=== PATIENT | female | born 1965 | race Caucasian/White ===

== ENCOUNTER 2018-04-02 10:30 | Outpatient (RCR) | payer OTHER, MEDICAID, SELFPAY ==
--- NOTE | 2017-11-07 06:15 | PT.OIE ---
Current Diagnoses Other enthesopathies, not elsewhere classified (11/06/17) Provider Visit Care Team Role Provider Type DAYLIN Khanna Attending Provider Non-Staff Specialty: Family Practice Address: [address] [place] [address], [place], [address] Email: Physical Therapy Initial Evaluation PT-OP-A Visit Information Start: 11/07/17 05:52 Freq: Status: Active Protocol: Document 11/06/17 15:15 [facility] (Rec: 11/07/17 06:14 [facility] [email or web address]) Out-Patient Physical Therapy Visit Information Visit Information Visit Type Initial Evaluation Visit Start Time 15:15 Visit Stop Time 16:00 Total Visit Minutes 45 Visit Number 1 Evaluation Information Evaluation Date 11/06/17 PT-OP-B Current Condition Start: 11/07/17 05:52 Freq: Status: Active Protocol: Document 11/06/17 15:15 [facility] (Rec: 11/07/17 06:14 [facility] [email or web address]) Current Condition History of Current Condition Onset Date symptoms began several months ago and have progressed Current Complaints complaints of lateral elbow pain made worse with gripping activities History of Current Condition 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 Her symptoms were made worse with boating and kayaking and with gripping activities. She recently saw her doctor who instructed her in the correct placement of a elbow tendonitis strap and advised to wear a compression wrap on her arm. She reports this seems to be really working as in just the past few days she has gotten some relief. Treatment Goals Patient/Caregiver Goals Nisreen has a kayak trip scheduled for december and her goal is to reduce her pain allowing her to go on her trip Prior Functional Status Baseline Function- Recreation/Hobbies prior to this elbow injury she was able to perform all work related duties pain free PT-OP-C Subjective Start: 11/07/17 05:52 Freq: Status: Active Protocol: Document 11/06/17 15:15 [facility] (Rec: 11/07/17 06:14 [facility] [email or web address]) OP-PT Pain Assessment Pain Assessment Grid Paper Pain Assessment Grid Completed Yes: pain rated 6-9/10 Location Left Elbow Scale Used Numeric (1 - 10) Description Aching Tender Tightness With Movement Pain Duration pain increases with use PT-OP-F Manual Assessment Start: 11/07/17 05:52 Freq: Status: Active Protocol: Document 11/06/17 15:15 [facility] (Rec: 11/07/17 06:14 [facility] [email or web address]) Manual Assessments Soft Tissue Assessment Soft Tissue Mobility Assessment myofascial tightness of the wrist complex extensor musculature on the left forearm, tightness of the left upper trapezius, scalenes, and pectoralis Other Manual Assessments Other Manual Assessments + ULTT for median and radial nerve symptoms middle scalene stretch reproduces some symptoms in the left forearm PT-OP-J Posture/Palpation/Skin Start: 11/07/17 05:52 Freq: Status: Active Protocol: Document 11/06/17 15:15 [facility] (Rec: 11/07/17 06:14 [facility] [email or web address]) Palpation Assessment Location One Palpation Location left lateral epicondyle and soft tissue Palpation Findings Soft Tissue Tightness Muscle Guarding Tenderness PT-OP-M Strength Start: 11/07/17 06:14 Freq: Status: Active Protocol: Document 11/06/17 15:15 [facility] (Rec: 11/07/17 06:15 [facility] [email or web address]) Elbow/Forearm Strength Elbow and Forearm Manual Muscle Testing Left Extension (C7) 3+ Fair+ Supination 3+ Fair+ Comments pain with resistance PT-OP-Q Treatments Start: 11/07/17 05:52 Freq: Status: Active Protocol: Document 11/06/17 15:15 [facility] (Rec: 11/07/17 06:14 [facility] [email or web address]) Therapeutic Exercises Sitting Exercises 1 Sitting Exercise Name seated scalene stetch Side bilateral Standing Exercises 1 Standing Exercise Name standing pectoralis stretch Side bilateral Manual Therapy Treatment Soft Tissue Mobilization 2 Body Location left scalenes and upper trapezius Mobilization Type Myofascial Release Other Intensity/Depth Moderate Body Position Supine Comments manual stretch for the scalenes and pec musculature 1 Body Location STM, TFM to the left wrist extensor muscle complex Mobilization Type Cross-Friction Myofascial Release Intensity/Depth Moderate Body Position Supine PT-OP-R Modalities Start: 11/07/17 05:52 Freq: Status: Active Protocol: Document 11/06/17 15:15 [facility] (Rec: 11/07/17 06:14 [facility] [email or web address]) Hot Pack/Cold Pack Treatment Ice Massage Location left lateral common extensor tendon attachment at the lateral epicondyle Patient Position Supine Patient Tolerance Fair PT-OP-T Assessment and Plan Start: 11/07/17 05:52 Freq: Status: Active Protocol: Document 11/06/17 15:15 [facility] (Rec: 11/07/17 06:14 [facility] [email or web address]) Physical Therapy Assessment Rehab Potential Rehabilitation Potential Excellent Evaluation Complexity Number of Personal Factors/Comorbidities 0 Number of Body Systems Impaired 1-2 Clinical Presentation at Evaluation Stable Impairments Impairments Activity Tolerance Pain Soft Tissue Mobility Strength Goals Three Impairment + ULTT for median and radial nerve Attraction Attendant Goal (LTG) decrease nerve sensitivity with nerve glides and stretches for the neck and pectoralis to help with reducing symptoms to the elbow LTG Duration 8 weeks Two Impairment soft tissue tightness of the extensor tendon attachment Short Term Goal (STG) improve mobility of the extensor tendon attachments to decrease strain on the lateral epicondyle 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 She does note that with the elbow wrap she is using that she has had some reduction in pain. 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 Her chief complaint is with gripping activities. Her soft tissue in the neck and pectoralis are also tight and I was able to reproduce symptoms in her forearm with cervical spine stretching and with ULTT. She is a good candidate for PT with emphasis on neck, chest, and forearm stretches as well as manual therapy techniques to help reduce tendonitis symptoms. Physical Therapy Plan Frequency and Duration Frequency of Treatment 2x/Week Duration of Treatment 8 weeks Plan of Care Start Date 11/06/17 Plan of Care End Date 01/01/18 Therapeutic Interventions Therapeutic Interventions Home Exercise Program Manual Therapy Self-Care/Home Management Soft Tissue Mobilization Therapeutic Exercises Modalities Cold Pack/Ice Massage Iontophoresis
--- NOTE | 2017-11-11 17:01 | PT.OTN ---
Current Diagnoses Other enthesopathies, not elsewhere classified (11/11/17) Physical Therapy Treatment Note PT-OP-A Visit Information Start: 11/07/17 05:52 Freq: Status: Active Protocol: Document 11/11/17 16:52 [facility] (Rec: 11/11/17 17:01 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 Her symptoms were made worse with boating and kayaking and with gripping activities. She recently saw her doctor who instructed her in the correct placement of a elbow tendonitis strap and advised to wear a compression wrap on her arm. She reports this seems to be really working as in just the past few days she has gotten some relief. Treatment Goals Patient/Caregiver Goals Nisreen has a kayak trip scheduled for december and her goal is to reduce her pain allowing her to go on her trip Prior Functional Status Baseline Function- Recreation/Hobbies prior to this elbow injury she was able to perform all work related duties pain free PT-OP-C Subjective Start: 11/07/17 05:52 Freq: Status: Active Protocol: Document 11/11/17 16:52 [facility] (Rec: 11/11/17 17:01 [facility] [email or web address]) OP-PT Subjective Patient Comments Patient Comments Pt reports she is more sore since last session, which she thinks is d/t her not being able to rest & her job. PT-OP-F Manual Assessment Start: 11/07/17 05:52 Freq: Status: Active Protocol: Document 11/06/17 15:15 [facility] (Rec: 11/07/17 06:14 [facility] [email or web address]) Manual Assessments Soft Tissue Assessment Soft Tissue Mobility Assessment myofascial tightness of the wrist complex extensor musculature on the left forearm, tightness of the left upper trapezius, scalenes, and pectoralis Other Manual Assessments Other Manual Assessments + ULTT for median and radial nerve symptoms middle scalene stretch reproduces some symptoms in the left forearm PT-OP-J Posture/Palpation/Skin Start: 11/07/17 05:52 Freq: Status: Active Protocol: Document 11/06/17 15:15 [facility] (Rec: 11/07/17 06:14 [facility] [email or web address]) Palpation Assessment Location One Palpation Location left lateral epicondyle and soft tissue Palpation Findings Soft Tissue Tightness Muscle Guarding Tenderness PT-OP-M Strength Start: 11/07/17 06:14 Freq: Status: Active Protocol: Document 11/06/17 15:15 [facility] (Rec: 11/07/17 06:15 [facility] [email or web address]) Elbow/Forearm Strength Elbow and Forearm Manual Muscle Testing Left Extension (C7) 3+ Fair+ Supination 3+ Fair+ Comments pain with resistance PT-OP-Q Treatments Start: 11/07/17 05:52 Freq: Status: Active Protocol: Document 11/11/17 16:52 [facility] (Rec: 11/11/17 17:01 [facility] [email or web address]) Therapeutic Exercises Supine Exercises 1 Supine Exercise Name foam roll: Habd, flex & abd Sitting Exercises 2 Sitting Exercise Name self 1st rib mob caudal Standing Exercises 1 Standing Exercise Name standing pectoralis stretch Side bilateral Therapeutic Activity Therapeutic Activity 2 Name edu on posture during pulling in lines 1 Name Edu on seated posture Comments proper seated posture & desk set up Manual Therapy Treatment Soft Tissue Mobilization 2 Body Location left scalenes and upper trapezius Mobilization Type Rolling Intensity/Depth Moderate Body Position Supine Joint Mobilizations 1 Joint 1st rib L Direction caudal PT-OP-R Modalities Start: 11/07/17 05:52 Freq: Status: Active Protocol: Document 11/11/17 16:52 [facility] (Rec: 11/11/17 17:01 [facility] [email or web address]) Hot Pack/Cold Pack Treatment Cold Pack Location L scalene/shoulder Patient Position Sitting Treatment Duration (minutes) 10 Ice Massage Location left lateral common extensor tendon attachment at the lateral epicondyle Patient Position Supine Patient Tolerance Fair PT-OP-T Assessment and Plan Start: 11/07/17 05:52 Freq: Status: Active Protocol: Document 11/11/17 16:52 [facility] (Rec: 11/11/17 17:01 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 Pt felt radiation to L elbow in painful spot with STM to gavin. Physical Therapy Plan Frequency and Duration Frequency of Treatment 2x/Week Duration of Treatment 8 weeks Plan of Care Start Date 11/06/17 Plan of Care End Date 01/01/18 Next Visit Focus/Plan Next Note Type Treatment Note Next Visit Plan Rows & work on scalenes STM & forearm mobility.
--- NOTE | 2017-11-18 11:32 | PT.OTN ---
Current Diagnoses Other enthesopathies, not elsewhere classified (11/18/17) Physical Therapy Treatment Note PT-OP-A Visit Information Start: 11/07/17 05:52 Freq: Status: Active Protocol: Document 11/18/17 09:00 [facility] (Rec: 11/18/17 11:32 [facility] [email or web address]) Out-Patient Physical Therapy Visit Information Visit Information Visit Type Treatment Note Visit Start Time 09:00 Visit Stop Time 09:50 Total Visit Minutes 50 Visit Number 3 Number of METAL HARDENER Visits 1 Evaluation Information Evaluation Date 11/06/17 PT-OP-B Current Condition Start: 11/07/17 05:52 Freq: Status: Active Protocol: Document 11/06/17 15:15 [facility] (Rec: 11/07/17 06:14 [facility] [email or web address]) Current Condition History of Current Condition Onset Date symptoms began several months ago and have progressed Current Complaints complaints of lateral elbow pain made worse with gripping activities History of Current Condition 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 Her symptoms were made worse with boating and kayaking and with gripping activities. She recently saw her doctor who instructed her in the correct placement of a elbow tendonitis strap and advised to wear a compression wrap on her arm. She reports this seems to be really working as in just the past few days she has gotten some relief. Treatment Goals Patient/Caregiver Goals Nisreen has a kayak trip scheduled for december and her goal is to reduce her pain allowing her to go on her trip Prior Functional Status Baseline Function- Recreation/Hobbies prior to this elbow injury she was able to perform all work related duties pain free PT-OP-C Subjective Start: 11/07/17 05:52 Freq: Status: Active Protocol: Document 11/18/17 09:00 [facility] (Rec: 11/18/17 11:32 [facility] [email or web address]) OP-PT Subjective Patient Comments Patient Comments Pt states that she had increase in work and is sore today. PT-OP-F Manual Assessment Start: 11/07/17 05:52 Freq: Status: Active Protocol: Document 11/06/17 15:15 [facility] (Rec: 11/07/17 06:14 [facility] [email or web address]) Manual Assessments Soft Tissue Assessment Soft Tissue Mobility Assessment myofascial tightness of the wrist complex extensor musculature on the left forearm, tightness of the left upper trapezius, scalenes, and pectoralis Other Manual Assessments Other Manual Assessments + ULTT for median and radial nerve symptoms middle scalene stretch reproduces some symptoms in the left forearm PT-OP-J Posture/Palpation/Skin Start: 11/07/17 05:52 Freq: Status: Active Protocol: Document 11/06/17 15:15 [facility] (Rec: 11/07/17 06:14 [facility] [email or web address]) Palpation Assessment Location One Palpation Location left lateral epicondyle and soft tissue Palpation Findings Soft Tissue Tightness Muscle Guarding Tenderness PT-OP-M Strength Start: 11/07/17 06:14 Freq: Status: Active Protocol: Document 11/06/17 15:15 [facility] (Rec: 11/07/17 06:15 [facility] [email or web address]) Elbow/Forearm Strength Elbow and Forearm Manual Muscle Testing Left Extension (C7) 3+ Fair+ Supination 3+ Fair+ Comments pain with resistance PT-OP-Q Treatments Start: 11/07/17 05:52 Freq: Status: Active Protocol: Document 11/18/17 09:00 [facility] (Rec: 11/18/17 11:32 [facility] [email or web address]) Therapeutic Exercises Supine Exercises 1 Supine Exercise Name foam roll: Habd, flex & abd Sitting Exercises 1 Sitting Exercise Name seated scalene stetch Side bilateral Standing Exercises 2 Standing Exercise Name rows Side bilateral Resistance Level 3 Equipment Used thara band Reps/Minutes 20 Manual Therapy Treatment Soft Tissue Mobilization 2 Body Location left scalenes and upper trapezius Mobilization Type Rolling Intensity/Depth Moderate Body Position Supine Joint Mobilizations 1 Joint 1st rib L Direction caudal PT-OP-R Modalities Start: 11/07/17 05:52 Freq: Status: Active Protocol: Document 11/18/17 09:00 [facility] (Rec: 11/18/17 11:32 [facility] [email or web address]) Hot Pack/Cold Pack Treatment Cold Pack Location L scalene/shoulder Patient Position Sitting Treatment Duration (minutes) 10 Ice Massage Location left lateral common extensor tendon attachment at the lateral epicondyle Patient Position Supine Patient Tolerance Fair PT-OP-T Assessment and Plan Start: 11/07/17 05:52 Freq: Status: Active Protocol: Document 11/18/17 09:00 [facility] (Rec: 11/18/17 11:32 [facility] [email or web address]) Physical Therapy Assessment Assessment Summary Assessment Pt need cues for HEP and self care after working. She improving with flexibility. Physical Therapy Plan Frequency and Duration Frequency of Treatment 2x/Week Duration of Treatment 8 weeks Plan of Care Start Date 11/06/17 Plan of Care End Date 01/01/18 Next Visit Focus/Plan Next Note Type Treatment Note Next Visit Plan Thera band strengthening & work on scalenes STM & forearm mobility.
--- NOTE | 2017-11-24 16:20 | PT.OTN ---
Current Diagnoses Other enthesopathies, not elsewhere classified (11/24/17) Physical Therapy Treatment Note PT-OP-A Visit Information Start: 11/07/17 05:52 Freq: Status: Active Protocol: Document 11/24/17 13:45 [facility] (Rec: 11/24/17 16:19 [facility] [email or web address]) Out-Patient Physical Therapy Visit Information Visit Information Visit Type Treatment Note Visit Start Time 13:45 Visit Stop Time 14:40 Total Visit Minutes 55 Visit Number 4 Number of STACK SUPERVISOR Visits 0 Evaluation Information Evaluation Date 11/06/17 PT-OP-B Current Condition Start: 11/07/17 05:52 Freq: Status: Active Protocol: Document 11/06/17 15:15 [facility] (Rec: 11/07/17 06:14 [facility] [email or web address]) Current Condition History of Current Condition Onset Date symptoms began several months ago and have progressed Current Complaints complaints of lateral elbow pain made worse with gripping activities History of Current Condition 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 Her symptoms were made worse with boating and kayaking and with gripping activities. She recently saw her doctor who instructed her in the correct placement of a elbow tendonitis strap and advised to wear a compression wrap on her arm. She reports this seems to be really working as in just the past few days she has gotten some relief. Treatment Goals Patient/Caregiver Goals Nisreen has a kayak trip scheduled for december and her goal is to reduce her pain allowing her to go on her trip Prior Functional Status Baseline Function- Recreation/Hobbies prior to this elbow injury she was able to perform all work related duties pain free PT-OP-C Subjective Start: 11/07/17 05:52 Freq: Status: Active Protocol: Document 11/24/17 13:45 [facility] (Rec: 11/24/17 16:19 [facility] [email or web address]) OP-PT Subjective Patient Comments Patient Comments Pt feels that overall she is feeling better, she has been trying to keep off her left shoulder while sleeping and between that and PT she thinks she is improving. 0/10 pain at rest, 2-3/10 pain with brief gripping activities. PT-OP-F Manual Assessment Start: 11/07/17 05:52 Freq: Status: Active Protocol: Document 11/06/17 15:15 [facility] (Rec: 11/07/17 06:14 [facility] [email or web address]) Manual Assessments Soft Tissue Assessment Soft Tissue Mobility Assessment myofascial tightness of the wrist complex extensor musculature on the left forearm, tightness of the left upper trapezius, scalenes, and pectoralis Other Manual Assessments Other Manual Assessments + ULTT for median and radial nerve symptoms middle scalene stretch reproduces some symptoms in the left forearm PT-OP-J Posture/Palpation/Skin Start: 11/07/17 05:52 Freq: Status: Active Protocol: Document 11/06/17 15:15 [facility] (Rec: 11/07/17 06:14 [facility] [email or web address]) Palpation Assessment Location One Palpation Location left lateral epicondyle and soft tissue Palpation Findings Soft Tissue Tightness Muscle Guarding Tenderness PT-OP-M Strength Start: 11/07/17 06:14 Freq: Status: Active Protocol: Document 11/06/17 15:15 [facility] (Rec: 11/07/17 06:15 [facility] [email or web address]) Elbow/Forearm Strength Elbow and Forearm Manual Muscle Testing Left Extension (C7) 3+ Fair+ Supination 3+ Fair+ Comments pain with resistance PT-OP-Q Treatments Start: 11/07/17 05:52 Freq: Status: Active Protocol: Document 11/24/17 13:45 [facility] (Rec: 11/24/17 16:19 [facility]B [email or web address]) Therapeutic Exercises Sitting Exercises 1 Sitting Exercise Name seated scalene stetch Side bilateral Standing Exercises 1 Standing Exercise Name standing pectoralis stretch Side bilateral Therapeutic Activity Therapeutic Activity 2 Name Sleeping posture education Reps/Minutes 5 Comments pillow props Manual Therapy Treatment Soft Tissue Mobilization 2 Body Location left scalenes and upper trapezius Mobilization Type Rolling Intensity/Depth Moderate Body Position Supine Joint Mobilizations 1 Joint 1st rib L Direction caudal Comments pt reports increased pressure PT-OP-R Modalities Start: 11/07/17 05:52 Freq: Status: Active Protocol: Document 11/24/17 13:45 [facility] (Rec: 11/24/17 16:19 [facility]B [email or web address]) Hot Pack/Cold Pack Treatment Cold Pack Location L scalene/shoulder Patient Position Supine Treatment Duration (minutes) 10 Ice Massage Location left lateral common extensor tendon attachment at the lateral epicondyle Patient Position Supine Patient Tolerance Fair PT-OP-T Assessment and Plan Start: 11/07/17 05:52 Freq: Status: Active Protocol: Document 11/24/17 13:45 [facility] (Rec: 11/24/17 16:19 [facility]B [email or web address]) Physical Therapy Assessment Goals Three Impairment + ULTT for median and radial nerve Banker Mason Goal (LTG) decrease nerve sensitivity with nerve glides and stretches for the neck and pectoralis to help with reducing symptoms to the elbow LTG Duration 8 weeks Two Impairment soft tissue tightness of the extensor tendon attachment Short Term Goal (STG) improve mobility of the extensor tendon attachments to decrease strain on the lateral epicondyle 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 No significant pain with gentle forearm exercises. But manual therapy to gavin continues to reproduce pain. Continue to reinforce posture. Physical Therapy Plan Frequency and Duration Frequency of Treatment 2x/Week Duration of Treatment 8 weeks Plan of Care Start Date 11/06/17 Plan of Care End Date 01/01/18 Next Visit Focus/Plan Next Note Type Treatment Note Next Visit Plan Review 1st rib mob for HEP, progress theraband strengthening as tolerated
--- NOTE | 2017-12-05 15:23 | PT.OTN ---
Current Diagnoses Other enthesopathies, not elsewhere classified (12/05/17) Physical Therapy Treatment Note PT-OP-A Visit Information Start: 11/07/17 05:52 Freq: Status: Active Protocol: Document 12/05/17 14:50 [facility] (Rec: 12/05/17 15:22 [facility] [email or web address]) Out-Patient Physical Therapy Visit Information Visit Information Visit Type Treatment Note Visit Start Time 09:45 Visit Stop Time 10:40 Total Visit Minutes 55 Visit Number 5 Number of EXPORT TRAFFIC DEPARTMENT MANAGER Visits 0 PT-OP-B Current Condition Start: 11/07/17 05:52 Freq: Status: Active Protocol: Document 11/06/17 15:15 [facility] (Rec: 11/07/17 06:14 [facility] [email or web address]) Current Condition History of Current Condition Onset Date symptoms began several months ago and have progressed Current Complaints complaints of lateral elbow pain made worse with gripping activities History of Current Condition 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 Her symptoms were made worse with boating and kayaking and with gripping activities. She recently saw her doctor who instructed her in the correct placement of a elbow tendonitis strap and advised to wear a compression wrap on her arm. She reports this seems to be really working as in just the past few days she has gotten some relief. Treatment Goals Patient/Caregiver Goals Nisreen has a kayak trip scheduled for december and her goal is to reduce her pain allowing her to go on her trip Prior Functional Status Baseline Function- Recreation/Hobbies prior to this elbow injury she was able to perform all work related duties pain free PT-OP-C Subjective Start: 11/07/17 05:52 Freq: Status: Active Protocol: Document 12/05/17 14:50 [facility] (Rec: 12/05/17 15:22 [facility] [email or web address]) OP-PT Subjective Patient Comments Patient Comments Pt reports she has good and bad days. Today gripping has been painful. She is leaving tomorrow for her kayak trip for 8 days. PT-OP-F Manual Assessment Start: 11/07/17 05:52 Freq: Status: Active Protocol: Document 11/06/17 15:15 [facility] (Rec: 11/07/17 06:14 [facility] [email or web address]) Manual Assessments Soft Tissue Assessment Soft Tissue Mobility Assessment myofascial tightness of the wrist complex extensor musculature on the left forearm, tightness of the left upper trapezius, scalenes, and pectoralis Other Manual Assessments Other Manual Assessments + ULTT for median and radial nerve symptoms middle scalene stretch reproduces some symptoms in the left forearm PT-OP-J Posture/Palpation/Skin Start: 11/07/17 05:52 Freq: Status: Active Protocol: Document 11/06/17 15:15 [facility] (Rec: 11/07/17 06:14 [facility] [email or web address]) Palpation Assessment Location One Palpation Location left lateral epicondyle and soft tissue Palpation Findings Soft Tissue Tightness Muscle Guarding Tenderness PT-OP-M Strength Start: 11/07/17 06:14 Freq: Status: Active Protocol: Document 11/06/17 15:15 [facility] (Rec: 11/07/17 06:15 [facility] [email or web address]) Elbow/Forearm Strength Elbow and Forearm Manual Muscle Testing Left Extension (C7) 3+ Fair+ Supination 3+ Fair+ Comments pain with resistance PT-OP-Q Treatments Start: 11/07/17 05:52 Freq: Status: Active Protocol: Document 12/05/17 14:50 [facility] (Rec: 12/05/17 15:22 [facility] [email or web address]) Therapeutic Exercises Sitting Exercises 3 Sitting Exercise Name wrist extensor & flexor stretches 2 Sitting Exercise Name self 1st rib mob caudal 1 Sitting Exercise Name seated scalene stetch Side bilateral Therapeutic Activity Therapeutic Activity 3 Name review of HEP Reps/Minutes 6 2 Name Sleeping posture education Reps/Minutes 7 Comments pillow props 1 Name kayak posture Reps/Minutes 7 Manual Therapy Treatment Soft Tissue Mobilization 2 Body Location left scalenes and upper trapezius Mobilization Type Rolling Intensity/Depth Moderate Body Position Supine 1 Body Location STM, TFM to the left wrist extensor muscle complex Mobilization Type Cross-Friction Myofascial Release Intensity/Depth Moderate Body Position Supine Joint Mobilizations 2 Joint radioulnar Direction AP 1 Joint 1st rib L Direction caudal PT-OP-R Modalities Start: 11/07/17 05:52 Freq: Status: Active Protocol: Document 12/05/17 14:50 [facility] (Rec: 12/05/17 15:23 [facility] [email or web address]) Hot Pack/Cold Pack Treatment Cold Pack Location L scalene/shoulder & elbow Patient Position Supine Treatment Duration (minutes) 10 PT-OP-T Assessment and Plan Start: 11/07/17 05:52 Freq: Status: Active Protocol: Document 12/05/17 14:50 [facility] (Rec: 12/05/17 15:22 [facility] [email or web address]) Physical Therapy Assessment Goals Three Impairment + ULTT for median and radial nerve Long-Term Goal (LTG) decrease nerve sensitivity with nerve glides and stretches for the neck and pectoralis to help with reducing symptoms to the elbow LTG Duration 8 weeks Two Impairment soft tissue tightness of the extensor tendon attachment Short Term Goal (STG) improve mobility of the extensor tendon attachments to decrease strain on the lateral epicondyle enabling Nisreen to reproduction machine loader and hold objects without pain STG Duration 6 weeks One Impairment lateral epicondyle pain limiting work related activities and gripping Long-Term Goal (LTG) Nisreen has been educated on self care for her elbow and manual treatments in the clinic help to reduce pain from 6-9/10 to 2-3/10 and she is able to resume all usual activities with her left forearm LTG Duration 8 weeks Assessment Summary Assessment 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 Pt understopod importance of posture & her stretches Physical Therapy Plan Frequency and Duration Frequency of Treatment 2x/Week Duration of Treatment 8 weeks Plan of Care Start Date 11/06/17 Plan of Care End Date 01/01/18 Next Visit Focus/Plan Next Note Type Treatment Note Next Visit Plan Review 1st rib mob for HEP, progress theraband strengthening as tolerated
--- NOTE | 2017-12-16 11:17 | PT.OTN ---
Current Diagnoses Other enthesopathies, not elsewhere classified (12/16/17) Physical Therapy Treatment Note PT-OP-A Visit Information Start: 11/07/17 05:52 Freq: Status: Active Protocol: Document 12/16/17 09:00 [facility] (Rec: 12/16/17 11:17 [facility] [email or web address]) Out-Patient Physical Therapy Visit Information Visit Information Visit Type Treatment Note Visit Start Time 09:00 Visit Stop Time 09:50 Total Visit Minutes 50 Visit Number 6 Number of FOOD SERVICE REPRESENTATIVE Visits 1 Evaluation Information Evaluation Date 11/06/17 PT-OP-B Current Condition Start: 11/07/17 05:52 Freq: Status: Active Protocol: Document 11/06/17 15:15 [facility] (Rec: 11/07/17 06:14 [facility] [email or web address]) Current Condition History of Current Condition Onset Date symptoms began several months ago and have progressed Current Complaints complaints of lateral elbow pain made worse with gripping activities History of Current Condition 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 Her symptoms were made worse with boating and kayaking and with gripping activities. She recently saw her doctor who instructed her in the correct placement of a elbow tendonitis strap and advised to wear a compression wrap on her arm. She reports this seems to be really working as in just the past few days she has gotten some relief. Treatment Goals Patient/Caregiver Goals Nisreen has a kayak trip scheduled for december and her goal is to reduce her pain allowing her to go on her trip Prior Functional Status Baseline Function- Recreation/Hobbies prior to this elbow injury she was able to perform all work related duties pain free PT-OP-C Subjective Start: 11/07/17 05:52 Freq: Status: Active Protocol: Document 12/16/17 09:00 [facility] (Rec: 12/16/17 11:17 [facility] [email or web address]) OP-PT Subjective Patient Comments Patient Comments Pt states that she had less pain with kayaking, but pain with gribbing and lifting. PT-OP-F Manual Assessment Start: 11/07/17 05:52 Freq: Status: Active Protocol: Document 11/06/17 15:15 [facility] (Rec: 11/07/17 06:14 [facility] [email or web address]) Manual Assessments Soft Tissue Assessment Soft Tissue Mobility Assessment myofascial tightness of the wrist complex extensor musculature on the left forearm, tightness of the left upper trapezius, scalenes, and pectoralis Other Manual Assessments Other Manual Assessments + ULTT for median and radial nerve symptoms middle scalene stretch reproduces some symptoms in the left forearm PT-OP-J Posture/Palpation/Skin Start: 11/07/17 05:52 Freq: Status: Active Protocol: Document 11/06/17 15:15 [facility] (Rec: 11/07/17 06:14 [facility] [email or web address]) Palpation Assessment Location One Palpation Location left lateral epicondyle and soft tissue Palpation Findings Soft Tissue Tightness Muscle Guarding Tenderness PT-OP-M Strength Start: 11/07/17 06:14 Freq: Status: Active Protocol: Document 11/06/17 15:15 [facility] (Rec: 11/07/17 06:15 [facility] [email or web address]) Elbow/Forearm Strength Elbow and Forearm Manual Muscle Testing Left Extension (C7) 3+ Fair+ Supination 3+ Fair+ Comments pain with resistance PT-OP-Q Treatments Start: 11/07/17 05:52 Freq: Status: Active Protocol: Document 12/16/17 09:00 [facility] (Rec: 12/16/17 11:17 [facility] [email or web address]) Therapeutic Exercises Sitting Exercises 4 Sitting Exercise Name eccentic wrist extension Side left Resistance 1# 3 Sitting Exercise Name wrist extensor & flexor stretches 2 Sitting Exercise Name self 1st rib mob caudal 1 Sitting Exercise Name seated scalene stetch Side bilateral Manual Therapy Treatment Soft Tissue Mobilization 2 Body Location left scalenes and upper trapezius Mobilization Type Rolling Intensity/Depth Moderate Body Position Supine 1 Body Location STM, TFM to the left wrist extensor muscle complex Mobilization Type Cross-Friction Myofascial Release Intensity/Depth Moderate Body Position Supine Joint Mobilizations 2 Joint radioulnar Direction AP 1 Joint 1st rib L Direction caudal PT-OP-R Modalities Start: 11/07/17 05:52 Freq: Status: Active Protocol: Document 12/16/17 09:00 [facility] (Rec: 12/16/17 11:17 [facility] [email or web address]) Hot Pack/Cold Pack Treatment Cold Pack Location L scalene/shoulder & elbow Patient Position Supine Treatment Duration (minutes) 10 PT-OP-T Assessment and Plan Start: 11/07/17 05:52 Freq: Status: Active Protocol: Document 12/16/17 09:00 [facility] (Rec: 12/16/17 11:17 [facility] [email or web address]) Physical Therapy Assessment Assessment Summary Assessment Pt had good tolerance to eccentric wrist extension. She still has tenderness to lateral extensor muscles. Physical Therapy Plan Frequency and Duration Frequency of Treatment 2x/Week Duration of Treatment 8 weeks Plan of Care Start Date 11/06/17 Plan of Care End Date 01/01/18 Next Visit Focus/Plan Next Note Type Treatment Note Next Visit Plan Review 1st rib mob for HEP, progress theraband strengthening as tolerated
--- NOTE | 2017-12-22 10:48 | PT.OTN ---
Current Diagnoses Other enthesopathies, not elsewhere classified (12/22/17) Physical Therapy Treatment Note PT-OP-A Visit Information Start: 11/07/17 05:52 Freq: Status: Active Protocol: Document 12/22/17 08:15 [facility] (Rec: 12/22/17 10:48 [facility] [id number]) Out-Patient Physical Therapy Visit Information Visit Information Visit Type Treatment Note Visit Start Time 08:15 Visit Stop Time 09:10 Total Visit Minutes 55 Visit Number 7 Number of PREVENTATIVE MAINTENANCE TECHNICIAN Visits 0 PT-OP-B Current Condition Start: 11/07/17 05:52 Freq: Status: Active Protocol: Document 11/06/17 15:15 [facility] (Rec: 11/07/17 06:14 [facility] [email or web address]) Current Condition History of Current Condition Onset Date symptoms began several months ago and have progressed Current Complaints complaints of lateral elbow pain made worse with gripping activities History of Current Condition 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 Her symptoms were made worse with boating and kayaking and with gripping activities. She recently saw her doctor who instructed her in the correct placement of a elbow tendonitis strap and advised to wear a compression wrap on her arm. She reports this seems to be really working as in just the past few days she has gotten some relief. Treatment Goals Patient/Caregiver Goals Nisreen has a kayak trip scheduled for december and her goal is to reduce her pain allowing her to go on her trip Prior Functional Status Baseline Function- Recreation/Hobbies prior to this elbow injury she was able to perform all work related duties pain free PT-OP-C Subjective Start: 11/07/17 05:52 Freq: Status: Active Protocol: Document 12/22/17 08:15 [facility] (Rec: 12/22/17 10:48 [facility] [id number]) OP-PT Subjective Patient Comments Patient Comments gripping and lifting continue to be painful. Receptive to trying iontophoresis and kinesiotape. PT-OP-F Manual Assessment Start: 11/07/17 05:52 Freq: Status: Active Protocol: Document 11/06/17 15:15 [facility] (Rec: 11/07/17 06:14 [facility] [email or web address]) Manual Assessments Soft Tissue Assessment Soft Tissue Mobility Assessment myofascial tightness of the wrist complex extensor musculature on the left forearm, tightness of the left upper trapezius, scalenes, and pectoralis Other Manual Assessments Other Manual Assessments + ULTT for median and radial nerve symptoms middle scalene stretch reproduces some symptoms in the left forearm PT-OP-J Posture/Palpation/Skin Start: 11/07/17 05:52 Freq: Status: Active Protocol: Document 11/06/17 15:15 [facility] (Rec: 11/07/17 06:14 [facility] [email or web address]) Palpation Assessment Location One Palpation Location left lateral epicondyle and soft tissue Palpation Findings Soft Tissue Tightness Muscle Guarding Tenderness PT-OP-M Strength Start: 11/07/17 06:14 Freq: Status: Active Protocol: Document 11/06/17 15:15 [facility] (Rec: 11/07/17 06:15 [facility] [email or web address]) Elbow/Forearm Strength Elbow and Forearm Manual Muscle Testing Left Extension (C7) 3+ Fair+ Supination 3+ Fair+ Comments pain with resistance PT-OP-Q Treatments Start: 11/07/17 05:52 Freq: Status: Active Protocol: Document 12/22/17 08:15 [facility] (Rec: 12/22/17 10:48 [facility] [id number]) Therapeutic Exercises Supine Exercises 2 Supine Exercise Name pec and lat stretches, thoracic extension Equipment Used 65 cm ball Sidelying Exercises 1 Sidelying Exercise Name reach and roll Sitting Exercises 5 Sitting Exercise Name kayak core ex Comments seated on 65 cm ball, feet on small ball; balance 4 Sitting Exercise Name eccentic wrist extension Side left Resistance 1# 3 Sitting Exercise Name wrist extensor & flexor stretches 1 Sitting Exercise Name seated scalene stetch Side bilateral Therapeutic Activity Therapeutic Activity 1 Name kayak posture Manual Therapy Treatment Soft Tissue Mobilization 2 Body Location left scalenes and upper trapezius Mobilization Type Rolling Intensity/Depth Moderate Body Position Supine 1 Body Location STM, TFM to the left wrist extensor muscle complex Mobilization Type Cross-Friction Myofascial Release Intensity/Depth Moderate Body Position Supine Joint Mobilizations 1 Joint 1st rib L Direction caudal Taping 1 Body Location forearm extensors for inhib and pain relief Type of Tape Kinesio Tape Comments Y strip PT-OP-R Modalities Start: 11/07/17 05:52 Freq: Status: Active Protocol: Document 12/22/17 08:15 [facility] (Rec: 12/22/17 10:48 [facility] [id number]) Hot Pack/Cold Pack Treatment Ice Massage Location left lateral common extensor tendon attachment at the lateral epicondyle Patient Position Supine Patient Tolerance Fair Iontophoresis Treatment Right Elbow Treatment Medication Dexamethasone (-) Medication Amount (mL) (ml) 1 Medication Dosage 4 mg/ml PT-OP-T Assessment and Plan Start: 11/07/17 05:52 Freq: Status: Active Protocol: Document 12/22/17 08:15 [facility] (Rec: 12/22/17 10:48 [facility] [id number]) Physical Therapy Assessment Goals Three Impairment + ULTT for median and radial nerve Consulting Services Manager Goal (LTG) decrease nerve sensitivity with nerve glides and stretches for the neck and pectoralis to help with reducing symptoms to the elbow LTG Duration 8 weeks Two Impairment soft tissue tightness of the extensor tendon attachment Short Term Goal (STG) improve mobility of the extensor tendon attachments to decrease strain on the lateral epicondyle enabling Nisreen to insole bottom filler and hold objects without pain STG Duration 6 weeks One Impairment lateral epicondyle pain limiting work related activities and gripping Usp Goal (LTG) Nisreen has been educated on self care for her elbow and manual treatments in the clinic help to reduce pain from 6-9/10 to 2-3/10 and she is able to resume all usual activities with her left forearm LTG Duration 8 weeks Assessment Summary Assessment Pt had good tolerance to eccentric wrist extension. She still has tenderness to lateral extensor muscles. Physical Therapy Plan Frequency and Duration Frequency of Treatment 2x/Week Duration of Treatment 8 weeks Plan of Care Start Date 11/06/17 Plan of Care End Date 01/01/18 Next Visit Focus/Plan Next Note Type Treatment Note Next Visit Plan Review 1st rib mob for HEP, progress theraband strengthening as tolerated
--- NOTE | 2017-12-30 08:33 | PT.OPPOC ---
Current Diagnoses Other enthesopathies, not elsewhere classified (01/05/18) Provider Visit Care Team Role Provider Type DAYLIN Khanna Attending Provider Non-Staff Specialty: Family Practice Address: [address] [place] [address], [place], [address] Email: Plan Of Care PT-OP-T Assessment and Plan Start: 11/07/17 05:52 Freq: Status: Active Protocol: Document 01/05/18 09:08 [facility] (Rec: 01/05/18 10:11 [facility] [id number]) Physical Therapy Assessment Goals Three Impairment + ULTT for median and radial nerve Community Outreach Worker Goal (LTG) decrease nerve sensitivity with nerve glides and stretches for the neck and pectoralis to help with reducing symptoms to the elbow LTG Duration 8 weeks Two Impairment soft tissue tightness of the extensor tendon attachment Short Term Goal (STG) improve mobility of the extensor tendon attachments to decrease strain on the lateral epicondyle enabling 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 Pt appears to have significant restriction along that medial aspect, creating neural tension. Pt required cueing with all exercises to maintain neutral posture. Physical Therapy Plan Frequency and Duration Frequency of Treatment 2x/Week Duration of Treatment 8 weeks Plan of Care Start Date 12/30/17 Plan of Care End Date 03/01/18 Next Visit Focus/Plan Next Note Type Treatment Note Next Visit Plan cont to progress postural stability Plan of Care Dates Plan of Care Start Date 12/30/17 Plan of Care End Date 03/01/18 Please Sign and Return: I have reviewed this Plan of Care and certify that the skilled therapy services above are required to meet the patient?s needs. Physician Signature Date Printed Name and Credentials Clinical Instructor Signature Printed Name and Credentials
--- NOTE | 2017-12-30 16:17 | PT.OTN ---
Current Diagnoses Other enthesopathies, not elsewhere classified (12/30/17) Physical Therapy Treatment Note PT-OP-A Visit Information Start: 11/07/17 05:52 Freq: Status: Active Protocol: Document 12/30/17 16:02 [facility] (Rec: 12/31/17 16:16 [facility] [email or web address]) Out-Patient Physical Therapy Visit Information Visit Information Visit Type Treatment Note Visit Start Time 11:15 Visit Stop Time 12:10 Total Visit Minutes 55 Visit Number 8 Number of COOK TORTILLA Visits 0 PT-OP-B Current Condition Start: 11/07/17 05:52 Freq: Status: Active Protocol: Document 11/06/17 15:15 [facility] (Rec: 11/07/17 06:14 [facility] [email or web address]) Current Condition History of Current Condition Onset Date symptoms began several months ago and have progressed Current Complaints complaints of lateral elbow pain made worse with gripping activities History of Current Condition 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 Her symptoms were made worse with boating and kayaking and with gripping activities. She recently saw her doctor who instructed her in the correct placement of a elbow tendonitis strap and advised to wear a compression wrap on her arm. She reports this seems to be really working as in just the past few days she has gotten some relief. Treatment Goals Patient/Caregiver Goals Nisreen has a kayak trip scheduled for december and her goal is to reduce her pain allowing her to go on her trip Prior Functional Status Baseline Function- Recreation/Hobbies prior to this elbow injury she was able to perform all work related duties pain free PT-OP-C Subjective Start: 11/07/17 05:52 Freq: Status: Active Protocol: Document 12/30/17 16:02 [facility] (Rec: 12/31/17 16:16 [facility] [email or web address]) OP-PT Subjective Patient Comments Patient Comments Gripping cont to be painful. PT-OP-F Manual Assessment Start: 11/07/17 05:52 Freq: Status: Active Protocol: Document 11/06/17 15:15 [facility] (Rec: 11/07/17 06:14 [facility] [email or web address]) Manual Assessments Soft Tissue Assessment Soft Tissue Mobility Assessment myofascial tightness of the wrist complex extensor musculature on the left forearm, tightness of the left upper trapezius, scalenes, and pectoralis Other Manual Assessments Other Manual Assessments + ULTT for median and radial nerve symptoms middle scalene stretch reproduces some symptoms in the left forearm PT-OP-J Posture/Palpation/Skin Start: 11/07/17 05:52 Freq: Status: Active Protocol: Document 11/06/17 15:15 [facility] (Rec: 11/07/17 06:14 [facility] [email or web address]) Palpation Assessment Location One Palpation Location left lateral epicondyle and soft tissue Palpation Findings Soft Tissue Tightness Muscle Guarding Tenderness PT-OP-M Strength Start: 11/07/17 06:14 Freq: Status: Active Protocol: Document 11/06/17 15:15 [facility] (Rec: 11/07/17 06:15 [facility] [email or web address]) Elbow/Forearm Strength Elbow and Forearm Manual Muscle Testing Left Extension (C7) 3+ Fair+ Supination 3+ Fair+ Comments pain with resistance PT-OP-Q Treatments Start: 11/07/17 05:52 Freq: Status: Active Protocol: Document 12/30/17 16:02 [facility] (Rec: 12/31/17 16:16 [facility] [email or web address]) Therapeutic Exercises Sidelying Exercises 1 Sidelying Exercise Name reach and roll Sitting Exercises 3 Sitting Exercise Name wrist extensor & flexor stretches Other Exercises 1 Other Exercise Name TOS testing Comments mild pulse changes hyperabd testing Manual Therapy Treatment Soft Tissue Mobilization 1 Body Location STM, TFM to the left wrist extensor muscle complex Mobilization Type Cross-Friction Myofascial Release Intensity/Depth Moderate Body Position Supine Joint Mobilizations 3 Joint humeral ulnar Direction distraction 2 Joint radioulnar Direction AP PT-OP-R Modalities Start: 11/07/17 05:52 Freq: Status: Active Protocol: Document 12/30/17 16:02 [facility] (Rec: 12/31/17 16:17 [facility] [email or web address]) Hot Pack/Cold Pack Treatment Cold Pack Location L scalene/shoulder & elbow Patient Position Supine Treatment Duration (minutes) 10 PT-OP-T Assessment and Plan Start: 11/07/17 05:52 Freq: Status: Active Protocol: Document 12/30/17 16:02 [facility] (Rec: 12/31/17 16:16 [facility] [email or web address]) Physical Therapy Assessment Impairments Impairments Activity Tolerance Functional Activities Pain ROM Soft Tissue Mobility Strength Goals Three Impairment + ULTT for median and radial nerve Assisted Goal (LTG) decrease nerve sensitivity with nerve glides and stretches for the neck and pectoralis to help with reducing symptoms to the elbow LTG Duration 8 weeks Two Impairment soft tissue tightness of the extensor tendon attachment Short Term Goal (STG) improve mobility of the extensor tendon attachments to decrease strain on the lateral epicondyle enabling 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 Pt had min pain with hand at side and gripping & with arm in front in ER and supinated position with elbow extended and slightly more pain in IR position. Most pain with elbow flex and pronated < supinated position. Physical Therapy Plan Frequency and Duration Frequency of Treatment 2x/Week Duration of Treatment 8 weeks Plan of Care Start Date 11/06/17 Plan of Care End Date 01/01/18 Therapeutic Interventions Therapeutic Interventions Aquatic Therapy Home Exercise Program Joint Mobilizations Manual Therapy Self-Care/Home Management Soft Tissue Mobilization Taping Therapeutic Activities Therapeutic Exercises Modalities Cold Pack/Ice Massage Electric Stimulation Hot Packs Infrared Therapy Iontophoresis Ultrasound Next Visit Focus/Plan Next Note Type Treatment Note Next Visit Plan Review 1st rib mob for HEP, progress theraband strengthening as tolerated
--- NOTE | 2017-12-31 16:17 | PT.OPPOC ---
Current Diagnoses Other enthesopathies, not elsewhere classified (12/30/17) Provider Visit Care Team Role Provider Type DAYLIN Khanna Attending Provider Non-Staff Specialty: Family Practice Address: [address] [place] [address], [place], [address] Email: Plan Of Care PT-OP-T Assessment and Plan Start: 11/07/17 05:52 Freq: Status: Active Protocol: Document 12/30/17 16:02 [facility] (Rec: 12/31/17 16:16 [facility] [email or web address]) Physical Therapy Assessment Impairments Impairments Activity Tolerance Functional Activities Pain ROM Soft Tissue Mobility Strength Goals Three Impairment + ULTT for median and radial nerve Bench Lathe Operator Goal (LTG) decrease nerve sensitivity with nerve glides and stretches for the neck and pectoralis to help with reducing symptoms to the elbow LTG Duration 8 weeks Two Impairment soft tissue tightness of the extensor tendon attachment Short Term Goal (STG) improve mobility of the extensor tendon attachments to decrease strain on the lateral epicondyle 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 Pt had min pain with hand at side and gripping & with arm in front in ER and supinated position with elbow extended and slightly more pain in IR position. Most pain with elbow flex and pronated < supinated position. Physical Therapy Plan Frequency and Duration Frequency of Treatment 2x/Week Duration of Treatment 8 weeks Plan of Care Start Date 11/06/17 Plan of Care End Date 01/01/18 Therapeutic Interventions Therapeutic Interventions Aquatic Therapy Home Exercise Program Joint Mobilizations Manual Therapy Self-Care/Home Management Soft Tissue Mobilization Taping Therapeutic Activities Therapeutic Exercises Modalities Cold Pack/Ice Massage Electric Stimulation Hot Packs Infrared Therapy Iontophoresis Ultrasound Next Visit Focus/Plan Next Note Type Treatment Note Next Visit Plan Review 1st rib mob for HEP, progress theraband strengthening as tolerated Plan of Care Dates Plan of Care Start Date 11/06/17 Plan of Care End Date 01/01/18 Please Sign and Return: I have reviewed this Plan of Care and certify that the skilled therapy services above are required to meet the patient?s needs. Physician Signature Date Printed Name and Credentials Clinical Instructor Signature Printed Name and Credentials
--- NOTE | 2018-01-05 10:12 | PT.OTN ---
Current Diagnoses Other enthesopathies, not elsewhere classified (01/05/18) Physical Therapy Treatment Note PT-OP-A Visit Information Start: 11/07/17 05:52 Freq: Status: Active Protocol: Document 01/05/18 09:08 [facility] (Rec: 01/05/18 10:11 [facility] [id number]) Out-Patient Physical Therapy Visit Information Visit Information Visit Type Treatment Note Visit Start Time 09:00 Visit Stop Time 09:55 Total Visit Minutes 55 Visit Number 9 Number of STATION CHIEF Visits 0 PT-OP-B Current Condition Start: 11/07/17 05:52 Freq: Status: Active Protocol: Document 11/06/17 15:15 [facility] (Rec: 11/07/17 06:14 [facility] [email or web address]) Current Condition History of Current Condition Onset Date symptoms began several months ago and have progressed Current Complaints complaints of lateral elbow pain made worse with gripping activities History of Current Condition 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 Her symptoms were made worse with boating and kayaking and with gripping activities. She recently saw her doctor who instructed her in the correct placement of a elbow tendonitis strap and advised to wear a compression wrap on her arm. She reports this seems to be really working as in just the past few days she has gotten some relief. Treatment Goals Patient/Caregiver Goals Nisreen has a kayak trip scheduled for december and her goal is to reduce her pain allowing her to go on her trip Prior Functional Status Baseline Function- Recreation/Hobbies prior to this elbow injury she was able to perform all work related duties pain free PT-OP-C Subjective Start: 11/07/17 05:52 Freq: Status: Active Protocol: Document 01/05/18 09:08 [facility] (Rec: 01/05/18 10:11 [facility] [id number]) OP-PT Subjective Patient Comments Patient Comments Pt reports she has pain in upper back/lower neck today. 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 PT-OP-F Manual Assessment Start: 11/07/17 05:52 Freq: Status: Active Protocol: Document 11/06/17 15:15 [facility] (Rec: 11/07/17 06:14 [facility] [email or web address]) Manual Assessments Soft Tissue Assessment Soft Tissue Mobility Assessment myofascial tightness of the wrist complex extensor musculature on the left forearm, tightness of the left upper trapezius, scalenes, and pectoralis Other Manual Assessments Other Manual Assessments + ULTT for median and radial nerve symptoms middle scalene stretch reproduces some symptoms in the left forearm PT-OP-J Posture/Palpation/Skin Start: 11/07/17 05:52 Freq: Status: Active Protocol: Document 11/06/17 15:15 [facility] (Rec: 11/07/17 06:14 [facility] [email or web address]) Palpation Assessment Location One Palpation Location left lateral epicondyle and soft tissue Palpation Findings Soft Tissue Tightness Muscle Guarding Tenderness PT-OP-M Strength Start: 11/07/17 06:14 Freq: Status: Active Protocol: Document 11/06/17 15:15 [facility] (Rec: 11/07/17 06:15 [facility] [email or web address]) Elbow/Forearm Strength Elbow and Forearm Manual Muscle Testing Left Extension (C7) 3+ Fair+ Supination 3+ Fair+ Comments pain with resistance PT-OP-Q Treatments Start: 11/07/17 05:52 Freq: Status: Active Protocol: Document 01/05/18 09:08 [facility] (Rec: 01/05/18 10:11 [facility] [id number]) Therapeutic Exercises Supine Exercises 1 Supine Exercise Name foam roll: flex, abd, Habd Reps/Minutes 15 ea Sidelying Exercises 1 Sidelying Exercise Name reach and roll Standing Exercises 2 Standing Exercise Name wall roll up with 90./90 ER Manual Therapy Treatment Soft Tissue Mobilization 3 Body Location Medial biceps Mobilization Type Sustained Pressure Comments w/elbow flex/ext Self-Care/Home Management Treatment Education Other Education Review of HEP PT-OP-R Modalities Start: 11/07/17 05:52 Freq: Status: Active Protocol: Document 01/05/18 09:08 [facility] (Rec: 01/05/18 10:11 [facility] [id number]) Hot Pack/Cold Pack Treatment Cold Pack Location L scalene/shoulder & elbow Patient Position Supine Treatment Duration (minutes) 10 PT-OP-T Assessment and Plan Start: 11/07/17 05:52 Freq: Status: Active Protocol: Document 01/05/18 09:08 [facility] (Rec: 01/05/18 10:11 [facility] [id number]) Physical Therapy Assessment Goals Three Impairment + ULTT for median and radial nerve Wrist Hemmer Goal (LTG) decrease nerve sensitivity with nerve glides and stretches for the neck and pectoralis to help with reducing symptoms to the elbow LTG Duration 8 weeks Two Impairment soft tissue tightness of the extensor tendon attachment Short Term Goal (STG) improve mobility of the extensor tendon attachments to decrease strain on the lateral epicondyle 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 Pt appears to have significant restriction along that medial aspect, creating neural tension. Pt required cueing with all exercises to maintain neutral posture. Physical Therapy Plan Frequency and Duration Frequency of Treatment 2x/Week Duration of Treatment 8 weeks Plan of Care Start Date 11/06/17 Plan of Care End Date 01/01/18 Next Visit Focus/Plan Next Note Type Treatment Note Next Visit Plan cont to progress postural stability
--- NOTE | 2018-01-29 11:57 | PT.OTN ---
Current Diagnoses Other enthesopathies, not elsewhere classified (01/29/18) Physical Therapy Treatment Note PT-OP-A Visit Information Start: 11/07/17 05:52 Freq: Status: Active Protocol: Document 01/29/18 11:30 [facility] (Rec: 01/29/18 11:57 [facility] [email or web address]) Out-Patient Physical Therapy Visit Information Visit Information Visit Type Treatment Note Visit Start Time 09:00 Visit Stop Time 09:55 Total Visit Minutes 55 Visit Number 10 Number of GARDENING MANAGER Visits 0 PT-OP-B Current Condition Start: 11/07/17 05:52 Freq: Status: Active Protocol: Document 11/06/17 15:15 [facility] (Rec: 11/07/17 06:14 [facility] [email or web address]) Current Condition History of Current Condition Onset Date symptoms began several months ago and have progressed Current Complaints complaints of lateral elbow pain made worse with gripping activities History of Current Condition 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 Her symptoms were made worse with boating and kayaking and with gripping activities. She recently saw her doctor who instructed her in the correct placement of a elbow tendonitis strap and advised to wear a compression wrap on her arm. She reports this seems to be really working as in just the past few days she has gotten some relief. Treatment Goals Patient/Caregiver Goals Nisreen has a kayak trip scheduled for december and her goal is to reduce her pain allowing her to go on her trip Prior Functional Status Baseline Function- Recreation/Hobbies prior to this elbow injury she was able to perform all work related duties pain free PT-OP-C Subjective Start: 11/07/17 05:52 Freq: Status: Active Protocol: Document 01/29/18 11:30 [facility] (Rec: 01/29/18 11:57 [facility] [email or web address]) OP-PT Subjective Patient Comments Patient Comments Pt reports she noticed when she sleeps on her L shoulder she notices the pain is worse in her elbow that day. She is feeling like it is more neural the more she thinks about when it hurts. PT-OP-F Manual Assessment Start: 11/07/17 05:52 Freq: Status: Active Protocol: Document 11/06/17 15:15 [facility] (Rec: 11/07/17 06:14 [facility] [email or web address]) Manual Assessments Soft Tissue Assessment Soft Tissue Mobility Assessment myofascial tightness of the wrist complex extensor musculature on the left forearm, tightness of the left upper trapezius, scalenes, and pectoralis Other Manual Assessments Other Manual Assessments + ULTT for median and radial nerve symptoms middle scalene stretch reproduces some symptoms in the left forearm PT-OP-J Posture/Palpation/Skin Start: 11/07/17 05:52 Freq: Status: Active Protocol: Document 11/06/17 15:15 [facility] (Rec: 11/07/17 06:14 [facility] [email or web address]) Palpation Assessment Location One Palpation Location left lateral epicondyle and soft tissue Palpation Findings Soft Tissue Tightness Muscle Guarding Tenderness PT-OP-M Strength Start: 11/07/17 06:14 Freq: Status: Active Protocol: Document 11/06/17 15:15 [facility] (Rec: 11/07/17 06:15 [facility] [email or web address]) Elbow/Forearm Strength Elbow and Forearm Manual Muscle Testing Left Extension (C7) 3+ Fair+ Supination 3+ Fair+ Comments pain with resistance PT-OP-Q Treatments Start: 11/07/17 05:52 Freq: Status: Active Protocol: Document 01/29/18 11:30 [facility] (Rec: 01/29/18 11:57 [facility] [email or web address]) Therapeutic Exercises Sidelying Exercises 1 Sidelying Exercise Name reach and roll Manual Therapy Treatment Soft Tissue Mobilization cervical parapsinals Body Location along R spine Mobilization Type Rolling Sustained Pressure Comments w/neural gliding pec Body Location pec inf to coracoid Mobilization Type Rolling Comments w/neural gliding 2 Body Location left scalenes and upper trapezius Mobilization Type Rolling Intensity/Depth Moderate Body Position Supine Comments w/neural gliding Joint Mobilizations T3 Joint T3 Direction PA & R transverse Comments FM w/cover position PT-OP-R Modalities Start: 11/07/17 05:52 Freq: Status: Active Protocol: Document 01/29/18 11:30 [facility] (Rec: 01/29/18 11:57 [facility] [email or web address]) Hot Pack/Cold Pack Treatment Cold Pack Location L pec & L elbow Patient Position Supine Treatment Duration (minutes) 10 PT-OP-T Assessment and Plan Start: 11/07/17 05:52 Freq: Status: Active Protocol: Document 01/29/18 11:30 [facility] (Rec: 01/29/18 11:57 [facility] [email or web address]) Physical Therapy Assessment Goals Three Impairment + ULTT for median and radial nerve Stringed Instrument Assembler Goal (LTG) decrease nerve sensitivity with nerve glides and stretches for the neck and pectoralis to help with reducing symptoms to the elbow LTG Duration 8 weeks Two Impairment soft tissue tightness of the extensor tendon attachment Short Term Goal (STG) improve mobility of the extensor tendon attachments to decrease strain on the lateral epicondyle enabling 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 Pt has significant restriciton of ribcage & thoracic girdle which is likely creating some of this neural tension and pain into her elbow. With the radiation of pain with STM, roll and reach was able to dec pain and inc motion. Improved neural tension test (median) after STM and dec pain with upper thoracic mobs. Physical Therapy Plan Frequency and Duration Frequency of Treatment 2x/Week Duration of Treatment 8 weeks Plan of Care Start Date 12/30/17 Plan of Care End Date 03/01/18 Next Visit Focus/Plan Next Note Type Treatment Note Next Visit Plan Work on neural tension: coracobracialis, pecs, thoracic mobs
--- NOTE | 2018-02-03 16:29 | PT.OTN ---
Current Diagnoses Other enthesopathies, not elsewhere classified (01/29/18) Physical Therapy Treatment Note PT-OP-A Visit Information Start: 11/07/17 05:52 Freq: Status: Active Protocol: Document 02/03/18 11:21 ML (Rec: 02/03/18 11:29 ML [email or web address]) Out-Patient Physical Therapy Visit Information Visit Information Visit Type Treatment Note Visit Start Time 10:35 Visit Stop Time 11:30 Total Visit Minutes 55 Visit Number 11 Number of VET ASSISTANT Visits 0 PT-OP-B Current Condition Start: 11/07/17 05:52 Freq: Status: Active Protocol: Document 11/06/17 15:15 AMH (Rec: 11/07/17 06:14 AMH [email or web address]) Current Condition History of Current Condition Onset Date symptoms began several months ago and have progressed Current Complaints complaints of lateral elbow pain made worse with gripping activities History of Current Condition 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 Her symptoms were made worse with boating and kayaking and with gripping activities. She recently saw her doctor who instructed her in the correct placement of a elbow tendonitis strap and advised to wear a compression wrap on her arm. She reports this seems to be really working as in just the past few days she has gotten some relief. Treatment Goals Patient/Caregiver Goals Nisreen has a kayak trip scheduled for december and her goal is to reduce her pain allowing her to go on her trip Prior Functional Status Baseline Function- Recreation/Hobbies prior to this elbow injury she was able to perform all work related duties pain free PT-OP-C Subjective Start: 11/07/17 05:52 Freq: Status: Active Protocol: Document 02/03/18 11:21 ML (Rec: 02/03/18 11:29 ML [email or web address]) OP-PT Subjective Patient Comments Patient Comments Pt doesn't report with symptoms being much better or worse since the last visit, but mentions that she has been trying to work on her stretches and needs to remember to bring her foam roller into work. PT-OP-F Manual Assessment Start: 11/07/17 05:52 Freq: Status: Active Protocol: Document 11/06/17 15:15 AMH (Rec: 11/07/17 06:14 AMH [email or web address]) Manual Assessments Soft Tissue Assessment Soft Tissue Mobility Assessment myofascial tightness of the wrist complex extensor musculature on the left forearm, tightness of the left upper trapezius, scalenes, and pectoralis Other Manual Assessments Other Manual Assessments + ULTT for median and radial nerve symptoms middle scalene stretch reproduces some symptoms in the left forearm PT-OP-J Posture/Palpation/Skin Start: 11/07/17 05:52 Freq: Status: Active Protocol: Document 11/06/17 15:15 AMH (Rec: 11/07/17 06:14 AMH [email or web address]) Palpation Assessment Location One Palpation Location left lateral epicondyle and soft tissue Palpation Findings Soft Tissue Tightness Muscle Guarding Tenderness PT-OP-M Strength Start: 11/07/17 06:14 Freq: Status: Active Protocol: Document 11/06/17 15:15 AMH (Rec: 11/07/17 06:15 AMH [email or web address]) Elbow/Forearm Strength Elbow and Forearm Manual Muscle Testing Left Extension (C7) 3+ Fair+ Supination 3+ Fair+ Comments pain with resistance PT-OP-Q Treatments Start: 11/07/17 05:52 Freq: Status: Active Protocol: Document 02/03/18 11:21 ML (Rec: 02/03/18 11:29 ML [email or web address]) Therapeutic Exercises Supine Exercises 3 Supine Exercise Name ext over foam roll Comments upper thoracic region Sidelying Exercises 1 Sidelying Exercise Name reach and roll Manual Therapy Treatment Soft Tissue Mobilization 4 Body Location L pec and coracobrachialis Mobilization Type Myofascial Release Rolling Sustained Pressure Intensity/Depth Moderate Body Position Supine Comments assisted mobilization w/wrist ext/flex Joint Mobilizations 4 Joint caudal glide 3rd rib Comments supine in sternal region, side lying in axillary region, prone near spine w/some distraction T3 Joint T3 Direction PA & R transverse Comments FM w/cover position PT-OP-R Modalities Start: 11/07/17 05:52 Freq: Status: Active Protocol: Document 02/03/18 11:21 ML (Rec: 02/03/18 11:29 ML [email or web address]) Hot Pack/Cold Pack Treatment Cold Pack Location L pec & L elbow Patient Position Supine Treatment Duration (minutes) 10 PT-OP-T Assessment and Plan Start: 11/07/17 05:52 Freq: Status: Active Protocol: Document 02/03/18 11:21 ML (Rec: 02/03/18 11:29 ML [email or web address]) Physical Therapy Assessment Goals Three Impairment + ULTT for median and radial nerve Long-Term Goal (LTG) decrease nerve sensitivity with nerve glides and stretches for the neck and pectoralis to help with reducing symptoms to the elbow LTG Duration 8 weeks Two Impairment soft tissue tightness of the extensor tendon attachment Short Term Goal (STG) improve mobility of the extensor tendon attachments to decrease strain on the lateral epicondyle 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 Pt continues to present with hypomobility of her 3rd rib that has improved with mobilization, although could continue to be mobilized as needed. Physical Therapy Plan Frequency and Duration Frequency of Treatment 2x/Week Duration of Treatment 8 weeks Plan of Care Start Date 12/30/17 Plan of Care End Date 03/01/18 Next Visit Focus/Plan Next Note Type Treatment Note Next Visit Plan Work on neural tension: coracobracialis, pecs, thoracic mobs
--- NOTE | 2018-02-09 18:11 | PT.OTN ---
Current Diagnoses Other enthesopathies, not elsewhere classified (02/09/18) Physical Therapy Treatment Note PT-OP-A Visit Information Start: 11/07/17 05:52 Freq: Status: Active Protocol: Document 02/09/18 12:16 ML (Rec: 02/09/18 12:23 ML [email or web address]) Out-Patient Physical Therapy Visit Information Visit Information Visit Type Treatment Note Visit Note 24 visits/year Visit Start Time 09:05 Visit Stop Time 09:55 Total Visit Minutes 50 Visit Number 12 PT-OP-B Current Condition Start: 11/07/17 05:52 Freq: Status: Active Protocol: Document 11/06/17 15:15 AMH (Rec: 11/07/17 06:14 AMH [email or web address]) Current Condition History of Current Condition Onset Date symptoms began several months ago and have progressed Current Complaints complaints of lateral elbow pain made worse with gripping activities History of Current Condition 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 Her symptoms were made worse with boating and kayaking and with gripping activities. She recently saw her doctor who instructed her in the correct placement of a elbow tendonitis strap and advised to wear a compression wrap on her arm. She reports this seems to be really working as in just the past few days she has gotten some relief. Treatment Goals Patient/Caregiver Goals Nisreen has a kayak trip scheduled for december and her goal is to reduce her pain allowing her to go on her trip Prior Functional Status Baseline Function- Recreation/Hobbies prior to this elbow injury she was able to perform all work related duties pain free PT-OP-C Subjective Start: 11/07/17 05:52 Freq: Status: Active Protocol: Document 02/09/18 12:16 ML (Rec: 02/09/18 12:23 ML [email or web address]) OP-PT Subjective Patient Comments Patient Comments Pt reports having really good days with minimal symptoms the last few days. She did yoga after her last treatment and her nerves felt more tight that day, but later improved. PT-OP-F Manual Assessment Start: 11/07/17 05:52 Freq: Status: Active Protocol: Document 11/06/17 15:15 AMH (Rec: 11/07/17 06:14 AMH [email or web address]) Manual Assessments Soft Tissue Assessment Soft Tissue Mobility Assessment myofascial tightness of the wrist complex extensor musculature on the left forearm, tightness of the left upper trapezius, scalenes, and pectoralis Other Manual Assessments Other Manual Assessments + ULTT for median and radial nerve symptoms middle scalene stretch reproduces some symptoms in the left forearm PT-OP-J Posture/Palpation/Skin Start: 11/07/17 05:52 Freq: Status: Active Protocol: Document 11/06/17 15:15 AMH (Rec: 11/07/17 06:14 AMH [email or web address]) Palpation Assessment Location One Palpation Location left lateral epicondyle and soft tissue Palpation Findings Soft Tissue Tightness Muscle Guarding Tenderness PT-OP-M Strength Start: 11/07/17 06:14 Freq: Status: Active Protocol: Document 11/06/17 15:15 AMH (Rec: 11/07/17 06:15 AMH [email or web address]) Elbow/Forearm Strength Elbow and Forearm Manual Muscle Testing Left Extension (C7) 3+ Fair+ Supination 3+ Fair+ Comments pain with resistance PT-OP-Q Treatments Start: 11/07/17 05:52 Freq: Status: Active Protocol: Document 02/09/18 12:16 ML (Rec: 02/09/18 12:23 ML [email or web address]) Therapeutic Exercises Sidelying Exercises 1 Sidelying Exercise Name reach and roll Manual Therapy Treatment Soft Tissue Mobilization 5 Body Location L pec and scapula region fascial mobilization Mobilization Type Sustained Pressure Other Intensity/Depth Superficial Comments w/deep breathing 4 Body Location L pec and coracobrachialis Mobilization Type Myofascial Release Rolling Sustained Pressure Intensity/Depth Moderate Body Position Supine Comments assisted mobilization w/wrist ext/flex Joint Mobilizations T3 Joint T3 Direction PA Comments prone and quadruped 3 Joint T4-6 Direction PA Comments prone, quadruped,and propped on elbows w/wt shifting L and R in quadruped PT-OP-R Modalities Start: 11/07/17 05:52 Freq: Status: Active Protocol: Document 02/09/18 12:16 ML (Rec: 02/09/18 12:23 ML [email or web address]) Hot Pack/Cold Pack Treatment Cold Pack Location L pec/scapula & L elbow Patient Position Supine Treatment Duration (minutes) 10 PT-OP-T Assessment and Plan Start: 11/07/17 05:52 Freq: Status: Active Protocol: Document 02/09/18 12:16 ML (Rec: 02/09/18 12:23 ML [email or web address]) Physical Therapy Assessment Goals Three Impairment + ULTT for median and radial nerve Furniture Mover Goal (LTG) decrease nerve sensitivity with nerve glides and stretches for the neck and pectoralis to help with reducing symptoms to the elbow LTG Duration 8 weeks Two Impairment soft tissue tightness of the extensor tendon attachment Short Term Goal (STG) improve mobility of the extensor tendon attachments to decrease strain on the lateral epicondyle 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 Pt's muscular tightness was less than previous visits, but had significant fascial tightness that was treated with mobilizations. Physical Therapy Plan Frequency and Duration Frequency of Treatment 2x/Week Duration of Treatment 8 weeks Plan of Care Start Date 12/30/17 Plan of Care End Date 03/01/18 Next Visit Focus/Plan Next Note Type Treatment Note Next Visit Plan Work on neural tension: rib, scapula, thoracic mobs
--- NOTE | 2018-02-23 15:52 | PT.OTN ---
Current Diagnoses Other enthesopathies, not elsewhere classified (02/23/18) Physical Therapy Treatment Note PT-OP-A Visit Information Start: 11/07/17 05:52 Freq: Status: Active Protocol: Document 02/23/18 09:51 ML (Rec: 02/23/18 10:31 ML [email or web address]) Out-Patient Physical Therapy Visit Information Visit Information Visit Type Progress Note Visit Note 24 visits/year Visit Start Time 09:48 Visit Stop Time 10:42 Total Visit Minutes 54 Visit Number 13 PT-OP-B Current Condition Start: 11/07/17 05:52 Freq: Status: Active Protocol: Document 11/06/17 15:15 AMH (Rec: 11/07/17 06:14 AMH [email or web address]) Current Condition History of Current Condition Onset Date symptoms began several months ago and have progressed Current Complaints complaints of lateral elbow pain made worse with gripping activities History of Current Condition 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 Her symptoms were made worse with boating and kayaking and with gripping activities. She recently saw her doctor who instructed her in the correct placement of a elbow tendonitis strap and advised to wear a compression wrap on her arm. She reports this seems to be really working as in just the past few days she has gotten some relief. Treatment Goals Patient/Caregiver Goals Nisreen has a kayak trip scheduled for december and her goal is to reduce her pain allowing her to go on her trip Prior Functional Status Baseline Function- Recreation/Hobbies prior to this elbow injury she was able to perform all work related duties pain free PT-OP-C Subjective Start: 11/07/17 05:52 Freq: Status: Active Protocol: Document 02/23/18 09:51 ML (Rec: 02/23/18 10:31 ML [id number]) OP-PT Subjective Patient Comments Patient Comments Pt notes she still can't sleep on her L side and would like to because she can't sleep on her back and wants to be able to sleep in a position other than her R. PT-OP-F Manual Assessment Start: 11/07/17 05:52 Freq: Status: Active Protocol: Document 11/06/17 15:15 AMH (Rec: 11/07/17 06:14 AMH [email or web address]) Manual Assessments Soft Tissue Assessment Soft Tissue Mobility Assessment myofascial tightness of the wrist complex extensor musculature on the left forearm, tightness of the left upper trapezius, scalenes, and pectoralis Other Manual Assessments Other Manual Assessments + ULTT for median and radial nerve symptoms middle scalene stretch reproduces some symptoms in the left forearm PT-OP-J Posture/Palpation/Skin Start: 11/07/17 05:52 Freq: Status: Active Protocol: Document 11/06/17 15:15 AMH (Rec: 11/07/17 06:14 AMH [email or web address]) Palpation Assessment Location One Palpation Location left lateral epicondyle and soft tissue Palpation Findings Soft Tissue Tightness Muscle Guarding Tenderness PT-OP-M Strength Start: 11/07/17 06:14 Freq: Status: Active Protocol: Document 11/06/17 15:15 AMH (Rec: 11/07/17 06:15 [facility] [email or web address]) Elbow/Forearm Strength Elbow and Forearm Manual Muscle Testing Left Extension (C7) 3+ Fair+ Supination 3+ Fair+ Comments pain with resistance PT-OP-Q Treatments Start: 11/07/17 05:52 Freq: Status: Active Protocol: Document 02/23/18 09:51 ML (Rec: 02/23/18 10:31 ML [id number]) Manual Therapy Treatment Soft Tissue Mobilization 4 Body Location L pec and coracobrachialis Mobilization Type Myofascial Release Rolling Sustained Pressure Intensity/Depth Moderate Body Position Supine Comments assisted mobilization w/wrist ext/flex Joint Mobilizations 2 Joint ribs 3-4 Direction distraction Body Position Prone Comments costovertebral distraction ( lat) Nerve Glides radial n glide Nerve Radial Comments positive, but pt only reports stretch median n glide Nerve Median Comments positive, but less intense symptoms Self-Care/Home Management Treatment Education Patient Education Body Mechanics Posture Other Education desk positioning and sitting positioning in reference to computer and potential options for work space, cordless mouse and keyboard were discussed, sitting on tball, and standing desk were all discussed; pt's sleeping position for being on back was also addressed, pt was informed why a rotational position of her spine through L side lying was not going to benefit despite the relief it gave her shoulder, and instructed that it should still be avoided (potentially try in future visits with correct support, only one adjustment for sleeping, starting with correct position for sleeping on back) PT-OP-R Modalities Start: 11/07/17 05:52 Freq: Status: Active Protocol: Document 02/23/18 09:51 ML (Rec: 02/23/18 10:31 ML [email or web address]) Hot Pack/Cold Pack Treatment Cold Pack Location L pec/scapula & L elbow Patient Position Supine Treatment Duration (minutes) 10 PT-OP-T Assessment and Plan Start: 11/07/17 05:52 Freq: Status: Active Protocol: Document 02/23/18 09:51 ML (Rec: 02/23/18 10:31 ML [id number]) Physical Therapy Assessment Impairments Impairments Activity Tolerance Functional Activities Functional Mobility Pain Posture ROM Soft Tissue Mobility Strength Tone Goals Three Impairment + ULTT for median and radial nerve Supervisor Weaving Goal (LTG) decrease nerve sensitivity with nerve glides and stretches for the neck and pectoralis to help with reducing symptoms to the elbow LTG Duration 8 weeks - improving, but still some sx through glides Two Impairment soft tissue tightness of the extensor tendon attachment Short Term Goal (STG) improve mobility of the extensor tendon attachments to decrease strain on the lateral epicondyle 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 STG Duration 6 weeks - improved (pain now 2 -3/10, still some inc tightness on L>R) One Impairment lateral epicondyle pain limiting work related activities and gripping Senior Living Goal (LTG) Nisreen has been educated on self care for her elbow and manual treatments in the clinic help to reduce pain from 6-9/10 to 2-3/10 and she is able to resume all usual activities with her left forearm LTG Duration 8 weeks - Achieved Assessment Summary Assessment Pt notes that she has been feeling better in general with dec pain (2-3/10 showing much improvement), and can do all her activities with modifications. She notes she is able to do things without pain, or very little, especially as she continues to do her instructed exercises frequently from PT. Pt notes she hasn't done much of her exercises in the last couple weeks. Pt notes that her foam roll exercises for her spine and chest really make her feel good. Pt was educated on how to get better positioned in sleeping on her back with propping which she indicated felt more comfortable and was able to do so without pain or symptoms. Pt instructed to only sleep on her R or back to avoid compression and pressure points of her L shoulder. Pt was also educated about desk ergonomics as she questioned about sitting on her ball. Pt was given appropriate options to change her computer set up as needed, and standing desk was also discussed. Pt still reports with neural tension through neural tension tests that were described as pull, but when shoulder depression was relieved, the stretch/pull was diminished. Pt cont to have muscular tightness that was addressed with manual work , as well as costovertebral limitations which were addressed manually as well. Overall, the pt's muscular tightness and joint mobility has improved significantly since her initial evaluation, despite the smaller and more particular areas she could still see improvement. Physical Therapy Plan Frequency and Duration Frequency of Treatment 1-2x/Week Duration of Treatment 8 weeks Plan of Care Start Date 02/23/18 Plan of Care End Date 04/25/18 Therapeutic Interventions Therapeutic Interventions Home Exercise Program Joint Mobilizations Manual Therapy Neuromuscular Re-education Patient/Caregiver Education Self-Care/Home Management Soft Tissue Mobilization Taping Therapeutic Activities Therapeutic Exercises Next Visit Focus/Plan Next Note Type Treatment Note Next Visit Plan work ergonomic log check in, Work on neural tension: rib, scapula, thoracic mobs
--- NOTE | 2018-02-25 17:21 | PT.OTN ---
Current Diagnoses Other enthesopathies, not elsewhere classified (02/25/18) Physical Therapy Treatment Note PT-OP-A Visit Information Start: 11/07/17 05:52 Freq: Status: Active Protocol: Document 02/25/18 17:14 EA (Rec: 02/25/18 17:20 EA [id number]) Out-Patient Physical Therapy Visit Information Visit Information Visit Type Treatment Note Visit Start Time 09:00 Visit Stop Time 09:50 Visit Number 14 PT-OP-B Current Condition Start: 11/07/17 05:52 Freq: Status: Active Protocol: Document 11/06/17 15:15 AMH (Rec: 11/07/17 06:14 AMH [email or web address]) Current Condition History of Current Condition Onset Date symptoms began several months ago and have progressed Current Complaints complaints of lateral elbow pain made worse with gripping activities History of Current Condition 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 Her symptoms were made worse with boating and kayaking and with gripping activities. She recently saw her doctor who instructed her in the correct placement of a elbow tendonitis strap and advised to wear a compression wrap on her arm. She reports this seems to be really working as in just the past few days she has gotten some relief. Treatment Goals Patient/Caregiver Goals Nisreen has a kayak trip scheduled for december and her goal is to reduce her pain allowing her to go on her trip Prior Functional Status Baseline Function- Recreation/Hobbies prior to this elbow injury she was able to perform all work related duties pain free PT-OP-C Subjective Start: 11/07/17 05:52 Freq: Status: Active Protocol: Document 02/25/18 17:14 EA (Rec: 02/25/18 17:20 EA [id number]) OP-PT Subjective Patient Comments Patient Comments Pt reports left elbow is much feeling better; states a times painful when sleeping to left side. PT-OP-F Manual Assessment Start: 11/07/17 05:52 Freq: Status: Active Protocol: Document 11/06/17 15:15 AMH (Rec: 11/07/17 06:14 AMH [email or web address]) Manual Assessments Soft Tissue Assessment Soft Tissue Mobility Assessment myofascial tightness of the wrist complex extensor musculature on the left forearm, tightness of the left upper trapezius, scalenes, and pectoralis Other Manual Assessments Other Manual Assessments + ULTT for median and radial nerve symptoms middle scalene stretch reproduces some symptoms in the left forearm PT-OP-J Posture/Palpation/Skin Start: 11/07/17 05:52 Freq: Status: Active Protocol: Document 11/06/17 15:15 AMH (Rec: 11/07/17 06:14 AMH [email or web address]) Palpation Assessment Location One Palpation Location left lateral epicondyle and soft tissue Palpation Findings Soft Tissue Tightness Muscle Guarding Tenderness PT-OP-M Strength Start: 11/07/17 06:14 Freq: Status: Active Protocol: Document 11/06/17 15:15 AMH (Rec: 11/07/17 06:15 AMH [email or web address]) Elbow/Forearm Strength Elbow and Forearm Manual Muscle Testing Left Extension (C7) 3+ Fair+ Supination 3+ Fair+ Comments pain with resistance PT-OP-Q Treatments Start: 11/07/17 05:52 Freq: Status: Active Protocol: Document 02/25/18 17:14 EA (Rec: 02/25/18 17:20 EA [id number]) Manual Therapy Treatment Soft Tissue Mobilization 5 Body Location L pec and scapula region fascial mobilization Mobilization Type Sustained Pressure Other Intensity/Depth Superficial Comments w/deep breathing 4 Body Location L pec and coracobrachialis Mobilization Type Myofascial Release Rolling Sustained Pressure Intensity/Depth Moderate Body Position Supine Comments assisted mobilization w/wrist ext/flex cervical parapsinals Body Location along R spine Mobilization Type Rolling Sustained Pressure Comments w/neural gliding 1 Body Location STM, TFM to the left wrist extensor muscle complex Mobilization Type Cross-Friction Myofascial Release Intensity/Depth Moderate Body Position Supine PT-OP-R Modalities Start: 11/07/17 05:52 Freq: Status: Active Protocol: Document 02/25/18 17:14 EA (Rec: 02/25/18 17:20 EA [id number]) Hot Pack/Cold Pack Treatment Hot Pack Location left shoulder and neck Patient Position Sitting Treatment Duration (minutes) 15 PT-OP-T Assessment and Plan Start: 11/07/17 05:52 Freq: Status: Active Protocol: Document 02/25/18 17:14 EA (Rec: 02/25/18 17:20 EA [id number]) Physical Therapy Assessment Assessment Summary Assessment Patient tolerated treatment well. Patient continued to progress. Physical Therapy Plan Next Visit Focus/Plan Next Note Type Treatment Note Next Visit Plan work ergonomic log check in, Work on neural tension: rib, scapula, thoracic mobs. assess response to hot pack application.
--- NOTE | 2018-03-02 13:13 | PT.OTN ---
Current Diagnoses Other enthesopathies, not elsewhere classified (03/02/18) Physical Therapy Treatment Note PT-OP-A Visit Information Start: 11/07/17 05:52 Freq: Status: Active Protocol: Document 03/02/18 09:05 ML (Rec: 03/02/18 09:41 ML [id number]) Out-Patient Physical Therapy Visit Information Visit Information Visit Type Treatment Note Visit Start Time 09:01 Visit Stop Time 09:56 Total Visit Minutes 56 Visit Number 15 PT-OP-B Current Condition Start: 11/07/17 05:52 Freq: Status: Active Protocol: Document 11/06/17 15:15 AMH (Rec: 11/07/17 06:14 AMH [email or web address]) Current Condition History of Current Condition Onset Date symptoms began several months ago and have progressed Current Complaints complaints of lateral elbow pain made worse with gripping activities History of Current Condition 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 Her symptoms were made worse with boating and kayaking and with gripping activities. She recently saw her doctor who instructed her in the correct placement of a elbow tendonitis strap and advised to wear a compression wrap on her arm. She reports this seems to be really working as in just the past few days she has gotten some relief. Treatment Goals Patient/Caregiver Goals Nisreen has a kayak trip scheduled for december and her goal is to reduce her pain allowing her to go on her trip Prior Functional Status Baseline Function- Recreation/Hobbies prior to this elbow injury she was able to perform all work related duties pain free PT-OP-C Subjective Start: 11/07/17 05:52 Freq: Status: Active Protocol: Document 03/02/18 09:05 ML (Rec: 03/02/18 09:41 ML [id number]) OP-PT Subjective Patient Comments Patient Comments Pt mentions that she made some minor adjustments with her sleep and it was a little better, but she has not got to work on her desk ergonomics. Pt reports that this weekend her whole arm ached without an aggravating factor, although she did do quite a bit of moving boxes in storage, including some overhead motions which was causing symptoms for TOS during her last visit. PT-OP-F Manual Assessment Start: 11/07/17 05:52 Freq: Status: Active Protocol: Document 11/06/17 15:15 AMH (Rec: 11/07/17 06:14 AMH [email or web address]) Manual Assessments Soft Tissue Assessment Soft Tissue Mobility Assessment myofascial tightness of the wrist complex extensor musculature on the left forearm, tightness of the left upper trapezius, scalenes, and pectoralis Other Manual Assessments Other Manual Assessments + ULTT for median and radial nerve symptoms middle scalene stretch reproduces some symptoms in the left forearm PT-OP-J Posture/Palpation/Skin Start: 11/07/17 05:52 Freq: Status: Active Protocol: Document 11/06/17 15:15 AMH (Rec: 11/07/17 06:14 AMH [email or web address]) Palpation Assessment Location One Palpation Location left lateral epicondyle and soft tissue Palpation Findings Soft Tissue Tightness Muscle Guarding Tenderness PT-OP-M Strength Start: 11/07/17 06:14 Freq: Status: Active Protocol: Document 11/06/17 15:15 AMH (Rec: 11/07/17 06:15 AMH [email or web address]) Elbow/Forearm Strength Elbow and Forearm Manual Muscle Testing Left Extension (C7) 3+ Fair+ Supination 3+ Fair+ Comments pain with resistance PT-OP-Q Treatments Start: 11/07/17 05:52 Freq: Status: Active Protocol: Document 03/02/18 09:05 ML (Rec: 03/02/18 10:44 ML [id number]) Therapeutic Exercises Supine Exercises 2 Supine Exercise Name foam roll Comments UE flex, abd, horiz. abd, Sidelying Exercises 1 Sidelying Exercise Name reach and roll Standing Exercises rows Standing Exercise Name UT row Side bilateral Resistance 10# Equipment Used 10# wt Comments reviewed for pt to do at home; cues for no trunk rotation Manual Therapy Treatment Soft Tissue Mobilization 4 Body Location L pec and coracobrachialis Mobilization Type Myofascial Release Rolling Sustained Pressure Intensity/Depth Moderate Body Position Supine Comments assisted mobilization w/wrist ext/flex 3 Body Location L UT Mobilization Type Myofascial Release Rolling Sustained Pressure Intensity/Depth Moderate Body Position Supine Comments assisted mobilization w/wrist ext/flex 2 Body Location L biceps brachii Mobilization Type Myofascial Release Rolling Sustained Pressure Intensity/Depth Moderate Body Position Supine Comments assisted mobilization w/wrist supination/pronation Self-Care/Home Management Treatment Education Patient Education Body Mechanics Home Exercise Program Posture Other Education discussed about mechanics for home program and continuing to adjust for sleeping and desk position, pt's overhead activities were addressed concerning TOS and pt's additional questions about TOS , reviewed mechanics for pt's workout routine PT-OP-R Modalities Start: 11/07/17 05:52 Freq: Status: Active Protocol: Document 03/02/18 09:05 ML (Rec: 03/02/18 09:41 ML [id number]) Hot Pack/Cold Pack Treatment Hot Pack Location left shoulder/neck and elbow Patient Position Sitting Treatment Duration (minutes) 15 PT-OP-T Assessment and Plan Start: 11/07/17 05:52 Freq: Status: Active Protocol: Document 03/02/18 09:05 ML (Rec: 03/02/18 09:41 ML [id number]) Physical Therapy Assessment Goals Three Impairment + ULTT for median and radial nerve Group Home Goal (LTG) decrease nerve sensitivity with nerve glides and stretches for the neck and pectoralis to help with reducing symptoms to the elbow LTG Duration 8 weeks - improving, but still some sx through glides Two Impairment soft tissue tightness of the extensor tendon attachment Short Term Goal (STG) improve mobility of the extensor tendon attachments to decrease strain on the lateral epicondyle 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 Pt 's L UE musculature was tighter than usual today as presented with symptoms through just squeezing her fist and flexing her elbow or pressing on her L rib 1. Tissue tightness is likely due to the amount of UE work she has been doing lately with moving boxes in storage and getting back to her exercise routine. These symptoms were addressed through soft tissue mobilizations. Physical Therapy Plan Frequency and Duration Frequency of Treatment 1-2x/Week Duration of Treatment 8 weeks Plan of Care Start Date 02/23/18 Plan of Care End Date 04/25/18 Next Visit Focus/Plan Next Note Type Treatment Note Next Visit Plan work ergonomic log check in, Work on neural tension: rib, scapula, thoracic mobs. assess responsed to hor pack application.
--- NOTE | 2018-03-04 15:01 | PT.OTN ---
Current Diagnoses Other enthesopathies, not elsewhere classified (03/04/18) Physical Therapy Treatment Note PT-OP-A Visit Information Start: 11/07/17 05:52 Freq: Status: Active Protocol: Document 03/04/18 12:08 ML (Rec: 03/04/18 12:18 ML [id number]) Out-Patient Physical Therapy Visit Information Visit Information Visit Type Treatment Note Visit Start Time 11:18 Visit Stop Time 12:20 Total Visit Minutes 62 Visit Number 16 Number of B[employer]ODUCTS CHECKER Visits 0 PT-OP-B Current Condition Start: 11/07/17 05:52 Freq: Status: Active Protocol: Document 11/06/17 15:15 AMH (Rec: 11/07/17 06:14 AMH [email or web address]) Current Condition History of Current Condition Onset Date symptoms began several months ago and have progressed Current Complaints complaints of lateral elbow pain made worse with gripping activities History of Current Condition 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 Her symptoms were made worse with boating and kayaking and with gripping activities. She recently saw her doctor who instructed her in the correct placement of a elbow tendonitis strap and advised to wear a compression wrap on her arm. She reports this seems to be really working as in just the past few days she has gotten some relief. Treatment Goals Patient/Caregiver Goals Nisreen has a kayak trip scheduled for december and her goal is to reduce her pain allowing her to go on her trip Prior Functional Status Baseline Function- Recreation/Hobbies prior to this elbow injury she was able to perform all work related duties pain free PT-OP-C Subjective Start: 11/07/17 05:52 Freq: Status: Active Protocol: Document 03/04/18 12:08 ML (Rec: 03/04/18 12:18 ML [id number]) OP-PT Subjective Patient Comments Patient Comments pt mentions that she figured out that change in hormones is causing her to have low blood glucose which is affecting her activity level/tolerance. Pt also mentioned that she did not get to adjusting her desk set up. PT-OP-F Manual Assessment Start: 11/07/17 05:52 Freq: Status: Active Protocol: Document 11/06/17 15:15 AMH (Rec: 11/07/17 06:14 AMH [email or web address]) Manual Assessments Soft Tissue Assessment Soft Tissue Mobility Assessment myofascial tightness of the wrist complex extensor musculature on the left forearm, tightness of the left upper trapezius, scalenes, and pectoralis Other Manual Assessments Other Manual Assessments + ULTT for median and radial nerve symptoms middle scalene stretch reproduces some symptoms in the left forearm PT-OP-J Posture/Palpation/Skin Start: 11/07/17 05:52 Freq: Status: Active Protocol: Document 11/06/17 15:15 AMH (Rec: 11/07/17 06:14 AMH [email or web address]) Palpation Assessment Location One Palpation Location left lateral epicondyle and soft tissue Palpation Findings Soft Tissue Tightness Muscle Guarding Tenderness PT-OP-M Strength Start: 11/07/17 06:14 Freq: Status: Active Protocol: Document 11/06/17 15:15 AMH (Rec: 11/07/17 06:15 AMH [email or web address]) Elbow/Forearm Strength Elbow and Forearm Manual Muscle Testing Left Extension (C7) 3+ Fair+ Supination 3+ Fair+ Comments pain with resistance PT-OP-Q Treatments Start: 11/07/17 05:52 Freq: Status: Active Protocol: Document 03/04/18 12:08 ML (Rec: 03/04/18 12:18 ML [id number]) Therapeutic Exercises Standing Exercises rows Standing Exercise Name UT row Side bilateral Resistance 10# Equipment Used 10# wt Reps/Minutes 10x each side Comments cues for no trunk rotation Manual Therapy Treatment Soft Tissue Mobilization 3 Body Location UT/LS bilat Mobilization Type Myofascial Release Rolling Sustained Pressure Intensity/Depth Moderate Body Position Supine Comments assisted mobilization w/wrist ext/flex Joint Mobilizations 3 Joint T4-1 Direction PA unilat for rotation (L and R) Comments sitting with active assistance in cover position and forward trunk lean 2 Joint L rib 1 Direction caudal Body Position Prone Neuro Re-Education Treatment Other Activities scapular PNF Details ant elevation and post depression COI Comments eccentric lengthening contractions into post depression PT-OP-R Modalities Start: 11/07/17 05:52 Freq: Status: Active Protocol: Document 03/04/18 12:08 ML (Rec: 03/04/18 12:18 ML [id number]) Hot Pack/Cold Pack Treatment Hot Pack Location left shoulder and T-spine Patient Position Sitting Treatment Duration (minutes) 15 PT-OP-T Assessment and Plan Start: 11/07/17 05:52 Freq: Status: Active Protocol: Document 03/04/18 12:08 ML (Rec: 03/04/18 12:18 ML [id number]) Physical Therapy Assessment Goals Three Impairment + ULTT for median and radial nerve Survey Manager Goal (LTG) decrease nerve sensitivity with nerve glides and stretches for the neck and pectoralis to help with reducing symptoms to the elbow LTG Duration 8 weeks - improving, but still some sx through glides Two Impairment soft tissue tightness of the extensor tendon attachment Short Term Goal (STG) improve mobility of the extensor tendon attachments to decrease strain on the lateral epicondyle 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 and hold objects without pain STG Duration 6 weeks - improved (pain now 2 -3/10, still some inc tightness on L>R) One Impairment lateral epicondyle pain limiting work related activities and gripping Survey Manager Goal (LTG) Nisreen has been educated on self care for her elbow and manual treatments in the clinic help to reduce pain from 6-9/10 to 2-3/10 and she is able to resume all usual activities with her left forearm LTG Duration 8 weeks - Achieved Assessment Summary Assessment Pt was instructed to work on her desk set up as instructed by PT to be reviewed next visit as it is likely contributing to her UT and LS tightness. Pt notes she is thinking and stressing when she notes her shoulder are elevated, as pt presented with bilaterally tightness today. Pt was able to perform her instructed rows today regardless of her inability to practice at home due to low blood glucose earlier this morning. Pt's pec and rib mobility have improved, although she still has a stiff end feel on her L which was corrected with mobilization. Pt's stiffness through her thoracic spine was also corrected today improving the pt's mobility into extension through her upper thoracic region. Pt's scapular motion was re-educated through PNF as she had difficulty to achieve post depression with a smooth and fluid motion. Physical Therapy Plan Frequency and Duration Frequency of Treatment 1-2x/Week Duration of Treatment 8 weeks Plan of Care Start Date 02/23/18 Plan of Care End Date 04/25/18 Next Visit Focus/Plan Next Note Type Treatment Note Next Visit Plan work ergonomic log check in, Work on neural tension: rib, scapula, thoracic mobs. assess responsed to hor pack application.
--- NOTE | 2018-03-09 11:15 | PT.OTN ---
Current Diagnoses Other enthesopathies, not elsewhere classified (03/09/18) Physical Therapy Treatment Note PT-OP-A Visit Information Start: 11/07/17 05:52 Freq: Status: Active Protocol: Document 03/09/18 09:43 [facility] (Rec: 03/09/18 11:15 [facility] [id number]) Out-Patient Physical Therapy Visit Information Visit Information Visit Type Treatment Note Visit Start Time 09:00 Visit Stop Time 09:55 Total Visit Minutes 55 Visit Number 17 Number of ENVELOPE MAKER Visits 0 PT-OP-B Current Condition Start: 11/07/17 05:52 Freq: Status: Active Protocol: Document 11/06/17 15:15 [facility] (Rec: 11/07/17 06:14 [facility] [email or web address]) Current Condition History of Current Condition Onset Date symptoms began several months ago and have progressed Current Complaints complaints of lateral elbow pain made worse with gripping activities History of Current Condition 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 Her symptoms were made worse with boating and kayaking and with gripping activities. She recently saw her doctor who instructed her in the correct placement of a elbow tendonitis strap and advised to wear a compression wrap on her arm. She reports this seems to be really working as in just the past few days she has gotten some relief. Treatment Goals Patient/Caregiver Goals Nisreen has a kayak trip scheduled for december and her goal is to reduce her pain allowing her to go on her trip Prior Functional Status Baseline Function- Recreation/Hobbies prior to this elbow injury she was able to perform all work related duties pain free PT-OP-C Subjective Start: 11/07/17 05:52 Freq: Status: Active Protocol: Document 03/09/18 09:43 [facility] (Rec: 03/09/18 11:15 [facility] [id number]) OP-PT Subjective Patient Comments Patient Comments reports she feels like lifting has been affecting her a lot as she did a lot of manual lifting and heavy jobs this weekend and noticed soreness PT-OP-F Manual Assessment Start: 11/07/17 05:52 Freq: Status: Active Protocol: Document 11/06/17 15:15 [facility] (Rec: 11/07/17 06:14 [facility] [email or web address]) Manual Assessments Soft Tissue Assessment Soft Tissue Mobility Assessment myofascial tightness of the wrist complex extensor musculature on the left forearm, tightness of the left upper trapezius, scalenes, and pectoralis Other Manual Assessments Other Manual Assessments + ULTT for median and radial nerve symptoms middle scalene stretch reproduces some symptoms in the left forearm PT-OP-J Posture/Palpation/Skin Start: 11/07/17 05:52 Freq: Status: Active Protocol: Document 11/06/17 15:15 [facility] (Rec: 11/07/17 06:14 [facility] [email or web address]) Palpation Assessment Location One Palpation Location left lateral epicondyle and soft tissue Palpation Findings Soft Tissue Tightness Muscle Guarding Tenderness PT-OP-M Strength Start: 11/07/17 06:14 Freq: Status: Active Protocol: Document 11/06/17 15:15 [facility] (Rec: 11/07/17 06:15 [facility] [email or web address]) Elbow/Forearm Strength Elbow and Forearm Manual Muscle Testing Left Extension (C7) 3+ Fair+ Supination 3+ Fair+ Comments pain with resistance PT-OP-Q Treatments Start: 11/07/17 05:52 Freq: Status: Active Protocol: Document 03/09/18 09:43 [facility] (Rec: 03/09/18 11:15 [facility] [id number]) Therapeutic Exercises Prone Exercises push up Prone Exercise Name push up on knees Comments adjusted form-pt had difficulty w/appropriate proximal control>instructwall Therapeutic Activity Therapeutic Activity 1 Name lifting Comments edu on posture for lifting, lifting mechanics progressed to overhead lifting to discussed safety with lifting; edu to practice lifiting mechanics w/o wt Manual Therapy Treatment Soft Tissue Mobilization 3 Body Location UT/LS bilat Mobilization Type Myofascial Release Rolling Sustained Pressure Intensity/Depth Moderate Body Position Supine 1 Body Location STM, TFM to the left wrist extensor muscle complex Mobilization Type Cross-Friction Myofascial Release Intensity/Depth Moderate Body Position Supine Neuro Re-Education Treatment Other Activities D1 PNF flex Details traction faciliation Comments isometric holds to COI PT-OP-R Modalities Start: 11/07/17 05:52 Freq: Status: Active Protocol: Document 03/09/18 09:43 [facility] (Rec: 03/09/18 11:15 [facility] [id number]) Hot Pack/Cold Pack Treatment Hot Pack Location left shoulder and T-spine Patient Position Sitting Treatment Duration (minutes) 15 PT-OP-T Assessment and Plan Start: 11/07/17 05:52 Freq: Status: Active Protocol: Document 03/09/18 09:43 [facility] (Rec: 03/09/18 11:15 [facility] [id number]) Physical Therapy Assessment Goals Three Impairment + ULTT for median and radial nerve Assistance Specialist Goal (LTG) decrease nerve sensitivity with nerve glides and stretches for the neck and pectoralis to help with reducing symptoms to the elbow LTG Duration 8 weeks - improving, but still some sx through glides Two Impairment soft tissue tightness of the extensor tendon attachment Short Term Goal (STG) improve mobility of the extensor tendon attachments to decrease strain on the lateral epicondyle 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 She had pain with wrist ext today and improved proximal stability with work through D1 pattern. Physical Therapy Plan Frequency and Duration Frequency of Treatment 1-2x/Week Duration of Treatment 8 weeks Plan of Care Start Date 02/23/18 Plan of Care End Date 04/25/18 Next Visit Focus/Plan Next Note Type Treatment Note Next Visit Plan Review lifting if questions, cont to work on rib and scapular mobility
--- NOTE | 2018-03-11 16:57 | PT.OTN ---
Current Diagnoses Other enthesopathies, not elsewhere classified (03/11/18) Physical Therapy Treatment Note PT-OP-A Visit Information Start: 11/07/17 05:52 Freq: Status: Active Protocol: Document 03/11/18 16:44 [facility] (Rec: 03/11/18 16:56 [facility] [id number]) Out-Patient Physical Therapy Visit Information Visit Information Visit Type Treatment Note Visit Start Time 15:15 Visit Stop Time 16:00 Total Visit Minutes 45 Visit Number 18 Number of MEAT BLENDER Visits 0 PT-OP-B Current Condition Start: 11/07/17 05:52 Freq: Status: Active Protocol: Document 11/06/17 15:15 [facility] (Rec: 11/07/17 06:14 [facility] [email or web address]) Current Condition History of Current Condition Onset Date symptoms began several months ago and have progressed Current Complaints complaints of lateral elbow pain made worse with gripping activities History of Current Condition 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 Her symptoms were made worse with boating and kayaking and with gripping activities. She recently saw her doctor who instructed her in the correct placement of a elbow tendonitis strap and advised to wear a compression wrap on her arm. She reports this seems to be really working as in just the past few days she has gotten some relief. Treatment Goals Patient/Caregiver Goals Nisreen has a kayak trip scheduled for december and her goal is to reduce her pain allowing her to go on her trip Prior Functional Status Baseline Function- Recreation/Hobbies prior to this elbow injury she was able to perform all work related duties pain free PT-OP-C Subjective Start: 11/07/17 05:52 Freq: Status: Active Protocol: Document 03/11/18 16:44 [facility] (Rec: 03/11/18 16:56 [facility] [id number]) OP-PT Subjective Patient Comments Patient Comments Pt reports left elbow pain is less if she sleep on right side. PT-OP-F Manual Assessment Start: 11/07/17 05:52 Freq: Status: Active Protocol: Document 11/06/17 15:15 [facility] (Rec: 11/07/17 06:14 [facility] [email or web address]) Manual Assessments Soft Tissue Assessment Soft Tissue Mobility Assessment myofascial tightness of the wrist complex extensor musculature on the left forearm, tightness of the left upper trapezius, scalenes, and pectoralis Other Manual Assessments Other Manual Assessments + ULTT for median and radial nerve symptoms middle scalene stretch reproduces some symptoms in the left forearm PT-OP-J Posture/Palpation/Skin Start: 11/07/17 05:52 Freq: Status: Active Protocol: Document 11/06/17 15:15 [facility] (Rec: 11/07/17 06:14 [facility] [email or web address]) Palpation Assessment Location One Palpation Location left lateral epicondyle and soft tissue Palpation Findings Soft Tissue Tightness Muscle Guarding Tenderness PT-OP-M Strength Start: 11/07/17 06:14 Freq: Status: Active Protocol: Document 11/06/17 15:15 [facility] (Rec: 11/07/17 06:15 [facility] [email or web address]) Elbow/Forearm Strength Elbow and Forearm Manual Muscle Testing Left Extension (C7) 3+ Fair+ Supination 3+ Fair+ Comments pain with resistance PT-OP-Q Treatments Start: 11/07/17 05:52 Freq: Status: Active Protocol: Document 03/11/18 16:44 [facility] (Rec: 03/11/18 16:56 [facility] [id number]) Manual Therapy Treatment Soft Tissue Mobilization 3 Body Location UT/LS bilat Mobilization Type Myofascial Release Rolling Sustained Pressure Intensity/Depth Moderate Body Position Supine 1 Body Location STM, TFM to the left wrist extensor muscle complex Mobilization Type Cross-Friction Myofascial Release Intensity/Depth Moderate Body Position Supine PT-OP-R Modalities Start: 11/07/17 05:52 Freq: Status: Active Protocol: Document 03/11/18 16:44 [facility] (Rec: 03/11/18 16:56 [facility] [id number]) Electric Stimulation Electric Stimulation Interferential Current (IFC) Body Location wrist extnsor; upper traps Intensity 8 Patient Position Supine Combined With Heat/Cold Hot Pack PT-OP-T Assessment and Plan Start: 11/07/17 05:52 Freq: Status: Active Protocol: Document 03/11/18 16:44 [facility] (Rec: 03/11/18 16:56 [facility] [id number]) Physical Therapy Assessment Assessment Summary Assessment Wrist extension with manual resistance aggravated elbow pain. Physical Therapy Plan Next Visit Focus/Plan Next Note Type Treatment Note Next Visit Plan re-asess elbow pain. (nerve vs soft tissue)
--- NOTE | 2018-03-16 18:20 | PT.OTN ---
Current Diagnoses Other enthesopathies, not elsewhere classified (03/16/18) Physical Therapy Treatment Note PT-OP-A Visit Information Start: 11/07/17 05:52 Freq: Status: Active Protocol: Document 03/16/18 18:05 [facility] (Rec: 03/16/18 18:20 [facility] [email or web address]) Out-Patient Physical Therapy Visit Information Visit Information Visit Type Treatment Note Visit Start Time 09:05 Visit Stop Time 10:00 Total Visit Minutes 55 Visit Number 18 Number of CONTRACT LEAD Visits 0 PT-OP-B Current Condition Start: 11/07/17 05:52 Freq: Status: Active Protocol: Document 11/06/17 15:15 [facility] (Rec: 11/07/17 06:14 [facility] [email or web address]) Current Condition History of Current Condition Onset Date symptoms began several months ago and have progressed Current Complaints complaints of lateral elbow pain made worse with gripping activities History of Current Condition 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 Her symptoms were made worse with boating and kayaking and with gripping activities. She recently saw her doctor who instructed her in the correct placement of a elbow tendonitis strap and advised to wear a compression wrap on her arm. She reports this seems to be really working as in just the past few days she has gotten some relief. Treatment Goals Patient/Caregiver Goals Nisreen has a kayak trip scheduled for december and her goal is to reduce her pain allowing her to go on her trip Prior Functional Status Baseline Function- Recreation/Hobbies prior to this elbow injury she was able to perform all work related duties pain free PT-OP-C Subjective Start: 11/07/17 05:52 Freq: Status: Active Protocol: Document 03/16/18 18:05 [facility] (Rec: 03/16/18 18:20 [facility] [email or web address]) OP-PT Subjective Patient Comments Patient Comments Pt reports she felt pretty good since last week. She liked the stim PT-OP-F Manual Assessment Start: 11/07/17 05:52 Freq: Status: Active Protocol: Document 11/06/17 15:15 [facility] (Rec: 11/07/17 06:14 [facility] [email or web address]) Manual Assessments Soft Tissue Assessment Soft Tissue Mobility Assessment myofascial tightness of the wrist complex extensor musculature on the left forearm, tightness of the left upper trapezius, scalenes, and pectoralis Other Manual Assessments Other Manual Assessments + ULTT for median and radial nerve symptoms middle scalene stretch reproduces some symptoms in the left forearm PT-OP-J Posture/Palpation/Skin Start: 11/07/17 05:52 Freq: Status: Active Protocol: Document 11/06/17 15:15 [facility] (Rec: 11/07/17 06:14 [facility] [email or web address]) Palpation Assessment Location One Palpation Location left lateral epicondyle and soft tissue Palpation Findings Soft Tissue Tightness Muscle Guarding Tenderness PT-OP-M Strength Start: 11/07/17 06:14 Freq: Status: Active Protocol: Document 11/06/17 15:15 [facility] (Rec: 11/07/17 06:15 [facility] [email or web address]) Elbow/Forearm Strength Elbow and Forearm Manual Muscle Testing Left Extension (C7) 3+ Fair+ Supination 3+ Fair+ Comments pain with resistance PT-OP-Q Treatments Start: 11/07/17 05:52 Freq: Status: Active Protocol: Document 03/16/18 18:05 [facility] (Rec: 03/16/18 18:20 [facility] [email or web address]) Therapeutic Exercises Sitting Exercises 5 Sitting Exercise Name eccentric wrist ext Equipment Used 1# Reps/Minutes 10 4 Sitting Exercise Name elbow ext stretch Reps/Minutes 30 sec Comments w/finger flexion 3 Sitting Exercise Name controlled opening/closing of hand Manual Therapy Treatment Soft Tissue Mobilization pronator Body Location pronator teres Mobilization Type Rolling Intensity/Depth Moderate 3 Body Location UT/LS L Mobilization Type Myofascial Release Rolling Sustained Pressure Intensity/Depth Moderate Body Position Supine 2 Body Location brachioradialis Mobilization Type Rolling Intensity/Depth Moderate 1 Body Location STM, TFM to the left wrist extensor muscle complex Mobilization Type Cross-Friction Myofascial Release Intensity/Depth Moderate Body Position Supine PT-OP-R Modalities Start: 11/07/17 05:52 Freq: Status: Active Protocol: Document 03/16/18 18:05 [facility] (Rec: 03/16/18 18:20 [facility] [email or web address]) Electric Stimulation Electric Stimulation Interferential Current (IFC) Body Location wrist extnsor; upper traps Duration (Minutes) 15 Intensity 12 Patient Position Supine Combined With Heat/Cold Hot Pack PT-OP-T Assessment and Plan Start: 11/07/17 05:52 Freq: Status: Active Protocol: Document 03/16/18 18:05 [facility] (Rec: 03/16/18 18:20 [facility] [email or web address]) Physical Therapy Assessment Goals Three Impairment + ULTT for median and radial nerve [place] [facility] Goal (LTG) decrease nerve sensitivity with nerve glides and stretches for the neck and pectoralis to help with reducing symptoms to the elbow LTG Duration 8 weeks - improving, but still some sx through glides Two Impairment soft tissue tightness of the extensor tendon attachment Short Term Goal (STG) improve mobility of the extensor tendon attachments to decrease strain on the lateral epicondyle 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 STG Duration 6 weeks - improved (pain now 2 -3/10, still some inc tightness on L>R) One Impairment lateral epicondyle pain limiting work related activities and gripping Nursing Home Goal (LTG) Nisreen has been educated on self care for her elbow and manual treatments in the clinic help to reduce pain from 6-9/10 to 2-3/10 and she is able to resume all usual activities with her left forearm LTG Duration 8 weeks - Achieved Assessment Summary Assessment Wrist ext did not aggrevate with manual resistance & pt was able to achieve 5/5 for pronation, supination & wrist: flex, ext, UD & RD, and elbow flex (w/pronation & w/ supination). Pain only elicited with ext of fingers & with flexion of fingers especially in an elbow flexed position. Physical Therapy Plan Frequency and Duration Frequency of Treatment 1-2x/Week Duration of Treatment 8 weeks Plan of Care Start Date 02/23/18 Plan of Care End Date 04/25/18 Next Visit Focus/Plan Next Note Type Treatment Note Next Visit Plan Cont to work on soft tissue at elbow & work on hand strengthening
--- NOTE | 2018-03-23 15:44 | PT.OTN ---
Current Diagnoses Other enthesopathies, not elsewhere classified (03/23/18) Physical Therapy Treatment Note PT-OP-A Visit Information Start: 11/07/17 05:52 Freq: Status: Active Protocol: Document 03/23/18 09:00 [facility] (Rec: 03/24/18 14:37 [facility] [email or web address]) Out-Patient Physical Therapy Visit Information Visit Information Visit Type Treatment Note Visit Start Time 09:05 Visit Stop Time 10:00 Total Visit Minutes 55 Visit Number 19 PT-OP-B Current Condition Start: 11/07/17 05:52 Freq: Status: Active Protocol: Document 11/06/17 15:15 [facility] (Rec: 11/07/17 06:14 [facility] [email or web address]) Current Condition History of Current Condition Onset Date symptoms began several months ago and have progressed Current Complaints complaints of lateral elbow pain made worse with gripping activities History of Current Condition 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 Her symptoms were made worse with boating and kayaking and with gripping activities. She recently saw her doctor who instructed her in the correct placement of a elbow tendonitis strap and advised to wear a compression wrap on her arm. She reports this seems to be really working as in just the past few days she has gotten some relief. Treatment Goals Patient/Caregiver Goals Nisreen has a kayak trip scheduled for december and her goal is to reduce her pain allowing her to go on her trip Prior Functional Status Baseline Function- Recreation/Hobbies prior to this elbow injury she was able to perform all work related duties pain free PT-OP-C Subjective Start: 11/07/17 05:52 Freq: Status: Active Protocol: Document 03/23/18 09:00 [facility] (Rec: 03/24/18 14:37 [facility] [email or web address]) OP-PT Subjective Patient Comments Patient Comments Pt reports she feels like her gripping is getting better and is hurting sometimes more than others PT-OP-F Manual Assessment Start: 11/07/17 05:52 Freq: Status: Active Protocol: Document 11/06/17 15:15 [facility] (Rec: 11/07/17 06:14 [facility] [email or web address]) Manual Assessments Soft Tissue Assessment Soft Tissue Mobility Assessment myofascial tightness of the wrist complex extensor musculature on the left forearm, tightness of the left upper trapezius, scalenes, and pectoralis Other Manual Assessments Other Manual Assessments + ULTT for median and radial nerve symptoms middle scalene stretch reproduces some symptoms in the left forearm PT-OP-J Posture/Palpation/Skin Start: 11/07/17 05:52 Freq: Status: Active Protocol: Document 11/06/17 15:15 [facility] (Rec: 11/07/17 06:14 [facility] [email or web address]) Palpation Assessment Location One Palpation Location left lateral epicondyle and soft tissue Palpation Findings Soft Tissue Tightness Muscle Guarding Tenderness PT-OP-M Strength Start: 11/07/17 06:14 Freq: Status: Active Protocol: Document 11/06/17 15:15 [facility] (Rec: 11/07/17 06:15 [facility] [email or web address]) Elbow/Forearm Strength Elbow and Forearm Manual Muscle Testing Left Extension (C7) 3+ Fair+ Supination 3+ Fair+ Comments pain with resistance PT-OP-Q Treatments Start: 11/07/17 05:52 Freq: Status: Active Protocol: Document 03/23/18 09:00 [facility] (Rec: 03/24/18 15:44 [facility] [email or web address]) Therapeutic Exercises Sitting Exercises 5 Sitting Exercise Name eccentric wrist ext Equipment Used 1# Reps/Minutes 10 4 Sitting Exercise Name elbow ext stretch Reps/Minutes 30 sec Comments w/finger flexion 3 Sitting Exercise Name controlled opening/closing of hand 2 Sitting Exercise Name hand ext with rubber band Therapeutic Activity Therapeutic Activity 3 Name desk set up Comments review of appropriate elbow, shoulder & wrist position & importance to dec extensor tendon use. 2 Name verbal review of HEP Manual Therapy Treatment Soft Tissue Mobilization pronator Body Location pronator teres Mobilization Type Rolling Intensity/Depth Moderate 2 Body Location brachioradialis Mobilization Type Rolling Intensity/Depth Moderate 1 Body Location STM, TFM to the left wrist extensor muscle complex Mobilization Type Cross-Friction Myofascial Release Intensity/Depth Moderate Body Position Supine Joint Mobilizations 4 Joint radioulnar Direction AP PT-OP-R Modalities Start: 11/07/17 05:52 Freq: Status: Active Protocol: Document 03/23/18 09:00 [facility] (Rec: 03/24/18 14:37 [facility] [email or web address]) Electric Stimulation Electric Stimulation Interferential Current (IFC) Body Location wrist extnsor; upper traps Duration (Minutes) 15 Intensity 12 Patient Position Supine Combined With Heat/Cold Hot Pack PT-OP-T Assessment and Plan Start: 11/07/17 05:52 Freq: Status: Active Protocol: Document 03/23/18 09:00 [facility] (Rec: 03/24/18 15:44 [facility] [email or web address]) Physical Therapy Assessment Goals Three Impairment + ULTT for median and radial nerve Director Of Human Resources Goal (LTG) decrease nerve sensitivity with nerve glides and stretches for the neck and pectoralis to help with reducing symptoms to the elbow LTG Duration 8 weeks - improving, but still some sx through glides Two Impairment soft tissue tightness of the extensor tendon attachment Short Term Goal (STG) improve mobility of the extensor tendon attachments to decrease strain on the lateral epicondyle 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 Pt is indep with thoracic opening stretches and exercises and elbow extensor stretch. Physical Therapy Plan Frequency and Duration Frequency of Treatment 1-2x/Week Duration of Treatment 8 weeks Plan of Care Start Date 02/23/18 Plan of Care End Date 04/25/18 Next Visit Focus/Plan Next Note Type Treatment Note Next Visit Plan Work on HEP for last 2 treatments to help with residual elbow pain
--- NOTE | 2018-03-26 17:16 | PT.OTN ---
Current Diagnoses Other enthesopathies, not elsewhere classified (03/26/18) Physical Therapy Treatment Note PT-OP-A Visit Information Start: 11/07/17 05:52 Freq: Status: Active Protocol: Document 03/26/18 17:02 EA (Rec: 03/26/18 17:16 EA [id number]) Out-Patient Physical Therapy Visit Information Visit Information Visit Type Treatment Note Visit Start Time 14:30 Visit Stop Time 15:15 Total Visit Minutes 45 Visit Number 20 PT-OP-B Current Condition Start: 11/07/17 05:52 Freq: Status: Active Protocol: Document 11/06/17 15:15 AMH (Rec: 11/07/17 06:14 AMH [email or web address]) Current Condition History of Current Condition Onset Date symptoms began several months ago and have progressed Current Complaints complaints of lateral elbow pain made worse with gripping activities History of Current Condition 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 Her symptoms were made worse with boating and kayaking and with gripping activities. She recently saw her doctor who instructed her in the correct placement of a elbow tendonitis strap and advised to wear a compression wrap on her arm. She reports this seems to be really working as in just the past few days she has gotten some relief. Treatment Goals Patient/Caregiver Goals Nisrene has a kayak trip scheduled for december and her goal is to reduce her pain allowing her to go on her trip Prior Functional Status Baseline Function- Recreation/Hobbies prior to this elbow injury she was able to perform all work related duties pain free PT-OP-C Subjective Start: 11/07/17 05:52 Freq: Status: Active Protocol: Document 03/26/18 17:02 EA (Rec: 03/26/18 17:16 EA [id number]) OP-PT Subjective Patient Comments Patient Comments Pt reports that left elbow pain is increased today after lifting boxes at home. PT-OP-F Manual Assessment Start: 11/07/17 05:52 Freq: Status: Active Protocol: Document 11/06/17 15:15 AMH (Rec: 11/07/17 06:14 AMH [email or web address]) Manual Assessments Soft Tissue Assessment Soft Tissue Mobility Assessment myofascial tightness of the wrist complex extensor musculature on the left forearm, tightness of the left upper trapezius, scalenes, and pectoralis Other Manual Assessments Other Manual Assessments + ULTT for median and radial nerve symptoms middle scalene stretch reproduces some symptoms in the left forearm PT-OP-J Posture/Palpation/Skin Start: 11/07/17 05:52 Freq: Status: Active Protocol: Document 11/06/17 15:15 AMH (Rec: 11/07/17 06:14 AMH [email or web address]) Palpation Assessment Location One Palpation Location left lateral epicondyle and soft tissue Palpation Findings Soft Tissue Tightness Muscle Guarding Tenderness PT-OP-M Strength Start: 11/07/17 06:14 Freq: Status: Active Protocol: Document 11/06/17 15:15 AMH (Rec: 11/07/17 06:15 AMH [email or web address]) Elbow/Forearm Strength Elbow and Forearm Manual Muscle Testing Left Extension (C7) 3+ Fair+ Supination 3+ Fair+ Comments pain with resistance PT-OP-Q Treatments Start: 11/07/17 05:52 Freq: Status: Active Protocol: Document 03/26/18 17:02 EA (Rec: 03/26/18 17:16 EA [id number]) Manual Therapy Treatment Soft Tissue Mobilization pronator Body Location Extensor tendon Mobilization Type Cross-Friction Rolling Sustained Pressure Intensity/Depth Moderate 3 Body Location UT/LS L Mobilization Type Myofascial Release Rolling Sustained Pressure Intensity/Depth Moderate Body Position Supine Joint Mobilizations 4 Joint radioulnar Direction AP Self-Care/Home Management Treatment Education Patient Education Joint Protection Pain Management Other Education discussed elbow protection when lifting heavy object. Educated and demostrates proper self massage to elbow. Educatge and demonstrates pectoral and neck stretching. PT-OP-R Modalities Start: 11/07/17 05:52 Freq: Status: Active Protocol: Document 03/26/18 17:02 EA (Rec: 03/26/18 17:16 EA [id number]) Electric Stimulation Electric Stimulation Interferential Current (IFC) Body Location wrist extnsor; upper traps Duration (Minutes) 15 Intensity 12 Patient Position Supine Combined With Heat/Cold Cold Pack Ultrasound Therapy Treatment Left Lateral Elbow Treatment Duration (minutes) 5 Patient Position Sitting Frequency Setting (mHz) 1 Intensity Setting (w/cm2) 1.2 PT-OP-T Assessment and Plan Start: 11/07/17 05:52 Freq: Status: Active Protocol: Document 03/26/18 17:02 EA (Rec: 03/26/18 17:16 EA [id number]) Physical Therapy Assessment Assessment Summary Assessment Patient tolerated treatment well with minor discomfort during manual PT. Pt educated with safe neck and chest stretch and as well wrist stretch. Physical Therapy Plan Next Visit Focus/Plan Next Visit Plan Provide HEP.
--- NOTE | 2018-04-02 14:39 | PT.OTN ---
Current Diagnoses Other enthesopathies, not elsewhere classified (04/02/18) Physical Therapy Treatment Note PT-OP-A Visit Information Start: 11/07/17 05:52 Freq: Status: Active Protocol: Document 04/02/18 13:33 EA (Rec: 04/02/18 13:40 EA [id number]) Out-Patient Physical Therapy Visit Information Visit Information Visit Type Treatment Note Visit Note Discharge to this date Visit Start Time 10:30 Visit Stop Time 11:15 Total Visit Minutes 45 Visit Number 21 PT-OP-B Current Condition Start: 11/07/17 05:52 Freq: Status: Active Protocol: Document 11/06/17 15:15 AMH (Rec: 11/07/17 06:14 AMH [email or web address]) Current Condition History of Current Condition Onset Date symptoms began several months ago and have progressed Current Complaints complaints of lateral elbow pain made worse with gripping activities History of Current Condition 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 Her symptoms were made worse with boating and kayaking and with gripping activities. She recently saw her doctor who instructed her in the correct placement of a elbow tendonitis strap and advised to wear a compression wrap on her arm. She reports this seems to be really working as in just the past few days she has gotten some relief. 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 Patient would like to know more HEP that she can perform upon d/c today. Patient Reported Progress Improving PT-OP-F Manual Assessment Start: 11/07/17 05:52 Freq: Status: Active Protocol: Document 11/06/17 15:15 AMH (Rec: 11/07/17 06:14 AMH [email or web address]) Manual Assessments Soft Tissue Assessment Soft Tissue Mobility Assessment myofascial tightness of the wrist complex extensor musculature on the left forearm, tightness of the left upper trapezius, scalenes, and pectoralis Other Manual Assessments Other Manual Assessments + ULTT for median and radial nerve symptoms middle scalene stretch reproduces some symptoms in the left forearm PT-OP-J Posture/Palpation/Skin Start: 11/07/17 05:52 Freq: Status: Active Protocol: Document 11/06/17 15:15 AMH (Rec: 11/07/17 06:14 AMH [email or web address]) Palpation Assessment Location One Palpation Location left lateral epicondyle and soft tissue Palpation Findings Soft Tissue Tightness Muscle Guarding Tenderness PT-OP-M Strength Start: 11/07/17 06:14 Freq: Status: Active Protocol: Document 11/06/17 15:15 AMH (Rec: 11/07/17 06:15 AMH [email or web address]) Elbow/Forearm Strength Elbow and Forearm Manual Muscle Testing Left Extension (C7) 3+ Fair+ Supination 3+ Fair+ Comments pain with resistance PT-OP-Q Treatments Start: 11/07/17 05:52 Freq: Status: Active Protocol: Document 04/02/18 13:33 EA (Rec: 04/02/18 13:40 EA [id number]) Therapeutic Exercises Sitting Exercises 5 Sitting Exercise Name eccentric wrist ext Equipment Used 1-3# Reps/Minutes 10 Comments HEP comp 4 Sitting Exercise Name elbow ext stretch Reps/Minutes 30 sec Comments w/finger flexion: HEP comp 3 Sitting Exercise Name controlled opening/closing of hand 2 Sitting Exercise Name hand ext with rubber band 1 Sitting Exercise Name Wrist flexion, radial deviation and pron/sup Resistance 1-3 lbs Reps/Minutes x 12 reps x 2 sets Self-Care/Home Management Treatment Education Patient Education Joint Protection Pain Management Other Education educated and instructed with HEP. Demonstrates good understanding. PT-OP-R Modalities Start: 11/07/17 05:52 Freq: Status: Active Protocol: Document 04/02/18 13:33 EA (Rec: 04/02/18 13:40 EA [id number]) Electric Stimulation Electric Stimulation Interferential Current (IFC) Body Location wrist extnsor; upper traps Duration (Minutes) 15 Intensity 12 Patient Position Supine Combined With Heat/Cold Cold Pack Ultrasound Therapy Treatment Left Lateral Elbow Treatment Duration (minutes) 5 Patient Position Sitting Frequency Setting (mHz) 1 Intensity Setting (w/cm2) 1.2 PT-OP-T Assessment and Plan Start: 11/07/17 05:52 Freq: Status: Active Protocol: Document 04/02/18 13:33 EA (Rec: 04/02/18 13:40 EA [id number]) Physical Therapy Assessment Assessment Summary Assessment Pt continued to exhibit signs and symptoms consistent with left tennis elbow, however is minimal at this time. Patient received and educated with HEP with good understanding upon discharge today. Overall, patient has improved functionally upon discharge today. Physical Therapy Plan Discharge Physical Therapy Discharge Reasons Plateau in Progress Discharge Comments Insurance limitation
--- NOTE | 2018-04-02 16:40 | PT.OPDS ---
Current Diagnoses Other enthesopathies, not elsewhere classified (04/02/18) Provider Visit Care Team Role Provider Type Milagros Abdi MD Attending Provider Non-Staff Family Provider Primary Care Provider Specialty: Internal Medicine Address: [address] [place] [address], [facility] Email: Visit Number Visit Number 21 Discharge Summary PT-OP-B Current Condition Start: 11/07/17 05:52 Freq: Status: Active Protocol: Document 11/06/17 15:15 AMH (Rec: 11/07/17 06:14 AMH [email or web address]) Current Condition History of Current Condition Onset Date symptoms began several months ago and have progressed Current Complaints complaints of lateral elbow pain made worse with gripping activities History of Current Condition 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 Her symptoms were made worse with boating and kayaking and with gripping activities. She recently saw her doctor who instructed her in the correct placement of a elbow tendonitis strap and advised to wear a compression wrap on her arm. She reports this seems to be really working as in just the past few days she has gotten some relief. 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 Patient would like to know more HEP that she can perform upon d/c today. Patient Reported Progress Improving PT-OP-F Manual Assessment Start: 11/07/17 05:52 Freq: Status: Active Protocol: Document 11/06/17 15:15 AMH (Rec: 11/07/17 06:14 AMH [email or web address]) Manual Assessments Soft Tissue Assessment Soft Tissue Mobility Assessment myofascial tightness of the wrist complex extensor musculature on the left forearm, tightness of the left upper trapezius, scalenes, and pectoralis Other Manual Assessments Other Manual Assessments + ULTT for median and radial nerve symptoms middle scalene stretch reproduces some symptoms in the left forearm PT-OP-J Posture/Palpation/Skin Start: 11/07/17 05:52 Freq: Status: Active Protocol: Document 11/06/17 15:15 AMH (Rec: 11/07/17 06:14 AMH [email or web address]) Palpation Assessment Location One Palpation Location left lateral epicondyle and soft tissue Palpation Findings Soft Tissue Tightness Muscle Guarding Tenderness PT-OP-M Strength Start: 11/07/17 06:14 Freq: Status: Active Protocol: Document 11/06/17 15:15 AMH (Rec: 11/07/17 06:15 AMH [email or web address]) Elbow/Forearm Strength Elbow and Forearm Manual Muscle Testing Left Extension (C7) 3+ Fair+ Supination 3+ Fair+ Comments pain with resistance PT-OP-T Assessment and Plan Start: 11/07/17 05:52 Freq: Status: Active Protocol: Document 04/02/18 13:33 EA (Rec: 04/02/18 13:40 EA [id number]) Physical Therapy Assessment Assessment Summary Assessment Pt continued to exhibit signs and symptoms consistent with left tennis elbow, however is minimal at this time. Patient received and educated with HEP with good understanding upon discharge today. Overall, patient has improved functionally upon discharge today. Physical Therapy Plan Discharge Physical Therapy Discharge Reasons Plateau in Progress Discharge Comments Insurance limitation
== END 2018-04-14 13:47 ==
LOC: PHYS 10:30
PROVIDERS: Family Provider Internal Medicine; PCP Internal Medicine; Visit Provider Internal Medicine
DX: M77.8 Other enthesopathies, not elsewhere classified (principal)
CPT/HCPCS: 97010; 97014; 97110; 97140; 97161; 97530; 97535; G0283

== ENCOUNTER 2018-08-19 10:30 | Outpatient (RCR) | payer OTHER, MEDICAID, SELFPAY ==
--- NOTE | 2018-06-09 14:35 | PT.OIE ---
Current Diagnoses Other shoulder lesions, unspecified shoulder (06/09/18) Other shoulder lesions, left shoulder (06/09/18) Provider Visit Care Team Role Provider Type Milagros Abdi MD Attending Provider Non-Staff Primary Care Provider Specialty: Internal Medicine Address: [address] [place] [address], [facility] Email: Physical Therapy Initial Evaluation PT-OP-A Visit Information Start: 06/09/18 14:03 Freq: Status: Active Protocol: Document 06/09/18 14:06 EA (Rec: 06/09/18 14:24 EA [id number]) Out-Patient Physical Therapy Visit Information Visit Information Visit Type Initial Evaluation Visit Start Time 12:15 Visit Stop Time 12:55 Total Visit Minutes 40 Visit Number 1 Number of PHYSICAL SCIENCE TECHNICIAN Visits 0 Evaluation Information Evaluation Date 06/09/18 PT-OP-B Current Condition Start: 06/09/18 14:03 Freq: Status: Active Protocol: Document 06/09/18 14:06 EA (Rec: 06/09/18 14:24 EA [id number]) Current Condition History of Current Condition Onset Date April 13, 2018 Current Complaints Localized both shoulder pain R > L History of Current Condition Patient reports both shoulder appeared 1 day after hauling and placing 13 foot boat pole to her truck and to her storage; states pain mostly aggravated when in sidelying and lampshade overhead reaching which sometimes pain reached up 8/10. Patient denies throbbing pain or numbness to both shoulders at this time. Pt went to urgent care doctor 2 weeks after the onset; states MRI was only recommended by her doctor if pain did not subsides, however, states pain is much better at this time. 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 Functional Limitations- Mobility/Gait No gait limitation Functional Limitations- Work/School Not able to work at this time due shoulder pain Functional Limitations- Recreation/ Unable to perform boating and Hobbies Kayaking due to current shoulder symptoms PT-OP-C Subjective Start: 06/09/18 14:03 Freq: Status: Active Protocol: Document 06/09/18 14:06 EA (Rec: 06/09/18 14:24 EA [id number]) OP-PT Subjective Patient Comments Patient Comments Patients reports that is worried that she may not be able to work on the coming mid -July for a Kayak class; states a lot of shoulder movement during demonstrations . Patient Reported Progress Same Patient Questionnaires Quick Dash- Work and Sports Modules Quick Dash W&S Score 50 Quick Dash Work and Sport Impairment 40 to 59% Impaired (Score 40- 59) OP-PT Pain Assessment Pain Assessment Grid Paper Pain Assessment Grid Completed Yes Location Bilateral Anterior Shoulder Pain Location Details 2/10 at rest 8/10 at worst with overhead activity Scale Used Numeric (1 - 10) PT-OP-E Functional Tests Start: 06/09/18 14:03 Freq: Status: Active Protocol: Document 06/09/18 14:06 EA (Rec: 06/09/18 14:24 EA [id number]) Functional Tests Apley's Scratch Test Action 1: The subject is instructed to touch the opposite shoulder with his/her hand. This motion checks Glenohumeral adduction, internal rotation , horizontal adduction and scapular protraction Action 2: The subject is instructed to place his/her arm overhead and reach behind the neck to touch his/her upper back. This motion checks Glenohumeral abduction, external rotation and scapular upward rotation and elevation. Action 3: The subject puts his/her hand on the lower back and reaches upward as far as possible. This motion checks glenohumeral adduction, internal rotation and scapular retraction with downward rotation Action 1- Left able Action 1- Right able Action 2- Left T2 Action 2- Right T2 Action 3- Left T10 Action 3- Right T10 PT-OP-J Posture/Palpation/Skin Start: 06/09/18 14:03 Freq: Status: Active Protocol: Document 06/09/18 15:20 EA (Rec: 06/09/18 15:26 EA [id number]) Posture Evaluation Position Standing Evaluation View post/lat Pelvis Posture Neutral Comments Posture Comments Slight forward head with slight rounded shoulders Palpation Assessment Location One Palpation Location Right/left shoulder subacromial, both traps Palpation Findings Soft Tissue Tightness Tenderness Skin Assessment Other Assessments Skin Assessment Comments No obvious signs of acute inflammation and atrophy to both shoulders and scapular mucles PT-OP-K Range of Motion Start: 06/09/18 14:03 Freq: Status: Active Protocol: Document 06/09/18 15:20 EA (Rec: 06/09/18 15:26 EA [id number]) Shoulder Goniometric Range of Motion Shoulder Measured in Degrees Right Active Shoulder ROM WFL Yes Active Shoulder ROM WFL Yes PT-OP-L Special Tests Start: 06/09/18 14:03 Freq: Status: Active Protocol: Document 06/09/18 15:20 EA (Rec: 06/09/18 15:26 EA [id number]) Special Tests Shoulder Special Tests Elevation Impingement Test Results sensitive at 90 degrees Yergason's Biceps Test Results negative Lift-Off Rotator Cuff Test Results sensitive Serrano Jameson Impingement Test Results both postive Belly Press Test Results both positive Empty Can Test Results sensitive Clunk Test Test Results negative PT-OP-M Strength Start: 06/09/18 14:03 Freq: Status: Active Protocol: Document 06/09/18 15:20 EA (Rec: 06/09/18 15:26 EA [id number]) Shoulder Strength Shoulder Manual Muscle Testing Right Flexion 4+ Good+ Extension 5 Normal Abduction (C5) 4- Good- Adduction 5 Normal External Rotation 4 Good Internal Rotation 4- Good- Horizontal Abduction 4 Good Horizontal Adduction 4+ Good+ Left Flexion 4+ Good+ Extension 5 Normal Abduction (C5) 4- Good- Adduction 5 Normal External Rotation 4 Good Internal Rotation 4- Good- Horizontal Abduction 4 Good Horizontal Adduction 4+ Good+ PT-OP-Q Treatments Start: 06/09/18 14:03 Freq: Status: Active Protocol: Document 06/09/18 15:34 EA (Rec: 06/09/18 15:37 EA [id number]) Therapeutic Exercises Standing Exercises 6 Standing Exercise Name T-bar shoulder flexion/ Extension Side bilateral Reps/Minutes x 15 reps 5 Standing Exercise Name Wall posture shoulder press Side bilateral Reps/Minutes x15 reps 4 Standing Exercise Name Bilat scapular retraction Resistance Lv 1 Reps/Minutes x 12 reps 3 Standing Exercise Name Shoulder IR Side bilateral Resistance Lv 1 Reps/Minutes x 12 reps Self-Care/Home Management Treatment Education Patient Education Home Exercise Program Pain Management Posture PT-OP-T Assessment and Plan Start: 06/09/18 14:03 Freq: Status: Active Protocol: Document 06/09/18 14:27 EA (Rec: 06/09/18 14:29 EA [id number]) Physical Therapy Assessment Rehab Potential Rehabilitation Potential Good Evaluation Complexity Number of Personal Factors/Comorbidities 1-2 Number of Body Systems Impaired 1-2 Clinical Presentation at Evaluation Stable Impairments Impairments Pain Posture Soft Tissue Mobility Strength Goals Four Impairment NO HEP in place Intermediate Goal (LTG) Patient will perform home exercise program independently . 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 Today patient demonstrates signs and symptoms consistent with referring diagnosis with three special tests are positive and weakness with pain upon MMT to both subscapularis muscles. Palpation reveals tender over subacromial process and hypertonic traps. Patient would benefit with skilled PT to reach functional goals and be able to get back to [facility]. Physical Therapy Plan Frequency and Duration Frequency of Treatment 1x/Week Duration of Treatment 8 wks Plan of Care Start Date 06/09/18 Plan of Care End Date 08/04/18 Therapeutic Interventions Therapeutic Interventions Home Exercise Program Joint Mobilizations Manual Therapy Patient/Caregiver Education Self-Care/Home Management Soft Tissue Mobilization Taping Therapeutic Exercises Modalities Cold Pack/Ice Massage Electric Stimulation Hot Packs Ultrasound Next Visit Focus/Plan Next Note Type Treatment Note Next Visit Plan Review HEP, strengthening exercises
--- NOTE | 2018-06-09 15:35 | PT.OPPOC ---
Current Diagnoses Other shoulder lesions, unspecified shoulder (06/09/18) Other shoulder lesions, left shoulder (06/09/18) Provider Visit Care Team Role Provider Type Milagros Abdi MD Attending Provider Non-Staff Primary Care Provider Specialty: Internal Medicine Address: [address] [place] [address], [facility] Email: Plan Of Care PT-OP-T Assessment and Plan Start: 06/09/18 14:03 Freq: Status: Active Protocol: Document 06/09/18 14:27 EA (Rec: 06/09/18 14:29 EA [id number]) Physical Therapy Assessment Rehab Potential Rehabilitation Potential Good Evaluation Complexity Number of Personal Factors/Comorbidities 1-2 Number of Body Systems Impaired 1-2 Clinical Presentation at Evaluation Stable Impairments Impairments Pain Posture Soft Tissue Mobility Strength Goals Four Impairment NO HEP in place Alf Goal (LTG) Patient will perform home exercise program independently . 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 Today patient demonstrates signs and symptoms consistent with referring diagnosis with three special tests are positive and weakness with pain upon MMT to both subscapularis muscles. Palpation reveals tender over subacromial process and hypertonic traps. Patient would benefit with skilled PT to reach functional goals and be able to get back to PLOF. Physical Therapy Plan Frequency and Duration Frequency of Treatment 1x/Week Duration of Treatment 8 wks Plan of Care Start Date 06/09/18 Plan of Care End Date 08/04/18 Therapeutic Interventions Therapeutic Interventions Home Exercise Program Joint Mobilizations Manual Therapy Patient/Caregiver Education Self-Care/Home Management Soft Tissue Mobilization Taping Therapeutic Exercises Modalities Cold Pack/Ice Massage Electric Stimulation Hot Packs Ultrasound Next Visit Focus/Plan Next Note Type Treatment Note Next Visit Plan Review HEP, strengthening exercises Plan of Care Dates Plan of Care Start Date 06/09/18 Plan of Care End Date 08/04/18 Please Sign and Return: I have reviewed this Plan of Care and certify that the skilled therapy services above are required to meet the patient?s needs. Physician Signature Date Printed Name and Credentials Clinical Instructor Signature Printed Name and Credentials
--- NOTE | 2018-06-29 17:17 | PT.OTN ---
Current Diagnoses Other shoulder lesions, unspecified shoulder (06/29/18) Other shoulder lesions, left shoulder (06/29/18) Physical Therapy Treatment Note PT-OP-A Visit Information Start: 06/09/18 14:03 Freq: Status: Active Protocol: Document 06/29/18 17:03 EA (Rec: 06/29/18 17:17 EA [id number]) Out-Patient Physical Therapy Visit Information Visit Information Visit Type Treatment Note Visit Start Time 16:00 Visit Stop Time 16:53 Total Visit Minutes 53 Visit Number 2 PT-OP-B Current Condition Start: 06/09/18 14:03 Freq: Status: Active Protocol: Document 06/09/18 14:06 EA (Rec: 06/09/18 14:24 EA [id number]) Current Condition History of Current Condition Onset Date April 13, 2018 Current Complaints Localized both shoulder pain R > L History of Current Condition Patient reports both shoulder appeared 1 day after hauling and placing 13 foot boat pole to her truck and to her storage; states pain mostly aggravated when in sidelying and lampshade overhead reaching which sometimes pain reached up 8/10. Patient denies throbbing pain or numbness to both shoulders at this time. Pt went to urgent care doctor 2 weeks after the onset; states MRI was only recommended by her doctor if pain did not subsides, however, states pain is much better at this time. 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 Functional Limitations- Mobility/Gait No gait limitation Functional Limitations- Work/School Not able to work at this time due shoulder pain Functional Limitations- Recreation/ Unable to perform boating and Hobbies Kayaking due to current shoulder symptoms PT-OP-C Subjective Start: 06/09/18 14:03 Freq: Status: Active Protocol: Document 06/29/18 17:03 EA (Rec: 03/25/19 17:17 EA [id number]) OP-PT Subjective Patient Comments Patient Comments Pt reports both shoulder is slightly better; states pain to left is more than right at this time.Pt reports she has been following recommended HEP . PT-OP-E Functional Tests Start: 06/09/18 14:03 Freq: Status: Active Protocol: Document 06/09/18 14:06 EA (Rec: 06/09/18 14:24 EA [id number]) Functional Tests Apley's Scratch Test Action 1: The subject is instructed to touch the opposite shoulder with his/her hand. This motion checks Glenohumeral adduction, internal rotation , horizontal adduction and scapular protraction Action 2: The subject is instructed to place his/her arm overhead and reach behind the neck to touch his/her upper back. This motion checks Glenohumeral abduction, external rotation and scapular upward rotation and elevation. Action 3: The subject puts his/her hand on the lower back and reaches upward as far as possible. This motion checks glenohumeral adduction, internal rotation and scapular retraction with downward rotation Action 1- Left able Action 1- Right able Action 2- Left T2 Action 2- Right T2 Action 3- Left T10 Action 3- Right T10 PT-OP-J Posture/Palpation/Skin Start: 06/09/18 14:03 Freq: Status: Active Protocol: Document 06/09/18 15:20 EA (Rec: 06/09/18 15:26 EA [id number]) Posture Evaluation Position Standing Evaluation View post/lat Pelvis Posture Neutral Comments Posture Comments Slight forward head with slight rounded shoulders Palpation Assessment Location One Palpation Location Right/left shoulder subacromial, both traps Palpation Findings Soft Tissue Tightness Tenderness Skin Assessment Other Assessments Skin Assessment Comments No obvious signs of acute inflammation and atrophy to both shoulders and scapular mucles PT-OP-K Range of Motion Start: 06/09/18 14:03 Freq: Status: Active Protocol: Document 06/09/18 15:20 EA (Rec: 06/09/18 15:26 EA [id number]) Shoulder Goniometric Range of Motion Shoulder Measured in Degrees Right Active Shoulder ROM WFL Yes Active Shoulder ROM WFL Yes PT-OP-L Special Tests Start: 06/09/18 14:03 Freq: Status: Active Protocol: Document 06/09/18 15:20 EA (Rec: 06/09/18 15:26 EA [id number]) Special Tests Shoulder Special Tests Elevation Impingement Test Results sensitive at 90 degrees Yergason's Biceps Test Results negative Lift-Off Rotator Cuff Test Results sensitive Serrano Jameson Impingement Test Results both postive Belly Press Test Results both positive Empty Can Test Results sensitive Clunk Test Test Results negative PT-OP-M Strength Start: 06/09/18 14:03 Freq: Status: Active Protocol: Document 06/09/18 15:20 EA (Rec: 06/09/18 15:26 EA [id number]) Shoulder Strength Shoulder Manual Muscle Testing Right Flexion 4+ Good+ Extension 5 Normal Abduction (C5) 4- Good- Adduction 5 Normal External Rotation 4 Good Internal Rotation 4- Good- Horizontal Abduction 4 Good Horizontal Adduction 4+ Good+ Left Flexion 4+ Good+ Extension 5 Normal Abduction (C5) 4- Good- Adduction 5 Normal External Rotation 4 Good Internal Rotation 4- Good- Horizontal Abduction 4 Good Horizontal Adduction 4+ Good+ PT-OP-Q Treatments Start: 06/09/18 14:03 Freq: Status: Active Protocol: Document 06/29/18 17:03 EA (Rec: 06/29/18 17:17 EA [id number]) Cardio Equipment Upper Body Ergometer (UBE) Duration (Minutes) 5 Seat Position 9 Height 4-6 Therapeutic Exercises Prone Exercises 1 Prone Exercise Name Y-T on T-ball Side bilateral Resistance 1# Reps/Minutes x 15 reps x 2 sets Standing Exercises 7 Standing Exercise Name Single arm cable crossover Side bilateral Resistance 10# Reps/Minutes x 12 reps Comments engaged hip and quads during the push 3 Standing Exercise Name Lats stretch Side bilateral Reps/Minutes x 15SH x 2 reps rows Standing Exercise Name cable row Side bilateral Resistance 20# Reps/Minutes x 15 reps 2 Standing Exercise Name squat row Side bilateral Resistance 20# Reps/Minutes x 12 reps 1 Standing Exercise Name pectoral stretch Side bilateral Reps/Minutes x15 sh x 2 Manual Therapy Treatment Soft Tissue Mobilization pec Body Location pec inf to coracoid Mobilization Type Rolling Comments w/neural gliding 1 Body Location LHBT both sides Mobilization Type Cross-Friction Intensity/Depth Moderate Body Position Supine PT-OP-R Modalities Start: 06/29/18 17:02 Freq: Status: Active Protocol: Document 06/29/18 17:03 EA (Rec: 06/29/18 17:17 EA [id number]) Electric Stimulation Electric Stimulation Interferential Current (IFC) Body Location upper traps, ant delts Duration (Minutes) 15 Intensity 12 Patient Position Supine Combined With Heat/Cold Cold Pack Ultrasound Therapy Treatment Left Anterior Shoulder Treatment Duration (minutes) 5 Patient Position Supine Coupling Medium Ultrasound Gel Mode Setting Pulsed Duty Cycle 50% Intensity Setting (w/cm2) 1.2 PT-OP-T Assessment and Plan Start: 06/09/18 14:03 Freq: Status: Active Protocol: Document 06/29/18 17:03 EA (Rec: 06/29/18 17:17 EA [id number]) Physical Therapy Assessment Assessment Summary Assessment Tolerated treatment with slight discomfort in Y prone scap ADD. Physical Therapy Plan Next Visit Focus/Plan Next Note Type Treatment Note
--- NOTE | 2018-07-13 15:58 | PT.OTN ---
Current Diagnoses Other shoulder lesions, unspecified shoulder (07/13/18) Other shoulder lesions, left shoulder (07/13/18) Physical Therapy Treatment Note PT-OP-A Visit Information Start: 06/09/18 14:03 Freq: Status: Active Protocol: Document 07/13/18 15:22 EA (Rec: 07/13/18 15:25 EA [id number]) Out-Patient Physical Therapy Visit Information Visit Information Visit Type Treatment Note Visit Start Time 14:30 Visit Stop Time 15:15 Total Visit Minutes 53 Visit Number 3 PT-OP-B Current Condition Start: 06/09/18 14:03 Freq: Status: Active Protocol: Document 06/09/18 14:06 EA (Rec: 06/09/18 14:24 EA [id number]) Current Condition History of Current Condition Onset Date April 13, 2018 Current Complaints Localized both shoulder pain R > L History of Current Condition Patient reports both shoulder appeared 1 day after hauling and placing 13 foot boat pole to her truck and to her storage; states pain mostly aggravated when in sidelying and lampshade overhead reaching which sometimes pain reached up 8/10. Patient denies throbbing pain or numbness to both shoulders at this time. Pt went to urgent care doctor 2 weeks after the onset; states MRI was only recommended by her doctor if pain did not subsides, however, states pain is much better at this time. 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 Functional Limitations- Mobility/Gait No gait limitation Functional Limitations- Work/School Not able to work at this time due shoulder pain Functional Limitations- Recreation/ Unable to perform boating and Hobbies Kayaking due to current shoulder symptoms PT-OP-C Subjective Start: 06/09/18 14:03 Freq: Status: Active Protocol: Document 07/13/18 15:22 EA (Rec: 04/08/19 15:25 EA [id number]) OP-PT Subjective Patient Comments Patient Comments Pt reports shoulder are improving but slowly. PT-OP-E Functional Tests Start: 06/09/18 14:03 Freq: Status: Active Protocol: Document 06/09/18 14:06 EA (Rec: 06/09/18 14:24 EA [id number]) Functional Tests Apley's Scratch Test Action 1: The subject is instructed to touch the opposite shoulder with his/her hand. This motion checks Glenohumeral adduction, internal rotation , horizontal adduction and scapular protraction Action 2: The subject is instructed to place his/her arm overhead and reach behind the neck to touch his/her upper back. This motion checks Glenohumeral abduction, external rotation and scapular upward rotation and elevation. Action 3: The subject puts his/her hand on the lower back and reaches upward as far as possible. This motion checks glenohumeral adduction, internal rotation and scapular retraction with downward rotation Action 1- Left able Action 1- Right able Action 2- Left T2 Action 2- Right T2 Action 3- Left T10 Action 3- Right T10 PT-OP-J Posture/Palpation/Skin Start: 06/09/18 14:03 Freq: Status: Active Protocol: Document 06/09/18 15:20 EA (Rec: 06/09/18 15:26 EA [id number]) Posture Evaluation Position Standing Evaluation View post/lat Pelvis Posture Neutral Comments Posture Comments Slight forward head with slight rounded shoulders Palpation Assessment Location One Palpation Location Right/left shoulder subacromial, both traps Palpation Findings Soft Tissue Tightness Tenderness Skin Assessment Other Assessments Skin Assessment Comments No obvious signs of acute inflammation and atrophy to both shoulders and scapular mucles PT-OP-K Range of Motion Start: 06/09/18 14:03 Freq: Status: Active Protocol: Document 06/09/18 15:20 EA (Rec: 06/09/18 15:26 EA [id number]) Shoulder Goniometric Range of Motion Shoulder Measured in Degrees Right Active Shoulder ROM WFL Yes Active Shoulder ROM WFL Yes PT-OP-L Special Tests Start: 06/09/18 14:03 Freq: Status: Active Protocol: Document 06/09/18 15:20 EA (Rec: 06/09/18 15:26 EA [id number]) Special Tests Shoulder Special Tests Elevation Impingement Test Results sensitive at 90 degrees Yergason's Biceps Test Results negative Lift-Off Rotator Cuff Test Results sensitive Serrano Jameson Impingement Test Results both postive Belly Press Test Results both positive Empty Can Test Results sensitive Clunk Test Test Results negative PT-OP-M Strength Start: 06/09/18 14:03 Freq: Status: Active Protocol: Document 06/09/18 15:20 EA (Rec: 06/09/18 15:26 EA [id number]) Shoulder Strength Shoulder Manual Muscle Testing Right Flexion 4+ Good+ Extension 5 Normal Abduction (C5) 4- Good- Adduction 5 Normal External Rotation 4 Good Internal Rotation 4- Good- Horizontal Abduction 4 Good Horizontal Adduction 4+ Good+ Left Flexion 4+ Good+ Extension 5 Normal Abduction (C5) 4- Good- Adduction 5 Normal External Rotation 4 Good Internal Rotation 4- Good- Horizontal Abduction 4 Good Horizontal Adduction 4+ Good+ PT-OP-Q Treatments Start: 06/09/18 14:03 Freq: Status: Active Protocol: Document 07/13/18 15:22 EA (Rec: 07/13/18 15:25 EA [id number]) Cardio Equipment Upper Body Ergometer (UBE) Duration (Minutes) 5 Seat Position 9 Height 4-6 Therapeutic Exercises Prone Exercises 1 Prone Exercise Name Y-T on T-ball Side bilateral Resistance 2# Reps/Minutes x 15 reps x 2 sets Standing Exercises 7 Standing Exercise Name Single arm cable crossover Side bilateral Resistance 10# Reps/Minutes x 12 reps Comments engaged hip and quads during the push 6 Standing Exercise Name T-bar shoulder flexion/ Extension Side bilateral Resistance 4 lbs Reps/Minutes x 15 reps 4 Standing Exercise Name Bilat scapular retraction Resistance Lv 1 Reps/Minutes x 12 reps 3 Standing Exercise Name Lats stretch Side bilateral Reps/Minutes x 15SH x 2 reps rows Standing Exercise Name cable row Side bilateral Resistance 20-30# Reps/Minutes x 15 repsx2 2 Standing Exercise Name squat row Side bilateral Resistance -30# Reps/Minutes x 12 repsx2 1 Standing Exercise Name pectoral stretch Side bilateral Reps/Minutes x15 sh x 2 Manual Therapy Treatment Soft Tissue Mobilization pec Body Location pec inf to coracoid Mobilization Type Rolling Comments w/neural gliding 1 Body Location LHBT both sides Mobilization Type Cross-Friction Intensity/Depth Moderate Body Position Supine PT-OP-R Modalities Start: 06/29/18 17:02 Freq: Status: Active Protocol: Document 07/13/18 15:22 EA (Rec: 07/13/18 15:25 EA [id number]) Electric Stimulation Electric Stimulation Interferential Current (IFC) Body Location upper traps, ant delts Duration (Minutes) 15 Intensity 12 Patient Position Supine Combined With Heat/Cold Cold Pack PT-OP-T Assessment and Plan Start: 06/09/18 14:03 Freq: Status: Active Protocol: Document 07/13/18 15:56 EA (Rec: 07/13/18 15:58 EA [id number]) Physical Therapy Assessment Assessment Summary Assessment No noted any signs of discomfort during therex; patient advised to continue prev HEP and additional one. Physical Therapy Plan Next Visit Focus/Plan Next Note Type Treatment Note Next Visit Plan Advance as tolerated
--- NOTE | 2018-07-21 15:23 | PT.OTN ---
Current Diagnoses Other shoulder lesions, unspecified shoulder (07/21/18) Other shoulder lesions, left shoulder (07/21/18) Physical Therapy Treatment Note PT-OP-A Visit Information Start: 06/09/18 14:03 Freq: Status: Active Protocol: Document 07/21/18 12:13 EA (Rec: 07/21/18 12:15 EA [id number]) Out-Patient Physical Therapy Visit Information Visit Information Visit Type Treatment Note Visit Start Time 10:30 Visit Stop Time 11:18 Visit Number 4 PT-OP-B Current Condition Start: 06/09/18 14:03 Freq: Status: Active Protocol: Document 06/09/18 14:06 EA (Rec: 06/09/18 14:24 EA [id number]) Current Condition History of Current Condition Onset Date April 13, 2018 Current Complaints Localized both shoulder pain R > L History of Current Condition Patient reports both shoulder appeared 1 day after hauling and placing 13 foot boat pole to her truck and to her storage; states pain mostly aggravated when in sidelying and lampshade overhead reaching which sometimes pain reached up 8/10. Patient denies throbbing pain or numbness to both shoulders at this time. Pt went to urgent care doctor 2 weeks after the onset; states MRI was only recommended by her doctor if pain did not subsides, however, states pain is much better at this time. 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 Functional Limitations- Mobility/Gait No gait limitation Functional Limitations- Work/School Not able to work at this time due shoulder pain Functional Limitations- Recreation/ Unable to perform boating and Hobbies Kayaking due to current shoulder symptoms PT-OP-C Subjective Start: 06/09/18 14:03 Freq: Status: Active Protocol: Document 07/21/18 12:13 EA (Rec: 07/21/18 12:15 EA [id number]) OP-PT Subjective Patient Comments Patient Comments Pt reports both shoulder are improving well and compliant with HEP. PT-OP-E Functional Tests Start: 06/09/18 14:03 Freq: Status: Active Protocol: Document 06/09/18 14:06 EA (Rec: 06/09/18 14:24 EA [id number]) Functional Tests Apley's Scratch Test Action 1: The subject is instructed to touch the opposite shoulder with his/her hand. This motion checks Glenohumeral adduction, internal rotation , horizontal adduction and scapular protraction Action 2: The subject is instructed to place his/her arm overhead and reach behind the neck to touch his/her upper back. This motion checks Glenohumeral abduction, external rotation and scapular upward rotation and elevation. Action 3: The subject puts his/her hand on the lower back and reaches upward as far as possible. This motion checks glenohumeral adduction, internal rotation and scapular retraction with downward rotation Action 1- Left able Action 1- Right able Action 2- Left T2 Action 2- Right T2 Action 3- Left T10 Action 3- Right T10 PT-OP-J Posture/Palpation/Skin Start: 06/09/18 14:03 Freq: Status: Active Protocol: Document 06/09/18 15:20 EA (Rec: 06/09/18 15:26 EA [id number]) Posture Evaluation Position Standing Evaluation View post/lat Pelvis Posture Neutral Comments Posture Comments Slight forward head with slight rounded shoulders Palpation Assessment Location One Palpation Location Right/left shoulder subacromial, both traps Palpation Findings Soft Tissue Tightness Tenderness Skin Assessment Other Assessments Skin Assessment Comments No obvious signs of acute inflammation and atrophy to both shoulders and scapular mucles PT-OP-K Range of Motion Start: 06/09/18 14:03 Freq: Status: Active Protocol: Document 06/09/18 15:20 EA (Rec: 06/09/18 15:26 EA [id number]) Shoulder Goniometric Range of Motion Shoulder Measured in Degrees Right Active Shoulder ROM WFL Yes Active Shoulder ROM WFL Yes PT-OP-L Special Tests Start: 06/09/18 14:03 Freq: Status: Active Protocol: Document 06/09/18 15:20 EA (Rec: 06/09/18 15:26 EA [id number]) Special Tests Shoulder Special Tests Elevation Impingement Test Results sensitive at 90 degrees Yergason's Biceps Test Results negative Lift-Off Rotator Cuff Test Results sensitive Serrano Jameson Impingement Test Results both postive Belly Press Test Results both positive Empty Can Test Results sensitive Clunk Test Test Results negative PT-OP-M Strength Start: 06/09/18 14:03 Freq: Status: Active Protocol: Document 06/09/18 15:20 EA (Rec: 06/09/18 15:26 EA [id number]) Shoulder Strength Shoulder Manual Muscle Testing Right Flexion 4+ Good+ Extension 5 Normal Abduction (C5) 4- Good- Adduction 5 Normal External Rotation 4 Good Internal Rotation 4- Good- Horizontal Abduction 4 Good Horizontal Adduction 4+ Good+ Left Flexion 4+ Good+ Extension 5 Normal Abduction (C5) 4- Good- Adduction 5 Normal External Rotation 4 Good Internal Rotation 4- Good- Horizontal Abduction 4 Good Horizontal Adduction 4+ Good+ PT-OP-Q Treatments Start: 06/09/18 14:03 Freq: Status: Active Protocol: Document 07/21/18 15:13 EA (Rec: 07/21/18 15:17 EA [id number]) Therapeutic Exercises Prone Exercises 1 Prone Exercise Name Y-T on T-ball Side bilateral Resistance 2# Reps/Minutes x 15 reps x 2 sets Standing Exercises 7 Standing Exercise Name Single arm cable crossover Side bilateral Resistance 10# Reps/Minutes x 12 reps Comments engaged hip and quads during the push 6 Standing Exercise Name T-bar shoulder flexion/ Extension Side bilateral Resistance 4 lbs Reps/Minutes x 15 reps 5 Standing Exercise Name Wall posture shoulder press Side bilateral Resistance 4lbs Reps/Minutes x15 repsx2 rows Standing Exercise Name cable row Side bilateral Resistance 20-30# Reps/Minutes x 15 repsx2 2 Standing Exercise Name squat row Side bilateral Resistance 30# Reps/Minutes x 12 repsx2 1 Standing Exercise Name pectoral stretch Side bilateral Reps/Minutes x15 sh x 2 Manual Therapy Treatment Soft Tissue Mobilization 4 Mobilization Type Rolling Sustained Pressure Intensity/Depth Moderate Body Position Supine Comments assisted mobilization w/wrist ext/flex 3 Body Location UT/LS L Mobilization Type Myofascial Release Rolling Sustained Pressure Intensity/Depth Moderate Body Position Supine 2 Body Location brachioradialis Mobilization Type Rolling Intensity/Depth Moderate 1 Body Location LHBT both sides, both raps Mobilization Type Cross-Friction Myofascial Release Rolling Intensity/Depth Moderate Body Position Supine PT-OP-R Modalities Start: 06/29/18 17:02 Freq: Status: Active Protocol: Document 07/21/18 15:13 EA (Rec: 07/21/18 15:17 EA [id number]) Hot Pack/Cold Pack Treatment Hot Pack Location left shoulder and T-spine Patient Position Sitting PT-OP-T Assessment and Plan Start: 06/09/18 14:03 Freq: Status: Active Protocol: Document 07/21/18 15:13 EA (Rec: 07/21/18 15:17 EA [id number]) Physical Therapy Assessment Assessment Summary Assessment Improved functional strength with no discomfort today. Patient continued to progress. Advanced as tolerated. Physical Therapy Plan Next Visit Focus/Plan Next Note Type Treatment Note Next Visit Plan Advanced as tolerated
--- NOTE | 2018-07-28 14:45 | PT.OTN ---
Current Diagnoses Other shoulder lesions, unspecified shoulder (07/28/18) Other shoulder lesions, left shoulder (07/28/18) Physical Therapy Treatment Note PT-OP-A Visit Information Start: 06/09/18 14:03 Freq: Status: Active Protocol: Document 07/28/18 14:30 EA (Rec: 07/28/18 14:37 EA [id number]) Out-Patient Physical Therapy Visit Information Visit Information Visit Type Treatment Note Visit Start Time 13:45 Visit Stop Time 14:30 Total Visit Minutes 53 Visit Number 5 PT-OP-B Current Condition Start: 06/09/18 14:03 Freq: Status: Active Protocol: Document 06/09/18 14:06 EA (Rec: 06/09/18 14:24 EA [id number]) Current Condition History of Current Condition Onset Date April 13, 2018 Current Complaints Localized both shoulder pain R > L History of Current Condition Patient reports both shoulder appeared 1 day after hauling and placing 13 foot boat pole to her truck and to her storage; states pain mostly aggravated when in sidelying and lampshade overhead reaching which sometimes pain reached up 8/10. Patient denies throbbing pain or numbness to both shoulders at this time. Pt went to urgent care doctor 2 weeks after the onset; states MRI was only recommended by her doctor if pain did not subsides, however, states pain is much better at this time. 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 Functional Limitations- Mobility/Gait No gait limitation Functional Limitations- Work/School Not able to work at this time due shoulder pain Functional Limitations- Recreation/ Unable to perform boating and Hobbies Kayaking due to current shoulder symptoms PT-OP-C Subjective Start: 06/09/18 14:03 Freq: Status: Active Protocol: Document 07/28/18 14:30 EA (Rec: 07/28/18 14:37 EA [id number]) OP-PT Subjective Patient Comments Patient Comments Pt reports shouldres has been feeling a little better; states neeing compliant with HEP. PT-OP-E Functional Tests Start: 06/09/18 14:03 Freq: Status: Active Protocol: Document 06/09/18 14:06 EA (Rec: 06/09/18 14:24 EA [id number]) Functional Tests Apley's Scratch Test Action 1: The subject is instructed to touch the opposite shoulder with his/her hand. This motion checks Glenohumeral adduction, internal rotation , horizontal adduction and scapular protraction Action 2: The subject is instructed to place his/her arm overhead and reach behind the neck to touch his/her upper back. This motion checks Glenohumeral abduction, external rotation and scapular upward rotation and elevation. Action 3: The subject puts his/her hand on the lower back and reaches upward as far as possible. This motion checks glenohumeral adduction, internal rotation and scapular retraction with downward rotation Action 1- Left able Action 1- Right able Action 2- Left T2 Action 2- Right T2 Action 3- Left T10 Action 3- Right T10 PT-OP-J Posture/Palpation/Skin Start: 06/09/18 14:03 Freq: Status: Active Protocol: Document 06/09/18 15:20 EA (Rec: 06/09/18 15:26 EA [id number]) Posture Evaluation Position Standing Evaluation View post/lat Pelvis Posture Neutral Comments Posture Comments Slight forward head with slight rounded shoulders Palpation Assessment Location One Palpation Location Right/left shoulder subacromial, both traps Palpation Findings Soft Tissue Tightness Tenderness Skin Assessment Other Assessments Skin Assessment Comments No obvious signs of acute inflammation and atrophy to both shoulders and scapular mucles PT-OP-K Range of Motion Start: 06/09/18 14:03 Freq: Status: Active Protocol: Document 06/09/18 15:20 EA (Rec: 06/09/18 15:26 EA [id number]) Shoulder Goniometric Range of Motion Shoulder Measured in Degrees Right Active Shoulder ROM WFL Yes Active Shoulder ROM WFL Yes PT-OP-L Special Tests Start: 06/09/18 14:03 Freq: Status: Active Protocol: Document 06/09/18 15:20 EA (Rec: 06/09/18 15:26 EA [id number]) Special Tests Shoulder Special Tests Elevation Impingement Test Results sensitive at 90 degrees Yergason's Biceps Test Results negative Lift-Off Rotator Cuff Test Results sensitive Serrano Jameson Impingement Test Results both postive Belly Press Test Results both positive Empty Can Test Results sensitive Clunk Test Test Results negative PT-OP-M Strength Start: 06/09/18 14:03 Freq: Status: Active Protocol: Document 06/09/18 15:20 EA (Rec: 06/09/18 15:26 EA [id number]) Shoulder Strength Shoulder Manual Muscle Testing Right Flexion 4+ Good+ Extension 5 Normal Abduction (C5) 4- Good- Adduction 5 Normal External Rotation 4 Good Internal Rotation 4- Good- Horizontal Abduction 4 Good Horizontal Adduction 4+ Good+ Left Flexion 4+ Good+ Extension 5 Normal Abduction (C5) 4- Good- Adduction 5 Normal External Rotation 4 Good Internal Rotation 4- Good- Horizontal Abduction 4 Good Horizontal Adduction 4+ Good+ PT-OP-Q Treatments Start: 06/09/18 14:03 Freq: Status: Active Protocol: Document 07/28/18 14:30 EA (Rec: 07/28/18 14:37 EA [id number]) Cardio Equipment Upper Body Ergometer (UBE) Duration (Minutes) 5 Seat Position 9 Height 4-6 Therapeutic Exercises Prone Exercises 1 Prone Exercise Name Y-T-I on T-ball Side bilateral Resistance 2-3# Reps/Minutes x 12 reps x 2 sets Standing Exercises 9 Standing Exercise Name squat D1 flexion Resistance 2-3 # Reps/Minutes x 12 reps x 2 8 Standing Exercise Name cable single arm cross over Side bilateral Resistance 10 lbs Reps/Minutes x 12 reps 7 Standing Exercise Name Single arm cable crossover Side bilateral Resistance 10# Reps/Minutes x 12 reps Comments engaged hip and quads during the push 6 Standing Exercise Name T-bar shoulder flexion/ Extension Side bilateral Resistance 4 lbs Reps/Minutes x 15 reps 5 Standing Exercise Name Wall posture shoulder press Side bilateral Resistance 4lbs Reps/Minutes x15 repsx2 3 Standing Exercise Name Lats stretch Side bilateral Reps/Minutes x 15SH x 2 reps rows Standing Exercise Name cable row Side bilateral Resistance 20-30-40# Reps/Minutes 12-10-8 1 Standing Exercise Name pectoral stretch Side bilateral Reps/Minutes x15 sh x 2 Manual Therapy Treatment Soft Tissue Mobilization 3 Body Location UT/LS L Mobilization Type Myofascial Release Rolling Sustained Pressure Intensity/Depth Moderate Body Position Supine 1 Body Location LHBT both sides, both raps Mobilization Type Cross-Friction Myofascial Release Rolling Intensity/Depth Moderate Body Position Supine PT-OP-R Modalities Start: 06/29/18 17:02 Freq: Status: Active Protocol: Document 07/28/18 14:30 EA (Rec: 07/28/18 14:37 EA [id number]) Electric Stimulation Electric Stimulation Interferential Current (IFC) Body Location upper traps, ant delts Duration (Minutes) 15 Intensity 12 Patient Position Supine Combined With Heat/Cold Cold Pack PT-OP-T Assessment and Plan Start: 06/09/18 14:03 Freq: Status: Active Protocol: Document 07/28/18 14:30 EA (Rec: 07/28/18 14:37 EA [id number]) Physical Therapy Assessment Assessment Summary Assessment Pt continued to show improved functional exercise with very less discomfort. Patient educated with lifting mechanics. Physical Therapy Plan Next Visit Focus/Plan Next Note Type Re-Evaluation Next Visit Plan perform re-eval. Advance as tolerated
--- NOTE | 2018-08-04 15:37 | PT.OTN ---
Current Diagnoses Other shoulder lesions, unspecified shoulder (08/04/18) Other shoulder lesions, left shoulder (08/04/18) Physical Therapy Treatment Note PT-OP-A Visit Information Start: 06/09/18 14:03 Freq: Status: Active Protocol: Document 08/04/18 13:52 EA (Rec: 08/04/18 13:56 EA [id number]) Out-Patient Physical Therapy Visit Information Visit Information Visit Type Treatment Note Visit Start Time 13:52 Visit Stop Time 14:30 Total Visit Minutes 48 Visit Number 6 PT-OP-B Current Condition Start: 06/09/18 14:03 Freq: Status: Active Protocol: Document 06/09/18 14:06 EA (Rec: 06/09/18 14:24 EA [id number]) Current Condition History of Current Condition Onset Date April 13, 2018 Current Complaints Localized both shoulder pain R > L History of Current Condition Patient reports both shoulder appeared 1 day after hauling and placing 13 foot boat pole to her truck and to her storage; states pain mostly aggravated when in sidelying and lampshade overhead reaching which sometimes pain reached up 8/10. Patient denies throbbing pain or numbness to both shoulders at this time. Pt went to urgent care doctor 2 weeks after the onset; states MRI was only recommended by her doctor if pain did not subsides, however, states pain is much better at this time. 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 Functional Limitations- Mobility/Gait No gait limitation Functional Limitations- Work/School Not able to work at this time due shoulder pain Functional Limitations- Recreation/ Unable to perform boating and Hobbies Kayaking due to current shoulder symptoms PT-OP-C Subjective Start: 06/09/18 14:03 Freq: Status: Active Protocol: Document 08/04/18 13:52 EA (Rec: 08/04/18 13:56 EA [id number]) OP-PT Subjective Patient Comments Patient Comments Pt admitted unable to perform HEP during off day. PT-OP-E Functional Tests Start: 06/09/18 14:03 Freq: Status: Active Protocol: Document 06/09/18 14:06 EA (Rec: 06/09/18 14:24 EA [id number]) Functional Tests Apley's Scratch Test Action 1: The subject is instructed to touch the opposite shoulder with his/her hand. This motion checks Glenohumeral adduction, internal rotation , horizontal adduction and scapular protraction Action 2: The subject is instructed to place his/her arm overhead and reach behind the neck to touch his/her upper back. This motion checks Glenohumeral abduction, external rotation and scapular upward rotation and elevation. Action 3: The subject puts his/her hand on the lower back and reaches upward as far as possible. This motion checks glenohumeral adduction, internal rotation and scapular retraction with downward rotation Action 1- Left able Action 1- Right able Action 2- Left T2 Action 2- Right T2 Action 3- Left T10 Action 3- Right T10 PT-OP-J Posture/Palpation/Skin Start: 06/09/18 14:03 Freq: Status: Active Protocol: Document 06/09/18 15:20 EA (Rec: 06/09/18 15:26 EA [id number]) Posture Evaluation Position Standing Evaluation View post/lat Pelvis Posture Neutral Comments Posture Comments Slight forward head with slight rounded shoulders Palpation Assessment Location One Palpation Location Right/left shoulder subacromial, both traps Palpation Findings Soft Tissue Tightness Tenderness Skin Assessment Other Assessments Skin Assessment Comments No obvious signs of acute inflammation and atrophy to both shoulders and scapular mucles PT-OP-K Range of Motion Start: 06/09/18 14:03 Freq: Status: Active Protocol: Document 06/09/18 15:20 EA (Rec: 06/09/18 15:26 EA [id number]) Shoulder Goniometric Range of Motion Shoulder Measured in Degrees Right Active Shoulder ROM WFL Yes Active Shoulder ROM WFL Yes PT-OP-L Special Tests Start: 06/09/18 14:03 Freq: Status: Active Protocol: Document 06/09/18 15:20 EA (Rec: 06/09/18 15:26 EA [id number]) Special Tests Shoulder Special Tests Elevation Impingement Test Results sensitive at 90 degrees Yergason's Biceps Test Results negative Lift-Off Rotator Cuff Test Results sensitive Serrano Jameson Impingement Test Results both postive Belly Press Test Results both positive Empty Can Test Results sensitive Clunk Test Test Results negative PT-OP-M Strength Start: 06/09/18 14:03 Freq: Status: Active Protocol: Document 06/09/18 15:20 EA (Rec: 06/09/18 15:26 EA [id number]) Shoulder Strength Shoulder Manual Muscle Testing Right Flexion 4+ Good+ Extension 5 Normal Abduction (C5) 4- Good- Adduction 5 Normal External Rotation 4 Good Internal Rotation 4- Good- Horizontal Abduction 4 Good Horizontal Adduction 4+ Good+ Left Flexion 4+ Good+ Extension 5 Normal Abduction (C5) 4- Good- Adduction 5 Normal External Rotation 4 Good Internal Rotation 4- Good- Horizontal Abduction 4 Good Horizontal Adduction 4+ Good+ PT-OP-Q Treatments Start: 06/09/18 14:03 Freq: Status: Active Protocol: Document 08/04/18 13:52 EA (Rec: 08/04/18 13:56 EA [id number]) Cardio Equipment Upper Body Ergometer (UBE) Duration (Minutes) 5 Seat Position 9 Height 4-6 Gym Equipment Cable Column (Body Solid) Other- 1 Details standing cable diagonal press Resistance 10# Reps/Time x 10 reps each Rows Resistance 30-40lbs Reps/Time x 12 reps x 2 Lat Pull Down Details 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 30-40 lbs Reps/Time x 12 reps x 2 Therapeutic Exercises Prone Exercises 1 Prone Exercise Name Y-T-I on T-ball Side bilateral Resistance 2-3# Reps/Minutes x 12 reps x 2 sets Standing Exercises 9 Standing Exercise Name squat D1 flexion Resistance 2-3 # Reps/Minutes x 12 reps x 2 8 Standing Exercise Name cable single arm cross over Side bilateral Resistance 10 lbs Reps/Minutes x 12 reps 6 Standing Exercise Name T-bar shoulder flexion/ Extension Side bilateral Resistance 4 lbs Reps/Minutes x 15 reps 3 Standing Exercise Name Lats stretch Side bilateral Reps/Minutes x 15SH x 2 reps 1 Standing Exercise Name pectoral stretch Side bilateral Reps/Minutes x15 sh x 2 PT-OP-R Modalities Start: 06/29/18 17:02 Freq: Status: Active Protocol: Document 08/04/18 15:29 EA (Rec: 08/04/18 15:37 EA [id number]) Electric Stimulation Electric Stimulation Interferential Current (IFC) Body Location upper traps, ant delts Duration (Minutes) 15 Intensity 12 Patient Position Supine Combined With Heat/Cold Cold Pack PT-OP-T Assessment and Plan Start: 06/09/18 14:03 Freq: Status: Active Protocol: Document 08/04/18 15:29 EA (Rec: 08/04/18 15:37 EA [id number]) Physical Therapy Assessment Impairments Impairments Pain Soft Tissue Mobility Strength Goals Four Impairment NO HEP in place Senior Care Goal (LTG) Patient will perform home exercise program independently . 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 with no increase in symptoms LTG Duration 4 wks ( improving well) Two Impairment Impaired sidelying reach overhead Senior Care Goal (LTG) Patient will reach object in sidelying position without increase in symptoms LTG Duration 4 wks ( improving well) One Impairment Quick Dash shoulder impairment score 20 Rehabilitation Assistant Goal (LTG) Patient will have Quick Dash score of < 15 LTG Duration 4 wks (excellent improvement) Progress Towards Goals Progress Towards Goals Progressing Toward Goals Assessment Summary Assessment Patient demonstrates improved functional shoulder mobility and improved symptoms during and after therex. Patient will continue to benefit with skilled PT for further shoulder strengthening and transitioning to shoulder advance HEP prior to discharge. . Physical Therapy Plan Frequency and Duration Frequency of Treatment 1x/Week Duration of Treatment 4 wks Plan of Care Start Date 08/04/18 Plan of Care End Date 09/01/18 Therapeutic Interventions Therapeutic Interventions Home Exercise Program Joint Mobilizations Manual Therapy Patient/Caregiver Education Self-Care/Home Management Soft Tissue Mobilization Taping Therapeutic Exercises Modalities Cold Pack/Ice Massage Electric Stimulation Hot Packs Ultrasound Next Visit Focus/Plan Next Note Type Treatment Note
--- NOTE | 2018-08-04 15:38 | PT.OPPOC ---
Current Diagnoses Other shoulder lesions, unspecified shoulder (08/04/18) Other shoulder lesions, left shoulder (08/04/18) Provider Visit Care Team Role Provider Type Milagros Abdi MD Attending Provider Non-Staff Primary Care Provider Specialty: Internal Medicine Address: [address] [place] [address], [facility] Email: Plan Of Care PT-OP-T Assessment and Plan Start: 06/09/18 14:03 Freq: Status: Active Protocol: Document 08/04/18 15:29 EA (Rec: 08/04/18 15:37 EA [id number]) Physical Therapy Assessment Impairments Impairments Pain Soft Tissue Mobility Strength Goals Four Impairment NO HEP in place Custodial Goal (LTG) Patient will perform home exercise program independently . 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 with no increase in symptoms LTG Duration 4 wks ( improving well) Two Impairment Impaired sidelying reach overhead Field Mechanical Meter Tester Goal (LTG) Patient will reach object in sidelying position without increase in symptoms LTG Duration 4 wks ( improving well) One Impairment Quick Dash shoulder impairment score 20 Custodial Goal (LTG) Patient will have Quick Dash score of < 15 LTG Duration 4 wks (excellent improvement) Progress Towards Goals Progress Towards Goals Progressing Toward Goals Assessment Summary Assessment Patient demonstrates improved functional shoulder mobility and improved symptoms during and after therex. Patient will continue to benefit with skilled PT for further shoulder strengthening and transitioning to shoulder advance HEP prior to discharge . Physical Therapy Plan Frequency and Duration Frequency of Treatment 1x/Week Duration of Treatment 4 wks Plan of Care Start Date 08/04/18 Plan of Care End Date 09/01/18 Therapeutic Interventions Therapeutic Interventions Home Exercise Program Joint Mobilizations Manual Therapy Patient/Caregiver Education Self-Care/Home Management Soft Tissue Mobilization Taping Therapeutic Exercises Modalities Cold Pack/Ice Massage Electric Stimulation Hot Packs Ultrasound Next Visit Focus/Plan Next Note Type Treatment Note Plan of Care Dates Plan of Care Start Date 08/04/18 Plan of Care End Date 09/01/18 Please Sign and Return: I have reviewed this Plan of Care and certify that the skilled therapy services above are required to meet the patient?s needs. Physician Signature Date Printed Name and Credentials Clinical Instructor Signature Printed Name and Credentials
--- NOTE | 2018-08-10 15:46 | PT.OTN ---
Current Diagnoses Other shoulder lesions, unspecified shoulder (08/10/18) Other shoulder lesions, left shoulder (08/10/18) Physical Therapy Treatment Note PT-OP-A Visit Information Start: 06/09/18 14:03 Freq: Status: Active Protocol: Document 08/10/18 15:37 EA (Rec: 08/10/18 15:46 EA [id number]) Out-Patient Physical Therapy Visit Information Visit Information Visit Type Treatment Note Visit Start Time 13:52 Visit Stop Time 14:30 Total Visit Minutes 48 Visit Number 7 PT-OP-B Current Condition Start: 06/09/18 14:03 Freq: Status: Active Protocol: Document 06/09/18 14:06 EA (Rec: 06/09/18 14:24 EA [id number]) Current Condition History of Current Condition Onset Date April 13, 2018 Current Complaints Localized both shoulder pain R > L History of Current Condition Patient reports both shoulder appeared 1 day after hauling and placing 13 foot boat pole to her truck and to her storage; states pain mostly aggravated when in sidelying and lampshade overhead reaching which sometimes pain reached up 8/10. Patient denies throbbing pain or numbness to both shoulders at this time. Pt went to urgent care doctor 2 weeks after the onset; states MRI was only recommended by her doctor if pain did not subsides, however, states pain is much better at this time. 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 Functional Limitations- Mobility/Gait No gait limitation Functional Limitations- Work/School Not able to work at this time due shoulder pain Functional Limitations- Recreation/ Unable to perform boating and Hobbies Kayaking due to current shoulder symptoms PT-OP-C Subjective Start: 06/09/18 14:03 Freq: Status: Active Protocol: Document 08/10/18 15:37 EA (Rec: 08/10/18 15:46 EA [id number]) OP-PT Subjective Patient Comments Patient Comments Pt reports left arm is quite sore after overhead movement during class demonstration. Patient Reported Progress Improving PT-OP-E Functional Tests Start: 06/09/18 14:03 Freq: Status: Active Protocol: Document 06/09/18 14:06 EA (Rec: 06/09/18 14:24 EA [id number]) Functional Tests Apley's Scratch Test Action 1: The subject is instructed to touch the opposite shoulder with his/her hand. This motion checks Glenohumeral adduction, internal rotation , horizontal adduction and scapular protraction Action 2: The subject is instructed to place his/her arm overhead and reach behind the neck to touch his/her upper back. This motion checks Glenohumeral abduction, external rotation and scapular upward rotation and elevation. Action 3: The subject puts his/her hand on the lower back and reaches upward as far as possible. This motion checks glenohumeral adduction, internal rotation and scapular retraction with downward rotation Action 1- Left able Action 1- Right able Action 2- Left T2 Action 2- Right T2 Action 3- Left T10 Action 3- Right T10 PT-OP-J Posture/Palpation/Skin Start: 06/09/18 14:03 Freq: Status: Active Protocol: Document 06/09/18 15:20 EA (Rec: 06/09/18 15:26 EA [id number]) Posture Evaluation Position Standing Evaluation View post/lat Pelvis Posture Neutral Comments Posture Comments Slight forward head with slight rounded shoulders Palpation Assessment Location One Palpation Location Right/left shoulder subacromial, both traps Palpation Findings Soft Tissue Tightness Tenderness Skin Assessment Other Assessments Skin Assessment Comments No obvious signs of acute inflammation and atrophy to both shoulders and scapular mucles PT-OP-K Range of Motion Start: 06/09/18 14:03 Freq: Status: Active Protocol: Document 06/09/18 15:20 EA (Rec: 06/09/18 15:26 EA [id number]) Shoulder Goniometric Range of Motion Shoulder Measured in Degrees Right Active Shoulder ROM WFL Yes Active Shoulder ROM WFL Yes PT-OP-L Special Tests Start: 06/09/18 14:03 Freq: Status: Active Protocol: Document 06/09/18 15:20 EA (Rec: 06/09/18 15:26 EA [id number]) Special Tests Shoulder Special Tests Elevation Impingement Test Results sensitive at 90 degrees Yergason's Biceps Test Results negative Lift-Off Rotator Cuff Test Results sensitive Serrano Jameson Impingement Test Results both postive Belly Press Test Results both positive Empty Can Test Results sensitive Clunk Test Test Results negative PT-OP-M Strength Start: 06/09/18 14:03 Freq: Status: Active Protocol: Document 06/09/18 15:20 EA (Rec: 06/09/18 15:26 EA [id number]) Shoulder Strength Shoulder Manual Muscle Testing Right Flexion 4+ Good+ Extension 5 Normal Abduction (C5) 4- Good- Adduction 5 Normal External Rotation 4 Good Internal Rotation 4- Good- Horizontal Abduction 4 Good Horizontal Adduction 4+ Good+ Left Flexion 4+ Good+ Extension 5 Normal Abduction (C5) 4- Good- Adduction 5 Normal External Rotation 4 Good Internal Rotation 4- Good- Horizontal Abduction 4 Good Horizontal Adduction 4+ Good+ PT-OP-Q Treatments Start: 06/09/18 14:03 Freq: Status: Active Protocol: Document 08/10/18 15:37 EA (Rec: 08/10/18 15:46 EA [id number]) Gym Equipment Cable Column (Body Solid) Other- 1 Details standing cable diagonal press Resistance 10# Reps/Time x 10 reps each Rows Resistance 30-40-50lbs Reps/Time x 12 reps x 3 Lat Pull Down Details 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 lbs Reps/Time x 12 reps x 2 Therapeutic Exercises Prone Exercises 1 Prone Exercise Name Y-T-I on T-ball Side bilateral Resistance 2-3-4# Reps/Minutes x 12 reps x 3 sets Standing Exercises 9 Standing Exercise Name squat D1 flexion Resistance 2-3-4 # Reps/Minutes x 12 reps x 3 7 Standing Exercise Name Single arm cable crossover Side bilateral Resistance 10# Reps/Minutes x 12 reps Comments engaged hip and quads during the push 6 Standing Exercise Name T-bar shoulder flexion/ Extension Side bilateral Resistance 4 lbs Reps/Minutes x 15 reps 3 Standing Exercise Name Lats stretch Side bilateral Reps/Minutes x 15SH x 2 reps 2 Standing Exercise Name squat row Side bilateral Resistance 30-50# Reps/Minutes x 12 repsx2 1 Standing Exercise Name pectoral stretch Side bilateral Reps/Minutes x10 reps x 3 PT-OP-R Modalities Start: 06/29/18 17:02 Freq: Status: Active Protocol: Document 08/10/18 15:37 EA (Rec: 08/10/18 15:46 EA [id number]) Hot Pack/Cold Pack Treatment Cold Pack Location Both shoulder Patient Position Supine Treatment Duration (minutes) 10 Patient Tolerance Good PT-OP-T Assessment and Plan Start: 06/09/18 14:03 Freq: Status: Active Protocol: Document 08/10/18 15:37 EA (Rec: 08/10/18 15:46 EA [id number]) Physical Therapy Assessment Assessment Summary Assessment Both shoulder are slightly tender to touch but no shoulder movement substitution with all overhead movements. Physical Therapy Plan Next Visit Focus/Plan Next Note Type Treatment Note Next Visit Plan ad manning as tolerated.
--- NOTE | 2018-08-19 12:31 | PT.OTN ---
Current Diagnoses Other shoulder lesions, unspecified shoulder (08/19/18) Other shoulder lesions, left shoulder (08/19/18) Physical Therapy Treatment Note PT-OP-A Visit Information Start: 06/09/18 14:03 Freq: Status: Active Protocol: Document 08/19/18 12:20 EA (Rec: 08/19/18 12:30 EA [id number]) Out-Patient Physical Therapy Visit Information Visit Information Visit Type Treatment Note Visit Start Time 10:30 Visit Stop Time 11:23 Total Visit Minutes 48 Visit Number 8 PT-OP-B Current Condition Start: 06/09/18 14:03 Freq: Status: Active Protocol: Document 06/09/18 14:06 EA (Rec: 06/09/18 14:24 EA [id number]) Current Condition History of Current Condition Onset Date April 13, 2018 Current Complaints Localized both shoulder pain R > L History of Current Condition Patient reports both shoulder appeared 1 day after hauling and placing 13 foot boat pole to her truck and to her storage; states pain mostly aggravated when in sidelying and lampshade overhead reaching which sometimes pain reached up 8/10. Patient denies throbbing pain or numbness to both shoulders at this time. Pt went to urgent care doctor 2 weeks after the onset; states MRI was only recommended by her doctor if pain did not subsides, however, states pain is much better at this time. 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 Functional Limitations- Mobility/Gait No gait limitation Functional Limitations- Work/School Not able to work at this time due shoulder pain Functional Limitations- Recreation/ Unable to perform boating and Hobbies Kayaking due to current shoulder symptoms PT-OP-C Subjective Start: 06/09/18 14:03 Freq: Status: Active Protocol: Document 08/19/18 12:20 EA (Rec: 08/19/18 12:30 EA [id number]) OP-PT Subjective Patient Comments Patient Comments Pt reports she has been doing good at work and no noted any increased of shoulder symptoms ; states very aware with [employer]. Pt states that she is ok to discharge today and will continue her HEP. Patient Reported Progress Improving PT-OP-E Functional Tests Start: 06/09/18 14:03 Freq: Status: Active Protocol: Document 06/09/18 14:06 EA (Rec: 06/09/18 14:24 EA [id number]) Functional Tests Apley's Scratch Test Action 1: The subject is instructed to touch the opposite shoulder with his/her hand. This motion checks Glenohumeral adduction, internal rotation , horizontal adduction and scapular protraction Action 2: The subject is instructed to place his/her arm overhead and reach behind the neck to touch his/her upper back. This motion checks Glenohumeral abduction, external rotation and scapular upward rotation and elevation. Action 3: The subject puts his/her hand on the lower back and reaches upward as far as possible. This motion checks glenohumeral adduction, internal rotation and scapular retraction with downward rotation Action 1- Left able Action 1- Right able Action 2- Left T2 Action 2- Right T2 Action 3- Left T10 Action 3- Right T10 PT-OP-J Posture/Palpation/Skin Start: 06/09/18 14:03 Freq: Status: Active Protocol: Document 06/09/18 15:20 EA (Rec: 06/09/18 15:26 EA [id number]) Posture Evaluation Position Standing Evaluation View post/lat Pelvis Posture Neutral Comments Posture Comments Slight forward head with slight rounded shoulders Palpation Assessment Location One Palpation Location Right/left shoulder subacromial, both traps Palpation Findings Soft Tissue Tightness Tenderness Skin Assessment Other Assessments Skin Assessment Comments No obvious signs of acute inflammation and atrophy to both shoulders and scapular mucles PT-OP-K Range of Motion Start: 06/09/18 14:03 Freq: Status: Active Protocol: Document 06/09/18 15:20 EA (Rec: 06/09/18 15:26 EA [id number]) Shoulder Goniometric Range of Motion Shoulder Measured in Degrees Right Active Shoulder ROM WFL Yes Active Shoulder ROM WFL Yes PT-OP-L Special Tests Start: 06/09/18 14:03 Freq: Status: Active Protocol: Document 06/09/18 15:20 EA (Rec: 06/09/18 15:26 EA [id number]) Special Tests Shoulder Special Tests Elevation Impingement Test Results sensitive at 90 degrees Yergason's Biceps Test Results negative Lift-Off Rotator Cuff Test Results sensitive Serrano Jameson Impingement Test Results both postive Belly Press Test Results both positive Empty Can Test Results sensitive Clunk Test Test Results negative PT-OP-M Strength Start: 06/09/18 14:03 Freq: Status: Active Protocol: Document 06/09/18 15:20 EA (Rec: 06/09/18 15:26 EA [id number]) Shoulder Strength Shoulder Manual Muscle Testing Right Flexion 4+ Good+ Extension 5 Normal Abduction (C5) 4- Good- Adduction 5 Normal External Rotation 4 Good Internal Rotation 4- Good- Horizontal Abduction 4 Good Horizontal Adduction 4+ Good+ Left Flexion 4+ Good+ Extension 5 Normal Abduction (C5) 4- Good- Adduction 5 Normal External Rotation 4 Good Internal Rotation 4- Good- Horizontal Abduction 4 Good Horizontal Adduction 4+ Good+ PT-OP-Q Treatments Start: 06/09/18 14:03 Freq: Status: Active Protocol: Document 08/19/18 12:20 EA (Rec: 08/19/18 12:30 EA [id number]) Cardio Equipment Upper Body Ergometer (UBE) Duration (Minutes) 5 Seat Position 9 Height 4-6 Gym Equipment Cable Column (Body Solid) Other- 1 Details standing cable diagonal press Resistance 10# Reps/Time x 10 reps each Rows Details sit to stand Resistance 30-40-50lbs Reps/Time x 12 reps x 3 Lat Pull Down 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 lbs Reps/Time x 12 reps x 2 Therapeutic Exercises Prone Exercises 1 Prone Exercise Name Y-T-I on T-ball Side bilateral Resistance 2-3-4# Reps/Minutes x 12 reps x 3 sets push up Prone Exercise Name shoulder push up on BUSO Reps/Minutes x 10 reps x 2 sets Standing Exercises 10 Standing Exercise Name BUSO: squat side raises, squat front raises Resistance 2-3# Reps/Minutes x 12 reps x 2 9 Standing Exercise Name squat D1 flexion Resistance 2-3-4 # Reps/Minutes x 12 reps x 3 Comments on BUSO 7 Standing Exercise Name Single arm cable crossover Side bilateral Resistance 10# Reps/Minutes x 12 reps Comments engaged hip and quads during the push 6 Standing Exercise Name T-bar shoulder flexion/ Extension Side bilateral Resistance 4 lbs Reps/Minutes x 15 reps Comments on BUSO 3 Standing Exercise Name Lats stretch Side bilateral Reps/Minutes x 15SH x 2 reps 1 Standing Exercise Name pectoral stretch Side bilateral Reps/Minutes x10 reps x 3 PT-OP-R Modalities Start: 06/29/18 17:02 Freq: Status: Active Protocol: Document 08/19/18 12:20 EA (Rec: 08/19/18 12:30 EA [id number]) Hot Pack/Cold Pack Treatment Cold Pack Location Both shoulder Patient Position Supine Treatment Duration (minutes) 10 Patient Tolerance Good PT-OP-T Assessment and Plan Start: 06/09/18 14:03 Freq: Status: Active Protocol: Document 08/19/18 12:20 EA (Rec: 08/19/18 12:30 EA [id number]) Physical Therapy Assessment Assessment Summary Assessment NO shoulder substitution and discomfort noted with increasing weight. Patient had good form. Educated with safe HEP and posture. Patient good to discharge today after reaching goals and upon patient request. Physical Therapy Plan Discharge Physical Therapy Discharge Reasons Goals Met Discharge Comments Patient request
== END 2018-08-19 14:04 | disposition home or self-care (01) ==
LOC: PHYS 10:30
PROVIDERS: PCP Internal Medicine; Visit Provider Internal Medicine
DX: M75.80 Other shoulder lesions, unspecified shoulder (principal); M75.82 Other shoulder lesions, left shoulder
CPT/HCPCS: 97014; 97110; 97140; 97161; 97535; G0283

== ENCOUNTER → 2020-02-17 08:02 | Outpatient (CLI) | payer OTHER, MEDICAID, SELFPAY ==
--- NOTE | 2020-02-17 08:04 | DI.MRI.S_ITS ---
PROCEDURE: MR SHOULDER RT WO CON INDICATIONS: severe shoulder pain, limiting activity, ? biceps tendonitis TECHNIQUE: Noncontrast oblique coronal T2 fast spin echo with fat saturation, oblique sagittal T1 spin echo and T2 fast spin echo with fat saturation, axial T1 spin echo and T2 fast spin echo with fat saturation through the shoulder. COMPARISON: [facility], MR, MR SHOULDER LT WO CON, 02/17/2020, 8:43. FINDINGS: Image quality: Excellent. Rotator cuff: Tendinosis and low to moderate grade articular and bursal surface partial thickness tear involving distal supraspinatus at its insertion on the humeral head is seen extending to musculotendinous junction. Distal infraspinatus and subscapularis tendinosis is seen. No full-thickness rotator cuff tendon rupture. Sagittal images demonstrate no signal muscle atrophy. Bones and bursae: No bone marrow contusions or fractures. Moderate acromioclavicular joint osteoarthritic changes are seen. Mild to moderate glenohumeral joint osteoarthritic changes also noted. Small amount of joint effusion and subacromial subdeltoid bursal fluid is seen. Small amount of subcoracoid bursal fluid is also noted. No gross intra-articular loose body. Capsule and soft tissues: In the absence of intra-articular contrast, there is subtle signal abnormality and contour irregularity involving superior anterior labrum at 12 to 1 o'clock position suggestive of superior anterior labral tear. There is also suggestion of anterior-inferior labral tear at 4 to 5 o'clock position. The glenohumeral ligaments appear intact. The long head of the biceps tendinosis is seen. The rotator interval appears normal, without fibrosis. The coracohumeral ligament is normal in thickness. IMPRESSION: 1. Tendinosis and low to moderate grade articular and bursal surface partial thickness tear involving distal supraspinatus extending to musculotendinous junction. Distal infraspinatus and subscapularis tendinosis. No full-thickness rotator cuff tendon rupture. 2. Mild to moderate acromioclavicular joint and glenohumeral joint osteoarthritis. 3. Suggestion of focal superior anterior labral tear at 12 to 1 o'clock position and anterior-inferior labral tear at 4 to 5 o'clock position. 4. Proximal intra-articular portion of long head of biceps tendinosis. Dictated by: Vishal Christopher M.D. on 02/17/2020 at 8:39 Approved by: Vishal Christopher M.D. on 02/17/2020 at 8:49
--- NOTE | 2020-02-17 08:04 | DI.MRI.S_ITS ---
PROCEDURE: MR SHOULDER LT WO CON INDICATIONS: severe shoulder pain, limiting activity, failed PT TECHNIQUE: Noncontrast oblique coronal T2 fast spin echo with fat saturation, oblique sagittal T1 spin echo and T2 fast spin echo with fat saturation, axial T1 spin echo and T2 fast spin echo with fat saturation through the shoulder. COMPARISON: [facility] [place], CR, XR SHOULDER 2+ VIEWS BILATERAL, 10/04/2019, 13:43. FINDINGS: Image quality: Excellent. Rotator cuff: There is a focal small low-grade intrasubstance and bursal sided tear of the posterior supraspinatus tendon at the footprint measuring approximately 4 mm in anterior-posterior dimension. Findings are superimposed on mild supraspinatus tendinosis. The infraspinatus and teres minor tendons are intact. There is mild tendinosis and low-grade intrasubstance tearing within the distal subscapularis tendon. There is no significant rotator cuff muscle atrophy. Bones and bursae: No acute bone marrow contusions or fractures. Chronic traction cystic changes are seen at the posterosuperior humeral head in the lesser tuberosity at the rotator cuff tendon insertions. There is no significant glenohumeral joint effusion. [id number] degenerative changes are seen at the acromioclavicular joint. Is small amount of subacromial/subdeltoid bursal fluid is present. Capsule and soft tissues: Linear hyperintense signal at the posteroinferior labrum (image 14 of series 6) is suspicious for a small nondisplaced tear. The long head of the biceps tendon demonstrates mild tendinosis at its intra-articular portion. The rotator interval appears normal, without fibrosis. The inferior glenohumeral ligament is normal in thickness. IMPRESSION: 1. Focal small low-grade intrasubstance and bursal sided tear of the supraspinatus tendon at its posterior footprint measuring 4 mm in anterior-posterior dimension. Mild supraspinatus tendinosis. 2. Mild tendinosis and low grade intrasubstance tearing of the subscapularis tendon at the superior insertion. 3. Probable small nondisplaced tear at the posteroinferior labrum. 4. Mild tendinosis of the proximal biceps long head tendon. 5. Mild to moderate acromioclavicular joint osteoarthrosis. Dictated by: Addison Braxton M.D. on 02/17/2020 at 9:34 Approved by: Addison Braxton M.D. on 02/17/2020 at 9:43
--- NOTE | 2020-02-17 08:04 | DI.MRI.S_ITS ---
PROCEDURE: MR CERVICAL SPINE WO CON INDICATIONS: numbness bilateral arms with significant hand pain TECHNIQUE: Noncontrast sagittal T1 spin echo and T2 fast spin echo, sagittal STIR, foraminal oblique sagittal T2 fast spin echo, and axial gradient echo or T2 fast spin echo through the cervical spine. COMPARISON: None. FINDINGS: Image quality: Excellent. Alignment and Curvature: There is normal bony alignment. Bone Marrow: Marrow demonstrates normal overall signal. Spinal Cord: Visualized spinal cord has normal size and signal. No cerebellar tonsillar herniation. Paraspinous Soft Tissues: No paravertebral masses. Prevertebral soft tissues are normal in thickness. C2-C3: Moderate disc desiccation. Mild diffuse disc bulge with superimposed small central protrusion. Mild canal stenosis. No foraminal stenosis. C3-C4: Congenital al stenosis. Mild disc desiccation. Mild diffuse disc bulge. Mild canal stenosis. No foraminal stenosis. C4-C5: Congenital canal stenosis. Mild disc height loss and desiccation. Mild diffuse disc bulge with superimposed broad-based left posterolateral protrusion. Mild facet and uncovertebral hypertrophy bilaterally. Moderate canal stenosis. Moderate left and mild right foraminal stenosis. C5-C6: Congenital canal stenosis. Moderate disc height loss and desiccation. Mild diffuse disc bulge with superimposed broad-based left posterolateral protrusion. Mild facet and uncovertebral hypertrophy bilaterally. Moderate canal stenosis. Severe left and mild right foraminal stenosis. Left C6 nerve root compression. C6-C7: Congenital canal stenosis. Mild disc height loss and desiccation. Mild diffuse disc bulge. Mild facet and uncovertebral hypertrophy bilaterally. Mild canal stenosis. Mild bilateral foraminal stenosis. C7-T1: Normal appearance. IMPRESSION: 1. Diffuse congenital canal stenosis with superimposed disc and facet disease, as well as uncovertebral hypertrophy. 2. Multilevel canal stenoses, worst at C4-C5 and C5-C6, where there are moderate canal stenosis present. 3. Multilevel foraminal stenoses, worst on the left at C5-C6 where there is associated intraforaminal nerve root compression. Recommend correlation with clinical symptoms to ascertain relevance of this finding. Dictated by: Lucas Prather M.D. on 02/17/2020 at 9:37 Approved by: Lucas Prather M.D. on 02/17/2020 at 10:00
== END ==
PROVIDERS: PCP Family Medicine; Referring Provider Family Medicine; Visit Provider Family Medicine
DX: M25.512 Pain in left shoulder (principal); M75.112 Incomplete rotator cuff tear or rupture of left shoulder, not specified as traumatic; M19.012 Primary osteoarthritis, left shoulder; M75.111 Incomplete rotator cuff tear or rupture of right shoulder, not specified as traumatic; M25.511 Pain in right shoulder; M19.011 Primary osteoarthritis, right shoulder; M54.10 Radiculopathy, site unspecified; M50.21 Other cervical disc displacement, high cervical region; M48.02 Spinal stenosis, cervical region; M79.642 Pain in left hand; M79.641 Pain in right hand; R20.0 Anesthesia of skin
CPT/HCPCS: 72141; 73221

== ENCOUNTER → 2020-04-05 10:40 | Outpatient (CLI) | payer OTHER, MEDICAID, SELFPAY ==
[2020-04-05 11:34] LABS: Erythrocyte Sedimentation Rate 7 MM/HR (0-20)
[2020-04-05 13:19] LABS: C-Reactive Protein Quant < 0.5 mg/dL (<1.0); Rheumatoid Factor < 8.6 IU/mL (<12.0)
[2020-04-10 21:25] LABS: CCP Antibodies IgG/IgA 8 units (0-19)
== END ==
PROVIDERS: PCP Family Medicine; Referring Provider Family Medicine; Visit Provider Family Medicine
DX: M25.50 Pain in unspecified joint (principal)
CPT/HCPCS: 36415; 85651; 86140; 86200; 86430

== ENCOUNTER → 2020-06-12 09:17 | Outpatient (CLI) | payer OTHER, MEDICAID, SELFPAY ==
[2020-06-12 10:18] LABS: Add Manual Diff / Slide Review NO; Basophils Absolute Auto 0 /uL (0-100); Basophils Percent Auto 0.9 % (0-2); Eosinophils Absolute Auto 200 /uL (0-450); Eosinophils Percent Auto 3.7 % (2-4); Hematocrit 40.1 % (36-46); Hemoglobin 13.4 g/dL (12.0-16.0); Lymphocytes Absolute Auto 2100 /uL (1100-4500); Lymphocytes Percent Auto 46.7 % (25-40); Mean Corpuscular HGB Conc 33.3 % (30-36); Mean Corpuscular Hemoglobin 30.8 PG (26-34); Mean Corpuscular Volume 92.3 fL (80-100); Monocytes Absolute Auto 300 /uL (0-900); Monocytes Percent Auto 6.7 % (3-14); Neutrophils Absolute Auto 1900 /uL (1500-7000); Platelet Count 301 X10^3/uL (150-400); Red Blood Cell Count 4.34 X10^6/uL (4.0-5.2); Red Cell Distribution Width 12.5 % (11.6-14.8); White Blood Cell Count 4.5 X10^3/uL (4.5-11.0)
[2020-06-12 11:00] LABS: Alanine Aminotransferase 16 IU/L (<35); Albumin 4.7 g/dL (3.5-5.0); Albumin Globulin Ratio 1.4 (1.0-2.8); Alkaline Phosphatase 63 U/L (38-126); Aspartate Aminotransferase 28 IU/L (14-36); BUN Creatinine Ratio 23.7 (6-22); Bilirubin Total 0.3 mg/dL (0.2-1.3); Blood Urea Nitrogen 18 mg/dL (7-17); Calcium 9.8 mg/dL (8.4-10.2); Carbon Dioxide 31 mmol/L (22-32); Chloride 103 mmol/L (98-107); Cholesterol 284 mg/dL (140-199); Estimated Glomerular Filt Rate > 60.0 mL/min (>60); Globulin 3.3 g/dL (1.7-4.1); Glucose 97 mg/dL (70-100); HDL Cholesterol 101 mg/dL (40-60); HEMOLYSIS < 15 (0-50); LDL Cholesterol Calculated 165 mg/dL (<100); Potassium 4.2 mmol/L (3.4-5.1); Sodium 137 mmol/L (137-145); Triglycerides 88 mg/dL (35-150)
[2020-06-12 11:28] LABS: TSH w/ Reflex to FT4 2.52 uIU/mL (0.47-4.68)
== END ==
PROVIDERS: Family Provider Family Medicine; PCP Family Medicine; Referring Provider Family Medicine; Visit Provider Family Medicine
DX: Z13.220 Encounter for screening for lipoid disorders (principal); R53.83 Other fatigue
CPT/HCPCS: 36415; 80053; 80061; 84443; 85025

== ENCOUNTER → 2020-07-24 11:27 | Outpatient (CLI) | payer OTHER, MEDICAID, SELFPAY ==
--- NOTE | 2020-07-24 11:28 | DI.MG.S_ITS ---
BILATERAL DIGITAL SCREENING MAMMOGRAM 3D/2D WITH CAD: 07/24/2020 CLINICAL: Routine screening. Family history of breast cancer. Comparison is made to exams dated: 12/26/2016 mammogram - [facility], 09/09/2012 mammogram, 08/09/2011 mammogram, 07/10/2011 mammogram, and 07/12/2010 mammogram - [facility]. The tissue of both breasts is heterogeneously dense. This may lower the sensitivity of mammography. Current study was also evaluated with a Computer Aided Detection (CAD) system. No significant masses, calcifications, or other findings are seen in either breast. There has been no significant interval change. IMPRESSION: NEGATIVE There is no mammographic evidence of malignancy. A 1 year screening mammogram is recommended. This exam was interpreted at Station ID: [id number]. NOTE: For mammograms, a report in lay terms will be sent to the patient. Approximately 15% of breast malignancies will not be visualized mammographically. In the management of a palpable breast mass, a negative mammogram must not discourage biopsy of a clinically suspicious lesion. Electronically Signed By: Tomás jerez/minda:07/24/2020 12:24:48 letter sent: Normal Exam ACR BI-RADS Category 1: Negative [id number]
== END ==
PROVIDERS: Family Provider Family Medicine; PCP Family Medicine; Referring Provider Family Medicine; Visit Provider Family Medicine
DX: Z12.31 Encounter for screening mammogram for malignant neoplasm of breast (principal); Z80.3 Family history of malignant neoplasm of breast
CPT/HCPCS: 77063; 77067

== ENCOUNTER 2020-09-12 10:30 | Outpatient (RCR) | payer OTHER, MEDICAID, SELFPAY ==
--- NOTE | 2020-06-06 17:24 | PT.OIE ---
Current Diagnoses Radiculopathy, cervical region (06/06/20) Cervicalgia (06/06/20) Past Medical History (Last Reviewed 11/11/18 @ 10:36 by Dallsa Juarez MD) Anxiety Visit Care Team Role Provider Type Tana Zuleta MD Family Provider Physician Primary Care Provider Specialty: Family Practice Address: [address] [place] [address], [facility] Email: [email or web address] Attending Provider Referring Provider Specialty: Address: Phone: Fax: Email: Physical Therapy Initial Evaluation PT-OP-A Visit Information Start: 06/06/20 16:24 Freq: Status: Active Protocol: Document 06/06/20 16:25 HH (Rec: 06/06/20 17:23 HH [email or web address]) Out-Patient Physical Therapy Visit Information Visit Information Visit Type Initial Evaluation Visit Start Time 13:00 Visit Stop Time 13:45 Total Visit Minutes 45 Visit Number 04/24 Number of STATION AGENT Visits 0 Evaluation Information Evaluation Date 06/06/20 PT-OP-B Current Condition Start: 06/06/20 16:24 Freq: Status: Active Protocol: Document 06/06/20 16:25 HH (Rec: 06/06/20 17:23 HH [email or web address]) Current Condition History of Current Condition Onset Date >3 years ago Current Complaints Cervical radiculopathy, B shoulder pain History of Current Condition Pt is a 55yo female here for her diagnosed cervical radiculopathy and B shoulder pain 08/14. Pt recently had MRI for both shoulders and cervical region (see below.) Pt has been having generalized hand pain and shooting pain to elbow, along with worsening hand weakness since last years. She also c/o numbness and tingling sensation on radial aspect of B hands. She stated her symptoms are worse with prolonged physical activity and staying in a flexed position for a long period of time. She did say that her symptoms got better this April after receiving a diagnostci steroid injection but it did not last long. She also c/o new onset of neck pain 3/10 after the injection . Pt has participated PT multiple times for her shoulders within the past few years and she was finally diagnosed with cervical radiculopathy with RTC and labral tear bilaterally by MRI recently. (see below). 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 Prior Treatments and Tests C/S MRI Multilevel canal stenoses, worst at C4-C5 and C5-C6, where there are moderate canal stenosis present. Multilevel foraminal stenoses, worst on the left at C5-C6 where there is associated intraforaminal nerve root compression. L shoulder MRI Focal small low-grade intrasubstance and bursal sided tear of the supraspinatus tendon at its posterior footprint measuring 4 mm in anterior- posterior dimension. Mild supraspinatus tendinosis. Probable small nondisplaced tear at the posteroinferior labrum R shoulder MRI ow to moderate grade articular and bursal surface partial thickness tear. uggestion of focal superior anterior labral tear at 12 to 1 o'clock position and anterior-inferior labral tear at 4 to 5 o'clock position. Treatment Goals Patient/Caregiver Goals 1. To minimize her generalized hand and arm pain, and her neurological symptoms 2. 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 Personal Factors Other Personal Factors That May Effect osteopenia, anxiety Therapy/Recovery PT-OP-C Subjective Start: 06/06/20 16:24 Freq: Status: Active Protocol: Document 06/06/20 16:25 HH (Rec: 06/06/20 17:23 [email or web address]) Patient Questionnaires Neck Disability Index NDI Score 21 Neck Disability Index Impairment 40 to 59% Impaired (Score 20- 29) Quick Dash- Upper Extremity Quick Dash UE Score 52 Quick Dash UE Impairment 40 to 59% Impaired (Score 40- 59) OP-PT Pain Assessment Location lower cervical Intensity 3 Scale Used Numeric (0 - 10) Description Aching,Pinching,Pressure, Radiating Frequency Frequent Pain Aggravating Factors Position,Activity,Lifting Pain Alleviating Factors Inactivity,Lying Supine Bilateral Anterior Shoulder Intensity 5 Scale Used Numeric (0 - 10) Description Aching Frequency Constant Pain Aggravating Factors Activity Pain Alleviating Factors Inactivity PT-OP-F Manual Assessment Start: 06/06/20 16:24 Freq: Status: Active Protocol: Document 06/06/20 16:25 HH (Rec: 06/06/20 17:23 HH [email or web address]) Manual Assessments Soft Tissue Assessment Soft Tissue Mobility Assessment hypertonicity at cervical paraspinals and trapezius muscle group R >L noted Joint Mobility Assessment Joint Mobility Assessment significant hypomobility with PA mob at C7-T4 PT-OP-H Neuro Start: 06/06/20 16:24 Freq: Status: Active Protocol: Document 06/06/20 16:25 HH (Rec: 06/06/20 17:23 [email or web address]) Sensation Evaluation Gross Sensation Gross Sensation WNL Deep Tendon Reflex & Clonus Assessment Deep Tendon Reflex Bicep Deep Tendon Reflex 2+ Normal Tricep Deep Tendon Reflex 2+ Normal Brachioradialis Deep Tendon Reflex 1+ Diminished PT-OP-J Posture/Palpation/Skin Start: 06/06/20 16:24 Freq: Status: Active Protocol: Document 06/06/20 16:25 HH (Rec: 06/06/20 17:23 [email or web address]) Posture Evaluation Position Standing Evaluation View Lateral Head/C-Spine Posture Forward Head T-Spine Posture Increased Kyphosis Shoulder Posture (L) Rounded,(R) Rounded Comments Posture Comments Significant Dowager hump noted at CT junction. PT-OP-K Range of Motion Start: 06/06/20 16:24 Freq: Status: Active Protocol: Document 06/06/20 16:25 HH (Rec: 06/06/20 17:23 [email or web address]) Cervical Spine Range of Motion Cervical Spine Active Degrees Testing Position Sitting Flexion 65 Extension 55 Rotation Left 56 Rotation Right 49 Lateral Flexion Left 25 Lateral Flexion Right 28 ROM Limitations Soft Tissue Tightness,Muscle Tone,Pain Comments joint angulation noted at C6C7 level during extension and rotation pinching pain at C6 facet level with extension, R rotation and lateral flexion to R pulling pain at R trap with lateral flexion to L Lumbar Spine Range of Motion Lumbar Spine Active Degrees Comments seated thoracic rotation = L 60degrees, R 45 degrees PT-OP-L Special Tests Start: 06/06/20 16:24 Freq: Status: Active Protocol: Document 06/06/20 16:25 HH (Rec: 06/06/20 17:23 [email or web address]) Special Tests Cervical Spine Special Tests Spurling's Test Test Results +Ve R Comments radiating pain to R arm Traction Test Results +ve Comments pt feels relief of symptoms Foraminal Compression Test Results +ve R PT-OP-M Strength Start: 06/06/20 16:24 Freq: Status: Active Protocol: Document 06/06/20 16:25 HH (Rec: 06/06/20 17:23 [email or web address]) Shoulder Strength Shoulder Manual Muscle Testing Right Flexion 4 Good Extension 4+ Good+ Abduction (C5) 4 Good Adduction 4+ Good+ Left Flexion 4 Good Extension 4+ Good+ Abduction (C5) 4 Good Adduction 4+ Good+ Hand Economic Development Director/Pinch Strength Hand Dominance Hand Dominance Right Hand Strength Right Economic Development Director (lbs) 62 Left Economic Development Director (lbs) 65 PT-OP-T Assessment and Plan Start: 06/06/20 16:24 Freq: Status: Active Protocol: Document 06/06/20 16:25 (Rec: 06/06/20 17:23 [email or web address]) Physical Therapy Assessment Rehab Potential Rehabilitation Potential Good Evaluation Complexity Number of Personal Factors/Comorbidities 1-2 Number of Body Systems Impaired 3 Clinical Presentation at Evaluation Evolving Impairments Impairments Activity Tolerance,Functional Activities,Functional Mobility ,Pain,Posture,ROM,Sensation, Soft Tissue Mobility,Strength Goals cervical ROM Impairment pt shows limited cervical ROM (rot and lateral flexion) Export Traffic Department Manager Goal (LTG) pt will improve >15 degrees on both lateral flexion and rotation without neurological symptoms LTG Duration 8 weeks neurological symptoms Impairment +ve for spurling, forminal compression Short Term Goal (STG) pt will not experience radiating pain and numbness/ tingling sensation to bilateral hands more than 4 days per week Correction Goal (LTG) pt will not experience radiating pain and numbness/ tingling sensation to bilateral hands more than 2 days per week to improve sleep and activity tolerance LTG Duration 12 weeks quick dash Impairment pt scores 52 on quickdash Short Term Goal (STG) pt will score <40 on quickdash to improve her overall mobility shoulder strength, mobility and endurance STG Duration 6 weeks Correction Goal (LTG) pt will score <30 on quickdash to improve her overall qaulity of life so she can instruct 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 Her recent MRI shows cervical canal stenosis and foraminal stenosis C5-C7 level, along with bilateral labral and rotator cuff tears (partially on supraspinatus). Upon assessment, pt shows symptoms consistent with cervical radiculopathy R worse than L. She also presents a significant Dowager Hump at CT junction with obvious joint angulation during cervical movements. She overall shows limited thoracic extension and rotation to R which also limits her cervical rotation. Will cont assess her neural tension via UTTT and cervical deep flexor endurance next visit as well. 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 Physical Therapy Plan Frequency and Duration Frequency of Treatment 2x/Week Duration of Treatment 12 weeks Plan of Care Start Date 06/06/20 Plan of Care End Date 09/04/20 Therapeutic Interventions Therapeutic Interventions Balance Training,Gait Training ,Home Exercise Program,Joint Mobilizations,Manual Therapy, Neuromuscular Re-education, Patient/Caregiver Education, Self-Care/Home Management,Soft Tissue Mobilization,Taping, Therapeutic Activities, Therapeutic Exercises Modalities Cold Pack/Ice Massage,Electric Stimulation,Hot Packs, Infrared Therapy,Traction- Mechanical,Ultrasound Next Visit Focus/Plan Next Note Type Treatment Note Next Visit Plan check UTTT, cerviacl stbility open book, T/S extension nerve glide neck stretch, distraction.
--- NOTE | 2020-06-06 17:26 | PT.OPPOC ---
Physical, Occupational & Speech Therapy At [facility] Current Diagnoses Radiculopathy, cervical region (06/06/20) Cervicalgia (06/06/20) Visit Care Team Role Provider Type Tana Zuleta MD Family Provider Physician Primary Care Provider Specialty: Family Practice Address: [address] [place] [address], [id number] Email: [email or web address] Attending Provider Referring Provider Specialty: Address: Phone: Fax: Email: Plan Of Care PT-OP-T Assessment and Plan Start: 06/06/20 16:24 Freq: Status: Active Protocol: Document 06/06/20 16:25 (Rec: 06/06/20 17:23 [email or web address]) Physical Therapy Assessment Rehab Potential Rehabilitation Potential Good Evaluation Complexity Number of Personal Factors/Comorbidities 1-2 Number of Body Systems Impaired 3 Clinical Presentation at Evaluation Evolving Impairments Impairments Activity Tolerance,Functional Activities,Functional Mobility ,Pain,Posture,ROM,Sensation, Soft Tissue Mobility,Strength Goals cervical ROM Impairment pt shows limited cervical ROM (rot and lateral flexion) Residential Goal (LTG) pt will improve >15 degrees on both lateral flexion and rotation without neurological symptoms LTG Duration 8 weeks neurological symptoms Impairment +ve for spurling, forminal compression Short Term Goal (STG) pt will not experience radiating pain and numbness/ tingling sensation to bilateral hands more than 4 days per week Residential Goal (LTG) pt will not experience radiating pain and numbness/ tingling sensation to bilateral hands more than 2 days per week to improve sleep and activity tolerance LTG Duration 12 weeks quick dash Impairment pt scores 52 on quickdash Short Term Goal (STG) pt will score <40 on quickdash to improve her overall mobility shoulder strength, mobility and endurance STG Duration 6 weeks Residential Goal (LTG) pt will score <30 on quickdash to improve her overall qaulity of life 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 Her recent MRI shows cervical canal stenosis and foraminal stenosis C5-C7 level, along with bilateral labral and rotator cuff tears (partially on supraspinatus). Upon assessment, pt shows symptoms consistent with cervical radiculopathy R worse than L. She also presents a significant Dowager Hump at CT junction with obvious joint angulation during cervical movements. She overall shows limited thoracic extension and rotation to R which also limits her cervical rotation. Will cont assess her neural tension via UTTT and cervical deep flexor endurance next visit as well. 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 Physical Therapy Plan Frequency and Duration Frequency of Treatment 2x/Week Duration of Treatment 12 weeks Plan of Care Start Date 06/06/20 Plan of Care End Date 09/04/20 Therapeutic Interventions Therapeutic Interventions Balance Training,Gait Training ,Home Exercise Program,Joint Mobilizations,Manual Therapy, Neuromuscular Re-education, Patient/Caregiver Education, Self-Care/Home Management,Soft Tissue Mobilization,Taping, Therapeutic Activities, Therapeutic Exercises Modalities Cold Pack/Ice Massage,Electric Stimulation,Hot Packs, Infrared Therapy,Traction- Mechanical,Ultrasound Next Visit Focus/Plan Next Note Type Treatment Note Next Visit Plan check UTTT, cerviacl stbility open book, T/S extension nerve glide neck stretch, distraction. Plan of Care Dates Plan of Care Start Date 06/06/20 Plan of Care End Date 09/04/20 Electronically Signed by: Dora Hurtado, PT 06/06/20 [id number] Please Sign and Return: I have reviewed this Plan of Care and certify that the skilled therapy services above are required to meet the patient?s needs. Physician Signature Date Printed Name and Credentials Clinical Instructor Signature Printed Name and Credentials
--- NOTE | 2020-06-12 16:40 | PT.OTN ---
Current Diagnoses Radiculopathy, cervical region (06/12/20) Cervicalgia (06/12/20) Physical Therapy Treatment Note PT-OP-A Visit Information Start: 06/06/20 16:24 Freq: Status: Active Protocol: Document 06/12/20 14:29 HH (Rec: 06/12/20 16:40 HH [id number]) Out-Patient Physical Therapy Visit Information Visit Information Visit Type Treatment Note Visit Start Time 14:33 Visit Stop Time 15:15 Total Visit Minutes 42 Visit Number 05/25 Number of INSTRUCTOR CREELER Visits 0 PT-OP-B Current Condition Start: 06/06/20 16:24 Freq: Status: Active Protocol: Document 06/06/20 16:25 HH (Rec: 06/06/20 17:23 HH [email or web address]) Current Condition History of Current Condition Onset Date >3 years ago Current Complaints Cervical radiculopathy, B shoulder pain History of Current Condition Pt is a 55yo female here for her diagnosed cervical radiculopathy and B shoulder pain 08/14. Pt recently had MRI for both shoulders and cervical region (see below.) Pt has been having generalized hand pain and shooting pain to elbow, along with worsening hand weakness since last years. She also c/o numbness and tingling sensation on radial aspect of B hands. She stated her symptoms are worse with prolonged physical activity and staying in a flexed position for a long period of time. She did say that her symptoms got better this April after receiving a diagnostci steroid injection but it did not last long. She also c/o new onset of neck pain /10 after the injection . Pt has participated PT multiple times for her shoulders within the past few years and she was finally diagnosed with cervical radiculopathy with RTC and labral tear bilaterally by MRI recently. (see below). 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 Prior Treatments and Tests C/S MRI Multilevel canal stenoses, worst at C4-C5 and C5-C6, where there are moderate canal stenosis present. Multilevel foraminal stenoses, worst on the left at C5-C6 where there is associated intraforaminal nerve root compression. L shoulder MRI Focal small low-grade intrasubstance and bursal sided tear of the supraspinatus tendon at its posterior footprint measuring 4 mm in anterior- posterior dimension. Mild supraspinatus tendinosis. Probable small nondisplaced tear at the posteroinferior labrum R shoulder MRI ow to moderate grade articular and bursal surface partial thickness tear. uggestion of focal superior anterior labral tear at 12 to 1 o'clock position and anterior-inferior labral tear at 4 to 5 o'clock position. Treatment Goals Patient/Caregiver Goals 1. To minimize her generalized hand and arm pain, and her neurological symptoms 2. 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 Personal Factors Other Personal Factors That May Effect osteopenia, anxiety Therapy/Recovery PT-OP-C Subjective Start: 06/06/20 16:24 Freq: Status: Active Protocol: Document 06/12/20 14:29 HH (Rec: 06/12/20 16:40 HH [id number]) OP-PT Subjective Patient Comments Patient Comments My hands were gone after we did the gripping test. PT-OP-F Manual Assessment Start: 06/06/20 16:24 Freq: Status: Active Protocol: Document 06/06/20 16:25 HH (Rec: 06/06/20 17:23 HH [email or web address]) Manual Assessments Soft Tissue Assessment Soft Tissue Mobility Assessment hypertonicity at cervical paraspinals and trapezius muscle group R >L noted Joint Mobility Assessment Joint Mobility Assessment significant hypomobility with PA mob at C7-T4 PT-OP-H Neuro Start: 06/06/20 16:24 Freq: Status: Active Protocol: Document 06/06/20 16:25 HH (Rec: 06/06/20 17:23 HH [email or web address]) Sensation Evaluation Gross Sensation Gross Sensation WNL Deep Tendon Reflex & Clonus Assessment Deep Tendon Reflex Bicep Deep Tendon Reflex 2+ Normal Tricep Deep Tendon Reflex 2+ Normal Brachioradialis Deep Tendon Reflex 1+ Diminished PT-OP-J Posture/Palpation/Skin Start: 06/06/20 16:24 Freq: Status: Active Protocol: Document 06/06/20 16:25 HH (Rec: 06/06/20 17:23 HH [email or web address]) Posture Evaluation Position Standing Evaluation View Lateral Head/C-Spine Posture Forward Head T-Spine Posture Increased Kyphosis Shoulder Posture (L) Rounded,(R) Rounded Comments Posture Comments Significant Dowager hump noted at CT junction. PT-OP-K Range of Motion Start: 06/06/20 16:24 Freq: Status: Active Protocol: Document 06/06/20 16:25 HH (Rec: 06/06/20 17:23 [email or web address]) Cervical Spine Range of Motion Cervical Spine Active Degrees Testing Position Sitting Flexion 65 Extension 55 Rotation Left 56 Rotation Right 49 Lateral Flexion Left 25 Lateral Flexion Right 28 ROM Limitations Soft Tissue Tightness,Muscle Tone,Pain Comments joint angulation noted at C6C7 level during extension and rotation pinching pain at C6 facet level with extension, R rotation and lateral flexion to R pulling pain at R trap with lateral flexion to L Lumbar Spine Range of Motion Lumbar Spine Active Degrees Comments seated thoracic rotation = L 60degrees, R 45 degrees PT-OP-L Special Tests Start: 06/06/20 16:24 Freq: Status: Active Protocol: Document 06/12/20 14:29 HH (Rec: 06/12/20 16:40 [id number]) Special Tests Cervical Spine Special Tests Upper Limb Tension Test Test Results +VE R median nerve Comments without cervical lateral flexion PT-OP-M Strength Start: 06/06/20 16:24 Freq: Status: Active Protocol: Document 06/12/20 14:29 HH (Rec: 06/12/20 16:40 [email or web address]) Cervical Spine Strength Cervical Spine Manual Muscle Testing Comments supine chin tuck hold = 41s. PT-OP-Q Treatments Start: 06/06/20 16:24 Freq: Status: Active Protocol: Document 06/12/20 14:29 HH (Rec: 06/12/20 16:40 [id number]) Therapeutic Exercises Supine Exercises chin tuck Reps/Minutes 10 x 2 Comments for HEP Sidelying Exercises open book Side bilateral Reps/Minutes 10 x2 Comments for HEP Sitting Exercises neck stretch Sitting Exercise Name without using UE for cervical lateral flexion, Side bilateral Manual Therapy Treatment Soft Tissue Mobilization suboccipitals Mobilization Type Sustained Pressure,Trigger Point Release Intensity/Depth Moderate Body Position Supine Comments R >L Joint Mobilizations cervical rotation Joint T1-T4 Grade III Body Position Sitting Reps/Duration 2 mins Comments cervical active rotation to R with joint mob at T1-T4 PA mob Joint T1-T4 Grade III Body Position Prone Reps/Duration 4 mins PT-OP-T Assessment and Plan Start: 06/06/20 16:24 Freq: Status: Active Protocol: Document 06/12/20 14:29 HH (Rec: 06/12/20 16:40 [id number]) Physical Therapy Assessment Goals cervical ROM Impairment pt shows limited cervical ROM (rot and lateral flexion) Tumor Registrar Goal (LTG) pt will improve >15 degrees on both lateral flexion and rotation without neurological symptoms LTG Duration 8 weeks neurological symptoms Impairment +ve for spurling, forminal compression Short Term Goal (STG) pt will not experience radiating pain and numbness/ tingling sensation to bilateral hands more than 4 days per week Tumor Registrar Goal (LTG) pt will not experience radiating pain and numbness/ tingling sensation to bilateral hands more than 2 days per week to improve sleep and activity tolerance LTG Duration 12 weeks quick dash Impairment pt scores 52 on quickdash Short Term Goal (STG) pt will score <40 on quickdash to improve her overall mobility shoulder strength, mobility and endurance STG Duration 6 weeks Tumor Registrar Goal (LTG) pt will score <30 on quickdash to improve her overall qaulity of life so she can instruct her [employer] 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 STG Duration 6 weeks Shelter Goal (LTG) pt will score <12 on NDI to improver her overall quality of life so she could fully return to her [employer] and [employer] class LTG Duration 12 weeks Assessment Summary Assessment Pt came in and being anxious with any ther-ex and requested to be gentle on her. Tx focused on reversing her lordotic curvature at C spine and increased upper thoracic mobility. Pt miguel session very well. Physical Therapy Plan Frequency and Duration Frequency of Treatment 2x/Week Duration of Treatment 12 weeks Plan of Care Start Date 06/06/20 Plan of Care End Date 09/04/20 Next Visit Focus/Plan Next Note Type Treatment Note Next Visit Plan check UTTT, cerviacl stbility open book, T/S extension nerve glide neck stretch, distraction.
--- NOTE | 2020-06-15 14:32 | PT.OTN ---
Current Diagnoses Radiculopathy, cervical region (06/15/20) Cervicalgia (06/15/20) Physical Therapy Treatment Note PT-OP-A Visit Information Start: 06/06/20 16:24 Freq: Status: Active Protocol: Document 06/15/20 13:47 HH (Rec: 06/15/20 14:32 HH [email or web address]) Out-Patient Physical Therapy Visit Information Visit Information Visit Type Treatment Note Visit Start Time 13:48 Visit Stop Time 14:30 Total Visit Minutes 42 Visit Number 06/22 Number of OUTDOOR EDUCATION TEACHER Visits 0 PT-OP-B Current Condition Start: 06/06/20 16:24 Freq: Status: Active Protocol: Document 06/06/20 16:25 HH (Rec: 06/06/20 17:23 HH [email or web address]) Current Condition History of Current Condition Onset Date >3 years ago Current Complaints Cervical radiculopathy, B shoulder pain History of Current Condition Pt is a 55yo female here for her diagnosed cervical radiculopathy and B shoulder pain 08/14. Pt recently had MRI for both shoulders and cervical region (see below.) Pt has been having generalized hand pain and shooting pain to elbow, along with worsening hand weakness since last years. She also c/o numbness and tingling sensation on radial aspect of B hands. She stated her symptoms are worse with prolonged physical activity and staying in a flexed position for a long period of time. She did say that her symptoms got better this April after receiving a diagnostci steroid injection but it did not last long. She also c/o new onset of neck pain 06/14 after the injection . Pt has participated PT multiple times for her shoulders within the past few years and she was finally diagnosed with cervical radiculopathy with RTC and labral tear bilaterally by MRI recently. (see below). 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 Prior Treatments and Tests C/S MRI Multilevel canal stenoses, worst at C4-C5 and C5-C6, where there are moderate canal stenosis present. Multilevel foraminal stenoses, worst on the left at C5-C6 where there is associated intraforaminal nerve root compression. L shoulder MRI Focal small low-grade intrasubstance and bursal sided tear of the supraspinatus tendon at its posterior footprint measuring 4 mm in anterior- posterior dimension. Mild supraspinatus tendinosis. Probable small nondisplaced tear at the posteroinferior labrum R shoulder MRI ow to moderate grade articular and bursal surface partial thickness tear. uggestion of focal superior anterior labral tear at 12 to 1 o'clock position and anterior-inferior labral tear at 4 to 5 o'clock position. Treatment Goals Patient/Caregiver Goals 1. To minimize her generalized hand and arm pain, and her neurological symptoms 2. 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 Personal Factors Other Personal Factors That May Effect osteopenia, anxiety Therapy/Recovery PT-OP-C Subjective Start: 06/06/20 16:24 Freq: Status: Active Protocol: Document 06/15/20 13:47 HH (Rec: 06/15/20 14:32 HH [id number]) OP-PT Subjective Patient Comments Patient Comments I was feeling good on the same day but i got the pain on the next day especially after my class. Patient Reported Progress Improving PT-OP-F Manual Assessment Start: 06/06/20 16:24 Freq: Status: Active Protocol: Document 06/06/20 16:25 HH (Rec: 06/06/20 17:23 HH [email or web address]) Manual Assessments Soft Tissue Assessment Soft Tissue Mobility Assessment hypertonicity at cervical paraspinals and trapezius muscle group R >L noted Joint Mobility Assessment Joint Mobility Assessment significant hypomobility with PA mob at C7-T4 PT-OP-H Neuro Start: 06/06/20 16:24 Freq: Status: Active Protocol: Document 06/06/20 16:25 HH (Rec: 06/06/20 17:23 HH [email or web address]) Sensation Evaluation Gross Sensation Gross Sensation WNL Deep Tendon Reflex & Clonus Assessment Deep Tendon Reflex Bicep Deep Tendon Reflex 2+ Normal Tricep Deep Tendon Reflex 2+ Normal Brachioradialis Deep Tendon Reflex 1+ Diminished PT-OP-J Posture/Palpation/Skin Start: 06/06/20 16:24 Freq: Status: Active Protocol: Document 06/06/20 16:25 HH (Rec: 06/06/20 17:23 HH [email or web address]) Posture Evaluation Position Standing Evaluation View Lateral Head/C-Spine Posture Forward Head T-Spine Posture Increased Kyphosis Shoulder Posture (L) Rounded,(R) Rounded Comments Posture Comments Significant Dowager hump noted at CT junction. PT-OP-K Range of Motion Start: 06/06/20 16:24 Freq: Status: Active Protocol: Document 06/06/20 16:25 HH (Rec: 06/06/20 17:23 HH [email or web address]) Cervical Spine Range of Motion Cervical Spine Active Degrees Testing Position Sitting Flexion 65 Extension 55 Rotation Left 56 Rotation Right 49 Lateral Flexion Left 25 Lateral Flexion Right 28 ROM Limitations Soft Tissue Tightness,Muscle Tone,Pain Comments joint angulation noted at C6C7 level during extension and rotation pinching pain at C6 facet level with extension, R rotation and lateral flexion to R pulling pain at R trap with lateral flexion to L Lumbar Spine Range of Motion Lumbar Spine Active Degrees Comments seated thoracic rotation = L 60degrees, R 45 degrees PT-OP-L Special Tests Start: 06/06/20 16:24 Freq: Status: Active Protocol: Document 06/12/20 14:29 HH (Rec: 06/12/20 16:40 HH [id number]) Special Tests Cervical Spine Special Tests Upper Limb Tension Test Test Results +VE R median nerve Comments without cervical lateral flexion PT-OP-M Strength Start: 06/06/20 16:24 Freq: Status: Active Protocol: Document 06/12/20 14:29 HH (Rec: 06/12/20 16:40 HH [id number]) Cervical Spine Strength Cervical Spine Manual Muscle Testing Comments supine chin tuck hold = 41s. PT-OP-Q Treatments Start: 06/06/20 16:24 Freq: Status: Active Protocol: Document 06/15/20 13:47 HH (Rec: 06/15/20 14:32 HH [id number]) Therapeutic Exercises Supine Exercises chin hold Supine Exercise Name deep cervical flexor strengthening Reps/Minutes 10 s hold x 3 Comments cues on neutral spine alignment and chin tuck scap rertraction Side bilateral Reps/Minutes 10 x 2 snow angels Side bilateral Equipment Used on foam roller chin tuck Reps/Minutes 10 x 2 Sidelying Exercises open book Side bilateral Reps/Minutes 10 x2 Comments for HEP Manual Therapy Treatment Soft Tissue Mobilization suboccipitals Mobilization Type Sustained Pressure,Trigger Point Release Intensity/Depth Moderate Body Position Supine Comments R >L Joint Mobilizations cervical rotation Joint T1-T4 Grade III Body Position Sitting Reps/Duration 2 mins Comments cervical active rotation to R with joint mob at T1-T4 PA mob Joint T1-T4 Grade III Body Position Prone Reps/Duration 4 mins Manual Traction cervical traction Body Position Supine Reps/Duration 10 secx 10 PT-OP-T Assessment and Plan Start: 06/06/20 16:24 Freq: Status: Active Protocol: Document 06/15/20 13:47 HH (Rec: 06/15/20 14:32 HH [id number]) Physical Therapy Assessment Goals cervical ROM Impairment pt shows limited cervical ROM (rot and lateral flexion) Automotive Detailer Goal (LTG) pt will improve >15 degrees on both lateral flexion and rotation without neurological symptoms LTG Duration 8 weeks neurological symptoms Impairment +ve for spurling, forminal compression Short Term Goal (STG) pt will not experience radiating pain and numbness/ tingling sensation to bilateral hands more than 4 days per week Automotive Detailer Goal (LTG) pt will not experience radiating pain and numbness/ tingling sensation to bilateral hands more than 2 days per week to improve sleep and activity tolerance LTG Duration 12 weeks quick dash Impairment pt scores 52 on quickdash Short Term Goal (STG) pt will score <40 on quickdash to improve her overall mobility shoulder strength, mobility and endurance STG Duration 6 weeks Senior Care Goal (LTG) pt will score <30 on quickdash to improve her overall qaulity of life 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 STG Duration 6 weeks Senior Care Goal (LTG) pt will score <12 on NDI to improver her overall quality of life so she could fully return to her kayak and sailing class LTG Duration 12 weeks Assessment Summary Assessment Pt did well today without much symptoms during active cervical movements. 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 Willl cont to monitor pt symptoms. Physical Therapy Plan Frequency and Duration Frequency of Treatment 2x/Week Duration of Treatment 12 weeks Plan of Care Start Date 06/06/20 Plan of Care End Date 09/04/20 Next Visit Focus/Plan Next Note Type Treatment Note Next Visit Plan check UTTT, cerviacl stbility open book, T/S extension nerve glide neck stretch, distraction.
--- NOTE | 2020-06-22 18:47 | PT.OTN ---
Current Diagnoses Radiculopathy, cervical region (06/22/20) Cervicalgia (06/22/20) Physical Therapy Treatment Note PT-OP-A Visit Information Start: 06/06/20 16:24 Freq: Status: Active Protocol: Document 06/22/20 15:10 [facility] (Rec: 06/22/20 18:47 [facility] [id number]) Out-Patient Physical Therapy Visit Information Visit Information Visit Type Treatment Note Visit Start Time 15:15 Visit Stop Time 16:08 Total Visit Minutes 53 Visit Number 07/29 Number of DRY CLEANING MACHINE OPERATOR HELPER Visits 0 PT-OP-B Current Condition Start: 06/06/20 16:24 Freq: Status: Active Protocol: Document 06/06/20 16:25 HH (Rec: 06/06/20 17:23 HH [email or web address]) Current Condition History of Current Condition Onset Date >3 years ago Current Complaints Cervical radiculopathy, B shoulder pain History of Current Condition Pt is a 55yo female here for her diagnosed cervical radiculopathy and B shoulder pain 08/14. Pt recently had MRI for both shoulders and cervical region (see below.) Pt has been having generalized hand pain and shooting pain to elbow, along with worsening hand weakness since last years. She also c/o numbness and tingling sensation on radial aspect of B hands. She stated her symptoms are worse with prolonged physical activity and staying in a flexed position for a long period of time. She did say that her symptoms got better this April after receiving a diagnostci steroid injection but it did not last long. She also c/o new onset of neck pain 06/14 after the injection . Pt has participated PT multiple times for her shoulders within the past few years and she was finally diagnosed with cervical radiculopathy with RTC and labral tear bilaterally by MRI recently. (see below). 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 Prior Treatments and Tests C/S MRI Multilevel canal stenoses, worst at C4-C5 and C5-C6, where there are moderate canal stenosis present. Multilevel foraminal stenoses, worst on the left at C5-C6 where there is associated intraforaminal nerve root compression. L shoulder MRI Focal small low-grade intrasubstance and bursal sided tear of the supraspinatus tendon at its posterior footprint measuring 4 mm in anterior- posterior dimension. Mild supraspinatus tendinosis. Probable small nondisplaced tear at the posteroinferior labrum R shoulder MRI ow to moderate grade articular and bursal surface partial thickness tear. uggestion of focal superior anterior labral tear at 12 to 1 o'clock position and anterior-inferior labral tear at 4 to 5 o'clock position. Treatment Goals Patient/Caregiver Goals 1. To minimize her generalized hand and arm pain, and her neurological symptoms 2. 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 Personal Factors Other Personal Factors That May Effect osteopenia, anxiety Therapy/Recovery PT-OP-C Subjective Start: 06/06/20 16:24 Freq: Status: Active Protocol: Document 06/22/20 15:10 LR (Rec: 06/22/20 18:47 LR [id number]) OP-PT Subjective Patient Comments Patient Comments Pt reports sometimes she ends up exhausted to the point where she is in bed. She saw pneumatic systems operator whos tarted her on steroid low dose for short periord. She is 2 days in and reports she felt they made her more figitting yesterday but today she woke up and took them around 8 or 10 and fell back asleep until 2 pm . She notes neck is feeling pretty good today PT-OP-F Manual Assessment Start: 06/06/20 16:24 Freq: Status: Active Protocol: Document 06/06/20 16:25 HH (Rec: 06/06/20 17:23 HH [email or web address]) Manual Assessments Soft Tissue Assessment Soft Tissue Mobility Assessment hypertonicity at cervical paraspinals and trapezius muscle group R >L noted Joint Mobility Assessment Joint Mobility Assessment significant hypomobility with PA mob at C7-T4 PT-OP-H Neuro Start: 06/06/20 16:24 Freq: Status: Active Protocol: Document 06/06/20 16:25 HH (Rec: 06/06/20 17:23 HH [email or web address]) Sensation Evaluation Gross Sensation Gross Sensation WNL Deep Tendon Reflex & Clonus Assessment Deep Tendon Reflex Bicep Deep Tendon Reflex 2+ Normal Tricep Deep Tendon Reflex 2+ Normal Brachioradialis Deep Tendon Reflex 1+ Diminished PT-OP-J Posture/Palpation/Skin Start: 06/06/20 16:24 Freq: Status: Active Protocol: Document 06/06/20 16:25 HH (Rec: 06/06/20 17:23 HH [email or web address]) Posture Evaluation Position Standing Evaluation View Lateral Head/C-Spine Posture Forward Head T-Spine Posture Increased Kyphosis Shoulder Posture (L) Rounded,(R) Rounded Comments Posture Comments Significant Dowager hump noted at CT junction. PT-OP-K Range of Motion Start: 06/06/20 16:24 Freq: Status: Active Protocol: Document 06/06/20 16:25 HH (Rec: 06/06/20 17:23 HH [email or web address]) Cervical Spine Range of Motion Cervical Spine Active Degrees Testing Position Sitting Flexion 65 Extension 55 Rotation Left 56 Rotation Right 49 Lateral Flexion Left 25 Lateral Flexion Right 28 ROM Limitations Soft Tissue Tightness,Muscle Tone,Pain Comments joint angulation noted at C6C7 level during extension and rotation pinching pain at C6 facet level with extension, R rotation and lateral flexion to R pulling pain at R trap with lateral flexion to L Lumbar Spine Range of Motion Lumbar Spine Active Degrees Comments seated thoracic rotation = L 60degrees, R 45 degrees PT-OP-L Special Tests Start: 06/06/20 16:24 Freq: Status: Active Protocol: Document 06/12/20 14:29 HH (Rec: 06/12/20 16:40 [id number]) Special Tests Cervical Spine Special Tests Upper Limb Tension Test Test Results +VE R median nerve Comments without cervical lateral flexion PT-OP-M Strength Start: 06/06/20 16:24 Freq: Status: Active Protocol: Document 06/12/20 14:29 HH (Rec: 06/12/20 16:40 [id number]) Cervical Spine Strength Cervical Spine Manual Muscle Testing Comments supine chin tuck hold = 41s. PT-OP-Q Treatments Start: 06/06/20 16:24 Freq: Status: Active Protocol: Document 06/22/20 15:10 LR (Rec: 06/22/20 18:47 LR [id number]) Manual Therapy Treatment Soft Tissue Mobilization suboccipitals Mobilization Type Sustained Pressure,Trigger Point Release Intensity/Depth Moderate Body Position Supine Comments R >L cervical parapsinals Body Location B paraspinals, SCM, Scalnes R> L Mobilization Type Rolling,Sustained Pressure Joint Mobilizations cervical rotation Joint T1-T4 Direction transverse glides L Grade III Body Position Sitting PA mob Joint T1-T4 Grade III Body Position seated FM Manual Traction cervical traction Body Position Supine Reps/Duration 10 secx 10 Self-Care/Home Management Treatment Education Other Education edu re: anatomy of cervical region w/use of textbook and importance of postural exercises PT-OP-R Modalities Start: 06/06/20 16:24 Freq: Status: Active Protocol: Document 06/22/20 15:10 [facility] (Rec: 06/22/20 18:47 [facility] [id number]) Spinal Traction Traction Treatment Cervical Method Mechanical Patient Position Hooklying Force Applied (Pounds) 12 Duration of Treatment (Minutes) 10 PT-OP-T Assessment and Plan Start: 06/06/20 16:24 Freq: Status: Active Protocol: Document 06/22/20 15:10 [facility] (Rec: 06/22/20 18:47 [facility] [id number]) Physical Therapy Assessment Goals cervical ROM Impairment pt shows limited cervical ROM (rot and lateral flexion) Machine Molder Squeeze Goal (LTG) pt will improve >15 degrees on both lateral flexion and rotation without neurological symptoms LTG Duration 8 weeks neurological symptoms Impairment +ve for spurling, forminal compression Short Term Goal (STG) pt will not experience radiating pain and numbness/ tingling sensation to bilateral hands more than 4 days per week Correction Goal (LTG) pt will not experience radiating pain and numbness/ tingling sensation to bilateral hands more than 2 days per week to improve sleep and activity tolerance LTG Duration 12 weeks quick dash Impairment pt scores 52 on quickdash Short Term Goal (STG) pt will score <40 on quickdash to improve her overall mobility shoulder strength, mobility and endurance STG Duration 6 weeks Machine Molder Squeeze Goal (LTG) pt will score <30 on quickdash to improve her overall qaulity of life 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 STG Duration 6 weeks Machine Molder Squeeze Goal (LTG) pt will score <12 on NDI to improver her overall quality of life so she could fully return to her kayak and sailing class LTG Duration 12 weeks Four Impairment NO HEP in place Machine Molder Squeeze Goal (LTG) Patient will perform home exercise program independently . 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 She has significnat tightness on R>L and notes relief [facility] manual traction. Plan to assess tolerance to mechanical traction next session. Physical Therapy Plan Frequency and Duration Frequency of Treatment 2x/Week Duration of Treatment 12 weeks Plan of Care Start Date 06/06/20 Plan of Care End Date 09/04/20 Next Visit Focus/Plan Next Note Type Treatment Note Next Visit Plan cont to work on exercises for cervical stability & scap stability. Manual for cervical & thoracic range
--- NOTE | 2020-06-26 11:27 | PT.OTN ---
Current Diagnoses Radiculopathy, cervical region (06/26/20) Cervicalgia (06/26/20) Physical Therapy Treatment Note PT-OP-A Visit Information Start: 06/06/20 16:24 Freq: Status: Active Protocol: Document 06/26/20 09:01 LR (Rec: 06/26/20 11:26 [facility] [id number]) Out-Patient Physical Therapy Visit Information Visit Information Visit Type Treatment Note Visit Start Time 09:02 Visit Stop Time 09:52 Total Visit Minutes 50 Visit Number 08/28 Number of MEDICAL DELIVERY DRIVER Visits 0 PT-OP-B Current Condition Start: 06/06/20 16:24 Freq: Status: Active Protocol: Document 06/06/20 16:25 HH (Rec: 06/06/20 17:23 HH [email or web address]) Current Condition History of Current Condition Onset Date >3 years ago Current Complaints Cervical radiculopathy, B shoulder pain History of Current Condition Pt is a 55yo female here for her diagnosed cervical radiculopathy and B shoulder pain 08/14. Pt recently had MRI for both shoulders and cervical region (see below.) Pt has been having generalized hand pain and shooting pain to elbow, along with worsening hand weakness since last years. She also c/o numbness and tingling sensation on radial aspect of B hands. She stated her symptoms are worse with prolonged physical activity and staying in a flexed position for a long period of time. She did say that her symptoms got better this April after receiving a diagnostci steroid injection but it did not last long. She also c/o new onset of neck pain 06/14 after the injection . Pt has participated PT multiple times for her shoulders within the past few years and she was finally diagnosed with cervical radiculopathy with RTC and labral tear bilaterally by MRI recently. (see below). 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 Prior Treatments and Tests C/S MRI Multilevel canal stenoses, worst at C4-C5 and C5-C6, where there are moderate canal stenosis present. Multilevel foraminal stenoses, worst on the left at C5-C6 where there is associated intraforaminal nerve root compression. L shoulder MRI Focal small low-grade intrasubstance and bursal sided tear of the supraspinatus tendon at its posterior footprint measuring 4 mm in anterior- posterior dimension. Mild supraspinatus tendinosis. Probable small nondisplaced tear at the posteroinferior labrum R shoulder MRI ow to moderate grade articular and bursal surface partial thickness tear. uggestion of focal superior anterior labral tear at 12 to 1 o'clock position and anterior-inferior labral tear at 4 to 5 o'clock position. Treatment Goals Patient/Caregiver Goals 1. To minimize her generalized hand and arm pain, and her neurological symptoms 2. 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 Personal Factors Other Personal Factors That May Effect osteopenia, anxiety Therapy/Recovery PT-OP-C Subjective Start: 06/06/20 16:24 Freq: Status: Active Protocol: Document 06/26/20 09:01 [facility] (Rec: 06/26/20 11:26 [facility] [id number]) OP-PT Subjective Patient Comments Patient Comments Pt reports being up and down w /fatigue over the weekend. Sat was good but was wiped out yeterday. She was so tired she couldn't sleep. Some neck sorness. PT-OP-F Manual Assessment Start: 06/06/20 16:24 Freq: Status: Active Protocol: Document 06/06/20 16:25 HH (Rec: 06/06/20 17:23 [email or web address]) Manual Assessments Soft Tissue Assessment Soft Tissue Mobility Assessment hypertonicity at cervical paraspinals and trapezius muscle group R >L noted Joint Mobility Assessment Joint Mobility Assessment significant hypomobility with PA mob at C7-T4 PT-OP-H Neuro Start: 06/06/20 16:24 Freq: Status: Active Protocol: Document 06/06/20 16:25 HH (Rec: 06/06/20 17:23 [email or web address]) Sensation Evaluation Gross Sensation Gross Sensation WNL Deep Tendon Reflex & Clonus Assessment Deep Tendon Reflex Bicep Deep Tendon Reflex 2+ Normal Tricep Deep Tendon Reflex 2+ Normal Brachioradialis Deep Tendon Reflex 1+ Diminished PT-OP-J Posture/Palpation/Skin Start: 06/06/20 16:24 Freq: Status: Active Protocol: Document 06/06/20 16:25 HH (Rec: 06/06/20 17:23 HH [email or web address]) Posture Evaluation Position Standing Evaluation View Lateral Head/C-Spine Posture Forward Head T-Spine Posture Increased Kyphosis Shoulder Posture (L) Rounded,(R) Rounded Comments Posture Comments Significant Dowager hump noted at CT junction. PT-OP-K Range of Motion Start: 06/06/20 16:24 Freq: Status: Active Protocol: Document 06/06/20 16:25 HH (Rec: 06/06/20 17:23 HH [email or web address]) Cervical Spine Range of Motion Cervical Spine Active Degrees Testing Position Sitting Flexion 65 Extension 55 Rotation Left 56 Rotation Right 49 Lateral Flexion Left 25 Lateral Flexion Right 28 ROM Limitations Soft Tissue Tightness,Muscle Tone,Pain Comments joint angulation noted at C6C7 level during extension and rotation pinching pain at C6 facet level with extension, R rotation and lateral flexion to R pulling pain at R trap with lateral flexion to L Lumbar Spine Range of Motion Lumbar Spine Active Degrees Comments seated thoracic rotation = L 60degrees, R 45 degrees PT-OP-L Special Tests Start: 06/06/20 16:24 Freq: Status: Active Protocol: Document 06/12/20 14:29 HH (Rec: 06/12/20 16:40 [id number]) Special Tests Cervical Spine Special Tests Upper Limb Tension Test Test Results +VE R median nerve Comments without cervical lateral flexion PT-OP-M Strength Start: 06/06/20 16:24 Freq: Status: Active Protocol: Document 06/12/20 14:29 HH (Rec: 06/12/20 16:40 [id number]) Cervical Spine Strength Cervical Spine Manual Muscle Testing Comments supine chin tuck hold = 41s. PT-OP-Q Treatments Start: 06/06/20 16:24 Freq: Status: Active Protocol: Document 06/26/20 09:01 [facility] (Rec: 06/26/20 11:26 [facility] [id number]) Manual Therapy Treatment Soft Tissue Mobilization suboccipitals Mobilization Type Sustained Pressure,Trigger Point Release Intensity/Depth Moderate Body Position Supine Comments R >L cervical parapsinals Body Location B paraspinals, SCM, Scalnes R> L Mobilization Type Rolling,Sustained Pressure Joint Mobilizations PA mob Joint T1-T2 Grade III Body Position Supine 4 Joint C 4-5 transverse glide R FM Manual Traction cervical traction Body Position Supine Reps/Duration 10 secx 10 Self-Care/Home Management Treatment Education Other Education edu to twalk to re: sleep study and ssing sleep re: difficulty with good sleep, edu no to stop steroids without MD approval and to call office before stopping. Discussed home cervical traction units as pt wants to get one. discouraged from one that pulls on jaw, discused pillows and recommended down and discussed how to get it set appropriately under neck PT-OP-R Modalities Start: 06/06/20 16:24 Freq: Status: Active Protocol: Document 06/26/20 09:01 [facility] (Rec: 06/26/20 11:26 [facility] [id number]) Spinal Traction Traction Treatment Cervical Method Mechanical Patient Position Hooklying Force Applied (Pounds) 14 Duration of Treatment (Minutes) 10 PT-OP-T Assessment and Plan Start: 06/06/20 16:24 Freq: Status: Active Protocol: Document 06/26/20 09:01 [facility] (Rec: 06/26/20 11:26 [facility] [id number]) Physical Therapy Assessment Goals cervical ROM Impairment pt shows limited cervical ROM (rot and lateral flexion) Terminal System Operator Goal (LTG) pt will improve >15 degrees on both lateral flexion and rotation without neurological symptoms LTG Duration 8 weeks neurological symptoms Impairment +ve for spurling, forminal compression Short Term Goal (STG) pt will not experience radiating pain and numbness/ tingling sensation to bilateral hands more than 4 days per week [facility] Goal (LTG) pt will not experience radiating pain and numbness/ tingling sensation to bilateral hands more than 2 days per week to improve sleep and activity tolerance LTG Duration 12 weeks quick dash Impairment pt scores 52 on quickdash Short Term Goal (STG) pt will score <40 on quickdash to improve her overall mobility shoulder strength, mobility and endurance STG Duration 6 weeks [facility] Goal (LTG) pt will score <30 on quickdash to improve her overall qaulity of life 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 Reports feeling taller after mechanical traction. Significant time for edu today . Physical Therapy Plan Frequency and Duration Frequency of Treatment 2x/Week Duration of Treatment 12 weeks Plan of Care Start Date 06/06/20 Plan of Care End Date 09/04/20 Next Visit Focus/Plan Next Note Type Treatment Note Next Visit Plan cont to work on exercises for cervical stability & scap stability. Manual for cervical & thoracic range
--- NOTE | 2020-06-29 10:26 | PT.OTN ---
Current Diagnoses Radiculopathy, cervical region (06/29/20) Cervicalgia (06/29/20) Physical Therapy Treatment Note PT-OP-A Visit Information Start: 06/06/20 16:24 Freq: Status: Active Protocol: Document 06/29/20 08:17 LR (Rec: 06/29/20 10:25 [facility] [id number]) Out-Patient Physical Therapy Visit Information Visit Information Visit Type Treatment Note Visit Start Time 08:22 Visit Stop Time 09:10 Total Visit Minutes 48 Visit Number 09/28 Number of CLEAN ROOM OPERATOR Visits 0 PT-OP-B Current Condition Start: 06/06/20 16:24 Freq: Status: Active Protocol: Document 06/06/20 16:25 HH (Rec: 06/06/20 17:23 HH [email or web address]) Current Condition History of Current Condition Onset Date >3 years ago Current Complaints Cervical radiculopathy, B shoulder pain History of Current Condition Pt is a 55yo female here for her diagnosed cervical radiculopathy and B shoulder pain 08/14. Pt recently had MRI for both shoulders and cervical region (see below.) Pt has been having generalized hand pain and shooting pain to elbow, along with worsening hand weakness since last years. She also c/o numbness and tingling sensation on radial aspect of B hands. She stated her symptoms are worse with prolonged physical activity and staying in a flexed position for a long period of time. She did say that her symptoms got better this April after receiving a diagnostci steroid injection but it did not last long. She also c/o new onset of neck pain 06/14 after the injection . Pt has participated PT multiple times for her shoulders within the past few years and she was finally diagnosed with cervical radiculopathy with RTC and labral tear bilaterally by MRI recently. (see below). 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 Prior Treatments and Tests C/S MRI Multilevel canal stenoses, worst at C4-C5 and C5-C6, where there are moderate canal stenosis present. Multilevel foraminal stenoses, worst on the left at C5-C6 where there is associated intraforaminal nerve root compression. L shoulder MRI Focal small low-grade intrasubstance and bursal sided tear of the supraspinatus tendon at its posterior footprint measuring 4 mm in anterior- posterior dimension. Mild supraspinatus tendinosis. Probable small nondisplaced tear at the posteroinferior labrum R shoulder MRI ow to moderate grade articular and bursal surface partial thickness tear. uggestion of focal superior anterior labral tear at 12 to 1 o'clock position and anterior-inferior labral tear at 4 to 5 o'clock position. Treatment Goals Patient/Caregiver Goals 1. To minimize her generalized hand and arm pain, and her neurological symptoms 2. 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 Personal Factors Other Personal Factors That May Effect osteopenia, anxiety Therapy/Recovery PT-OP-C Subjective Start: 06/06/20 16:24 Freq: Status: Active Protocol: Document 06/29/20 08:17 [facility] (Rec: 06/29/20 10:25 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 P yola okayed to go off steroids and was told she does not have an autoimmunine disease or rheumatoid disease. She did order her own home traction device. PT-OP-F Manual Assessment Start: 06/06/20 16:24 Freq: Status: Active Protocol: Document 06/06/20 16:25 HH (Rec: 06/06/20 17:23 HH [email or web address]) Manual Assessments Soft Tissue Assessment Soft Tissue Mobility Assessment hypertonicity at cervical paraspinals and trapezius muscle group R >L noted Joint Mobility Assessment Joint Mobility Assessment significant hypomobility with PA mob at C7-T4 PT-OP-H Neuro Start: 06/06/20 16:24 Freq: Status: Active Protocol: Document 06/06/20 16:25 HH (Rec: 06/06/20 17:23 HH [email or web address]) Sensation Evaluation Gross Sensation Gross Sensation WNL Deep Tendon Reflex & Clonus Assessment Deep Tendon Reflex Bicep Deep Tendon Reflex 2+ Normal Tricep Deep Tendon Reflex 2+ Normal Brachioradialis Deep Tendon Reflex 1+ Diminished PT-OP-J Posture/Palpation/Skin Start: 06/06/20 16:24 Freq: Status: Active Protocol: Document 06/06/20 16:25 HH (Rec: 06/06/20 17:23 HH [email or web address]) Posture Evaluation Position Standing Evaluation View Lateral Head/C-Spine Posture Forward Head T-Spine Posture Increased Kyphosis Shoulder Posture (L) Rounded,(R) Rounded Comments Posture Comments Significant Dowager hump noted at CT junction. PT-OP-K Range of Motion Start: 06/06/20 16:24 Freq: Status: Active Protocol: Document 06/06/20 16:25 HH (Rec: 06/06/20 17:23 HH [email or web address]) Cervical Spine Range of Motion Cervical Spine Active Degrees Testing Position Sitting Flexion 65 Extension 55 Rotation Left 56 Rotation Right 49 Lateral Flexion Left 25 Lateral Flexion Right 28 ROM Limitations Soft Tissue Tightness,Muscle Tone,Pain Comments joint angulation noted at C6C7 level during extension and rotation pinching pain at C6 facet level with extension, R rotation and lateral flexion to R pulling pain at R trap with lateral flexion to L Lumbar Spine Range of Motion Lumbar Spine Active Degrees Comments seated thoracic rotation = L 60degrees, R 45 degrees PT-OP-L Special Tests Start: 06/06/20 16:24 Freq: Status: Active Protocol: Document 06/12/20 14:29 HH (Rec: 06/12/20 16:40 [id number]) Special Tests Cervical Spine Special Tests Upper Limb Tension Test Test Results +VE R median nerve Comments without cervical lateral flexion PT-OP-M Strength Start: 06/06/20 16:24 Freq: Status: Active Protocol: Document 06/12/20 14:29 HH (Rec: 06/12/20 16:40 [id number]) Cervical Spine Strength Cervical Spine Manual Muscle Testing Comments supine chin tuck hold = 41s. PT-OP-Q Treatments Start: 06/06/20 16:24 Freq: Status: Active Protocol: Document 06/29/20 08:17 [facility] (Rec: 06/29/20 10:25 [facility] [id number]) Therapeutic Exercises Supine Exercises 3 Supine Exercise Name serratus punch B Side bilateral Reps/Minutes 2s10 Standing Exercises 10 Standing Exercise Name shoulder ext Side bilateral Equipment Used L1 Reps/Minutes 2x10 9 Standing Exercise Name shoulder ER Side bilateral Equipment Used L1 Reps/Minutes 2x10 Manual Therapy Treatment Soft Tissue Mobilization suboccipitals Mobilization Type Sustained Pressure,Trigger Point Release Intensity/Depth Moderate Body Position Supine Comments R >L 5 Body Location scalenes & SCM R Mobilization Type Rolling,Sustained Pressure Intensity/Depth Moderate Body Position Supine pec Body Location pec R Mobilization Type Rolling,Strumming Joint Mobilizations 4 Joint C 4-5 transverse glide R FM 3 Joint GH R Direction distraction & post Grade II Self-Care/Home Management Treatment Education Other Education how exercises are to help shoulders, scap region and neck for improved stability & mechanics-improtance to stop them at hoem if they inc pain PT-OP-R Modalities Start: 06/06/20 16:24 Freq: Status: Active Protocol: Document 06/29/20 08:17 [facility] (Rec: 06/29/20 10:25 [facility] [id number]) Spinal Traction Traction Treatment Cervical Method Mechanical Patient Position Hooklying Force Applied (Pounds) 14 Duration of Treatment (Minutes) 10 PT-OP-T Assessment and Plan Start: 06/06/20 16:24 Freq: Status: Active Protocol: Document 06/29/20 08:17 [facility] (Rec: 06/29/20 10:25 [facility] [id number]) Physical Therapy Assessment Goals cervical ROM Impairment pt shows limited cervical ROM (rot and lateral flexion) Group Home Goal (LTG) pt will improve >15 degrees on both lateral flexion and rotation without neurological symptoms LTG Duration 8 weeks neurological symptoms Impairment +ve for spurling, forminal compression Short Term Goal (STG) pt will not experience radiating pain and numbness/ tingling sensation to bilateral hands more than 4 days per week Retread Supervisor Goal (LTG) pt will not experience radiating pain and numbness/ tingling sensation to bilateral hands more than 2 days per week to improve sleep and activity tolerance LTG Duration 12 weeks quick dash Impairment pt scores 52 on quickdash Short Term Goal (STG) pt will score <40 on quickdash to improve her overall mobility shoulder strength, mobility and endurance STG Duration 6 weeks Group Home Goal (LTG) pt will score <30 on quickdash to improve her overall qaulity of life 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 STG Duration 6 weeks Group Home Goal (LTG) pt will score <12 on NDI to improver her overall quality of life so she could fully return to her kayak and sailing class LTG Duration 12 weeks Assessment Summary Assessment Pt noted pain after joint mobs of shoulder and was reminded ot tellt herapist if any treatments are hurting her. She does have more forward sitting of humerus on R side in glenoid fossa, which likely contributes to her pain. She was able to tolerate exercises iwthout inc pain. Physical Therapy Plan Frequency and Duration Frequency of Treatment 2x/Week Duration of Treatment 12 weeks Plan of Care Start Date 06/06/20 Plan of Care End Date 09/04/20 Next Visit Focus/Plan Next Note Type Treatment Note Next Visit Plan bent over rows, work on hip hinge & cont to work on cervical mobility
--- NOTE | 2020-07-04 12:01 | PT.OTN ---
Current Diagnoses Radiculopathy, cervical region (07/04/20) Cervicalgia (07/04/20) Physical Therapy Treatment Note PT-OP-A Visit Information Start: 06/06/20 16:24 Freq: Status: Active Protocol: Document 07/04/20 11:25 [facility] (Rec: 07/04/20 11:39 [facility] [id number]) Out-Patient Physical Therapy Visit Information Visit Information Visit Type Treatment Note Visit Start Time 10:34 Visit Stop Time 11:30 Total Visit Minutes 56 Visit Number 10/28 Number of ASSEMBLY MACHINE TOOL SETTER Visits 0 PT-OP-B Current Condition Start: 06/06/20 16:24 Freq: Status: Active Protocol: Document 06/06/20 16:25 HH (Rec: 06/06/20 17:23 HH [email or web address]) Current Condition History of Current Condition Onset Date >3 years ago Current Complaints Cervical radiculopathy, B shoulder pain History of Current Condition Pt is a 55yo female here for her diagnosed cervical radiculopathy and B shoulder pain 08/14. Pt recently had MRI for both shoulders and cervical region (see below.) Pt has been having generalized hand pain and shooting pain to elbow, along with worsening hand weakness since last years. She also c/o numbness and tingling sensation on radial aspect of B hands. She stated her symptoms are worse with prolonged physical activity and staying in a flexed position for a long period of time. She did say that her symptoms got better this April after receiving a diagnostci steroid injection but it did not last long. She also c/o new onset of neck pain 06/14 after the injection . Pt has participated PT multiple times for her shoulders within the past few years and she was finally diagnosed with cervical radiculopathy with RTC and labral tear bilaterally by MRI recently. (see below). 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 Prior Treatments and Tests C/S MRI Multilevel canal stenoses, worst at C4-C5 and C5-C6, where there are moderate canal stenosis present. Multilevel foraminal stenoses, worst on the left at C5-C6 where there is associated intraforaminal nerve root compression. L shoulder MRI Focal small low-grade intrasubstance and bursal sided tear of the supraspinatus tendon at its posterior footprint measuring 4 mm in anterior- posterior dimension. Mild supraspinatus tendinosis. Probable small nondisplaced tear at the posteroinferior labrum R shoulder MRI ow to moderate grade articular and bursal surface partial thickness tear. uggestion of focal superior anterior labral tear at 12 to 1 o'clock position and anterior-inferior labral tear at 4 to 5 o'clock position. Treatment Goals Patient/Caregiver Goals 1. To minimize her generalized hand and arm pain, and her neurological symptoms 2. 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 Personal Factors Other Personal Factors That May Effect osteopenia, anxiety Therapy/Recovery PT-OP-C Subjective Start: 06/06/20 16:24 Freq: Status: Active Protocol: Document 07/04/20 11:25 LR (Rec: 07/04/20 11:39 [facility] [id number]) OP-PT Subjective Patient Comments Patient Comments Pt reports fatigue has been good but frustred with pain. Notes she has been using her home cervical traction unit. PT-OP-F Manual Assessment Start: 06/06/20 16:24 Freq: Status: Active Protocol: Document 06/06/20 16:25 HH (Rec: 06/06/20 17:23 HH [email or web address]) Manual Assessments Soft Tissue Assessment Soft Tissue Mobility Assessment hypertonicity at cervical paraspinals and trapezius muscle group R >L noted Joint Mobility Assessment Joint Mobility Assessment significant hypomobility with PA mob at C7-T4 PT-OP-H Neuro Start: 06/06/20 16:24 Freq: Status: Active Protocol: Document 06/06/20 16:25 HH (Rec: 06/06/20 17:23 HH [email or web address]) Sensation Evaluation Gross Sensation Gross Sensation WNL Deep Tendon Reflex & Clonus Assessment Deep Tendon Reflex Bicep Deep Tendon Reflex 2+ Normal Tricep Deep Tendon Reflex 2+ Normal Brachioradialis Deep Tendon Reflex 1+ Diminished PT-OP-J Posture/Palpation/Skin Start: 06/06/20 16:24 Freq: Status: Active Protocol: Document 06/06/20 16:25 HH (Rec: 06/06/20 17:23 HH [email or web address]) Posture Evaluation Position Standing Evaluation View Lateral Head/C-Spine Posture Forward Head T-Spine Posture Increased Kyphosis Shoulder Posture (L) Rounded,(R) Rounded Comments Posture Comments Significant Dowager hump noted at CT junction. PT-OP-K Range of Motion Start: 06/06/20 16:24 Freq: Status: Active Protocol: Document 06/06/20 16:25 HH (Rec: 06/06/20 17:23 HH [email or web address]) Cervical Spine Range of Motion Cervical Spine Active Degrees Testing Position Sitting Flexion 65 Extension 55 Rotation Left 56 Rotation Right 49 Lateral Flexion Left 25 Lateral Flexion Right 28 ROM Limitations Soft Tissue Tightness,Muscle Tone,Pain Comments joint angulation noted at C6C7 level during extension and rotation pinching pain at C6 facet level with extension, R rotation and lateral flexion to R pulling pain at R trap with lateral flexion to L Lumbar Spine Range of Motion Lumbar Spine Active Degrees Comments seated thoracic rotation = L 60degrees, R 45 degrees PT-OP-L Special Tests Start: 06/06/20 16:24 Freq: Status: Active Protocol: Document 06/12/20 14:29 HH (Rec: 06/12/20 16:40 HH [id number]) Special Tests Cervical Spine Special Tests Upper Limb Tension Test Test Results +VE R median nerve Comments without cervical lateral flexion PT-OP-M Strength Start: 06/06/20 16:24 Freq: Status: Active Protocol: Document 06/12/20 14:29 HH (Rec: 06/12/20 16:40 HH [id number]) Cervical Spine Strength Cervical Spine Manual Muscle Testing Comments supine chin tuck hold = 41s. PT-OP-Q Treatments Start: 06/06/20 16:24 Freq: Status: Active Protocol: Document 07/04/20 11:25 LR (Rec: 07/04/20 11:39 LR [id number]) Therapeutic Exercises Supine Exercises 2 Supine Exercise Name foam roll: roll sides, flex, abd, Habd; tspine ext Reps/Minutes 8 min Sitting Exercises neck stretch Sitting Exercise Name 1st rib w/towel active Side bilateral Reps/Minutes 8 Standing Exercises 10 Standing Exercise Name shoulder ext Side bilateral Equipment Used L1 Reps/Minutes 2x10 9 Standing Exercise Name shoulder ER Side bilateral Equipment Used L1 Reps/Minutes 5 stopped s/t pain Manual Therapy Treatment Soft Tissue Mobilization suboccipitals Mobilization Type Sustained Pressure,Trigger Point Release Intensity/Depth Moderate Body Position Supine Comments R >L 5 Body Location scalenes & SCM R Mobilization Type Rolling,Sustained Pressure Intensity/Depth Moderate Body Position Supine Self-Care/Home Management Treatment Education Other Education edu re: waht to look for in a pillow, edu on getting neck in more flex w/home traction unit, edu for strenth only 3x/ week PT-OP-R Modalities Start: 06/06/20 16:24 Freq: Status: Active Protocol: Document 07/04/20 11:25 [facility] (Rec: 07/04/20 11:39 [facility] [id number]) Spinal Traction Traction Treatment Cervical Method Mechanical Patient Position Hooklying Force Applied (Pounds) 16 Duration of Treatment (Minutes) 15 PT-OP-T Assessment and Plan Start: 06/06/20 16:24 Freq: Status: Active Protocol: Document 07/04/20 11:25 [facility] (Rec: 07/04/20 11:39 [facility] [id number]) Physical Therapy Assessment Goals cervical ROM Impairment pt shows limited cervical ROM (rot and lateral flexion) Retirement Goal (LTG) pt will improve >15 degrees on both lateral flexion and rotation without neurological symptoms LTG Duration 8 weeks neurological symptoms Impairment +ve for spurling, forminal compression Short Term Goal (STG) pt will not experience radiating pain and numbness/ tingling sensation to bilateral hands more than 4 days per week Screwhead Polisher Goal (LTG) pt will not experience radiating pain and numbness/ tingling sensation to bilateral hands more than 2 days per week to improve sleep and activity tolerance LTG Duration 12 weeks quick dash Impairment pt scores 52 on quickdash Short Term Goal (STG) pt will score <40 on quickdash to improve her overall mobility shoulder strength, mobility and endurance STG Duration 6 weeks Retirement Goal (LTG) pt will score <30 on quickdash to improve her overall qaulity of life 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 Stopped ER d/t pain w/ it in R shoulder Physical Therapy Plan Frequency and Duration Frequency of Treatment 2x/Week Duration of Treatment 12 weeks Plan of Care Start Date 06/06/20 Plan of Care End Date 09/04/20 Next Visit Focus/Plan Next Note Type Treatment Note Next Visit Plan work on hip hinge & reaching & postural alignment
--- NOTE | 2020-07-06 10:36 | PT.OTN ---
Current Diagnoses Radiculopathy, cervical region (07/06/20) Cervicalgia (07/06/20) Physical Therapy Treatment Note PT-OP-A Visit Information Start: 06/06/20 16:24 Freq: Status: Active Protocol: Document 07/06/20 09:00 HH (Rec: 07/06/20 10:36 HH [id number]) Out-Patient Physical Therapy Visit Information Visit Information Visit Type Treatment Note Visit Start Time 10:33 Visit Stop Time 11:20 Total Visit Minutes 47 Visit Number 11/28 Number of CO FOUNDER AND PRESIDENT Visits 0 PT-OP-B Current Condition Start: 06/06/20 16:24 Freq: Status: Active Protocol: Document 06/06/20 16:25 HH (Rec: 06/06/20 17:23 HH [email or web address]) Current Condition History of Current Condition Onset Date >3 years ago Current Complaints Cervical radiculopathy, B shoulder pain History of Current Condition Pt is a 55yo female here for her diagnosed cervical radiculopathy and B shoulder pain 08/14. Pt recently had MRI for both shoulders and cervical region (see below.) Pt has been having generalized hand pain and shooting pain to elbow, along with worsening hand weakness since last years. She also c/o numbness and tingling sensation on radial aspect of B hands. She stated her symptoms are worse with prolonged physical activity and staying in a flexed position for a long period of time. She did say that her symptoms got better this April after receiving a diagnostci steroid injection but it did not last long. She also c/o new onset of neck pain /10 after the injection . Pt has participated PT multiple times for her shoulders within the past few years and she was finally diagnosed with cervical radiculopathy with RTC and labral tear bilaterally by MRI recently. (see below). 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 Prior Treatments and Tests C/S MRI Multilevel canal stenoses, worst at C4-C5 and C5-C6, where there are moderate canal stenosis present. Multilevel foraminal stenoses, worst on the left at C5-C6 where there is associated intraforaminal nerve root compression. L shoulder MRI Focal small low-grade intrasubstance and bursal sided tear of the supraspinatus tendon at its posterior footprint measuring 4 mm in anterior- posterior dimension. Mild supraspinatus tendinosis. Probable small nondisplaced tear at the posteroinferior labrum R shoulder MRI ow to moderate grade articular and bursal surface partial thickness tear. uggestion of focal superior anterior labral tear at 12 to 1 o'clock position and anterior-inferior labral tear at 4 to 5 o'clock position. Treatment Goals Patient/Caregiver Goals 1. To minimize her generalized hand and arm pain, and her neurological symptoms 2. 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 Personal Factors Other Personal Factors That May Effect osteopenia, anxiety Therapy/Recovery PT-OP-C Subjective Start: 06/06/20 16:24 Freq: Status: Active Protocol: Document 07/06/20 09:00 HH (Rec: 07/06/20 10:36 HH [id number]) OP-PT Subjective Patient Comments Patient Comments I have less fatigue overall. I think my hand pain are still there and my numbness seems to get better. I think i am going to get injection and do physical therapy together. Patient Reported Progress Improving PT-OP-F Manual Assessment Start: 06/06/20 16:24 Freq: Status: Active Protocol: Document 06/06/20 16:25 HH (Rec: 06/06/20 17:23 HH [email or web address]) Manual Assessments Soft Tissue Assessment Soft Tissue Mobility Assessment hypertonicity at cervical paraspinals and trapezius muscle group R >L noted Joint Mobility Assessment Joint Mobility Assessment significant hypomobility with PA mob at C7-T4 PT-OP-H Neuro Start: 06/06/20 16:24 Freq: Status: Active Protocol: Document 06/06/20 16:25 HH (Rec: 06/06/20 17:23 HH [email or web address]) Sensation Evaluation Gross Sensation Gross Sensation WNL Deep Tendon Reflex & Clonus Assessment Deep Tendon Reflex Bicep Deep Tendon Reflex 2+ Normal Tricep Deep Tendon Reflex 2+ Normal Brachioradialis Deep Tendon Reflex 1+ Diminished PT-OP-J Posture/Palpation/Skin Start: 06/06/20 16:24 Freq: Status: Active Protocol: Document 06/06/20 16:25 HH (Rec: 06/06/20 17:23 HH [email or web address]) Posture Evaluation Position Standing Evaluation View Lateral Head/C-Spine Posture Forward Head T-Spine Posture Increased Kyphosis Shoulder Posture (L) Rounded,(R) Rounded Comments Posture Comments Significant Dowager hump noted at CT junction. PT-OP-K Range of Motion Start: 06/06/20 16:24 Freq: Status: Active Protocol: Document 06/06/20 16:25 HH (Rec: 06/06/20 17:23 HH [email or web address]) Cervical Spine Range of Motion Cervical Spine Active Degrees Testing Position Sitting Flexion 65 Extension 55 Rotation Left 56 Rotation Right 49 Lateral Flexion Left 25 Lateral Flexion Right 28 ROM Limitations Soft Tissue Tightness,Muscle Tone,Pain Comments joint angulation noted at C6C7 level during extension and rotation pinching pain at C6 facet level with extension, R rotation and lateral flexion to R pulling pain at R trap with lateral flexion to L Lumbar Spine Range of Motion Lumbar Spine Active Degrees Comments seated thoracic rotation = L 60degrees, R 45 degrees PT-OP-L Special Tests Start: 06/06/20 16:24 Freq: Status: Active Protocol: Document 06/12/20 14:29 HH (Rec: 06/12/20 16:40 HH [id number]) Special Tests Cervical Spine Special Tests Upper Limb Tension Test Test Results +VE R median nerve Comments without cervical lateral flexion PT-OP-M Strength Start: 06/06/20 16:24 Freq: Status: Active Protocol: Document 06/12/20 14:29 HH (Rec: 06/12/20 16:40 HH [id number]) Cervical Spine Strength Cervical Spine Manual Muscle Testing Comments supine chin tuck hold = 41s. PT-OP-Q Treatments Start: 06/06/20 16:24 Freq: Status: Active Protocol: Document 07/06/20 09:00 HH (Rec: 07/06/20 10:36 HH [id number]) Therapeutic Exercises Supine Exercises chin hold Reps/Minutes 20 sec hold x 5 Comments no discomfort noted. snow angels Side bilateral Equipment Used foam roller Reps/Minutes 1 min 2 Supine Exercise Name foam roll: roll sides, flex, abd, Habd; tspine ext Reps/Minutes 8 min Comments with cervical extension and thoracic extension Sidelying Exercises open book Side bilateral Reps/Minutes 10 x 2 Manual Therapy Treatment Soft Tissue Mobilization suboccipitals Mobilization Type Sustained Pressure,Trigger Point Release Intensity/Depth Moderate Body Position Supine Comments R >L Joint Mobilizations PA mob Joint T1-T4 Grade III Body Position Prone Comments nd lateral glide of spinous process PT-OP-R Modalities Start: 06/06/20 16:24 Freq: Status: Active Protocol: Document 07/06/20 09:00 (Rec: 07/06/20 10:36 [id number]) Spinal Traction Traction Treatment Cervical Method Mechanical Patient Position Hooklying Force Applied (Pounds) 16 Duration of Treatment (Minutes) 15 PT-OP-T Assessment and Plan Start: 06/06/20 16:24 Freq: Status: Active Protocol: Document 07/06/20 09:00 (Rec: 07/06/20 10:36 [id number]) Physical Therapy Assessment Goals cervical ROM Impairment pt shows limited cervical ROM (rot and lateral flexion) Detention Goal (LTG) pt will improve >15 degrees on both lateral flexion and rotation without neurological symptoms LTG Duration 8 weeks neurological symptoms Impairment +ve for spurling, forminal compression Short Term Goal (STG) pt will not experience radiating pain and numbness/ tingling sensation to bilateral hands more than 4 days per week Film Flat Inspector Goal (LTG) pt will not experience radiating pain and numbness/ tingling sensation to bilateral hands more than 2 days per week to improve sleep and activity tolerance LTG Duration 12 weeks quick dash Impairment pt scores 52 on quickdash Short Term Goal (STG) pt will score <40 on quickdash to improve her overall mobility shoulder strength, mobility and endurance STG Duration 6 weeks Detention Goal (LTG) pt will score <30 on quickdash to improve her overall qaulity of life so she can instruct her [employer] and [employer]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 Pt reports her hand numbness and fatigue have both improved as well but hand pain is still there. Pt should progress to more neck and shoulder stabilization ex routine from now on Physical Therapy Plan Frequency and Duration Frequency of Treatment 2x/Week Duration of Treatment 12 weeks Plan of Care Start Date 06/06/20 Plan of Care End Date 09/04/20 Next Visit Focus/Plan Next Note Type Treatment Note Next Visit Plan work on hip hinge & reaching & postural alignment
--- NOTE | 2020-07-11 09:07 | PT.OTN ---
Current Diagnoses Radiculopathy, cervical region (07/11/20) Cervicalgia (07/11/20) Physical Therapy Treatment Note PT-OP-A Visit Information Start: 06/06/20 16:24 Freq: Status: Active Protocol: Document 07/11/20 07:31 LR (Rec: 07/11/20 08:17 [facility] [id number]) Out-Patient Physical Therapy Visit Information Visit Information Visit Type Treatment Note Visit Start Time 07:31 Visit Stop Time 08:24 Total Visit Minutes 53 Visit Number 12/28 Number of INDUSTRIAL TRAINING SPECIALIST Visits 0 PT-OP-B Current Condition Start: 06/06/20 16:24 Freq: Status: Active Protocol: Document 06/06/20 16:25 HH (Rec: 06/06/20 17:23 HH [email or web address]) Current Condition History of Current Condition Onset Date >3 years ago Current Complaints Cervical radiculopathy, B shoulder pain History of Current Condition Pt is a 55yo female here for her diagnosed cervical radiculopathy and B shoulder pain 08/14. Pt recently had MRI for both shoulders and cervical region (see below.) Pt has been having generalized hand pain and shooting pain to elbow, along with worsening hand weakness since last years. She also c/o numbness and tingling sensation on radial aspect of B hands. She stated her symptoms are worse with prolonged physical activity and staying in a flexed position for a long period of time. She did say that her symptoms got better this April after receiving a diagnostci steroid injection but it did not last long. She also c/o new onset of neck pain 06/14 after the injection . Pt has participated PT multiple times for her shoulders within the past few years and she was finally diagnosed with cervical radiculopathy with RTC and labral tear bilaterally by MRI recently. (see below). 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 Prior Treatments and Tests C/S MRI Multilevel canal stenoses, worst at C4-C5 and C5-C6, where there are moderate canal stenosis present. Multilevel foraminal stenoses, worst on the left at C5-C6 where there is associated intraforaminal nerve root compression. L shoulder MRI Focal small low-grade intrasubstance and bursal sided tear of the supraspinatus tendon at its posterior footprint measuring 4 mm in anterior- posterior dimension. Mild supraspinatus tendinosis. Probable small nondisplaced tear at the posteroinferior labrum R shoulder MRI ow to moderate grade articular and bursal surface partial thickness tear. uggestion of focal superior anterior labral tear at 12 to 1 o'clock position and anterior-inferior labral tear at 4 to 5 o'clock position. Treatment Goals Patient/Caregiver Goals 1. To minimize her generalized hand and arm pain, and her neurological symptoms 2. 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 Personal Factors Other Personal Factors That May Effect osteopenia, anxiety Therapy/Recovery PT-OP-C Subjective Start: 06/06/20 16:24 Freq: Status: Active Protocol: Document 07/11/20 07:31 LR (Rec: 07/11/20 08:17 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 Less fatigue but was still tired after the 3 day course. Notes still some shoulder and hand pain. Pt reports same soreness in neck PT-OP-F Manual Assessment Start: 06/06/20 16:24 Freq: Status: Active Protocol: Document 06/06/20 16:25 HH (Rec: 06/06/20 17:23 HH [email or web address]) Manual Assessments Soft Tissue Assessment Soft Tissue Mobility Assessment hypertonicity at cervical paraspinals and trapezius muscle group R >L noted Joint Mobility Assessment Joint Mobility Assessment significant hypomobility with PA mob at C7-T4 PT-OP-H Neuro Start: 06/06/20 16:24 Freq: Status: Active Protocol: Document 06/06/20 16:25 HH (Rec: 06/06/20 17:23 HH [email or web address]) Sensation Evaluation Gross Sensation Gross Sensation WNL Deep Tendon Reflex & Clonus Assessment Deep Tendon Reflex Bicep Deep Tendon Reflex 2+ Normal Tricep Deep Tendon Reflex 2+ Normal Brachioradialis Deep Tendon Reflex 1+ Diminished PT-OP-J Posture/Palpation/Skin Start: 06/06/20 16:24 Freq: Status: Active Protocol: Document 06/06/20 16:25 HH (Rec: 06/06/20 17:23 HH [email or web address]) Posture Evaluation Position Standing Evaluation View Lateral Head/C-Spine Posture Forward Head T-Spine Posture Increased Kyphosis Shoulder Posture (L) Rounded,(R) Rounded Comments Posture Comments Significant Dowager hump noted at CT junction. PT-OP-K Range of Motion Start: 06/06/20 16:24 Freq: Status: Active Protocol: Document 06/06/20 16:25 HH (Rec: 06/06/20 17:23 HH [email or web address]) Cervical Spine Range of Motion Cervical Spine Active Degrees Testing Position Sitting Flexion 65 Extension 55 Rotation Left 56 Rotation Right 49 Lateral Flexion Left 25 Lateral Flexion Right 28 ROM Limitations Soft Tissue Tightness,Muscle Tone,Pain Comments joint angulation noted at C6C7 level during extension and rotation pinching pain at C6 facet level with extension, R rotation and lateral flexion to R pulling pain at R trap with lateral flexion to L Lumbar Spine Range of Motion Lumbar Spine Active Degrees Comments seated thoracic rotation = L 60degrees, R 45 degrees PT-OP-L Special Tests Start: 06/06/20 16:24 Freq: Status: Active Protocol: Document 06/12/20 14:29 HH (Rec: 06/12/20 16:40 [id number]) Special Tests Cervical Spine Special Tests Upper Limb Tension Test Test Results +VE R median nerve Comments without cervical lateral flexion PT-OP-M Strength Start: 06/06/20 16:24 Freq: Status: Active Protocol: Document 06/12/20 14:29 HH (Rec: 06/12/20 16:40 HH [id number]) Cervical Spine Strength Cervical Spine Manual Muscle Testing Comments supine chin tuck hold = 41s. PT-OP-Q Treatments Start: 06/06/20 16:24 Freq: Status: Active Protocol: Document 07/11/20 07:31 [facility] (Rec: 07/11/20 08:17 [facility] [id number]) Therapeutic Exercises Prone Exercises scaption Prone Exercise Name over tball Side bilateral Reps/Minutes 15 ext Prone Exercise Name over tball Side bilateral Reps/Minutes 2x10 Habd Prone Exercise Name overtball Side bilateral Reps/Minutes 2x10 Manual Therapy Treatment Soft Tissue Mobilization suboccipitals Mobilization Type Sustained Pressure,Trigger Point Release Intensity/Depth Moderate Body Position Supine Comments R >L 5 Body Location scalenes & SCM R Mobilization Type Rolling,Sustained Pressure Intensity/Depth Moderate Body Position Supine cervical parapsinals Body Location B paraspinals & post neck Mobilization Type Myofascial Release Comments w/neck fle & rot w/dycem Joint Mobilizations cervical rotation Joint Transverse L glide T1-3 FM for rotation-imroved R rot PT-OP-R Modalities Start: 06/06/20 16:24 Freq: Status: Active Protocol: Document 07/11/20 07:31 [facility] (Rec: 07/11/20 08:17 [facility] [id number]) Spinal Traction Traction Treatment Cervical Method Mechanical Patient Position Hooklying Force Applied (Pounds) 16 Duration of Treatment (Minutes) 15 PT-OP-T Assessment and Plan Start: 06/06/20 16:24 Freq: Status: Active Protocol: Document 07/11/20 07:31 [facility] (Rec: 07/11/20 08:17 [facility] [id number]) Physical Therapy Assessment Goals cervical ROM Impairment pt shows limited cervical ROM (rot and lateral flexion) Half-Way Goal (LTG) pt will improve >15 degrees on both lateral flexion and rotation without neurological symptoms LTG Duration 8 weeks neurological symptoms Impairment +ve for spurling, forminal compression Short Term Goal (STG) pt will not experience radiating pain and numbness/ tingling sensation to bilateral hands more than 4 days per week Half-Way Goal (LTG) pt will not experience radiating pain and numbness/ tingling sensation to bilateral hands more than 2 days per week to improve sleep and activity tolerance LTG Duration 12 weeks quick dash Impairment pt scores 52 on quickdash Short Term Goal (STG) pt will score <40 on quickdash to improve her overall mobility shoulder strength, mobility and endurance STG Duration 6 weeks Half-Way Goal (LTG) pt will score <30 on quickdash to improve her overall qaulity of life so she can instruct her [employer] [place]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 STG Duration 6 weeks Half-Way Goal (LTG) pt will score <12 on NDI to improver her overall quality of life so she could fully return to her [employer] [place] class LTG Duration 12 weeks Assessment Summary Assessment Pt did well with scap exercises with occ cuieng for scap movement but overall did well with keepign postural alignment. She did improved with R rotation & B SB & flex w/less pain after manual treatment Physical Therapy Plan Frequency and Duration Frequency of Treatment 2x/Week Duration of Treatment 12 weeks Plan of Care Start Date 06/06/20 Plan of Care End Date 09/04/20 Next Visit Focus/Plan Next Note Type Treatment Note Next Visit Plan work on hip hinge & reaching & postural alignment
--- NOTE | 2020-07-13 08:47 | PT.OTN ---
Current Diagnoses Radiculopathy, cervical region (07/13/20) Cervicalgia (07/13/20) Physical Therapy Treatment Note PT-OP-A Visit Information Start: 06/06/20 16:24 Freq: Status: Active Protocol: Document 07/13/20 07:28 LR (Rec: 07/13/20 08:38 [facility] [id number]) Out-Patient Physical Therapy Visit Information Visit Information Visit Type Treatment Note Visit Start Time 07:30 Visit Stop Time 08:24 Total Visit Minutes 54 Visit Number 01/28 Number of OPEN HEAR[employer] F[employer]NA[employer]ORER Visits 0 PT-OP-B Current Condition Start: 06/06/20 16:24 Freq: Status: Active Protocol: Document 06/06/20 16:25 HH (Rec: 06/06/20 17:23 HH [email or web address]) Current Condition History of Current Condition Onset Date >3 years ago Current Complaints Cervical radiculopathy, B shoulder pain History of Current Condition Pt is a 55yo female here for her diagnosed cervical radiculopathy and B shoulder pain 08/14. Pt recently had MRI for both shoulders and cervical region (see below.) Pt has been having generalized hand pain and shooting pain to elbow, along with worsening hand weakness since last years. She also c/o numbness and tingling sensation on radial aspect of B hands. She stated her symptoms are worse with prolonged physical activity and staying in a flexed position for a long period of time. She did say that her symptoms got better this April after receiving a diagnostci steroid injection but it did not last long. She also c/o new onset of neck pain 06/14 after the injection . Pt has participated PT multiple times for her shoulders within the past few years and she was finally diagnosed with cervical radiculopathy with RTC and labral tear bilaterally by MRI recently. (see below). 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 Prior Treatments and Tests C/S MRI Multilevel canal stenoses, worst at C4-C5 and C5-C6, where there are moderate canal stenosis present. Multilevel foraminal stenoses, worst on the left at C5-C6 where there is associated intraforaminal nerve root compression. L shoulder MRI Focal small low-grade intrasubstance and bursal sided tear of the supraspinatus tendon at its posterior footprint measuring 4 mm in anterior- posterior dimension. Mild supraspinatus tendinosis. Probable small nondisplaced tear at the posteroinferior labrum R shoulder MRI ow to moderate grade articular and bursal surface partial thickness tear. uggestion of focal superior anterior labral tear at 12 to 1 o'clock position and anterior-inferior labral tear at 4 to 5 o'clock position. Treatment Goals Patient/Caregiver Goals 1. To minimize her generalized hand and arm pain, and her neurological symptoms 2. 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 Personal Factors Other Personal Factors That May Effect osteopenia, anxiety Therapy/Recovery PT-OP-C Subjective Start: 06/06/20 16:24 Freq: Status: Active Protocol: Document 07/13/20 07:28 LR (Rec: 07/13/20 08:38 [facility] [id number]) OP-PT Subjective Patient Comments Patient Comments Pt reprots steroid injection is . She did okay on the boat classes but she did bring help. PT-OP-F Manual Assessment Start: 06/06/20 16:24 Freq: Status: Active Protocol: Document 06/06/20 16:25 HH (Rec: 06/06/20 17:23 HH [email or web address]) Manual Assessments Soft Tissue Assessment Soft Tissue Mobility Assessment hypertonicity at cervical paraspinals and trapezius muscle group R >L noted Joint Mobility Assessment Joint Mobility Assessment significant hypomobility with PA mob at C7-T4 PT-OP-H Neuro Start: 06/06/20 16:24 Freq: Status: Active Protocol: Document 06/06/20 16:25 HH (Rec: 06/06/20 17:23 HH [email or web address]) Sensation Evaluation Gross Sensation Gross Sensation WNL Deep Tendon Reflex & Clonus Assessment Deep Tendon Reflex Bicep Deep Tendon Reflex 2+ Normal Tricep Deep Tendon Reflex 2+ Normal Brachioradialis Deep Tendon Reflex 1+ Diminished PT-OP-J Posture/Palpation/Skin Start: 06/06/20 16:24 Freq: Status: Active Protocol: Document 06/06/20 16:25 HH (Rec: 06/06/20 17:23 HH [email or web address]) Posture Evaluation Position Standing Evaluation View Lateral Head/C-Spine Posture Forward Head T-Spine Posture Increased Kyphosis Shoulder Posture (L) Rounded,(R) Rounded Comments Posture Comments Significant Dowager hump noted at CT junction. PT-OP-K Range of Motion Start: 06/06/20 16:24 Freq: Status: Active Protocol: Document 06/06/20 16:25 HH (Rec: 06/06/20 17:23 HH [email or web address]) Cervical Spine Range of Motion Cervical Spine Active Degrees Testing Position Sitting Flexion 65 Extension 55 Rotation Left 56 Rotation Right 49 Lateral Flexion Left 25 Lateral Flexion Right 28 ROM Limitations Soft Tissue Tightness,Muscle Tone,Pain Comments joint angulation noted at C6C7 level during extension and rotation pinching pain at C6 facet level with extension, R rotation and lateral flexion to R pulling pain at R trap with lateral flexion to L Lumbar Spine Range of Motion Lumbar Spine Active Degrees Comments seated thoracic rotation = L 60degrees, R 45 degrees PT-OP-L Special Tests Start: 06/06/20 16:24 Freq: Status: Active Protocol: Document 06/12/20 14:29 HH (Rec: 06/12/20 16:40 HH [id number]) Special Tests Cervical Spine Special Tests Upper Limb Tension Test Test Results +VE R median nerve Comments without cervical lateral flexion PT-OP-M Strength Start: 06/06/20 16:24 Freq: Status: Active Protocol: Document 06/12/20 14:29 HH (Rec: 06/12/20 16:40 HH [id number]) Cervical Spine Strength Cervical Spine Manual Muscle Testing Comments supine chin tuck hold = 41s. PT-OP-Q Treatments Start: 06/06/20 16:24 Freq: Status: Active Protocol: Document 07/13/20 07:28 LR (Rec: 07/13/20 08:38 LR [id number]) Therapeutic Exercises Prone Exercises scaption Prone Exercise Name over tball Side bilateral Reps/Minutes 15 ext Prone Exercise Name over tball Side bilateral Reps/Minutes 2x10 Habd Prone Exercise Name overtball Side bilateral Reps/Minutes 2x10 Other Exercises quadruped Other Exercise Name serratus punch Side bilateral Reps/Minutes 12 Manual Therapy Treatment Soft Tissue Mobilization 5 Body Location scalenes & SCM R & UT, LS Mobilization Type Rolling,Sustained Pressure Intensity/Depth Moderate Body Position Supine 3 Body Location rhomboids, lats R Mobilization Type Myofascial Release,Rolling, Sustained Pressure Intensity/Depth Moderate Body Position Sidelying Joint Mobilizations cervical rotation Comments 1.Transverse L glide T1-3 FM for rotation-imroved R rot 2. transverse glide L C5 4 Joint C5-6 Direction UAP R PT-OP-R Modalities Start: 06/06/20 16:24 Freq: Status: Active Protocol: Document 07/13/20 07:28 [facility] (Rec: 07/13/20 08:38 [facility] [id number]) Spinal Traction Traction Treatment Cervical Method Mechanical Patient Position Hooklying Force Applied (Pounds) 19 Duration of Treatment (Minutes) 15 PT-OP-T Assessment and Plan Start: 06/06/20 16:24 Freq: Status: Active Protocol: Document 07/13/20 07:28 [facility] (Rec: 07/13/20 08:38 [facility] [id number]) Physical Therapy Assessment Goals cervical ROM Impairment pt shows limited cervical ROM (rot and lateral flexion) Rechecker Goal (LTG) pt will improve >15 degrees on both lateral flexion and rotation without neurological symptoms LTG Duration 8 weeks neurological symptoms Impairment +ve for spurling, forminal compression Short Term Goal (STG) pt will not experience radiating pain and numbness/ tingling sensation to bilateral hands more than 4 days per week Rechecker Goal (LTG) pt will not experience radiating pain and numbness/ tingling sensation to bilateral hands more than 2 days per week to improve sleep and activity tolerance LTG Duration 12 weeks quick dash Impairment pt scores 52 on quickdash Short Term Goal (STG) pt will score <40 on quickdash to improve her overall mobility shoulder strength, mobility and endurance STG Duration 6 weeks Rechecker Goal (LTG) pt will score <30 on quickdash to improve her overall qaulity of life so she can instruct her [employer] and [employer]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 STG Duration 6 weeks Long-Term Goal (LTG) pt will score <12 on NDI to improver her overall quality of life so she could fully return to her [employer] and [employer] class LTG Duration 12 weeks Assessment Summary Assessment Pt had imrpoved passive rotation R to full after manual treatment with no pain at end range of motion and no pain into tspine w/SB after manual treatment along w/ improved scap depression. She did better with scap exercises today with less cueing but fatigues. Physical Therapy Plan Frequency and Duration Frequency of Treatment 2x/Week Duration of Treatment 12 weeks Plan of Care Start Date 06/06/20 Plan of Care End Date 09/04/20 Next Visit Focus/Plan Next Note Type Treatment Note Next Visit Plan work on hip hinge & reaching & postural alignment
--- NOTE | 2020-07-17 13:07 | PT.OTN ---
Current Diagnoses Radiculopathy, cervical region (07/17/20) Cervicalgia (07/17/20) Physical Therapy Treatment Note PT-OP-A Visit Information Start: 06/06/20 16:24 Freq: Status: Active Protocol: Document 07/17/20 11:19 LR (Rec: 07/17/20 12:14 [facility] [id number]) Out-Patient Physical Therapy Visit Information Visit Information Visit Type Treatment Note Visit Start Time 11:19 Visit Stop Time 12:15 Total Visit Minutes 56 Visit Number 02/28 Number of BUS INSPECTOR Visits 0 PT-OP-B Current Condition Start: 06/06/20 16:24 Freq: Status: Active Protocol: Document 06/06/20 16:25 HH (Rec: 06/06/20 17:23 HH [email or web address]) Current Condition History of Current Condition Onset Date >3 years ago Current Complaints Cervical radiculopathy, B shoulder pain History of Current Condition Pt is a 55yo female here for her diagnosed cervical radiculopathy and B shoulder pain 08/14. Pt recently had MRI for both shoulders and cervical region (see below.) Pt has been having generalized hand pain and shooting pain to elbow, along with worsening hand weakness since last years. She also c/o numbness and tingling sensation on radial aspect of B hands. She stated her symptoms are worse with prolonged physical activity and staying in a flexed position for a long period of time. She did say that her symptoms got better this April after receiving a diagnostci steroid injection but it did not last long. She also c/o new onset of neck pain 06/14 after the injection . Pt has participated PT multiple times for her shoulders within the past few years and she was finally diagnosed with cervical radiculopathy with RTC and labral tear bilaterally by MRI recently. (see below). 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 Prior Treatments and Tests C/S MRI Multilevel canal stenoses, worst at C4-C5 and C5-C6, where there are moderate canal stenosis present. Multilevel foraminal stenoses, worst on the left at C5-C6 where there is associated intraforaminal nerve root compression. L shoulder MRI Focal small low-grade intrasubstance and bursal sided tear of the supraspinatus tendon at its posterior footprint measuring 4 mm in anterior- posterior dimension. Mild supraspinatus tendinosis. Probable small nondisplaced tear at the posteroinferior labrum R shoulder MRI ow to moderate grade articular and bursal surface partial thickness tear. uggestion of focal superior anterior labral tear at 12 to 1 o'clock position and anterior-inferior labral tear at 4 to 5 o'clock position. Treatment Goals Patient/Caregiver Goals 1. To minimize her generalized hand and arm pain, and her neurological symptoms 2. 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 Shoulders were same soreness, Hand soreness was inc but back to its normal moderate today. PT-OP-F Manual Assessment Start: 06/06/20 16:24 Freq: Status: Active Protocol: Document 06/06/20 16:25 HH (Rec: 06/06/20 17:23 HH [email or web address]) Manual Assessments Soft Tissue Assessment Soft Tissue Mobility Assessment hypertonicity at cervical paraspinals and trapezius muscle group R >L noted Joint Mobility Assessment Joint Mobility Assessment significant hypomobility with PA mob at C7-T4 PT-OP-H Neuro Start: 06/06/20 16:24 Freq: Status: Active Protocol: Document 06/06/20 16:25 HH (Rec: 06/06/20 17:23 HH [email or web address]) Sensation Evaluation Gross Sensation Gross Sensation WNL Deep Tendon Reflex & Clonus Assessment Deep Tendon Reflex Bicep Deep Tendon Reflex 2+ Normal Tricep Deep Tendon Reflex 2+ Normal Brachioradialis Deep Tendon Reflex 1+ Diminished PT-OP-J Posture/Palpation/Skin Start: 06/06/20 16:24 Freq: Status: Active Protocol: Document 06/06/20 16:25 HH (Rec: 06/06/20 17:23 HH [email or web address]) Posture Evaluation Position Standing Evaluation View Lateral Head/C-Spine Posture Forward Head T-Spine Posture Increased Kyphosis Shoulder Posture (L) Rounded,(R) Rounded Comments Posture Comments Significant Dowager hump noted at CT junction. PT-OP-K Range of Motion Start: 06/06/20 16:24 Freq: Status: Active Protocol: Document 06/06/20 16:25 HH (Rec: 06/06/20 17:23 HH [email or web address]) Cervical Spine Range of Motion Cervical Spine Active Degrees Testing Position Sitting Flexion 65 Extension 55 Rotation Left 56 Rotation Right 49 Lateral Flexion Left 25 Lateral Flexion Right 28 ROM Limitations Soft Tissue Tightness,Muscle Tone,Pain Comments joint angulation noted at C6C7 level during extension and rotation pinching pain at C6 facet level with extension, R rotation and lateral flexion to R pulling pain at R trap with lateral flexion to L Lumbar Spine Range of Motion Lumbar Spine Active Degrees Comments seated thoracic rotation = L 60degrees, R 45 degrees PT-OP-L Special Tests Start: 06/06/20 16:24 Freq: Status: Active Protocol: Document 06/12/20 14:29 HH (Rec: 06/12/20 16:40 HH [id number]) Special Tests Cervical Spine Special Tests Upper Limb Tension Test Test Results +VE R median nerve Comments without cervical lateral flexion PT-OP-M Strength Start: 06/06/20 16:24 Freq: Status: Active Protocol: Document 06/12/20 14:29 HH (Rec: 06/12/20 16:40 [id number]) Cervical Spine Strength Cervical Spine Manual Muscle Testing Comments supine chin tuck hold = 41s. PT-OP-Q Treatments Start: 06/06/20 16:24 Freq: Status: Active Protocol: Document 07/17/20 11:19 [facility] (Rec: 07/17/20 12:14 [facility] [id number]) Therapeutic Exercises Prone Exercises scaption Prone Exercise Name over tball Side bilateral Equipment Used 0#, 1# Reps/Minutes 2x10 ext Prone Exercise Name over tball Side bilateral Equipment Used 0#, 1# Reps/Minutes 2x10 Habd Prone Exercise Name overtball Side bilateral Equipment Used 0#, 1# Reps/Minutes 2x10 1 Prone Exercise Name plank forearms & knees Side bilateral Reps/Minutes [id number] Comments max cueing for scap, head & back position Other Exercises quadruped Other Exercise Name serratus punch Side bilateral Reps/Minutes 12 Manual Therapy Treatment Soft Tissue Mobilization cervical parapsinals Body Location B paraspinals & post neck Mobilization Type Myofascial Release Comments w/neck fle & rot w/dycem Joint Mobilizations cervical rotation Comments 1.Transverse L glide T1-3 FM for rotation-imroved R rot 4 Comments C5 transverse R FM C1 UAP R C2 transverse R FM 3 Joint scap Direction downward glide Self-Care/Home Management Treatment Education Other Education edu that the progress w/dec fatigue and dec tingling is good progress plus the fact her body is recovering the next day faster than it has been recently. PT-OP-R Modalities Start: 06/06/20 16:24 Freq: Status: Active Protocol: Document 07/17/20 11:19 [facility] (Rec: 07/17/20 12:15 [facility] [id number]) Spinal Traction Traction Treatment Cervical Method Mechanical Patient Position Hooklying Force Applied (Pounds) 16 Duration of Treatment (Minutes) 15 Traction Treatment Comment dec back down d/t pt reporting too much before PT-OP-T Assessment and Plan Start: 06/06/20 16:24 Freq: Status: Active Protocol: Document 07/17/20 11:19 [facility] (Rec: 07/17/20 12:14 [facility] [id number]) Physical Therapy Assessment Goals cervical ROM Impairment pt shows limited cervical ROM (rot and lateral flexion) Chip Unloader Goal (LTG) pt will improve >15 degrees on both lateral flexion and rotation without neurological symptoms LTG Duration 8 weeks neurological symptoms Impairment +ve for spurling, forminal compression Short Term Goal (STG) pt will not experience radiating pain and numbness/ tingling sensation to bilateral hands more than 4 days per week Usp Goal (LTG) pt will not experience radiating pain and numbness/ tingling sensation to bilateral hands more than 2 days per week to improve sleep and activity tolerance LTG Duration 12 weeks quick dash Impairment pt scores 52 on quickdash Short Term Goal (STG) pt will score <40 on quickdash to improve her overall mobility shoulder strength, mobility and endurance STG Duration 6 weeks Usp Goal (LTG) pt will score <30 on quickdash to improve her overall qaulity of life 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 STG Duration 6 weeks Usp Goal (LTG) pt will score <12 on NDI to improver her overall quality of life so she could fully return to her [employer] class LTG Duration 12 weeks Assessment Summary Assessment good shoulder range with prone exercises today without inc pain and was able to do 1# wt today. She required sginficant cueing with planks though to keep godo scap, neck& back alignment. She improved with manual with able to move all directions w/dec pain (pain at start of session w/R rot & B SB). Physical Therapy Plan Frequency and Duration Frequency of Treatment 2x/Week Duration of Treatment 12 weeks Plan of Care Start Date 06/06/20 Plan of Care End Date 09/04/20 Next Visit Focus/Plan Next Note Type Treatment Note Next Visit Plan work on hip hinge & reaching & postural alignment, R scap mobility & PNF
--- NOTE | 2020-07-24 13:45 | PT.OTN ---
Current Diagnoses Radiculopathy, cervical region (07/24/20) Cervicalgia (07/24/20) Physical Therapy Treatment Note PT-OP-A Visit Information Start: 06/06/20 16:24 Freq: Status: Active Protocol: Document 07/24/20 12:59 [facility] (Rec: 07/24/20 13:45 LR [id number]) Out-Patient Physical Therapy Visit Information Visit Information Visit Type Treatment Note Visit Start Time 13:00 Visit Stop Time 13:55 Total Visit Minutes 55 Visit Number 03/30 Number of BINDER STRIPPER MACHINE Visits 0 PT-OP-B Current Condition Start: 06/06/20 16:24 Freq: Status: Active Protocol: Document 06/06/20 16:25 HH (Rec: 06/06/20 17:23 HH [email or web address]) Current Condition History of Current Condition Onset Date >3 years ago Current Complaints Cervical radiculopathy, B shoulder pain History of Current Condition Pt is a 55yo female here for her diagnosed cervical radiculopathy and B shoulder pain 08/14. Pt recently had MRI for both shoulders and cervical region (see below.) Pt has been having generalized hand pain and shooting pain to elbow, along with worsening hand weakness since last years. She also c/o numbness and tingling sensation on radial aspect of B hands. She stated her symptoms are worse with prolonged physical activity and staying in a flexed position for a long period of time. She did say that her symptoms got better this April after receiving a diagnostci steroid injection but it did not last long. She also c/o new onset of neck pain 06/14 after the injection . Pt has participated PT multiple times for her shoulders within the past few years and she was finally diagnosed with cervical radiculopathy with RTC and labral tear bilaterally by MRI recently. (see below). 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 Prior Treatments and Tests C/S MRI Multilevel canal stenoses, worst at C4-C5 and C5-C6, where there are moderate canal stenosis present. Multilevel foraminal stenoses, worst on the left at C5-C6 where there is associated intraforaminal nerve root compression. L shoulder MRI Focal small low-grade intrasubstance and bursal sided tear of the supraspinatus tendon at its posterior footprint measuring 4 mm in anterior- posterior dimension. Mild supraspinatus tendinosis. Probable small nondisplaced tear at the posteroinferior labrum R shoulder MRI ow to moderate grade articular and bursal surface partial thickness tear. uggestion of focal superior anterior labral tear at 12 to 1 o'clock position and anterior-inferior labral tear at 4 to 5 o'clock position. Treatment Goals Patient/Caregiver Goals 1. To minimize her generalized hand and arm pain, and her neurological symptoms 2. 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 Personal Factors Other Personal Factors That May Effect osteopenia, anxiety Therapy/Recovery PT-OP-C Subjective Start: 06/06/20 16:24 Freq: Status: Active Protocol: Document 07/24/20 12:59 [facility] (Rec: 07/24/20 13:45 [facility] [id number]) OP-PT Subjective Patient Comments Patient Comments Pt reprots just finishing a 4 day sailing class. Notes she feels better after therapy but it only lasts about a day. Notes R shoulder and hands are a bit sore from class PT-OP-F Manual Assessment Start: 06/06/20 16:24 Freq: Status: Active Protocol: Document 06/06/20 16:25 HH (Rec: 06/06/20 17:23 HH [email or web address]) Manual Assessments Soft Tissue Assessment Soft Tissue Mobility Assessment hypertonicity at cervical paraspinals and trapezius muscle group R >L noted Joint Mobility Assessment Joint Mobility Assessment significant hypomobility with PA mob at C7-T4 PT-OP-H Neuro Start: 06/06/20 16:24 Freq: Status: Active Protocol: Document 06/06/20 16:25 HH (Rec: 06/06/20 17:23 HH [email or web address]) Sensation Evaluation Gross Sensation Gross Sensation WNL Deep Tendon Reflex & Clonus Assessment Deep Tendon Reflex Bicep Deep Tendon Reflex 2+ Normal Tricep Deep Tendon Reflex 2+ Normal Brachioradialis Deep Tendon Reflex 1+ Diminished PT-OP-J Posture/Palpation/Skin Start: 06/06/20 16:24 Freq: Status: Active Protocol: Document 06/06/20 16:25 HH (Rec: 06/06/20 17:23 HH [email or web address]) Posture Evaluation Position Standing Evaluation View Lateral Head/C-Spine Posture Forward Head T-Spine Posture Increased Kyphosis Shoulder Posture (L) Rounded,(R) Rounded Comments Posture Comments Significant Dowager hump noted at CT junction. PT-OP-K Range of Motion Start: 06/06/20 16:24 Freq: Status: Active Protocol: Document 06/06/20 16:25 HH (Rec: 06/06/20 17:23 HH [email or web address]) Cervical Spine Range of Motion Cervical Spine Active Degrees Testing Position Sitting Flexion 65 Extension 55 Rotation Left 56 Rotation Right 49 Lateral Flexion Left 25 Lateral Flexion Right 28 ROM Limitations Soft Tissue Tightness,Muscle Tone,Pain Comments joint angulation noted at C6C7 level during extension and rotation pinching pain at C6 facet level with extension, R rotation and lateral flexion to R pulling pain at R trap with lateral flexion to L Lumbar Spine Range of Motion Lumbar Spine Active Degrees Comments seated thoracic rotation = L 60degrees, R 45 degrees PT-OP-L Special Tests Start: 06/06/20 16:24 Freq: Status: Active Protocol: Document 06/12/20 14:29 HH (Rec: 06/12/20 16:40 [id number]) Special Tests Cervical Spine Special Tests Upper Limb Tension Test Test Results +VE R median nerve Comments without cervical lateral flexion PT-OP-M Strength Start: 06/06/20 16:24 Freq: Status: Active Protocol: Document 06/12/20 14:29 HH (Rec: 06/12/20 16:40 [id number]) Cervical Spine Strength Cervical Spine Manual Muscle Testing Comments supine chin tuck hold = 41s. PT-OP-Q Treatments Start: 06/06/20 16:24 Freq: Status: Active Protocol: Document 07/24/20 12:59 [facility] (Rec: 07/24/20 13:45 [facility] [id number]) Therapeutic Exercises Other Exercises quadruped Other Exercise Name 1.serratus punch 2.alt hip ext Side bilateral Reps/Minutes 12ea Comments focus on scap work Therapeutic Activity Therapeutic Activity 3 Name focus on neutral spine, thoracic block positioning & ap position Comments unsupported sitting posture progressed to standing PT-OP-R Modalities Start: 06/06/20 16:24 Freq: Status: Active Protocol: Document 07/24/20 12:59 [facility] (Rec: 07/24/20 13:45 [facility] [id number]) Spinal Traction Traction Treatment Cervical Method Mechanical Patient Position Hooklying Force Applied (Pounds) 16 Duration of Treatment (Minutes) 15 Traction Treatment Comment dec back down d/t pt reporting too much before PT-OP-T Assessment and Plan Start: 06/06/20 16:24 Freq: Status: Active Protocol: Document 07/24/20 12:59 [facility] (Rec: 07/24/20 13:45 [facility] [id number]) Physical Therapy Assessment Goals cervical ROM Impairment pt shows limited cervical ROM (rot and lateral flexion) Keymodule Assembly Machine Tender Goal (LTG) pt will improve >15 degrees on both lateral flexion and rotation without neurological symptoms LTG Duration 8 weeks neurological symptoms Impairment +ve for spurling, forminal compression Short Term Goal (STG) pt will not experience radiating pain and numbness/ tingling sensation to bilateral hands more than 4 days per week Senior Living Goal (LTG) pt will not experience radiating pain and numbness/ tingling sensation to bilateral hands more than 2 days per week to improve sleep and activity tolerance LTG Duration 12 weeks quick dash Impairment pt scores 52 on quickdash Short Term Goal (STG) pt will score <40 on quickdash to improve her overall mobility shoulder strength, mobility and endurance STG Duration 6 weeks Senior Living Goal (LTG) pt will score <30 on quickdash to improve her overall qaulity of life 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 STG Duration 6 weeks Keymodule Assembly Machine Tender Goal (LTG) pt will score <12 on NDI to improver her overall quality of life so she could fully return to her kayak and sailing class LTG Duration 12 weeks Assessment Summary Assessment Pt required significant time to fully engrain good posture and was shown with LPM & VCT the improvements in her ability to maintain position when adjusted to good positioning. Improved scap contorl. Physical Therapy Plan Frequency and Duration Frequency of Treatment 2x/Week Duration of Treatment 12 weeks Plan of Care Start Date 06/06/20 Plan of Care End Date 09/04/20 Next Visit Focus/Plan Next Note Type Treatment Note Next Visit Plan review postural alingment & work on hip hinge & reach in good position
--- NOTE | 2020-08-03 17:46 | PT.OTN ---
Current Diagnoses Radiculopathy, cervical region (08/03/20) Cervicalgia (08/03/20) Physical Therapy Treatment Note PT-OP-A Visit Information Start: 06/06/20 16:24 Freq: Status: Active Protocol: Document 08/03/20 11:20 [facility] (Rec: 08/03/20 17:46 [facility] [id number]) Out-Patient Physical Therapy Visit Information Visit Information Visit Type Treatment Note Visit Start Time 11:21 Visit Stop Time 12:15 Total Visit Minutes 54 Visit Number Number of SALVAGE REPAIRER Visits 0 PT-OP-B Current Condition Start: 06/06/20 16:24 Freq: Status: Active Protocol: Document 06/06/20 16:25 HH (Rec: 06/06/20 17:23 HH [email or web address]) Current Condition History of Current Condition Onset Date >3 years ago Current Complaints Cervical radiculopathy, B shoulder pain History of Current Condition Pt is a 55yo female here for her diagnosed cervical radiculopathy and B shoulder pain 08/14. Pt recently had MRI for both shoulders and cervical region (see below.) Pt has been having generalized hand pain and shooting pain to elbow, along with worsening hand weakness since last years. She also c/o numbness and tingling sensation on radial aspect of B hands. She stated her symptoms are worse with prolonged physical activity and staying in a flexed position for a long period of time. She did say that her symptoms got better this April after receiving a diagnostci steroid injection but it did not last long. She also c/o new onset of neck pain 06/14 after the injection . Pt has participated PT multiple times for her shoulders within the past few years and she was finally diagnosed with cervical radiculopathy with RTC and labral tear bilaterally by MRI recently. (see below). 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 Prior Treatments and Tests C/S MRI Multilevel canal stenoses, worst at C4-C5 and C5-C6, where there are moderate canal stenosis present. Multilevel foraminal stenoses, worst on the left at C5-C6 where there is associated intraforaminal nerve root compression. L shoulder MRI Focal small low-grade intrasubstance and bursal sided tear of the supraspinatus tendon at its posterior footprint measuring 4 mm in anterior- posterior dimension. Mild supraspinatus tendinosis. Probable small nondisplaced tear at the posteroinferior labrum R shoulder MRI ow to moderate grade articular and bursal surface partial thickness tear. uggestion of focal superior anterior labral tear at 12 to 1 o'clock position and anterior-inferior labral tear at 4 to 5 o'clock position. Treatment Goals Patient/Caregiver Goals 1. To minimize her generalized hand and arm pain, and her neurological symptoms 2. 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 Personal Factors Other Personal Factors That May Effect osteopenia, anxiety Therapy/Recovery PT-OP-C Subjective Start: 06/06/20 16:24 Freq: Status: Active Protocol: Document 08/03/20 11:20 LR (Rec: 08/03/20 17:46 [facility] [id number]) OP-PT Subjective Patient Comments Patient Comments Pt reports she had her injection and it helped B shoulders a little but B hands were still painful and neck still painful. Concerned d/t bandaide being in tspine not cspine region for injection. notes she feels liek the surgeon and pain doc are working together to get her to end up havign surgery. SHe is hoping to get in somewhere else PT-OP-F Manual Assessment Start: 06/06/20 16:24 Freq: Status: Active Protocol: Document 06/06/20 16:25 HH (Rec: 06/06/20 17:23 HH [email or web address]) Manual Assessments Soft Tissue Assessment Soft Tissue Mobility Assessment hypertonicity at cervical paraspinals and trapezius muscle group R >L noted Joint Mobility Assessment Joint Mobility Assessment significant hypomobility with PA mob at C7-T4 PT-OP-H Neuro Start: 06/06/20 16:24 Freq: Status: Active Protocol: Document 06/06/20 16:25 HH (Rec: 06/06/20 17:23 HH [email or web address]) Sensation Evaluation Gross Sensation Gross Sensation WNL Deep Tendon Reflex & Clonus Assessment Deep Tendon Reflex Bicep Deep Tendon Reflex 2+ Normal Tricep Deep Tendon Reflex 2+ Normal Brachioradialis Deep Tendon Reflex 1+ Diminished PT-OP-J Posture/Palpation/Skin Start: 06/06/20 16:24 Freq: Status: Active Protocol: Document 06/06/20 16:25 HH (Rec: 06/06/20 17:23 HH [email or web address]) Posture Evaluation Position Standing Evaluation View Lateral Head/C-Spine Posture Forward Head T-Spine Posture Increased Kyphosis Shoulder Posture (L) Rounded,(R) Rounded Comments Posture Comments Significant Dowager hump noted at CT junction. PT-OP-K Range of Motion Start: 06/06/20 16:24 Freq: Status: Active Protocol: Document 06/06/20 16:25 HH (Rec: 06/06/20 17:23 HH [email or web address]) Cervical Spine Range of Motion Cervical Spine Active Degrees Testing Position Sitting Flexion 65 Extension 55 Rotation Left 56 Rotation Right 49 Lateral Flexion Left 25 Lateral Flexion Right 28 ROM Limitations Soft Tissue Tightness,Muscle Tone,Pain Comments joint angulation noted at C6C7 level during extension and rotation pinching pain at C6 facet level with extension, R rotation and lateral flexion to R pulling pain at R trap with lateral flexion to L Lumbar Spine Range of Motion Lumbar Spine Active Degrees Comments seated thoracic rotation = L 60degrees, R 45 degrees PT-OP-L Special Tests Start: 06/06/20 16:24 Freq: Status: Active Protocol: Document 06/12/20 14:29 HH (Rec: 06/12/20 16:40 [id number]) Special Tests Cervical Spine Special Tests Upper Limb Tension Test Test Results +VE R median nerve Comments without cervical lateral flexion PT-OP-M Strength Start: 06/06/20 16:24 Freq: Status: Active Protocol: Document 06/12/20 14:29 HH (Rec: 06/12/20 16:40 [id number]) Cervical Spine Strength Cervical Spine Manual Muscle Testing Comments supine chin tuck hold = 41s. PT-OP-Q Treatments Start: 06/06/20 16:24 Freq: Status: Active Protocol: Document 08/03/20 11:20 LR (Rec: 08/03/20 17:46 [facility] [id number]) Therapeutic Exercises Supine Exercises chin hold Reps/Minutes 10 sec hold Comments no discomfort noted. Prone Exercises scaption Prone Exercise Name over tball Side bilateral Reps/Minutes 10 ext Prone Exercise Name over tball Side bilateral Reps/Minutes 10 Habd Prone Exercise Name overtball Side bilateral Reps/Minutes 10 1 Prone Exercise Name plank forearms & knees Side bilateral Reps/Minutes [id number] Comments max cueing for scap, head & back position Self-Care/Home Management Treatment Education Other Education edu to discuss w/pain specialist office what procedure was done based on concerns along w/ask for her report for that day and if she feels uncomfortable w/pain MD or surgeon to explore other options for another opinion and talk to her primary care provider as needed. Worked on sleep posiiton an adjusted pt w/both pillows in pillow case to give more neck support. REview of HEP and what exercises to focus on PT-OP-R Modalities Start: 06/06/20 16:24 Freq: Status: Active Protocol: Document 08/03/20 11:20 [facility] (Rec: 08/03/20 17:46 [facility] [id number]) Spinal Traction Traction Treatment Cervical Method Mechanical Patient Position Hooklying Force Applied (Pounds) 16 Duration of Treatment (Minutes) 15 Traction Treatment Comment dec back down d/t pt reporting too much before PT-OP-T Assessment and Plan Start: 06/06/20 16:24 Freq: Status: Active Protocol: Document 08/03/20 11:20 [facility] (Rec: 08/03/20 17:46 [facility] [id number]) Physical Therapy Assessment Goals cervical ROM Impairment pt shows limited cervical ROM (rot and lateral flexion) Longterm Goal (LTG) pt will improve >15 degrees on both lateral flexion and rotation without neurological symptoms LTG Duration 8 weeks neurological symptoms Impairment +ve for spurling, forminal compression Short Term Goal (STG) pt will not experience radiating pain and numbness/ tingling sensation to bilateral hands more than 4 days per week Regrinder Operator Goal (LTG) pt will not experience radiating pain and numbness/ tingling sensation to bilateral hands more than 2 days per week to improve sleep and activity tolerance LTG Duration 12 weeks quick dash Impairment pt scores 52 on quickdash Short Term Goal (STG) pt will score <40 on quickdash to improve her overall mobility shoulder strength, mobility and endurance STG Duration 6 weeks Regrinder Operator Goal (LTG) pt will score <30 on quickdash to improve her overall qaulity of life 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 STG Duration 6 weeks Longterm Goal (LTG) pt will score <12 on NDI to improver her overall quality of life so she could fully return to her kayak and sailing class LTG Duration 12 weeks Assessment Summary Assessment Pt required cueing for planks and quadruped exercises but did well with tball exercises with very min cueing. Exercise program written out w/pt to give her plan to cont. Spent significant time w/education to discuss w/MDs or seek 2nd opinion if she did not like her care from current physicians. Physical Therapy Plan Frequency and Duration Frequency of Treatment 2x/Week Duration of Treatment 12 weeks Plan of Care Start Date 06/06/20 Plan of Care End Date 09/04/20 Next Visit Focus/Plan Next Note Type Treatment Note Next Visit Plan review postural alingment & work on hip hinge & reach in good position
--- NOTE | 2020-08-08 16:20 | PT.OTN ---
Current Diagnoses Radiculopathy, cervical region (08/08/20) Cervicalgia (08/08/20) Physical Therapy Treatment Note PT-OP-A Visit Information Start: 06/06/20 16:24 Freq: Status: Active Protocol: Document 08/08/20 15:16 HH (Rec: 08/08/20 16:20 HH [id number]) Out-Patient Physical Therapy Visit Information Visit Information Visit Type Treatment Note Visit Start Time 15:17 Visit Stop Time 16:10 Total Visit Minutes 53 Visit Number Number of ENGINEERING PROGRAM ANALYST Visits 0 PT-OP-B Current Condition Start: 06/06/20 16:24 Freq: Status: Active Protocol: Document 06/06/20 16:25 HH (Rec: 06/06/20 17:23 HH [email or web address]) Current Condition History of Current Condition Onset Date >3 years ago Current Complaints Cervical radiculopathy, B shoulder pain History of Current Condition Pt is a 55yo female here for her diagnosed cervical radiculopathy and B shoulder pain 08/14. Pt recently had MRI for both shoulders and cervical region (see below.) Pt has been having generalized hand pain and shooting pain to elbow, along with worsening hand weakness since last years. She also c/o numbness and tingling sensation on radial aspect of B hands. She stated her symptoms are worse with prolonged physical activity and staying in a flexed position for a long period of time. She did say that her symptoms got better this April after receiving a diagnostci steroid injection but it did not last long. She also c/o new onset of neck pain /10 after the injection . Pt has participated PT multiple times for her shoulders within the past few years and she was finally diagnosed with cervical radiculopathy with RTC and labral tear bilaterally by MRI recently. (see below). 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 Prior Treatments and Tests C/S MRI Multilevel canal stenoses, worst at C4-C5 and C5-C6, where there are moderate canal stenosis present. Multilevel foraminal stenoses, worst on the left at C5-C6 where there is associated intraforaminal nerve root compression. L shoulder MRI Focal small low-grade intrasubstance and bursal sided tear of the supraspinatus tendon at its posterior footprint measuring 4 mm in anterior- posterior dimension. Mild supraspinatus tendinosis. Probable small nondisplaced tear at the posteroinferior labrum R shoulder MRI ow to moderate grade articular and bursal surface partial thickness tear. uggestion of focal superior anterior labral tear at 12 to 1 o'clock position and anterior-inferior labral tear at 4 to 5 o'clock position. Treatment Goals Patient/Caregiver Goals 1. To minimize her generalized hand and arm pain, and her neurological symptoms 2. 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 Personal Factors Other Personal Factors That May Effect osteopenia, anxiety Therapy/Recovery PT-OP-C Subjective Start: 06/06/20 16:24 Freq: Status: Active Protocol: Document 08/08/20 15:16 HH (Rec: 08/08/20 16:20 HH [id number]) OP-PT Subjective Patient Comments Patient Comments I did a 3 day class and i was exhausted. I also found out my injection was shot at C7 level which is a level off. PT-OP-F Manual Assessment Start: 06/06/20 16:24 Freq: Status: Active Protocol: Document 06/06/20 16:25 HH (Rec: 06/06/20 17:23 HH [email or web address]) Manual Assessments Soft Tissue Assessment Soft Tissue Mobility Assessment hypertonicity at cervical paraspinals and trapezius muscle group R >L noted Joint Mobility Assessment Joint Mobility Assessment significant hypomobility with PA mob at C7-T4 PT-OP-H Neuro Start: 06/06/20 16:24 Freq: Status: Active Protocol: Document 06/06/20 16:25 HH (Rec: 06/06/20 17:23 HH [email or web address]) Sensation Evaluation Gross Sensation Gross Sensation WNL Deep Tendon Reflex & Clonus Assessment Deep Tendon Reflex Bicep Deep Tendon Reflex 2+ Normal Tricep Deep Tendon Reflex 2+ Normal Brachioradialis Deep Tendon Reflex 1+ Diminished PT-OP-J Posture/Palpation/Skin Start: 06/06/20 16:24 Freq: Status: Active Protocol: Document 06/06/20 16:25 HH (Rec: 06/06/20 17:23 HH [email or web address]) Posture Evaluation Position Standing Evaluation View Lateral Head/C-Spine Posture Forward Head T-Spine Posture Increased Kyphosis Shoulder Posture (L) Rounded,(R) Rounded Comments Posture Comments Significant Dowager hump noted at CT junction. PT-OP-K Range of Motion Start: 06/06/20 16:24 Freq: Status: Active Protocol: Document 06/06/20 16:25 HH (Rec: 06/06/20 17:23 HH [email or web address]) Cervical Spine Range of Motion Cervical Spine Active Degrees Testing Position Sitting Flexion 65 Extension 55 Rotation Left 56 Rotation Right 49 Lateral Flexion Left 25 Lateral Flexion Right 28 ROM Limitations Soft Tissue Tightness,Muscle Tone,Pain Comments joint angulation noted at C6C7 level during extension and rotation pinching pain at C6 facet level with extension, R rotation and lateral flexion to R pulling pain at R trap with lateral flexion to L Lumbar Spine Range of Motion Lumbar Spine Active Degrees Comments seated thoracic rotation = L 60degrees, R 45 degrees PT-OP-L Special Tests Start: 06/06/20 16:24 Freq: Status: Active Protocol: Document 06/12/20 14:29 HH (Rec: 06/12/20 16:40 HH [id number]) Special Tests Cervical Spine Special Tests Upper Limb Tension Test Test Results +VE R median nerve Comments without cervical lateral flexion PT-OP-M Strength Start: 06/06/20 16:24 Freq: Status: Active Protocol: Document 06/12/20 14:29 HH (Rec: 06/12/20 16:40 HH [id number]) Cervical Spine Strength Cervical Spine Manual Muscle Testing Comments supine chin tuck hold = 41s. PT-OP-Q Treatments Start: 06/06/20 16:24 Freq: Status: Active Protocol: Document 08/08/20 15:16 HH (Rec: 08/08/20 16:20 HH [id number]) Therapeutic Exercises Supine Exercises shd flexion with SA activatoin Supine Exercise Name with extended elbows Side bilateral Equipment Used yellow band at wrists Reps/Minutes 8 x2 chin hold Reps/Minutes 15 sec hold x 5 Comments no discomfort noted. chin tuck Reps/Minutes 15s x5 Prone Exercises side plank Prone Exercise Name on forearm and knee Side bilateral Reps/Minutes 20 sec x 5 scaption Prone Exercise Name over tball Side bilateral Reps/Minutes 10 ext Prone Exercise Name over tball Side bilateral Reps/Minutes 10 Habd Prone Exercise Name overtball Side bilateral Reps/Minutes 10 1 Prone Exercise Name plank forearms & knees Side bilateral Reps/Minutes 20 sec x5 Comments mod cueing for scap, head & back position PT-OP-R Modalities Start: 06/06/20 16:24 Freq: Status: Active Protocol: Document 08/08/20 15:16 (Rec: 08/08/20 16:20 [id number]) Spinal Traction Traction Treatment Cervical Method Mechanical Patient Position Hooklying Force Applied (Pounds) 16 Duration of Treatment (Minutes) 15 Traction Treatment Comment dec back down d/t pt reporting too much before PT-OP-T Assessment and Plan Start: 06/06/20 16:24 Freq: Status: Active Protocol: Document 08/08/20 15:16 HH (Rec: 08/08/20 16:20 [id number]) Physical Therapy Assessment Goals cervical ROM Impairment pt shows limited cervical ROM (rot and lateral flexion) Save All Operator Goal (LTG) pt will improve >15 degrees on both lateral flexion and rotation without neurological symptoms LTG Duration 8 weeks neurological symptoms Impairment +ve for spurling, forminal compression Short Term Goal (STG) pt will not experience radiating pain and numbness/ tingling sensation to bilateral hands more than 4 days per week Save All Operator Goal (LTG) pt will not experience radiating pain and numbness/ tingling sensation to bilateral hands more than 2 days per week to improve sleep and activity tolerance LTG Duration 12 weeks quick dash Impairment pt scores 52 on quickdash Short Term Goal (STG) pt will score <40 on quickdash to improve her overall mobility shoulder strength, mobility and endurance STG Duration 6 weeks Prison Goal (LTG) pt will score <30 on quickdash to improve her overall qaulity of life so she can instruct her [employer]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 STG Duration 6 weeks Save All Operator Goal (LTG) pt will score <12 on NDI to improver her overall quality of life so she could fully return to her [employer] and [employer] class LTG Duration 12 weeks Assessment Summary Assessment Pt was very upset regarding her injection shot which was mistakenly injected at C7 instead on C5-C6. This session focused on trunk stabilization, scap stabilization. She also stated her shoulder pain decreased with assisted scap upward rotation. Might consider some upward rotator ex next visit. Physical Therapy Plan Frequency and Duration Frequency of Treatment 2x/Week Duration of Treatment 12 weeks Plan of Care Start Date 06/06/20 Plan of Care End Date 09/04/20 Therapeutic Interventions Therapeutic Interventions Balance Training,Gait Training ,Home Exercise Program,Joint Mobilizations,Manual Therapy, Neuromuscular Re-education, Patient/Caregiver Education, Self-Care/Home Management,Soft Tissue Mobilization,Taping, Therapeutic Activities, Therapeutic Exercises Modalities Cold Pack/Ice Massage,Electric Stimulation,Hot Packs, Infrared Therapy,Traction- Mechanical,Ultrasound Next Visit Focus/Plan Next Note Type Treatment Note Next Visit Plan review postural alingment & work on hip hinge & reach in good position
--- NOTE | 2020-08-14 13:56 | PT.OTN ---
Current Diagnoses Radiculopathy, cervical region (08/14/20) Cervicalgia (08/14/20) Physical Therapy Treatment Note PT-OP-A Visit Information Start: 06/06/20 16:24 Freq: Status: Active Protocol: Document 08/14/20 13:03 LR (Rec: 08/14/20 13:56 [facility] [id number]) Out-Patient Physical Therapy Visit Information Visit Information Visit Type Treatment Note Visit Start Time 13:02 Visit Stop Time 13:55 Total Visit Minutes 53 Visit Number Number of DICTAPHONE OPERATOR Visits 0 PT-OP-B Current Condition Start: 06/06/20 16:24 Freq: Status: Active Protocol: Document 06/06/20 16:25 HH (Rec: 06/06/20 17:23 HH [email or web address]) Current Condition History of Current Condition Onset Date >3 years ago Current Complaints Cervical radiculopathy, B shoulder pain History of Current Condition Pt is a 55yo female here for her diagnosed cervical radiculopathy and B shoulder pain 08/14. Pt recently had MRI for both shoulders and cervical region (see below.) Pt has been having generalized hand pain and shooting pain to elbow, along with worsening hand weakness since last years. She also c/o numbness and tingling sensation on radial aspect of B hands. She stated her symptoms are worse with prolonged physical activity and staying in a flexed position for a long period of time. She did say that her symptoms got better this April after receiving a diagnostci steroid injection but it did not last long. She also c/o new onset of neck pain 06/14 after the injection . Pt has participated PT multiple times for her shoulders within the past few years and she was finally diagnosed with cervical radiculopathy with RTC and labral tear bilaterally by MRI recently. (see below). 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 Prior Treatments and Tests C/S MRI Multilevel canal stenoses, worst at C4-C5 and C5-C6, where there are moderate canal stenosis present. Multilevel foraminal stenoses, worst on the left at C5-C6 where there is associated intraforaminal nerve root compression. L shoulder MRI Focal small low-grade intrasubstance and bursal sided tear of the supraspinatus tendon at its posterior footprint measuring 4 mm in anterior- posterior dimension. Mild supraspinatus tendinosis. Probable small nondisplaced tear at the posteroinferior labrum R shoulder MRI ow to moderate grade articular and bursal surface partial thickness tear. uggestion of focal superior anterior labral tear at 12 to 1 o'clock position and anterior-inferior labral tear at 4 to 5 o'clock position. Treatment Goals Patient/Caregiver Goals 1. To minimize her generalized hand and arm pain, and her neurological symptoms 2. 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 Personal Factors Other Personal Factors That May Effect osteopenia, anxiety Therapy/Recovery PT-OP-C Subjective Start: 06/06/20 16:24 Freq: Status: Active Protocol: Document 08/14/20 13:03 [facility] (Rec: 08/14/20 13:56 [facility] [id number]) OP-PT Subjective Patient Comments Patient Comments Pt report the past 1.5 week has been tough. Last , she slept in and tried to go into the office but was too exhasuted so coudn't do anything that day or the next. 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 PT-OP-F Manual Assessment Start: 06/06/20 16:24 Freq: Status: Active Protocol: Document 06/06/20 16:25 HH (Rec: 06/06/20 17:23 HH [email or web address]) Manual Assessments Soft Tissue Assessment Soft Tissue Mobility Assessment hypertonicity at cervical paraspinals and trapezius muscle group R >L noted Joint Mobility Assessment Joint Mobility Assessment significant hypomobility with PA mob at C7-T4 PT-OP-H Neuro Start: 06/06/20 16:24 Freq: Status: Active Protocol: Document 06/06/20 16:25 HH (Rec: 06/06/20 17:23 HH [email or web address]) Sensation Evaluation Gross Sensation Gross Sensation WNL Deep Tendon Reflex & Clonus Assessment Deep Tendon Reflex Bicep Deep Tendon Reflex 2+ Normal Tricep Deep Tendon Reflex 2+ Normal Brachioradialis Deep Tendon Reflex 1+ Diminished PT-OP-J Posture/Palpation/Skin Start: 06/06/20 16:24 Freq: Status: Active Protocol: Document 06/06/20 16:25 HH (Rec: 06/06/20 17:23 HH [email or web address]) Posture Evaluation Position Standing Evaluation View Lateral Head/C-Spine Posture Forward Head T-Spine Posture Increased Kyphosis Shoulder Posture (L) Rounded,(R) Rounded Comments Posture Comments Significant Dowager hump noted at CT junction. PT-OP-K Range of Motion Start: 06/06/20 16:24 Freq: Status: Active Protocol: Document 06/06/20 16:25 HH (Rec: 06/06/20 17:23 HH [email or web address]) Cervical Spine Range of Motion Cervical Spine Active Degrees Testing Position Sitting Flexion 65 Extension 55 Rotation Left 56 Rotation Right 49 Lateral Flexion Left 25 Lateral Flexion Right 28 ROM Limitations Soft Tissue Tightness,Muscle Tone,Pain Comments joint angulation noted at C6C7 level during extension and rotation pinching pain at C6 facet level with extension, R rotation and lateral flexion to R pulling pain at R trap with lateral flexion to L Lumbar Spine Range of Motion Lumbar Spine Active Degrees Comments seated thoracic rotation = L 60degrees, R 45 degrees PT-OP-L Special Tests Start: 06/06/20 16:24 Freq: Status: Active Protocol: Document 06/12/20 14:29 HH (Rec: 06/12/20 16:40 [id number]) Special Tests Cervical Spine Special Tests Upper Limb Tension Test Test Results +VE R median nerve Comments without cervical lateral flexion PT-OP-M Strength Start: 06/06/20 16:24 Freq: Status: Active Protocol: Document 06/12/20 14:29 HH (Rec: 06/12/20 16:40 [id number]) Cervical Spine Strength Cervical Spine Manual Muscle Testing Comments supine chin tuck hold = 41s. PT-OP-Q Treatments Start: 06/06/20 16:24 Freq: Status: Active Protocol: Document 08/14/20 13:03 [facility] (Rec: 08/14/20 13:56 [facility] [id number]) Therapeutic Exercises Prone Exercises scaption Prone Exercise Name over tball Side bilateral Equipment Used 1# Reps/Minutes 2x10 ext Prone Exercise Name over tball Side bilateral Equipment Used 1# Reps/Minutes 2x10 Habd Prone Exercise Name overtball Side bilateral Equipment Used 1# Reps/Minutes 2x10 1 Prone Exercise Name plank forearms & knees Side bilateral Reps/Minutes 30sec x2 Comments min-mod cueing for scap, head & back position Manual Therapy Treatment Joint Mobilizations cervical rotation Comments 1.Transverse L glide T1-3 FM for rotation-imroved R rot 2. UPA R FM T1-3 3. C4-6 transverse glide R FM fro L SB imrpovmeent 4 Joint 1st rib caudal FM 3 Comments 1. rib R 6 UPA & cadual FM in prop 2. T4-5 transverse R FM in prone prop Self-Care/Home Management Treatment Education Other Education edu re: use of walks and hot/ codl to help with pain, encouraged to talk to primary re: seeing DO at hospital to determine for dry needling and /or OMT, discussed asking MD offices recommendations re: a new pain specialist as she does not like her current one. PT-OP-R Modalities Start: 06/06/20 16:24 Freq: Status: Active Protocol: Document 08/14/20 13:03 [facility] (Rec: 08/14/20 13:56 [facility] [id number]) Spinal Traction Traction Treatment Cervical Method Mechanical Patient Position Hooklying Force Applied (Pounds) 16 Duration of Treatment (Minutes) 15 PT-OP-T Assessment and Plan Start: 06/06/20 16:24 Freq: Status: Active Protocol: Document 08/14/20 13:03 [facility] (Rec: 08/14/20 13:56 [facility] [id number]) Physical Therapy Assessment Goals cervical ROM Impairment pt shows limited cervical ROM (rot and lateral flexion) Graphite Disk Assembler Goal (LTG) pt will improve >15 degrees on both lateral flexion and rotation without neurological symptoms LTG Duration 8 weeks neurological symptoms Impairment +ve for spurling, forminal compression Short Term Goal (STG) pt will not experience radiating pain and numbness/ tingling sensation to bilateral hands more than 4 days per week Assisted Goal (LTG) pt will not experience radiating pain and numbness/ tingling sensation to bilateral hands more than 2 days per week to improve sleep and activity tolerance LTG Duration 12 weeks quick dash Impairment pt scores 52 on quickdash Short Term Goal (STG) pt will score <40 on quickdash to improve her overall mobility shoulder strength, mobility and endurance STG Duration 6 weeks Assisted Goal (LTG) pt will score <30 on quickdash to improve her overall qaulity of life 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 STG Duration 6 weeks Graphite Disk Assembler Goal (LTG) pt will score <12 on NDI to improver her overall quality of life so she could fully return to her [employer] and [employer] class LTG Duration 12 weeks Assessment Summary Assessment Pt had improved passive and active ROM of neck after manual therapy w/dec pain. Improved scap staiblity iwth over ball exercises but does still require cuieng for plank motions. Physical Therapy Plan Frequency and Duration Frequency of Treatment 2x/Week Duration of Treatment 12 weeks Plan of Care Start Date 06/06/20 Plan of Care End Date 09/04/20 Next Visit Focus/Plan Next Note Type Treatment Note Next Visit Plan review postural alingment & work on hip hinge & reach in good position
--- NOTE | 2020-08-21 14:10 | PT.OTN ---
Current Diagnoses Radiculopathy, cervical region (08/21/20) Cervicalgia (08/21/20) Physical Therapy Treatment Note PT-OP-A Visit Information Start: 06/06/20 16:24 Freq: Status: Active Protocol: Document 08/21/20 12:58 LR (Rec: 08/21/20 14:10 [facility] [id number]) Out-Patient Physical Therapy Visit Information Visit Information Visit Type Treatment Note Visit Start Time 13:00 Visit Stop Time 13:53 Total Visit Minutes 53 Visit Number Number of MEDICAL CLINIC MANAGER Visits 0 PT-OP-B Current Condition Start: 06/06/20 16:24 Freq: Status: Active Protocol: Document 06/06/20 16:25 HH (Rec: 06/06/20 17:23 HH [email or web address]) Current Condition History of Current Condition Onset Date >3 years ago Current Complaints Cervical radiculopathy, B shoulder pain History of Current Condition Pt is a 55yo female here for her diagnosed cervical radiculopathy and B shoulder pain 08/14. Pt recently had MRI for both shoulders and cervical region (see below.) Pt has been having generalized hand pain and shooting pain to elbow, along with worsening hand weakness since last years. She also c/o numbness and tingling sensation on radial aspect of B hands. She stated her symptoms are worse with prolonged physical activity and staying in a flexed position for a long period of time. She did say that her symptoms got better this April after receiving a diagnostci steroid injection but it did not last long. She also c/o new onset of neck pain 06/14 after the injection . Pt has participated PT multiple times for her shoulders within the past few years and she was finally diagnosed with cervical radiculopathy with RTC and labral tear bilaterally by MRI recently. (see below). 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 Prior Treatments and Tests C/S MRI Multilevel canal stenoses, worst at C4-C5 and C5-C6, where there are moderate canal stenosis present. Multilevel foraminal stenoses, worst on the left at C5-C6 where there is associated intraforaminal nerve root compression. L shoulder MRI Focal small low-grade intrasubstance and bursal sided tear of the supraspinatus tendon at its posterior footprint measuring 4 mm in anterior- posterior dimension. Mild supraspinatus tendinosis. Probable small nondisplaced tear at the posteroinferior labrum R shoulder MRI ow to moderate grade articular and bursal surface partial thickness tear. uggestion of focal superior anterior labral tear at 12 to 1 o'clock position and anterior-inferior labral tear at 4 to 5 o'clock position. Treatment Goals Patient/Caregiver Goals 1. To minimize her generalized hand and arm pain, and her neurological symptoms 2. 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 Personal Factors Other Personal Factors That May Effect osteopenia, anxiety Therapy/Recovery PT-OP-C Subjective Start: 06/06/20 16:24 Freq: Status: Active Protocol: Document 08/21/20 12:58 LR (Rec: 08/21/20 14:10 [facility] [id number]) OP-PT Subjective Patient Comments Patient Comments pt reports she worked a tough class this weekend and is sore in shoulders and hands but was able to do it physically PT-OP-F Manual Assessment Start: 06/06/20 16:24 Freq: Status: Active Protocol: Document 06/06/20 16:25 HH (Rec: 06/06/20 17:23 HH [email or web address]) Manual Assessments Soft Tissue Assessment Soft Tissue Mobility Assessment hypertonicity at cervical paraspinals and trapezius muscle group R >L noted Joint Mobility Assessment Joint Mobility Assessment significant hypomobility with PA mob at C7-T4 PT-OP-H Neuro Start: 06/06/20 16:24 Freq: Status: Active Protocol: Document 06/06/20 16:25 HH (Rec: 06/06/20 17:23 HH [email or web address]) Sensation Evaluation Gross Sensation Gross Sensation WNL Deep Tendon Reflex & Clonus Assessment Deep Tendon Reflex Bicep Deep Tendon Reflex 2+ Normal Tricep Deep Tendon Reflex 2+ Normal Brachioradialis Deep Tendon Reflex 1+ Diminished PT-OP-J Posture/Palpation/Skin Start: 06/06/20 16:24 Freq: Status: Active Protocol: Document 06/06/20 16:25 HH (Rec: 06/06/20 17:23 HH [email or web address]) Posture Evaluation Position Standing Evaluation View Lateral Head/C-Spine Posture Forward Head T-Spine Posture Increased Kyphosis Shoulder Posture (L) Rounded,(R) Rounded Comments Posture Comments Significant Dowager hump noted at CT junction. PT-OP-K Range of Motion Start: 06/06/20 16:24 Freq: Status: Active Protocol: Document 06/06/20 16:25 HH (Rec: 06/06/20 17:23 HH [email or web address]) Cervical Spine Range of Motion Cervical Spine Active Degrees Testing Position Sitting Flexion 65 Extension 55 Rotation Left 56 Rotation Right 49 Lateral Flexion Left 25 Lateral Flexion Right 28 ROM Limitations Soft Tissue Tightness,Muscle Tone,Pain Comments joint angulation noted at C6C7 level during extension and rotation pinching pain at C6 facet level with extension, R rotation and lateral flexion to R pulling pain at R trap with lateral flexion to L Lumbar Spine Range of Motion Lumbar Spine Active Degrees Comments seated thoracic rotation = L 60degrees, R 45 degrees PT-OP-L Special Tests Start: 06/06/20 16:24 Freq: Status: Active Protocol: Document 06/12/20 14:29 HH (Rec: 06/12/20 16:40 [id number]) Special Tests Cervical Spine Special Tests Upper Limb Tension Test Test Results +VE R median nerve Comments without cervical lateral flexion PT-OP-M Strength Start: 06/06/20 16:24 Freq: Status: Active Protocol: Document 06/12/20 14:29 HH (Rec: 06/12/20 16:40 [id number]) Cervical Spine Strength Cervical Spine Manual Muscle Testing Comments supine chin tuck hold = 41s. PT-OP-Q Treatments Start: 06/06/20 16:24 Freq: Status: Active Protocol: Document 08/21/20 12:58 [facility] (Rec: 08/21/20 14:10 [facility] [id number]) Therapeutic Exercises Prone Exercises rhomboid engagement Prone Exercise Name ER w/pronation Side bilateral Equipment Used L1 & manual facilitation 1 Prone Exercise Name plank forearms & knees Side bilateral Reps/Minutes 30sec x3 Comments min-mod cueing for scap, head & back position Therapeutic Activity Therapeutic Activity 3 Name lines Comments 1. standing hip hinge w/yard stick 2. mimicing line & wench motions w/focus on set scap & back neutral w/use of leg s& wt shift Manual Therapy Treatment Joint Mobilizations cervical rotation Comments 1. 1st rib mob R inf c/r 2. R transverse glide C4 Self-Care/Home Management Treatment Education Other Education encouraged tof ollow up re: referrals PT-OP-R Modalities Start: 06/06/20 16:24 Freq: Status: Active Protocol: Document 08/21/20 12:58 [facility] (Rec: 08/21/20 14:10 [facility] [id number]) Spinal Traction Traction Treatment Cervical Method Mechanical Patient Position Hooklying Force Applied (Pounds) 16 Duration of Treatment (Minutes) 15 Traction Treatment Comment dec back down d/t pt reporting too much before PT-OP-T Assessment and Plan Start: 06/06/20 16:24 Freq: Status: Active Protocol: Document 08/21/20 12:58 [facility] (Rec: 08/21/20 14:10 [facility] [id number]) Physical Therapy Assessment Goals cervical ROM Impairment pt shows limited cervical ROM (rot and lateral flexion) Halfway Goal (LTG) pt will improve >15 degrees on both lateral flexion and rotation without neurological symptoms LTG Duration 8 weeks neurological symptoms Impairment +ve for spurling, forminal compression Short Term Goal (STG) pt will not experience radiating pain and numbness/ tingling sensation to bilateral hands more than 4 days per week Halfway Goal (LTG) pt will not experience radiating pain and numbness/ tingling sensation to bilateral hands more than 2 days per week to improve sleep and activity tolerance LTG Duration 12 weeks quick dash Impairment pt scores 52 on quickdash Short Term Goal (STG) pt will score <40 on quickdash to improve her overall mobility shoulder strength, mobility and endurance STG Duration 6 weeks Halfway Goal (LTG) pt will score <30 on quickdash to improve her overall qaulity of life so she can instruct her [employer] and [employer]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 STG Duration 6 weeks Rock Crusher Operator Goal (LTG) pt will score <12 on NDI to improver her overall quality of life so she could fully return to her [employer] and sailing class LTG Duration 12 weeks Assessment Summary Assessment Pt did better with plank positioning once she was educated and manual faciliation was given to rhomboids. She did well with hip hinge motion and using wt shift motion for working on lines Physical Therapy Plan Frequency and Duration Frequency of Treatment 2x/Week Duration of Treatment 12 weeks Plan of Care Start Date 06/06/20 Plan of Care End Date 09/04/20 Next Visit Focus/Plan Next Note Type Treatment Note Next Visit Plan review postural alingment & work on hip hinge & reach in good position
--- NOTE | 2020-08-28 15:52 | PT.OTN ---
Current Diagnoses Radiculopathy, cervical region (08/28/20) Cervicalgia (08/28/20) Physical Therapy Treatment Note PT-OP-A Visit Information Start: 06/06/20 16:24 Freq: Status: Active Protocol: Document 08/28/20 14:30 [facility] (Rec: 08/28/20 15:52 [facility] [id number]) Out-Patient Physical Therapy Visit Information Visit Information Visit Type Progress Note Visit Start Time 14:38 Visit Stop Time 15:33 Total Visit Minutes 55 Visit Number Number of MARKETING SERVICES SPECIALIST Visits 0 PT-OP-B Current Condition Start: 06/06/20 16:24 Freq: Status: Active Protocol: Document 06/06/20 16:25 HH (Rec: 06/06/20 17:23 HH [email or web address]) Current Condition History of Current Condition Onset Date >3 years ago Current Complaints Cervical radiculopathy, B shoulder pain History of Current Condition Pt is a 55yo female here for her diagnosed cervical radiculopathy and B shoulder pain 08/14. Pt recently had MRI for both shoulders and cervical region (see below.) Pt has been having generalized hand pain and shooting pain to elbow, along with worsening hand weakness since last years. She also c/o numbness and tingling sensation on radial aspect of B hands. She stated her symptoms are worse with prolonged physical activity and staying in a flexed position for a long period of time. She did say that her symptoms got better this April after receiving a diagnostci steroid injection but it did not last long. She also c/o new onset of neck pain 06/14 after the injection . Pt has participated PT multiple times for her shoulders within the past few years and she was finally diagnosed with cervical radiculopathy with RTC and labral tear bilaterally by MRI recently. (see below). 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 Prior Treatments and Tests C/S MRI Multilevel canal stenoses, worst at C4-C5 and C5-C6, where there are moderate canal stenosis present. Multilevel foraminal stenoses, worst on the left at C5-C6 where there is associated intraforaminal nerve root compression. L shoulder MRI Focal small low-grade intrasubstance and bursal sided tear of the supraspinatus tendon at its posterior footprint measuring 4 mm in anterior- posterior dimension. Mild supraspinatus tendinosis. Probable small nondisplaced tear at the posteroinferior labrum R shoulder MRI ow to moderate grade articular and bursal surface partial thickness tear. uggestion of focal superior anterior labral tear at 12 to 1 o'clock position and anterior-inferior labral tear at 4 to 5 o'clock position. Treatment Goals Patient/Caregiver Goals 1. To minimize her generalized hand and arm pain, and her neurological symptoms 2. 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 Personal Factors Other Personal Factors That May Effect osteopenia, anxiety Therapy/Recovery PT-OP-C Subjective Start: 06/06/20 16:24 Freq: Status: Active Protocol: Document 08/28/20 14:30 LR (Rec: 08/28/20 15:52 LR [id number]) OP-PT Subjective Patient Comments Patient Comments Pt has appt scheduled with Dr. Gorman and a chiro that her friend swears by. PT-OP-F Manual Assessment Start: 06/06/20 16:24 Freq: Status: Active Protocol: Document 06/06/20 16:25 HH (Rec: 06/06/20 17:23 HH [email or web address]) Manual Assessments Soft Tissue Assessment Soft Tissue Mobility Assessment hypertonicity at cervical paraspinals and trapezius muscle group R >L noted Joint Mobility Assessment Joint Mobility Assessment significant hypomobility with PA mob at C7-T4 PT-OP-H Neuro Start: 06/06/20 16:24 Freq: Status: Active Protocol: Document 06/06/20 16:25 HH (Rec: 06/06/20 17:23 HH [email or web address]) Sensation Evaluation Gross Sensation Gross Sensation WNL Deep Tendon Reflex & Clonus Assessment Deep Tendon Reflex Bicep Deep Tendon Reflex 2+ Normal Tricep Deep Tendon Reflex 2+ Normal Brachioradialis Deep Tendon Reflex 1+ Diminished PT-OP-J Posture/Palpation/Skin Start: 06/06/20 16:24 Freq: Status: Active Protocol: Document 08/28/20 14:30 LR (Rec: 08/28/20 15:52 [facility] [id number]) Posture Evaluation Helio Postural Classification System Elbow Flexion Test 3 PT-OP-K Range of Motion Start: 06/06/20 16:24 Freq: Status: Active Protocol: Document 08/28/20 14:30 LR (Rec: 08/28/20 15:52 [facility] [id number]) Cervical Spine Range of Motion Cervical Spine Active Degrees Testing Position Sitting Flexion 70 Extension 55 Rotation Left 68 Rotation Right 58 Lateral Flexion Left 24 Lateral Flexion Right 42 ROM Limitations Soft Tissue Tightness,Muscle Tone,Pain Comments discomfort R rot & B SB PT-OP-L Special Tests Start: 06/06/20 16:24 Freq: Status: Active Protocol: Document 06/12/20 14:29 (Rec: 06/12/20 16:40 HH [id number]) Special Tests Cervical Spine Special Tests Upper Limb Tension Test Test Results +VE R median nerve Comments without cervical lateral flexion PT-OP-M Strength Start: 06/06/20 16:24 Freq: Status: Active Protocol: Document 08/28/20 14:30 [facility] (Rec: 08/28/20 15:52 [facility] [id number]) Shoulder Strength Shoulder Manual Muscle Testing Right Flexion 5 Normal Extension 5 Normal Abduction (C5) 5 Normal Adduction 5 Normal External Rotation 4 Good Internal Rotation 5 Normal Left Flexion 5 Normal Extension 5 Normal Abduction (C5) 5 Normal Adduction 5 Normal External Rotation 4 Good Internal Rotation 5 Normal Hand Cooler Deliverer/Pinch Strength Hand Strength Right Cooler Deliverer (lbs) 67 Left Cooler Deliverer (lbs) 67 PT-OP-Q Treatments Start: 06/06/20 16:24 Freq: Status: Active Protocol: Document 08/28/20 14:30 [facility] (Rec: 08/28/20 15:52 [facility] [id number]) Therapeutic Exercises Prone Exercises rhomboid engagement Prone Exercise Name ER w/pronation Side bilateral Equipment Used L1 Standing Exercises 10 Standing Exercise Name ER w/pronation for rhomboid engagment Side bilateral Equipment Used L1 Reps/Minutes 12 Therapeutic Activity Therapeutic Activity 3 Comments 1. working on use of hip hinge & rot through hips 2 Name posture working on setting shoulder blades Comments pivot prone & modified pivot prone Manual Therapy Treatment Soft Tissue Mobilization 5 Body Location L scalenes, [place], LS Mobilization Type Rolling,Sustained Pressure Body Position Sidelying Comments c/r w/post dep/ant elevtion Joint Mobilizations cervical rotation Comments L transverse glide C4 &5 for R rot 4 Joint 1st rib caudal FM Comments L 3 Comments R L UPA 7 2 Joint AC Direction gapping FM Self-Care/Home Management Treatment Education Other Education discussion of completing PT soon and transitioning towards other care PT-OP-R Modalities Start: 06/06/20 16:24 Freq: Status: Active Protocol: Document 08/28/20 14:30 [facility] (Rec: 08/28/20 15:52 [facility] [id number]) Spinal Traction Traction Treatment Cervical Method Mechanical Patient Position Hooklying Force Applied (Pounds) 16 Duration of Treatment (Minutes) 15 Traction Treatment Comment dec back down d/t pt reporting too much before PT-OP-T Assessment and Plan Start: 06/06/20 16:24 Freq: Status: Active Protocol: Document 08/28/20 14:30 [facility] (Rec: 08/28/20 15:52 [facility] [id number]) Physical Therapy Assessment Goals cervical ROM Impairment pt shows limited cervical ROM (rot and lateral flexion) Prison Goal (LTG) pt will improve >15 degrees on both lateral flexion and rotation without neurological symptoms 08/28-no referal symptoms w/ROM , improved but still limited R rot & L SB but improved w/ manual LTG Duration 6 weeks neurological symptoms Impairment +ve for spurling, forminal compression Short Term Goal (STG) pt will not experience radiating pain and numbness/ tingling sensation to bilateral hands more than 4 days per week 08/28-no change Electric Motor Winder Goal (LTG) pt will not experience radiating pain and numbness/ tingling sensation to bilateral hands more than 2 days per week to improve sleep and activity tolerance 08/28-no change LTG Duration 12 weeks quick dash Impairment pt scores 52 on quickdash Short Term Goal (STG) pt will score <40 on quickdash to improve her overall mobility shoulder strength, mobility and endurance STG Duration achieved Electric Motor Winder Goal (LTG) pt will score <30 on quickdash to improve her overall qaulity of life 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 STG Duration achieved Electric Motor Winder Goal (LTG) pt will score <12 on NDI to improver her overall quality of life so she could fully return to her kayak and sailing class LTG Duration achieved Assessment Summary Assessment Pt to follow up with PT in about 1 month if needed. She is seeing chiro and DO coming up and discussed pt transiitoning towards trying those disciplines. SHe has improved signifcinatly since start of PT with dec fatigue, improved strength and improved ability to do funcitonal tasks but still has significnat pain. ROM has imrpoved but there are still limits at end range. Pt to follow up with PT for working on full independence w/body mechanics & for HEP. Pt shows improved functional mobility as evidenceed by quick dash and NDI Physical Therapy Plan Frequency and Duration Frequency of Treatment as needed Duration of Treatment 6 weeks Plan of Care Start Date 08/28/20 Plan of Care End Date 10/09/20 Therapeutic Interventions Therapeutic Interventions Gait Training,Home Exercise Program,Joint Mobilizations, Manual Therapy,Neuromuscular Re-education,Patient/Caregiver Education,Self-Care/Home Management,Soft Tissue Mobilization,Taping, Therapeutic Activities, Therapeutic Exercises Modalities Cold Pack/Ice Massage,Electric Stimulation,Hot Packs, Infrared Therapy,Traction- Mechanical,Ultrasound Next Visit Focus/Plan Next Note Type Treatment Note Next Visit Plan review postural alingment & work on hip hinge & reach in good position
--- NOTE | 2020-08-28 15:53 | PT.OPPOC ---
Physical, Occupational & Speech Therapy At [facility] Current Diagnoses Radiculopathy, cervical region (08/28/20) Cervicalgia (08/28/20) Visit Care Team Role Provider Type Tana Zuleta MD Family Provider Physician Primary Care Provider Specialty: Family Practice Address: [address] [place] [address], [id number] Email: [email or web address] Attending Provider Referring Provider Specialty: Address: Phone: Fax: Email: Plan Of Care PT-OP-T Assessment and Plan Start: 06/06/20 16:24 Freq: Status: Active Protocol: Document 08/28/20 14:30 [facility] (Rec: 08/28/20 15:52 [facility] [id number]) Physical Therapy Assessment Goals cervical ROM Impairment pt shows limited cervical ROM (rot and lateral flexion) Shift Production Associate Goal (LTG) pt will improve >15 degrees on both lateral flexion and rotation without neurological symptoms 08/28-no referal symptoms w/ROM , improved but still limited R rot & L SB but improved w/ manual LTG Duration 6 weeks neurological symptoms Impairment +ve for spurling, forminal compression Short Term Goal (STG) pt will not experience radiating pain and numbness/ tingling sensation to bilateral hands more than 4 days per week 08/28-no change Shift Production Associate Goal (LTG) pt will not experience radiating pain and numbness/ tingling sensation to bilateral hands more than 2 days per week to improve sleep and activity tolerance 08/28-no change LTG Duration 12 weeks quick dash Impairment pt scores 52 on quickdash Short Term Goal (STG) pt will score <40 on quickdash to improve her overall mobility shoulder strength, mobility and endurance STG Duration achieved Shift Production Associate Goal (LTG) pt will score <30 on quickdash to improve her overall qaulity of life 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 She is seeing chiro and DO coming up and discussed pt transiitoning towards trying those disciplines. SHe has improved signifcinatly since start of PT with dec fatigue, improved strength and improved ability to do funcitonal tasks but still has significnat pain. ROM has imrpoved but there are still limits at end range. Pt to follow up with PT for working on full independence w/body mechanics & for HEP. Pt shows improved functional mobility as evidenceed by quick dash and NDI Physical Therapy Plan Frequency and Duration Frequency of Treatment as needed Duration of Treatment 6 weeks Plan of Care Start Date 08/28/20 Plan of Care End Date 10/09/20 Therapeutic Interventions Therapeutic Interventions Gait Training,Home Exercise Program,Joint Mobilizations, Manual Therapy,Neuromuscular Re-education,Patient/Caregiver Education,Self-Care/Home Management,Soft Tissue Mobilization,Taping, Therapeutic Activities, Therapeutic Exercises Modalities Cold Pack/Ice Massage,Electric Stimulation,Hot Packs, Infrared Therapy,Traction- Mechanical,Ultrasound Next Visit Focus/Plan Next Note Type Treatment Note Next Visit Plan review postural alingment & work on hip hinge & reach in good position Plan of Care Dates Plan of Care Start Date 08/28/20 Plan of Care End Date 10/09/20 Electronically Signed by: Tana Morris, PT 08/28/20 [id number] Please Sign and Return: I have reviewed this Plan of Care and certify that the skilled therapy services above are required to meet the patient?s needs. Physician Signature Date Printed Name and Credentials Clinical Instructor Signature Printed Name and Credentials
--- NOTE | 2020-09-12 11:27 | PT.OTN ---
Current Diagnoses Radiculopathy, cervical region (09/12/20) Cervicalgia (09/12/20) Physical Therapy Treatment Note PT-OP-A Visit Information Start: 06/06/20 16:24 Freq: Status: Active Protocol: Document 09/12/20 10:44 LR (Rec: 09/12/20 11:27 [facility] [id number]) Out-Patient Physical Therapy Visit Information Visit Information Visit Type Discharge Summary Visit Start Time 10:37 Visit Stop Time 11:30 Total Visit Minutes 53 Visit Number Number of SUGAR TRUCKER Visits 0 PT-OP-B Current Condition Start: 06/06/20 16:24 Freq: Status: Active Protocol: Document 06/06/20 16:25 HH (Rec: 06/06/20 17:23 HH [email or web address]) Current Condition History of Current Condition Onset Date >3 years ago Current Complaints Cervical radiculopathy, B shoulder pain History of Current Condition Pt is a 55yo female here for her diagnosed cervical radiculopathy and B shoulder pain 08/14. Pt recently had MRI for both shoulders and cervical region (see below.) Pt has been having generalized hand pain and shooting pain to elbow, along with worsening hand weakness since last years. She also c/o numbness and tingling sensation on radial aspect of B hands. She stated her symptoms are worse with prolonged physical activity and staying in a flexed position for a long period of time. She did say that her symptoms got better this April after receiving a diagnostci steroid injection but it did not last long. She also c/o new onset of neck pain 06/14 after the injection . Pt has participated PT multiple times for her shoulders within the past few years and she was finally diagnosed with cervical radiculopathy with RTC and labral tear bilaterally by MRI recently. (see below). 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 Prior Treatments and Tests C/S MRI Multilevel canal stenoses, worst at C4-C5 and C5-C6, where there are moderate canal stenosis present. Multilevel foraminal stenoses, worst on the left at C5-C6 where there is associated intraforaminal nerve root compression. L shoulder MRI Focal small low-grade intrasubstance and bursal sided tear of the supraspinatus tendon at its posterior footprint measuring 4 mm in anterior- posterior dimension. Mild supraspinatus tendinosis. Probable small nondisplaced tear at the posteroinferior labrum R shoulder MRI ow to moderate grade articular and bursal surface partial thickness tear. uggestion of focal superior anterior labral tear at 12 to 1 o'clock position and anterior-inferior labral tear at 4 to 5 o'clock position. Treatment Goals Patient/Caregiver Goals 1. To minimize her generalized hand and arm pain, and her neurological symptoms 2. 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 Personal Factors Other Personal Factors That May Effect osteopenia, anxiety Therapy/Recovery PT-OP-C Subjective Start: 06/06/20 16:24 Freq: Status: Active Protocol: Document 09/12/20 10:44 LR (Rec: 09/12/20 11:27 [facility] [id number]) OP-PT Subjective Patient Comments Patient Comments Pt reprots saw neuroseurgon [employer] and she is sendign her to rehabilitive medicine. Ready for DC today. wants to go over everything PT-OP-F Manual Assessment Start: 06/06/20 16:24 Freq: Status: Active Protocol: Document 06/06/20 16:25 HH (Rec: 06/06/20 17:23 HH [email or web address]) Manual Assessments Soft Tissue Assessment Soft Tissue Mobility Assessment hypertonicity at cervical paraspinals and trapezius muscle group R >L noted Joint Mobility Assessment Joint Mobility Assessment significant hypomobility with PA mob at C7-T4 PT-OP-H Neuro Start: 06/06/20 16:24 Freq: Status: Active Protocol: Document 06/06/20 16:25 HH (Rec: 06/06/20 17:23 HH [email or web address]) Sensation Evaluation Gross Sensation Gross Sensation WNL Deep Tendon Reflex & Clonus Assessment Deep Tendon Reflex Bicep Deep Tendon Reflex 2+ Normal Tricep Deep Tendon Reflex 2+ Normal Brachioradialis Deep Tendon Reflex 1+ Diminished PT-OP-J Posture/Palpation/Skin Start: 06/06/20 16:24 Freq: Status: Active Protocol: Document 08/28/20 14:30 [facility] (Rec: 08/28/20 15:52 LR [id number]) Posture Evaluation Helio Postural Classification System Elbow Flexion Test 3 PT-OP-K Range of Motion Start: 06/06/20 16:24 Freq: Status: Active Protocol: Document 08/28/20 14:30 [facility] (Rec: 08/28/20 15:52 [facility] [id number]) Cervical Spine Range of Motion Cervical Spine Active Degrees Testing Position Sitting Flexion 70 Extension 55 Rotation Left 68 Rotation Right 58 Lateral Flexion Left 24 Lateral Flexion Right 42 ROM Limitations Soft Tissue Tightness,Muscle Tone,Pain Comments discomfort R rot & B SB PT-OP-L Special Tests Start: 06/06/20 16:24 Freq: Status: Active Protocol: Document 06/12/20 14:29 HH (Rec: 06/12/20 16:40 HH [id number]) Special Tests Cervical Spine Special Tests Upper Limb Tension Test Test Results +VE R median nerve Comments without cervical lateral flexion PT-OP-M Strength Start: 06/06/20 16:24 Freq: Status: Active Protocol: Document 08/28/20 14:30 [facility] (Rec: 08/28/20 15:52 [facility] [id number]) Shoulder Strength Shoulder Manual Muscle Testing Right Flexion 5 Normal Extension 5 Normal Abduction (C5) 5 Normal Adduction 5 Normal External Rotation 4 Good Internal Rotation 5 Normal Left Flexion 5 Normal Extension 5 Normal Abduction (C5) 5 Normal Adduction 5 Normal External Rotation 4 Good Internal Rotation 5 Normal Hand Tobacco Sprayer/Pinch Strength Hand Strength Right Tobacco Sprayer (lbs) 67 Left Tobacco Sprayer (lbs) 67 PT-OP-Q Treatments Start: 06/06/20 16:24 Freq: Status: Active Protocol: Document 09/12/20 10:44 [facility] (Rec: 09/12/20 11:27 [facility] [id number]) Therapeutic Exercises Supine Exercises chin tuck Reps/Minutes 8 w/focus on neutrl lumbar spine 3 Supine Exercise Name foam roll: Habd, abd, 2. ext over foam roll w/tspine Side bilateral Reps/Minutes 10 ea Prone Exercises rhomboid engagement Prone Exercise Name ER w/pronation Side bilateral Equipment Used L1 Reps/Minutes 10 Comments prop scaption Prone Exercise Name over EOB Side bilateral Reps/Minutes 10 ext Prone Exercise Name over EOB Side bilateral Reps/Minutes 10 Habd Prone Exercise Name EOB Side bilateral Reps/Minutes 10 1 Prone Exercise Name plank forearms & knees Side bilateral Reps/Minutes 30sec x2 Comments min-mod cueing for scap, head & back position Sidelying Exercises open book Side bilateral Reps/Minutes 8 Other Exercises quadruped Other Exercise Name 1.serratus punch 2.alt hip ext Side bilateral Reps/Minutes 5ea Comments focus on scap work Manual Therapy Treatment Soft Tissue Mobilization 5 Body Location scalenes Mobilization Type Rolling Joint Mobilizations cervical rotation Comments AP FM C5 Self-Care/Home Management Treatment Education Other Education written review of exercises and things to focus on. discuss of further plan w/ working w/other MDs PT-OP-R Modalities Start: 06/06/20 16:24 Freq: Status: Active Protocol: Document 09/12/20 10:44 [facility] (Rec: 09/12/20 11:27 [facility] [id number]) Spinal Traction Traction Treatment Cervical Method Mechanical Patient Position Hooklying Force Applied (Pounds) 16 Duration of Treatment (Minutes) 15 Traction Treatment Comment dec back down d/t pt reporting too much before PT-OP-T Assessment and Plan Start: 06/06/20 16:24 Freq: Status: Active Protocol: Document 09/12/20 10:44 [facility] (Rec: 09/12/20 11:27 [facility] [id number]) Physical Therapy Assessment Goals cervical ROM Impairment pt shows limited cervical ROM (rot and lateral flexion) Group Home Goal (LTG) pt will improve >15 degrees on both lateral flexion and rotation without neurological symptoms 08/28-no referal symptoms w/ROM , improved but still limited R rot & L SB but improved w/ manual LTG Duration 6 weeks neurological symptoms Impairment +ve for spurling, forminal compression Short Term Goal (STG) pt will not experience radiating pain and numbness/ tingling sensation to bilateral hands more than 4 days per week 08/28-no change Clinical Program Manager Goal (LTG) pt will not experience radiating pain and numbness/ tingling sensation to bilateral hands more than 2 days per week to improve sleep and activity tolerance 08/28-no change LTG Duration 12 weeks quick dash Impairment pt scores 52 on quickdash Short Term Goal (STG) pt will score <40 on quickdash to improve her overall mobility shoulder strength, mobility and endurance STG Duration achieved Clinical Program Manager Goal (LTG) pt will score <30 on quickdash to improve her overall qaulity of life 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 STG Duration achieved Group Home Goal (LTG) pt will score <12 on NDI to improver her overall quality of life so she could fully return to her kayak and sailing class LTG Duration achieved Assessment Summary Assessment Pt did well with all exercises andn just required small cues to improve form. She mostly does require cues to slow down and stay in comfortbale range . Improved neck rotation R after manual. Pt to see rehab MD and determine if returning. Physical Therapy Plan Frequency and Duration Frequency of Treatment as needed Duration of Treatment 6 weeks Plan of Care Start Date 08/28/20 Plan of Care End Date 10/09/20 Next Visit Focus/Plan Next Note Type Treatment Note Next Visit Plan work towards DC
--- NOTE | 2020-11-30 15:07 | PT.OPDS ---
Current Diagnoses Radiculopathy, cervical region (09/12/20) Cervicalgia (09/12/20) Visit Care Team Role Provider Type Tana Zuleta MD Family Provider Physician Primary Care Provider Specialty: Family Practice Address: [address] [place] [address], [facility] [place], [address] Email: [email or web address] Attending Provider Referring Provider Specialty: Address: Phone: Fax: Email: Visit Number Visit Number Discharge Summary PT-OP-B Current Condition Start: 06/06/20 16:24 Freq: Status: Active Protocol: Document 06/06/20 16:25 (Rec: 06/06/20 17:23 [email or web address]) Current Condition History of Current Condition Onset Date >3 years ago Current Complaints Cervical radiculopathy, B shoulder pain History of Current Condition Pt is a 55yo female here for her diagnosed cervical radiculopathy and B shoulder pain 08/14. Pt recently had MRI for both shoulders and cervical region (see below.) Pt has been having generalized hand pain and shooting pain to elbow, along with worsening hand weakness since last years. She also c/o numbness and tingling sensation on radial aspect of B hands. She stated her symptoms are worse with prolonged physical activity and staying in a flexed position for a long period of time. She did say that her symptoms got better this April after receiving a diagnostci steroid injection but it did not last long. She also c/o new onset of neck pain 06/14 after the injection . Pt has participated PT multiple times for her shoulders within the past few years and she was finally diagnosed with cervical radiculopathy with RTC and labral tear bilaterally by MRI recently. (see below). 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 Prior Treatments and Tests C/S MRI Multilevel canal stenoses, worst at C4-C5 and C5-C6, where there are moderate canal stenosis present. Multilevel foraminal stenoses, worst on the left at C5-C6 where there is associated intraforaminal nerve root compression. L shoulder MRI Focal small low-grade intrasubstance and bursal sided tear of the supraspinatus tendon at its posterior footprint measuring 4 mm in anterior- posterior dimension. Mild supraspinatus tendinosis. Probable small nondisplaced tear at the posteroinferior labrum R shoulder MRI ow to moderate grade articular and bursal surface partial thickness tear. uggestion of focal superior anterior labral tear at 12 to 1 o'clock position and anterior-inferior labral tear at 4 to 5 o'clock position. Treatment Goals Patient/Caregiver Goals 1. To minimize her generalized hand and arm pain, and her neurological symptoms 2. 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 Personal Factors Other Personal Factors That May Effect osteopenia, anxiety Therapy/Recovery PT-OP-C Subjective Start: 06/06/20 16:24 Freq: Status: Active Protocol: Document 09/12/20 10:44 LR (Rec: 09/12/20 11:27 [facility] [id number]) OP-PT Subjective Patient Comments Patient Comments Pt reprots saw neuroseurgon [employer]PER[employer] and she is sendign her to rehabilitive medicine. Ready for DC today. wants to go over everything PT-OP-F Manual Assessment Start: 06/06/20 16:24 Freq: Status: Active Protocol: Document 06/06/20 16:25 HH (Rec: 06/06/20 17:23 HH [email or web address]) Manual Assessments Soft Tissue Assessment Soft Tissue Mobility Assessment hypertonicity at cervical paraspinals and trapezius muscle group R >L noted Joint Mobility Assessment Joint Mobility Assessment significant hypomobility with PA mob at C7-T4 PT-OP-H Neuro Start: 06/06/20 16:24 Freq: Status: Active Protocol: Document 06/06/20 16:25 HH (Rec: 06/06/20 17:23 HH [email or web address]) Sensation Evaluation Gross Sensation Gross Sensation WNL Deep Tendon Reflex & Clonus Assessment Deep Tendon Reflex Bicep Deep Tendon Reflex 2+ Normal Tricep Deep Tendon Reflex 2+ Normal Brachioradialis Deep Tendon Reflex 1+ Diminished PT-OP-J Posture/Palpation/Skin Start: 06/06/20 16:24 Freq: Status: Active Protocol: Document 08/28/20 14:30 [facility] (Rec: 08/28/20 15:52 LR [id number]) Posture Evaluation Helio Postural Classification System Elbow Flexion Test 3 PT-OP-K Range of Motion Start: 06/06/20 16:24 Freq: Status: Active Protocol: Document 08/28/20 14:30 [facility] (Rec: 08/28/20 15:52 [facility] [id number]) Cervical Spine Range of Motion Cervical Spine Active Degrees Testing Position Sitting Flexion 70 Extension 55 Rotation Left 68 Rotation Right 58 Lateral Flexion Left 24 Lateral Flexion Right 42 ROM Limitations Soft Tissue Tightness,Muscle Tone,Pain Comments discomfort R rot & B SB PT-OP-L Special Tests Start: 06/06/20 16:24 Freq: Status: Active Protocol: Document 06/12/20 14:29 HH (Rec: 06/12/20 16:40 HH [id number]) Special Tests Cervical Spine Special Tests Upper Limb Tension Test Test Results +VE R median nerve Comments without cervical lateral flexion PT-OP-M Strength Start: 06/06/20 16:24 Freq: Status: Active Protocol: Document 08/28/20 14:30 [facility] (Rec: 08/28/20 15:52 [facility] [id number]) Shoulder Strength Shoulder Manual Muscle Testing Right Flexion 5 Normal Extension 5 Normal Abduction (C5) 5 Normal Adduction 5 Normal External Rotation 4 Good Internal Rotation 5 Normal Left Flexion 5 Normal Extension 5 Normal Abduction (C5) 5 Normal Adduction 5 Normal External Rotation 4 Good Internal Rotation 5 Normal Hand Civil Cad Tech/Pinch Strength Hand Strength Right Civil Cad Tech (lbs) 67 Left Civil Cad Tech (lbs) 67 PT-OP-T Assessment and Plan Start: 06/06/20 16:24 Freq: Status: Active Protocol: Document 11/30/20 15:07 [facility] (Rec: 11/30/20 15:07 [facility] [id number]) Physical Therapy Assessment Assessment Summary Assessment Pt no showed last scheduled appt and did not reschedul after being called. Pt has not been seen for over 2 months so is DC at this time d/t no longer attending PT Physical Therapy Plan Discharge Physical Therapy Discharge Reasons No Longer Attending PT
== END 2020-12-01 08:00 | disposition home or self-care (01) ==
LOC: PHYS 10:30
PROVIDERS: Family Provider Family Medicine; PCP Family Medicine
DX: M54.2 Cervicalgia (principal); M54.12 Radiculopathy, cervical region
CPT/HCPCS: 97012; 97110; 97140; 97163; 97530; 97535

== ENCOUNTER → 2021-02-06 14:18 | Outpatient (CLI) | payer OTHER, MEDICAID, SELFPAY ==
[2021-02-06 16:31] LABS: Vitamin B12 421 pg/mL (239-931)
== END ==
PROVIDERS: Family Provider Family Medicine; PCP Family Medicine; Referring Provider Family Medicine; Visit Provider Family Medicine
DX: G56.20 Lesion of ulnar nerve, unspecified upper limb (principal); G89.29 Other chronic pain; M54.12 Radiculopathy, cervical region; M54.59 Other low back pain; M54.6 Pain in thoracic spine; M99.01 Segmental and somatic dysfunction of cervical region; M99.02 Segmental and somatic dysfunction of thoracic region; M99.03 Segmental and somatic dysfunction of lumbar region; M99.04 Segmental and somatic dysfunction of sacral region; M99.05 Segmental and somatic dysfunction of pelvic region; M99.06 Segmental and somatic dysfunction of lower extremity; M99.08 Segmental and somatic dysfunction of rib cage; M99.09 Segmental and somatic dysfunction of abdomen and other regions
CPT/HCPCS: 36415; 82607

== ENCOUNTER → 2021-09-21 09:28 | Outpatient (CLI) | payer OTHER, MEDICAID, SELFPAY ==
[2021-09-21 13:57] LABS: Urine N gonorrhoeae NOT DETECTED
[2021-09-21 14:07] LABS: Urine Chlamydia NOT DETECTED
== END ==
PROVIDERS: Family Provider Family Medicine; PCP Family Medicine; Visit Provider Family Medicine
DX: Z11.3 Encounter for screening for infections with a predominantly sexual mode of transmission (principal)
CPT/HCPCS: 87491; 87591

== ENCOUNTER → 2021-11-14 08:07 | Outpatient (CLI) | payer OTHER, MEDICAID, SELFPAY ==
[2021-11-14 09:14] LABS: Erythrocyte Sedimentation Rate 6 MM/HR (0-20)
[2021-11-14 09:35] LABS: Glucose 93 mg/dL (70-100)
[2021-11-14 09:37] LABS: C-Reactive Protein Quant < 0.5 mg/dL (<1.0); Cholesterol 234 mg/dL (140-199); HDL Cholesterol 101 mg/dL (40-60); LDL Cholesterol Calculated 118 mg/dL (<100); Triglycerides 73 mg/dL (35-150)
[2021-11-15 03:58] LABS: RPR Screen Non Reactive (Non Reactive)
[2021-11-15 21:15] LABS: Hepatitis B Surface Antigen NEGATIVE s/c (NEGATIVE)
[2021-11-15 21:28] LABS: HIV 1 & 2 Ab/Ag 4th Gen Combo NEGATIVE (NEGATIVE); Hep C Virus Ab w/Reflex Quant NEGATIVE s/c (NEGATIVE)
== END ==
PROVIDERS: Family Provider Family Medicine; PCP Family Medicine; Referring Provider Family Medicine; Visit Provider Family Medicine
DX: E11.9 Type 2 diabetes mellitus without complications (principal); E78.5 Hyperlipidemia, unspecified; G89.29 Other chronic pain; Z11.3 Encounter for screening for infections with a predominantly sexual mode of transmission; Z13.9 Encounter for screening, unspecified
CPT/HCPCS: 36415; 80061; 82947; 85651; 86140; 86592; 86803; 87340; 87389

== ENCOUNTER → 2021-11-19 14:29 | Outpatient (CLI) | payer OTHER, MEDICAID, SELFPAY ==
--- NOTE | 2021-11-19 14:32 | DI.MG.S_ITS ---
BILATERAL DIGITAL SCREENING MAMMOGRAM 3D/2D WITH CAD: 11/19/2021 CLINICAL: Routine screening. Family history of breast cancer. Comparison is made to exams dated: 07/24/2020 mammogram - [facility] and 09/09/2012 mammogram - [facility]. The tissue of both breasts is heterogeneously dense. This may lower the sensitivity of mammography. Current study was also evaluated with a Computer Aided Detection (CAD) system. No significant masses, calcifications, or other findings are seen in either breast. There has been no significant interval change. IMPRESSION: NEGATIVE There is no mammographic evidence of malignancy. A 1 year screening mammogram is recommended. Based on Tyrer-Cuzick model (a risk assessment model), the patient's lifetime risk is 26.5% and her 10 year risk is 10.4%. If a patient has an elevated risk, a more comprehensive evaluation should be considered and/or a referral to a genetic counselor. The [place] [employer], [place] [employer], and NCCN Guidelines advise the consideration of Breast MRI as an adjunct to screening mammography in patients whose Lifetime risk to develop breast cancer is 20% or higher. This exam was interpreted at Station ID: [id number]. NOTE: For mammograms, a report in lay terms will be sent to the patient. Approximately 15% of breast malignancies will not be visualized mammographically. In the management of a palpable breast mass, a negative mammogram must not discourage biopsy of a clinically suspicious lesion. Electronically Signed By: Tomás jerez/minda:11/19/2021 15:32:08 letter sent: Normal Exam ACR BI-RADS Category 1: Negative 3341F
== END ==
PROVIDERS: Family Provider Family Medicine; PCP Family Medicine; Referring Provider Family Medicine; Visit Provider Family Medicine
DX: Z12.31 Encounter for screening mammogram for malignant neoplasm of breast (principal); Z80.3 Family history of malignant neoplasm of breast
CPT/HCPCS: 77063; 77067

== ENCOUNTER → 2022-11-21 15:03 | Outpatient (CLI) | payer OTHER, MEDICAID, SELFPAY ==
--- NOTE | 2022-11-21 15:04 | DI.MG.S_ITS ---
BILATERAL DIGITAL SCREENING MAMMOGRAM 3D/2D WITH CAD: 11/21/2022 CLINICAL: Routine screening. Family history of breast cancer. Comparison is made to exams dated: 11/19/2021 mammogram, 07/24/2020 mammogram - [facility], and 12/26/2016 mammogram - [facility]. Both breasts are heterogeneously dense, which may obscure small masses (category c / 51-75% glandular tissue). Current study was also evaluated with a Computer Aided Detection (CAD) system. No significant masses, calcifications, or other findings are seen in either breast. There has been no significant interval change. IMPRESSION: NEGATIVE There is no mammographic evidence of malignancy. A 1 year screening mammogram is recommended. Based on Tyrer-Cuzick model (a risk assessment model), the patient's lifetime risk is 26.1% and her 10 year risk is 10.7%. If a patient has an elevated risk, a more comprehensive evaluation should be considered and/or a referral to a genetic counselor. The [place] [employer], [place] [employer], and NCCN Guidelines advise the consideration of Breast MRI as an adjunct to screening mammography in patients whose Lifetime risk to develop breast cancer is 20% or higher. This exam was interpreted at Station ID: [id number]. NOTE: For mammograms, a report in lay terms will be sent to the patient. Approximately 15% of breast malignancies will not be visualized mammographically. In the management of a palpable breast mass, a negative mammogram must not discourage biopsy of a clinically suspicious lesion. Electronically Signed By: Misty joseph/minda:11/21/2022 17:17:32 letter sent: Normal Exam ACR BI-RADS Category 1: Negative 3341F
== END ==
PROVIDERS: Family Provider Family Medicine; PCP Family Medicine; Referring Provider Family Medicine; Visit Provider Family Medicine
DX: Z12.31 Encounter for screening mammogram for malignant neoplasm of breast (principal); Z80.3 Family history of malignant neoplasm of breast
CPT/HCPCS: 77063; 77067

== ENCOUNTER → 2022-12-16 11:44 | Outpatient (CLI) | payer OTHER, MEDICAID, SELFPAY ==
--- NOTE | 2022-12-16 11:45 | DI.MRI.S_ITS ---
BREAST MRI OF BOTH BREASTS: 12/16/2022 CLINICAL: Increased risk of breast cancer. Comparison is made to exams dated: 11/21/2022 mammogram, 11/19/2021 mammogram, and 07/24/2020 mammogram - [facility]. PROCEDURE: MR BREAST BI WO/W CON INDICATIONS: increased life time risk of Br CA TECHNIQUE: The patient was placed prone in a dedicated breast imaging coil. Precontrast axial STIR and 3D FLASH without fat saturation sequences were obtained. Both before and after bolus injection of contrast, sequential 1-minute axial 3D FLASH with fat saturation sequences for 3 time points, with subtraction images and maximum intensity projections (MIP's) generated. Delayed sagittal FLASH images with fat saturation were also obtained. Computer-aided detection, including computer algorithm analysis of MRI image data for lesion detection and characterization, pharmacokinetic analysis, with further physician review for interpretation, was performed. FINDINGS: Image quality: Excellent. There is mild right and moderate left background parenchymal enhancement. Both breasts are heterogeneously dense. Right breast: No suspicious mass, non-mass enhancement, or focus. Left breast: No suspicious mass, non-mass enhancement, or focus. Miscellaneous: No suspicious axillary or internal mammary adenopathy by size criteria. The partially visualized anterior mediastinum and upper abdomen are unremarkable. IMPRESSION: NEGATIVE No suspicious findings in either breast. Recommend continued annual mammographic and supplemental MRI surveillance imaging. BIRADS 1 COMMENT: The imaging literature indicates that a negative contrast breast MRI examination has a high sensitivity and a moderate specificity for detecting and excluding invasive carcinomas to a detection threshold of 3-5 mm; nonetheless, appropriate clinical and mammographic follow-up are recommended. MRI is not sensitive for detecting DCIS (ductal carcinoma in situ) and may not detect large invasive neoplasms that show only minimal enhancement such as mucinous carcinoma. If there are suspicious calcifications or clinically worrisome palpable masses, then biopsy should still be considered. Invasive neoplasms can be hidden by co-existent and benign enhancement caused by mastitis, hormone therapy effects, radiation therapy, , and recent biopsy or surgery. False positive examinations can occur in a number of circumstances, including breasts that have recently been subject to invasive procedures and those that contain atypical ductal hyperplasia, hormonally stimulated glandular tissue, fat necrosis, or radial scars. This exam was interpreted at Station ID: [id number]. Electronically Signed By: Chemo Glass M.D. lc/:12/16/2022 13:43:57 letter sent: Normal Exam ACR BI-RADS Category 1: Negative 3341F
== END ==
PROVIDERS: Family Provider Family Medicine; PCP Family Medicine; Referring Provider Family Medicine; Visit Provider Family Medicine
DX: Z91.89 Other specified personal risk factors, not elsewhere classified (principal); Z12.39 Encounter for other screening for malignant neoplasm of breast
CPT/HCPCS: 77049; A9579

== ENCOUNTER → 2023-05-19 15:06 | Outpatient (CLI) | payer OTHER, MEDICAID, SELFPAY ==
--- NOTE | 2023-05-19 15:10 | DI.MRI.S_ITS ---
PROCEDURE: MR CERVICAL SPINE WO CON INDICATIONS: numbness, weakness pain left arm/hand TECHNIQUE: Noncontrast sagittal T1 spin echo and T2 fast spin echo, sagittal STIR, foraminal oblique sagittal T2 fast spin echo, and axial gradient echo or T2 fast spin echo through the cervical spine. COMPARISON: [facility], MR, MR CERVICAL SPINE WO CON, 02/17/2020, 8:22. FINDINGS: Image quality: Excellent. Alignment and Curvature: There is normal bony alignment. Bone Marrow: Marrow demonstrates normal overall signal. Spinal Cord: Visualized spinal cord has normal size and signal. No cerebellar tonsillar herniation. The central canal is overall slightly narrowed with mild cord flattening at C5-6 but no other significant central canal stenosis. Paraspinous Soft Tissues: No paravertebral masses. Prevertebral soft tissues are normal in thickness. C2-C3: Normal appearance. C3-C4: Minor uncovertebral joint hypertrophy and circumferential disc osteophyte. Mild facet arthropathy. Minor bilateral foraminal narrowing. C4-C5: Mild disc height loss and mild circumferential disc osteophyte. Mild facet arthropathy resulting in mild bilateral foraminal stenosis. C5-C6: Mild disc height loss and circumferential disc osteophyte to a mild degree. There is effacement of anterior CSF and mild flattening the cord. Chronic bilateral facet and uncovertebral joint hypertrophy. Moderately severe left and [id number] right foraminal stenosis. C6-C7: Mild circumferential disc bulge. Mild facet arthropathy. Mild bilateral foraminal narrowing. C7-T1: Normal appearance. IMPRESSION: No significant progression in multilevel disc osteophyte and facet arthropathy, most severe at the C5-6 level causing chronic left C6 nerve root compression. Chronic mild central canal stenosis at C5-6. Dictated by: Sarah Louis M.D. on 05/19/2023 at 20:47 Approved by: Sarah Louis M.D. on 05/19/2023 at 20:58
== END ==
PROVIDERS: Family Provider Family Medicine; PCP Family Medicine; Referring Provider Family Medicine; Visit Provider Family Medicine
DX: M47.22 Other spondylosis with radiculopathy, cervical region (principal); M48.02 Spinal stenosis, cervical region; M99.01 Segmental and somatic dysfunction of cervical region; R20.2 Paresthesia of skin
CPT/HCPCS: 72141

== ENCOUNTER → 2023-11-21 08:32 | Outpatient (CLI) | payer OTHER, MEDICAID, SELFPAY ==
--- NOTE | 2023-11-21 08:34 | DI.RAD.S_ITS ---
PROCEDURE: XR KNEE RT 3V INDICATIONS: Right knee strain TECHNIQUE: 3 views of the knee were acquired. COMPARISON: None. FINDINGS: Bones: No fractures or dislocations. No suspicious bony lesions. Soft tissues: No joint effusion. No suspicious soft tissue calcifications. IMPRESSION: No acute bony abnormality. Dictated by: Dawson Atkins M.D. on 11/21/2023 at 13:33 Approved by: Dawson Atkins M.D. on 11/21/2023 at 13:43
== END ==
PROVIDERS: Family Provider Family Medicine; PCP Family Medicine; Referring Provider Nurse Practitioner Family; Visit Provider Nurse Practitioner Family
DX: S86.911A Strain of unspecified muscle(s) and tendon(s) at lower leg level, right leg, initial encounter (principal); X58.XXXA Exposure to other specified factors, initial encounter
CPT/HCPCS: 73562

== ENCOUNTER → 2023-12-27 10:46 | Outpatient (CLI) | payer OTHER, MEDICAID, SELFPAY ==
--- NOTE | 2023-12-27 10:47 | DI.MRI.S_ITS ---
PROCEDURE: MR KNEE RT WO CON INDICATIONS: pain TECHNIQUE: Noncontrast sagittal PD fast spin echo and T2 fast spin echo with fat saturation, sagittal 3-D FLASH with fat saturation; coronal T1 spin echo and PD fast spin echo with fat saturation, and axial PD fast spin echo with fat saturation through the knee. COMPARISON: None. FINDINGS: Image quality: Excellent. There are findings which suggest a posterolateral corner injury with increased T2 weighted signal/edema within and surrounding the fibular collateral ligament, distal popliteus muscle and tendon, popliteofibular ligament. Suspected meniscocapsular separation posteriorly with adjacent moderate fluid and soft tissue edema lateral greater than medial. Mild increased T2 weighted signal adjacent to the iliotibial tract without abnormal thickening and without tear. Moderate increased T2 weighted signal and thickening of the distal biceps femoris tendon without abnormal muscular edema and without full-thickness tear or retraction. Small popliteal cyst measuring approximately 3.5 cm cc by 1.5 cm transverse by 1 cm AP without gross MR evidence of rupture. Mild increased T2 weighted signal of the midportion of the posterior cruciate ligament may be related to injury/strain without full-thickness tear versus chronic changes. Anterior cruciate ligament is intact without abnormal thickening and with intact fibers. 9 mm diameter low T1, high T2 cystic structure is noted in the right distal femur metaphysis medially too small to characterize but may represent cyst or other lesion. Moderate degenerate changes of the knee are noted with a focal osteochondral defect with associated subchondral edema in the medial aspect of the lateral femoral condyle (sagittal series 7, image 16). Moderate diffuse cartilaginous thinning is noted in the lateral greater than medial greater than patellofemoral compartments. Mild knee joint effusion. Menisci: The medial and lateral menisci demonstrate normal morphology and internal signal. The meniscal root ligaments appear intact. Cruciate ligaments: The anterior and posterior cruciate ligaments appear intact. Anterior structures: The quadriceps and patellar tendons appear intact. Patellar alignment is normal. No femoral trochlear dysplasia or ventral trochlear prominence. No edema in the infrapatellar fat pad. IMPRESSION: Suspected posterolateral corner injury with increased T2 weighted signal/edema within and surrounding the fibular collateral ligament, distal popliteus muscle and tendon, popliteofibular ligament. Suspected meniscocapsular separation with adjacent moderate fluid and soft tissue edema lateral greater than medial. Mild increased T2 weighted signal adjacent to the iliotibial tract suggests injury/strain which may be chronic. Moderate increased T2 weighted signal and thickening of the distal biceps femoris tendon suggesting injury/strain. Small popliteal cyst. Mild increased signal of the posterior cruciate ligament may be related to injury/strain without full-thickness tear. 9 mm cystic structure right distal femur metaphysis medially too small to characterize but may represent cyst or other lesion. Moderate degenerate changes lateral greater than medial greater than patellofemoral. Dictated by: James Ibrahim M.D. on 12/29/2023 at 11:39 Approved by: James Ibrahim M.D. on 12/29/2023 at 12:26
== END ==
LOC: MRI 10:47
PROVIDERS: Family Provider Family Medicine; PCP Family Medicine; Referring Provider Family Medicine; Visit Provider Family Medicine
DX: M71.21 Synovial cyst of popliteal space [Baker], right knee (principal); M25.569 Pain in unspecified knee
CPT/HCPCS: 73721

== ENCOUNTER → 2024-04-30 13:06 | Outpatient (CLI) | payer OTHER, SELFPAY | PROVIDERS: Family Provider Family Medicine; PCP Family Medicine; Visit Provider Physician Assistant Surgical | DX: J02.9 Acute pharyngitis, unspecified (principal) | CPT/HCPCS: 87070; 87880 ==

== ENCOUNTER → 2024-06-08 11:01 | Outpatient (CLI) | payer OTHER, SELFPAY ==
--- NOTE | 2024-06-08 11:03 | DI.RAD.S_ITS ---
PROCEDURE: XR KNEE LT 3V INDICATIONS: left knee pain TECHNIQUE: 3 views of the knee were acquired. COMPARISON: [facility], CR, XR KNEE RT 3V, 11/21/2023, 8:34. FINDINGS: Bones: No fractures or dislocations. No suspicious bony lesions. Soft tissues: No joint effusion. No suspicious soft tissue calcifications. IMPRESSION: Left knee without acute osseous abnormalities. Dictated by: Hernan Quinones M.D. on 06/08/2024 at 14:18 Approved by: Hernan Quinones M.D. on 06/08/2024 at 14:18
== END ==
PROVIDERS: Family Provider Family Medicine; PCP Family Medicine; Referring Provider Family Medicine; Visit Provider Family Medicine
DX: M25.562 Pain in left knee (principal)
CPT/HCPCS: 73562

== ENCOUNTER 2024-08-02 13:45 | Outpatient (RCR) | payer OTHER, SELFPAY ==
--- NOTE | 2024-04-12 18:54 | PT.OIE ---
Current Diagnoses Pain in unspecified knee (04/12/24) Low back pain, unspecified (04/12/24) Segmental and somatic dysfunction of lower extremity (04/12/24) Weakness (04/12/24) Past Medical History (Last Reviewed 07/24/21 @ 15:33 by Buck Pinon MD) Anxiety Body posture problem Cervical somatic dysfunction Chronic bilateral thoracic back pain Chronic low back pain without sciatica Lumbar region somatic dysfunction Pelvic somatic dysfunction Sacral region somatic dysfunction Segmental and somatic dysfunction of abdomen and other regions Segmental and somatic dysfunction of rib cage Somatic dysfunction of lower extremity Thoracic region somatic dysfunction Visit Care Team Role Provider Type Tana Zuleta MD Attending Provider Physician Family Provider Primary Care Provider Referring Provider Specialty: Family Practice Address: [address] [place] [address], [facility] Email: [email or web address] Physical Therapy Initial Evaluation PT-OP-A Visit Information Start: 04/05/24 10:27 Freq: Status: Active Protocol: Document 04/12/24 10:45 [facility] (Rec: 04/12/24 11:31 [facility] [id number]) Out-Patient Physical Therapy Visit Information Visit Information Visit Type Initial Evaluation Visit Start Time 10:46 Visit Stop Time 11:30 Visit Number 1 Number of POP SINGER Visits 0 PT-OP-B Current Condition Start: 04/05/24 10:27 Freq: Status: Active Protocol: Document 04/12/24 10:45 [facility] (Rec: 04/12/24 11:31 [facility] [id number]) Current Condition History of Current Condition Onset Date September 2023 Current Complaints R > L knee pain, LBP History of Current Condition Pt reports started getting a knee hitch (where knee locks in flex) when walking. Tried yoga and that backfired. She got an xray when it was swelling up. She saw ortho and he thought the MRI report was wrong. She was frustrated because he didn't give her anything. He said maybe there was a meniscus tear. She has been reading and it does sound like meniscus tear. 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 L knee is also painful. No sudden incident. She has been off the water and doing more online schooling. She has been walking and [place] the [place] with minimal pain in knees going up. Can't squat w/o pain. Knee has collapsed under her. hx of knee pain starting in 20s where she had to stop biking and running and did PT in mid to late 40s and did strengthening and foam rolling which allowed her to bike. LBP has been giving her issues . She does have some OA in R spine and does has scoliosis. Pain mostly R>L lumbar spine. She has been reading a book about mechanics by Albert Armando. There was a time when getting in/out of car was painful to R knee. Prior Treatments and Tests Knee MRI: IMPRESSION: Suspected posterolateral corner injury with increased T2 weighted signal/edema within and surrounding the fibular collateral ligament, distal popliteus muscle and tendon, popliteofibular ligament. Suspected meniscocapsular separation with adjacent moderate fluid and soft tissue edema lateral greater than medial. Mild increased T2 weighted signal adjacent to the iliotibial tract suggests injury/strain which may be chronic. Moderate increased T2 weighted signal and thickening of the distal biceps femoris tendon suggesting injury/strain. Small popliteal cyst. Mild increased signal of the posterior cruciate ligament may be related to injury/ strain without full-thickness tear. 9 mm cystic structure right distal femur metaphysis medially too small to characterize but may represent cyst or other lesion. Moderate degenerate changes lateral greater than medial greater than patellofemoral. Treatment Goals Patient/Caregiver Goals know how to strengthen, be able to do resistance activities (like work on house /boats w/o injury), be able squat PT-OP-C Subjective Start: 04/05/24 10:27 Freq: Status: Active Protocol: Document 04/12/24 10:45 [facility] (Rec: 04/12/24 11:31 [facility] [id number]) Patient Questionnaires Lower Extremity Functional Scale LEFS Score 61/80 OP-PT Pain Assessment Location LB Pain Location Details R>L Frequency Daily Pain Aggravating Factors Bending Other Pain Aggravating Factors oversink activities knee pain Pain Location Details R>L Description- Other catching R Pain Aggravating Factors Stair Climbing Other Pain Aggravating Factors random catching, squatting PT-OP-D Balance Start: 04/05/24 10:27 Freq: Status: Active Protocol: Document 04/12/24 10:45 [facility] (Rec: 04/12/24 11:37 [facility] [id number]) Balance Tests Single Limb Standing Single Limb- Right 30 sec w/hip lat shear Single Limb- Left 30 sec w/lat trunk tilt PT-OP-G Mobility & Gait Start: 04/05/24 10:27 Freq: Status: Active Protocol: Document 04/12/24 10:45 [facility] (Rec: 04/12/24 11:31 [facility] [id number]) OP Gait Assessment Comments Gait Comments inc R protation and lat shear of R hip w/WB, dec UE swing PT-OP-J Posture/Palpation/Skin Start: 04/05/24 10:27 Freq: Status: Active Protocol: Document 04/12/24 10:45 [facility] (Rec: 04/12/24 11:31 [facility] [id number]) Posture Evaluation [facility] Postural Classification System [facility] Postural Classifications Posterior/Anterior Vertical Compression Test 0 Lumbar Protective Mechanism Left AP 0 Lumbar Protective Mechanism Right AP 0 Lumbar Protective Mechanism Left PA 2 Lumbar Protective Mechanism Right PA 3 Comments Posture Comments supinated R>L foot, equal greater trochanter height, R iliac crest higher, B tibial ER and B femoral IR PT-OP-K Range of Motion Start: 04/05/24 10:27 Freq: Status: Active Protocol: Document 04/12/24 10:45 [facility] (Rec: 04/12/24 11:31 [facility] [id number]) Lumbar Spine Range of Motion Lumbar Spine Active Percentage Flexion 65 Extension 50 Rotation Left 50 Rotation Right 60 Lateral Flexion Left 60 Lateral Flexion Right 50 ROM Limitations Pain Comments sup patella w/pelvis blocked, hands on floor pain w/flex and ext PT-OP-M Strength Start: 04/12/24 11:32 Freq: Status: Active Protocol: Document 04/12/24 10:45 [facility] (Rec: 04/12/24 11:37 [facility] [id number]) Hip Strength Hip Manual Muscle Testing Right Flexion (L2) 3+ Fair+ Extension (S1) 3+ Fair+ Abduction 4- Good- Adduction 5 Normal External Rotation 4+ Good+ Internal Rotation 5 Normal Left Flexion (L2) 3+ Fair+ Extension (S1) 4- Good- Abduction 4+ Good+ Adduction 5 Normal External Rotation 5 Normal Internal Rotation 5 Normal Knee Strength Knee Manual Muscle Testing Right Flexion (S2) 4 Good Extension (L3) 5 Normal Comments pain ant knee Left Flexion (S2) 5 Normal Extension (L3) 5 Normal Ankle/Foot Strength Ankle and Foot Manual Muscle Testing B Dorsiflexion (L4) 5 Normal Plantarflexion (S1) 5 Normal Comments PF tested seated PT-OP-Q Treatments Start: 04/05/24 10:27 Freq: Status: Active Protocol: Document 04/12/24 10:45 [facility] (Rec: 04/12/24 15:14 [facility] [id number]) Self-Care/Home Management Treatment Education Other Education 10min: edu how back pain and knee pain are likely connected d/t pelvis rotation and dysfunction along w/dec core control and poor activiation of hip abd. Edu re: counter rotation at knee likely affected meniscus potentially creating wear and tear injury. PT-OP-T Assessment and Plan Start: 04/05/24 10:27 Freq: Status: Active Protocol: Document 04/12/24 10:45 [facility] (Rec: 04/12/24 11:31 [facility] [id number]) Physical Therapy Assessment Rehab Potential Rehabilitation Potential Good Evaluation Complexity Number of Personal Factors/Comorbidities 3 or More Number of Body Systems Impaired 4 or More Clinical Presentation at Evaluation Evolving Impairments Impairments Activity Tolerance,Functional Activities,Functional Mobility ,Gait,Pain,Posture,ROM,Soft Tissue Mobility,Strength Goals squat Mcc Goal (LTG) Pt will be able to squat fully w/o knee or back pain LTG Duration 06/21 activities Short Term Goal (STG) Pt will report no further instances for 1 week of R knee locking on her STG Duration 05/22 Mcc Goal (LTG) Pt will be able to do all boat and housework w/o pain greater than 2/10 in B knees or back LTG Duration 06/21 strength Short Term Goal (STG) Pt will be indep w/HEP STG Duration 05/22 Traffic Monitor Specialist Goal (LTG) Pt will score at least 4+/5 on all BLE MMT and at least 3/5 on LPM to shwo improved stability for greater ease with daily activities LTG Duration 06/21 Assessment Summary Assessment Pt presents w/R>L knee pain w/ R knee having instances of locking, w/LBP w/scoliosis hx along w/pelvis dysfunction notable today along w/core weakness and hip weakness of RLE>L. She has rotational positioning at tibiofemoral joint likely increasing stress on B knees but more notable on R. She does have MRI showing possible meniscus tear along w/tendonosis of ITB and biceps femoris and popliteal cyst. She is unable to squat and has inc pain in back w/ resistance activities (work on boat/house). 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 She would benefit from skilled PT to address these issues and work on Physical Therapy Plan Frequency and Duration Frequency of Treatment 1-2x/wk Duration of treatment (weeks) 10 Plan of Care Start Date 04/12/24 Plan of Care End Date 06/21/24 Therapeutic Interventions Therapeutic Interventions Balance Training,Gait Training ,Home Exercise Program,Joint Mobilizations,Manual Therapy, Neuromuscular Re-education, Patient/Caregiver Education, Self-Care/Home Management,Soft Tissue Mobilization,Taping, Therapeutic Activities, Therapeutic Exercises Modalities Cold Pack/Ice Massage,Electric Stimulation,Hot Packs, Infrared Therapy,Ultrasound Next Visit Focus/Plan Next Note Type Treatment Note Next Visit Plan check knee ROM and special tests manual: focus more R but L needed also, innominate mobility, hip and ankle and knee mobility HEP: HS curl, sidesteps,DL flex for core, open book
--- NOTE | 2024-04-14 18:02 | PT.OTN ---
Current Diagnoses Pain in unspecified knee (04/14/24) Low back pain, unspecified (04/14/24) Segmental and somatic dysfunction of lower extremity (04/14/24) Weakness (04/14/24) Physical Therapy Treatment Note PT-OP-A Visit Information Start: 04/05/24 10:27 Freq: Status: Active Protocol: Document 04/14/24 10:53 [facility] (Rec: 04/14/24 17:58 [facility] [id number]) Out-Patient Physical Therapy Visit Information Visit Information Visit Type Treatment Note Visit Start Time 10:52 Visit Stop Time 11:32 Visit Number 2 Number of HOG BUYER Visits 0 PT-OP-B Current Condition Start: 04/05/24 10:27 Freq: Status: Active Protocol: Document 04/12/24 10:45 [facility] (Rec: 04/12/24 11:31 [facility] [id number]) Current Condition History of Current Condition Onset Date September 2023 Current Complaints R > L knee pain, LBP History of Current Condition Pt reports started getting a knee hitch (where knee locks in flex) when walking. Tried yoga and that backfired. She got an xray when it was swelling up. She saw ortho and he thought the MRI report was wrong. She was frustrated because he didn't give her anything. He said maybe there was a meniscus tear. She has been reading and it does sound like meniscus tear. 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 L knee is also painful. No sudden incident. She has been off the water and doing more online schooling. She has been walking and [place] the [place] with minimal pain in knees going up. Can't squat w/o pain. Knee has collapsed under her. hx of knee pain starting in 20s where she had to stop biking and running and did PT in mid to late 40s and did strengthening and foam rolling which allowed her to bike. LBP has been giving her issues . She does have some OA in R spine and does has scoliosis. Pain mostly R>L lumbar spine. She has been reading a book about mechanics by Albert Armando. There was a time when getting in/out of car was painful to R knee. Prior Treatments and Tests Knee MRI: IMPRESSION: Suspected posterolateral corner injury with increased T2 weighted signal/edema within and surrounding the fibular collateral ligament, distal popliteus muscle and tendon, popliteofibular ligament. Suspected meniscocapsular separation with adjacent moderate fluid and soft tissue edema lateral greater than medial. Mild increased T2 weighted signal adjacent to the iliotibial tract suggests injury/strain which may be chronic. Moderate increased T2 weighted signal and thickening of the distal biceps femoris tendon suggesting injury/strain. Small popliteal cyst. Mild increased signal of the posterior cruciate ligament may be related to injury/ strain without full-thickness tear. 9 mm cystic structure right distal femur metaphysis medially too small to characterize but may represent cyst or other lesion. Moderate degenerate changes lateral greater than medial greater than patellofemoral. Treatment Goals Patient/Caregiver Goals know how to strengthen, be able to do resistance activities (like work on house /boats w/o injury), be able squat PT-OP-C Subjective Start: 04/05/24 10:27 Freq: Status: Active Protocol: Document 04/14/24 10:53 [facility] (Rec: 04/14/24 17:58 [place] [id number]) OP-PT Subjective Patient Comments Patient Comments Pt reports knee was sore after last session PT-OP-D Balance Start: 04/05/24 10:27 Freq: Status: Active Protocol: Document 04/12/24 10:45 [facility] (Rec: 04/12/24 11:37 [place] [id number]) Balance Tests Single Limb Standing Single Limb- Right 30 sec w/hip lat shear Single Limb- Left 30 sec w/lat trunk tilt PT-OP-G Mobility & Gait Start: 04/05/24 10:27 Freq: Status: Active Protocol: Document 04/12/24 10:45 [facility] (Rec: 04/12/24 11:31 [id number] OP Gait Assessment Comments Gait Comments inc R protation and lat shear of R hip w/WB, dec UE swing PT-OP-J Posture/Palpation/Skin Start: 04/05/24 10:27 Freq: Status: Active Protocol: Document 04/12/24 10:45 [facility] (Rec: 04/12/24 11:31 [id number] Posture Evaluation [facility] Postural Classification System [facility] Postural Classifications Posterior/Anterior Vertical Compression Test 0 Lumbar Protective Mechanism Left AP 0 Lumbar Protective Mechanism Right AP 0 Lumbar Protective Mechanism Left PA 2 Lumbar Protective Mechanism Right PA 3 Comments Posture Comments supinated R>L foot, equal greater trochanter height, R iliac crest higher, B tibial ER and B femoral IR PT-OP-K Range of Motion Start: 04/05/24 10:27 Freq: Status: Active Protocol: Document 04/14/24 10:53 [facility] (Rec: 04/14/24 17:58 [facility] [id number]) Knee Goniometric Range of Motion Knee Right Flexion Active (degrees) 135 Extension Active (degrees) 0 Left Flexion Active (degrees) 135 Extension Active (degrees) 0 Comments pain w/ext PT-OP-M Strength Start: 04/12/24 11:32 Freq: Status: Active Protocol: Document 04/12/24 10:45 [facility] (Rec: 04/12/24 11:37 [id number] Hip Strength Hip Manual Muscle Testing Right Flexion (L2) 3+ Fair+ Extension (S1) 3+ Fair+ Abduction 4- Good- Adduction 5 Normal External Rotation 4+ Good+ Internal Rotation 5 Normal Left Flexion (L2) 3+ Fair+ Extension (S1) 4- Good- Abduction 4+ Good+ Adduction 5 Normal External Rotation 5 Normal Internal Rotation 5 Normal Knee Strength Knee Manual Muscle Testing Right Flexion (S2) 4 Good Extension (L3) 5 Normal Comments pain ant knee Left Flexion (S2) 5 Normal Extension (L3) 5 Normal Ankle/Foot Strength Ankle and Foot Manual Muscle Testing B Dorsiflexion (L4) 5 Normal Plantarflexion (S1) 5 Normal Comments PF tested seated PT-OP-Q Treatments Start: 04/05/24 10:27 Freq: Status: Active Protocol: Document 04/14/24 10:53 [facility] (Rec: 04/14/24 17:58 [facility] [id number]) Therapeutic Exercises Supine Exercises core Supine Exercise Name DL flex w/DF isometric Side bilateral Reps/Minutes 30 sec bridge Side bilateral Reps/Minutes 10 Comments segmental lift Sidelying Exercises open book Side bilateral Reps/Minutes 8 Comments cues thoracic rot Sitting Exercises HS curl Side bilateral Equipment Used L3 Reps/Minutes 10 ea Standing Exercises sidesteps Side bilateral Equipment Used L2 Reps/Minutes 15 ft ea Comments cues no lean and control Other Exercises gregory pose Side bilateral Reps/Minutes 30 sec Manual Therapy Treatment Consent Patient gave verbal consent for manual Yes treatment Soft Tissue Mobilization quad Body Location R Mobilization Type Rolling Intensity/Depth Moderate Body Position Hooklying Joint Mobilizations innominate Comments R caudal and ER c/r, L IR c/r sacrum Comments R caudal and UPA R w/LTR c/r hip Comments R hip on axis ER and L IR c/r w/manual facilitation and COI at end range PT-OP-T Assessment and Plan Start: 04/05/24 10:27 Freq: Status: Active Protocol: Document 04/14/24 10:53 [facility] (Rec: 04/14/24 17:58 [facility] [id number]) Physical Therapy Assessment Goals squat Custodial Goal (LTG) Pt will be able to squat fully w/o knee or back pain LTG Duration 06/21 activities Short Term Goal (STG) Pt will report no further instances for 1 week of R knee locking on her STG Duration 05/22 Big Data Analytics Lead Goal (LTG) Pt will be able to do all boat and housework w/o pain greater than 2/10 in B knees or back LTG Duration 06/21 strength Short Term Goal (STG) Pt will be indep w/HEP STG Duration 05/22 Custodial Goal (LTG) Pt will score at least 4+/5 on all BLE MMT and at least 3/5 on LPM to shwo improved stability for greater ease with daily activities LTG Duration 06/21 Assessment Summary Assessment Pt improved with hip IR/ER in LEs and improved pelvis moblity. She did well with exercises w/cues for form focus. soem pain noted in knees w/bridges Physical Therapy Plan Frequency and Duration Frequency of Treatment 1-2x/wk Duration of treatment (weeks) 10 Plan of Care Start Date 04/12/24 Plan of Care End Date 06/21/24 Next Visit Focus/Plan Next Note Type Treatment Note Next Visit Plan innominate mobility, hip and ankle and knee mobility review and advanceHEP: HS curl , sidesteps,DL flex for core, open book
--- NOTE | 2024-04-19 12:16 | PT.OTN ---
Current Diagnoses Pain in unspecified knee (04/19/24) Low back pain, unspecified (04/19/24) Segmental and somatic dysfunction of lower extremity (04/19/24) Weakness (04/19/24) Physical Therapy Treatment Note PT-OP-A Visit Information Start: 04/05/24 10:27 Freq: Status: Active Protocol: Document 04/19/24 11:34 SP (Rec: 04/19/24 12:35 SP [id number]) Out-Patient Physical Therapy Visit Information Visit Information Visit Type Treatment Note Visit Start Time 11:34 Visit Stop Time 12:16 Visit Number 3 Number of PORTER HEAD Visits 1 PT-OP-B Current Condition Start: 04/05/24 10:27 Freq: Status: Active Protocol: Document 04/12/24 10:45 [facility] (Rec: 04/12/24 11:31 [facility] [id number]) Current Condition History of Current Condition Onset Date September 2023 Current Complaints R > L knee pain, LBP History of Current Condition Pt reports started getting a knee hitch (where knee locks in flex) when walking. Tried yoga and that backfired. She got an xray when it was swelling up. She saw ortho and he thought the MRI report was wrong. She was frustrated because he didn't give her anything. He said maybe there was a meniscus tear. She has been reading and it does sound like meniscus tear. 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 L knee is also painful. No sudden incident. She has been off the water and doing more online schooling. She has [place] walking and [place] with minimal pain in knees going up. Can't squat w/o pain. Knee has collapsed under her. hx of knee pain starting in 20s where she had to stop biking and running and did PT in mid to late 40s and did strengthening and foam rolling which allowed her to bike. LBP has been giving her issues . She does have some OA in R spine and does has scoliosis. Pain mostly R>L lumbar spine. She has been reading a book about mechanics by Albert Armando. There was a time when getting in/out of car was painful to R knee. Prior Treatments and Tests Knee MRI: IMPRESSION: Suspected posterolateral corner injury with increased T2 weighted signal/edema within and surrounding the fibular collateral ligament, distal popliteus muscle and tendon, popliteofibular ligament. Suspected meniscocapsular separation with adjacent moderate fluid and soft tissue edema lateral greater than medial. Mild increased T2 weighted signal adjacent to the iliotibial tract suggests injury/strain which may be chronic. Moderate increased T2 weighted signal and thickening of the distal biceps femoris tendon suggesting injury/strain. Small popliteal cyst. Mild increased signal of the posterior cruciate ligament may be related to injury/ strain without full-thickness tear. 9 mm cystic structure right distal femur metaphysis medially too small to characterize but may represent cyst or other lesion. Moderate degenerate changes lateral greater than medial greater than patellofemoral. Treatment Goals Patient/Caregiver Goals know how to strengthen, be able to do resistance activities (like work on house /boats w/o injury), be able squat PT-OP-C Subjective Start: 04/05/24 10:27 Freq: Status: Active Protocol: Document 04/19/24 11:34 SP (Rec: 04/19/24 12:35 SP [id number]) OP-PT Subjective Patient Comments Patient Comments Pt compliant with HEP, progressed if ok modified curl ups hands in back and head/ shld lift or unweight floor cascade reps 6 rep , 4 reps, 2 reps with 10 Sh each then side plank knees bend same 6, 4, 2 /c 10 SH, 3rd bird dog same 6, 4, 2 10 SH. Today back seems getting better. Did HEP every day except 1 and walk 30 min except 1day and walked 1.[address] [place] on [place] [facility]. She reported was mindful of walking trying keep level, foot alignment and felt hard work but less R hip to side feeling, was able to control WB into RLE. PT-OP-D Balance Start: 04/05/24 10:27 Freq: Status: Active Protocol: Document 04/12/24 10:45 LR (Rec: 04/12/24 11:37 [facility] [id number]) Balance Tests Single Limb Standing Single Limb- Right 30 sec w/hip lat shear Single Limb- Left 30 sec w/lat trunk tilt PT-OP-G Mobility & Gait Start: 04/05/24 10:27 Freq: Status: Active Protocol: Document 04/12/24 10:45 LR (Rec: 04/12/24 11:31 [facility] [id number]) OP Gait Assessment Comments Gait Comments inc R protation and lat shear of R hip w/WB, dec UE swing PT-OP-J Posture/Palpation/Skin Start: 04/05/24 10:27 Freq: Status: Active Protocol: Document 04/12/24 10:45 [facility] (Rec: 04/12/24 11:31 [facility] [id number]) Posture Evaluation [facility] Postural Classification System [facility] Postural Classifications Posterior/Anterior Vertical Compression Test 0 Lumbar Protective Mechanism Left AP 0 Lumbar Protective Mechanism Right AP 0 Lumbar Protective Mechanism Left PA 2 Lumbar Protective Mechanism Right PA 3 Comments Posture Comments supinated R>L foot, equal greater trochanter height, R iliac crest higher, B tibial ER and B femoral IR PT-OP-K Range of Motion Start: 04/05/24 10:27 Freq: Status: Active Protocol: Document 04/14/24 10:53 [facility] (Rec: 04/14/24 17:58 [facility] [id number]) Knee Goniometric Range of Motion Knee Right Flexion Active (degrees) 135 Extension Active (degrees) 0 Left Flexion Active (degrees) 135 Extension Active (degrees) 0 Comments pain w/ext PT-OP-M Strength Start: 04/12/24 11:32 Freq: Status: Active Protocol: Document 04/12/24 10:45 [facility] (Rec: 04/12/24 11:37 [facility] [id number]) Hip Strength Hip Manual Muscle Testing Right Flexion (L2) 3+ Fair+ Extension (S1) 3+ Fair+ Abduction 4- Good- Adduction 5 Normal External Rotation 4+ Good+ Internal Rotation 5 Normal Left Flexion (L2) 3+ Fair+ Extension (S1) 4- Good- Abduction 4+ Good+ Adduction 5 Normal External Rotation 5 Normal Internal Rotation 5 Normal Knee Strength Knee Manual Muscle Testing Right Flexion (S2) 4 Good Extension (L3) 5 Normal Comments pain ant knee Left Flexion (S2) 5 Normal Extension (L3) 5 Normal Ankle/Foot Strength Ankle and Foot Manual Muscle Testing B Dorsiflexion (L4) 5 Normal Plantarflexion (S1) 5 Normal Comments PF tested seated PT-OP-Q Treatments Start: 04/05/24 10:27 Freq: Status: Active Protocol: Document 04/19/24 11:34 SP (Rec: 04/19/24 12:35 SP [id number]) Therapeutic Exercises Supine Exercises Fig 4 Supine Exercise Name added to HEP Side bilateral Reps/Minutes 60 SH Comments R lateral tightness, L jt tightness (pillow support) core Supine Exercise Name DL flex w/DF isometric Side bilateral Reps/Minutes 30 sec bridge Side bilateral Reps/Minutes 10, 1 SH Comments segmental lift & lower- good slow pacing glut drive- no ARCH Sitting Exercises HS curl Side bilateral Resistance opp ft on stool Equipment Used L3 Reps/Minutes 10 ea Standing Exercises sidesteps Standing Exercise Name f/b/lateral Side bilateral Equipment Used L2 at ankles Reps/Minutes 15 ft ea Comments cues no lean and control L ft eccentric landing /c RLE WB control Other Exercises self HEP progression Other Exercise Name reviewed a self: core curl up, side plank, bird dog Comments cues given for chin tuck and slower pacing bird dog. Manual Therapy Treatment Consent Patient gave verbal consent for manual Yes treatment Soft Tissue Mobilization quad Body Location R quad and TFL Mobilization Type Rolling Intensity/Depth Moderate Comments L bent, R straight. Joint Mobilizations innominate Comments R caudal and ER c/r, L IR c/r with PA prox femur hip Comments R hip on axis ER and L IR c/r w/manual facilitation and COI at end range PT-OP-T Assessment and Plan Start: 04/05/24 10:27 Freq: Status: Active Protocol: Document 04/19/24 11:34 SP (Rec: 04/19/24 12:35 SP [id number]) Physical Therapy Assessment Goals squat Bookbinding Machine Operator Goal (LTG) Pt will be able to squat fully w/o knee or back pain LTG Duration 06/21 activities Short Term Goal (STG) Pt will report no further instances for 1 week of R knee locking on her STG Duration 05/22 Bookbinding Machine Operator Goal (LTG) Pt will be able to do all boat and housework w/o pain greater than 2/10 in B knees or back LTG Duration 06/21 strength Short Term Goal (STG) Pt will be indep w/HEP STG Duration 05/22 Senior Care Goal (LTG) Pt will score at least 4+/5 on all BLE MMT and at least 3/5 on LPM to shwo improved stability for greater ease with daily activities LTG Duration 06/21 Assessment Summary Assessment PORTER HEAD provided cues during pt review self progression BIG 3 plank bird dog modified curl up: cues for chin tuck and slow pacing, good form. Improved ER range R post manual. Added Fig 4 to stretching HEP for carryover ROM. Cues for RLE midstance into ext eccentric LLE andvancement during gait pre manual and resisted stepping able to carryover, good hip abd effort tiring, progressed fwd/bwd as well. Physical Therapy Plan Frequency and Duration Frequency of Treatment 1-2x/wk Duration of treatment (weeks) 10 Plan of Care Start Date 04/12/24 Plan of Care End Date 06/21/24 Therapeutic Interventions Therapeutic Interventions Balance Training,Gait Training ,Home Exercise Program,Joint Mobilizations,Manual Therapy, Neuromuscular Re-education, Patient/Caregiver Education, Self-Care/Home Management,Soft Tissue Mobilization,Taping, Therapeutic Activities, Therapeutic Exercises Modalities Cold Pack/Ice Massage,Electric Stimulation,Hot Packs, Infrared Therapy,Ultrasound Next Visit Focus/Plan Next Note Type Treatment Note Next Visit Plan innominate mobility, hip and ankle and knee mobility review and advance HEP: Fig 4 stretch, HS curl, directional resisted steping, add lateral step ups, DL flex for core, open book
--- NOTE | 2024-04-21 12:33 | PT.OTN ---
Current Diagnoses Pain in unspecified knee (04/21/24) Low back pain, unspecified (04/21/24) Segmental and somatic dysfunction of lower extremity (04/21/24) Weakness (04/21/24) Physical Therapy Treatment Note PT-OP-A Visit Information Start: 04/05/24 10:27 Freq: Status: Active Protocol: Document 04/21/24 11:34 SP (Rec: 04/21/24 12:33 SP [id number]) Out-Patient Physical Therapy Visit Information Visit Information Visit Type Treatment Note Visit Start Time 11:34 Visit Stop Time 12:18 Visit Number 4 Number of TITLE VEHICLE SERVICE ATTENDANT Visits 2 PT-OP-B Current Condition Start: 04/05/24 10:27 Freq: Status: Active Protocol: Document 04/12/24 10:45 [facility] (Rec: 04/12/24 11:31 [facility] [id number]) Current Condition History of Current Condition Onset Date September 2023 Current Complaints R > L knee pain, LBP History of Current Condition Pt reports started getting a knee hitch (where knee locks in flex) when walking. Tried yoga and that backfired. She got an xray when it was swelling up. She saw ortho and he thought the MRI report was wrong. She was frustrated because he didn't give her anything. He said maybe there was a meniscus tear. She has been reading and it does sound like meniscus tear. 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 L knee is also painful. No sudden incident. She has been off the water and doing more online schooling. [place] has [place] walking [place] with minimal pain in knees going up. Can't squat w/o pain. Knee has collapsed under her. hx of knee pain starting in 20s where she had to stop biking and running and did PT in mid to late 40s and did strengthening and foam rolling which allowed her to bike. LBP has been giving her issues . She does have some OA in R spine and does has scoliosis. Pain mostly R>L lumbar spine. She has been reading a book about mechanics by Albert Armando. There was a time when getting in/out of car was painful to R knee. Prior Treatments and Tests Knee MRI: IMPRESSION: Suspected posterolateral corner injury with increased T2 weighted signal/edema within and surrounding the fibular collateral ligament, distal popliteus muscle and tendon, popliteofibular ligament. Suspected meniscocapsular separation with adjacent moderate fluid and soft tissue edema lateral greater than medial. Mild increased T2 weighted signal adjacent to the iliotibial tract suggests injury/strain which may be chronic. Moderate increased T2 weighted signal and thickening of the distal biceps femoris tendon suggesting injury/strain. Small popliteal cyst. Mild increased signal of the posterior cruciate ligament may be related to injury/ strain without full-thickness tear. 9 mm cystic structure right distal femur metaphysis medially too small to characterize but may represent cyst or other lesion. Moderate degenerate changes lateral greater than medial greater than patellofemoral. Treatment Goals Patient/Caregiver Goals know how to strengthen, be able to do resistance activities (like work on house /boats w/o injury), be able squat PT-OP-C Subjective Start: 04/05/24 10:27 Freq: Status: Active Protocol: Document 04/21/24 11:34 SP (Rec: 04/21/24 12:33 SP [id number]) OP-PT Subjective Patient Comments Patient Comments Pt reports 4-45 min walk incline/decline. Feel the manual helping and resisted stepping,noted more core/ lateral trunk engagement tiring. She said has xray measurements and leg lengths are same so think its function that is off and trying be mindful of pelvis and softer LE advancement. She thought wondered if using heel lift in L shoe again can help while work back to not using with better function. She reported when was years ago more on R deep done bottom of pelvis and had to sleep on sitting and challenged with adduction against resistance due to that pain and so wonder if contributer to why pelvis wonky now. Was able to complete L Fig 4 without pillow later day after last tx so better releases. PT-OP-D Balance Start: 04/05/24 10:27 Freq: Status: Active Protocol: Document 04/12/24 10:45 LR (Rec: 04/12/24 11:37 [facility] [id number]) Balance Tests Single Limb Standing Single Limb- Right 30 sec w/hip lat shear Single Limb- Left 30 sec w/lat trunk tilt PT-OP-G Mobility & Gait Start: 04/05/24 10:27 Freq: Status: Active Protocol: Document 04/12/24 10:45 [facility] (Rec: 04/12/24 11:31 [facility] [id number]) OP Gait Assessment Comments Gait Comments inc R protation and lat shear of R hip w/WB, dec UE swing PT-OP-J Posture/Palpation/Skin Start: 04/05/24 10:27 Freq: Status: Active Protocol: Document 04/12/24 10:45 [facility] (Rec: 04/12/24 11:31 [facility] [id number]) Posture Evaluation [facility] Postural Classification System [facility] Postural Classifications Posterior/Anterior Vertical Compression Test 0 Lumbar Protective Mechanism Left AP 0 Lumbar Protective Mechanism Right AP 0 Lumbar Protective Mechanism Left PA 2 Lumbar Protective Mechanism Right PA 3 Comments Posture Comments supinated R>L foot, equal greater trochanter height, R iliac crest higher, B tibial ER and B femoral IR PT-OP-K Range of Motion Start: 04/05/24 10:27 Freq: Status: Active Protocol: Document 04/14/24 10:53 [facility] (Rec: 04/14/24 17:58 [facility] [id number]) Knee Goniometric Range of Motion Knee Right Flexion Active (degrees) 135 Extension Active (degrees) 0 Left Flexion Active (degrees) 135 Extension Active (degrees) 0 Comments pain w/ext PT-OP-M Strength Start: 04/12/24 11:32 Freq: Status: Active Protocol: Document 04/12/24 10:45 [facility] (Rec: 04/12/24 11:37 [facility] [id number]) Hip Strength Hip Manual Muscle Testing Right Flexion (L2) 3+ Fair+ Extension (S1) 3+ Fair+ Abduction 4- Good- Adduction 5 Normal External Rotation 4+ Good+ Internal Rotation 5 Normal Left Flexion (L2) 3+ Fair+ Extension (S1) 4- Good- Abduction 4+ Good+ Adduction 5 Normal External Rotation 5 Normal Internal Rotation 5 Normal Knee Strength Knee Manual Muscle Testing Right Flexion (S2) 4 Good Extension (L3) 5 Normal Comments pain ant knee Left Flexion (S2) 5 Normal Extension (L3) 5 Normal Ankle/Foot Strength Ankle and Foot Manual Muscle Testing B Dorsiflexion (L4) 5 Normal Plantarflexion (S1) 5 Normal Comments PF tested seated PT-OP-Q Treatments Start: 04/05/24 10:27 Freq: Status: Active Protocol: Document 04/21/24 11:34 SP (Rec: 04/21/24 12:33 SP [id number]) Therapeutic Exercises Supine Exercises Fig 4 Supine Exercise Name reviewed HEP Side bilateral Reps/Minutes 60 SH Comments B gentle stretch, LLE not needing support pillow now. Standing Exercises hip hikes Standing Exercise Name added to HEP Side bilateral Reps/Minutes 5 reps Comments more challenge L than R, not as low Lateral step down Standing Exercise Name added to HEP /c HO Side bilateral Equipment Used 6 step, contact PRN Reps/Minutes 10 reps x2 Comments cued level pelvis, knee midline/behind forefoot HS curl Standing Exercise Name added to HEP Side bilateral Resistance TB #1 Equipment Used hands on table Reps/Minutes 10 Comments cued tall, belly close to table, level pelvis, knees // sidesteps Standing Exercise Name f/b/lateral Side bilateral Equipment Used L2 at ankles Reps/Minutes 15 ft ea x2 each Comments Improved level pelvis, TS fac upper body Manual Therapy Treatment Consent Patient gave verbal consent for manual Yes treatment Soft Tissue Mobilization quad Body Location R quad and TFL and adductor Mobilization Type Rolling Intensity/Depth Moderate Comments L straight, R bent. STM and MWM hip IR/ER Joint Mobilizations innominate Comments R caudal and ER c/r, L IR c/r with PA prox femur hip Comments R hip on axis ER and L IR c/r w/manual facilitation at end range PT-OP-T Assessment and Plan Start: 04/05/24 10:27 Freq: Status: Active Protocol: Document 04/21/24 11:34 SP (Rec: 04/21/24 12:33 SP [id number]) Physical Therapy Assessment Goals squat Kiln Stoker Goal (LTG) Pt will be able to squat fully w/o knee or back pain LTG Duration 06/21 activities Short Term Goal (STG) Pt will report no further instances for 1 week of R knee locking on her STG Duration 05/22 Prison Goal (LTG) Pt will be able to do all boat and housework w/o pain greater than 2/10 in B knees or back LTG Duration 06/21 strength Short Term Goal (STG) Pt will be indep w/HEP STG Duration 05/22 Kiln Stoker Goal (LTG) Pt will score at least 4+/5 on all BLE MMT and at least 3/5 on LPM to shwo improved stability for greater ease with daily activities LTG Duration 06/21 Assessment Summary Assessment Pt improved hip ROM post manual and FIg 4 stretch not need pillow support. Progressed HS standing and hip abd strengthening hip hike and lateral step, cues for level pelvis TA slowpacing for proper form. Pt will look into 1/4 heel lift support as needed. Physical Therapy Plan Frequency and Duration Frequency of Treatment 1-2x/wk Duration of treatment (weeks) 10 Plan of Care Start Date 04/12/24 Plan of Care End Date 06/21/24 Therapeutic Interventions Therapeutic Interventions Balance Training,Gait Training ,Home Exercise Program,Joint Mobilizations,Manual Therapy, Neuromuscular Re-education, Patient/Caregiver Education, Self-Care/Home Management,Soft Tissue Mobilization,Taping, Therapeutic Activities, Therapeutic Exercises Modalities Cold Pack/Ice Massage,Electric Stimulation,Hot Packs, Infrared Therapy,Ultrasound Next Visit Focus/Plan Next Note Type Treatment Note Next Visit Plan Check if can add more appt into end May. POC: innominate mobility, hip and ankle and knee mobility Review and advance HEP: Fig 4 stretch, stand HS curl, directional resisted steping, lateral step ups & hip hike, DL flex for core, open book. Can progress SLS lateral sliders in PT. Recheck squat mechanics, maybe add band at knees.
--- NOTE | 2024-04-27 12:25 | PT.OTN ---
Current Diagnoses Pain in unspecified knee (04/27/24) Low back pain, unspecified (04/27/24) Segmental and somatic dysfunction of lower extremity (04/27/24) Weakness (04/27/24) Physical Therapy Treatment Note PT-OP-A Visit Information Start: 04/05/24 10:27 Freq: Status: Active Protocol: Document 04/27/24 10:38 AB (Rec: 04/27/24 12:25 AB [id number]) Out-Patient Physical Therapy Visit Information Visit Information Visit Type Treatment Note Visit Start Time 11:34 Visit Stop Time 12:20 Visit Number 5 Number of CENTER RECEPTIONIST Visits 3 PT-OP-B Current Condition Start: 04/05/24 10:27 Freq: Status: Active Protocol: Document 04/12/24 10:45 [facility] (Rec: 04/12/24 11:31 [facility] [id number]) Current Condition History of Current Condition Onset Date September 2023 Current Complaints R > L knee pain, LBP History of Current Condition Pt reports started getting a knee hitch (where knee locks in flex) when walking. Tried yoga and that backfired. She got an xray when it was swelling up. She saw ortho and he thought the MRI report was wrong. She was frustrated because he didn't give her anything. He said maybe there was a meniscus tear. She has been reading and it does sound like meniscus tear. 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 L knee is also painful. No sudden incident. She has been off the water and doing more online schooling. She has been walking and [place] the [place] with minimal pain in knees going up. Can't squat w/o pain. Knee has collapsed under her. hx of knee pain starting in 20s where she had to stop biking and running and did PT in mid to late 40s and did strengthening and foam rolling which allowed her to bike. LBP has been giving her issues . She does have some OA in R spine and does has scoliosis. Pain mostly R>L lumbar spine. She has been reading a book about mechanics by Albert Armando. There was a time when getting in/out of car was painful to R knee. Prior Treatments and Tests Knee MRI: IMPRESSION: Suspected posterolateral corner injury with increased T2 weighted signal/edema within and surrounding the fibular collateral ligament, distal popliteus muscle and tendon, popliteofibular ligament. Suspected meniscocapsular separation with adjacent moderate fluid and soft tissue edema lateral greater than medial. Mild increased T2 weighted signal adjacent to the iliotibial tract suggests injury/strain which may be chronic. Moderate increased T2 weighted signal and thickening of the distal biceps femoris tendon suggesting injury/strain. Small popliteal cyst. Mild increased signal of the posterior cruciate ligament may be related to injury/ strain without full-thickness tear. 9 mm cystic structure right distal femur metaphysis medially too small to characterize but may represent cyst or other lesion. Moderate degenerate changes lateral greater than medial greater than patellofemoral. Treatment Goals Patient/Caregiver Goals know how to strengthen, be able to do resistance activities (like work on house /boats w/o injury), be able squat PT-OP-C Subjective Start: 04/05/24 10:27 Freq: Status: Active Protocol: Document 04/27/24 10:38 AB (Rec: 04/27/24 12:25 AB [id number]) OP-PT Subjective Patient Comments Patient Comments Patient reports back is better more of the time, the knee is some better. Patient reports knee gets caught further into extension with pain in knee joint posteriorly. PT-OP-D Balance Start: 04/05/24 10:27 Freq: Status: Active Protocol: Document 04/12/24 10:45 [facility] (Rec: 04/12/24 11:37 [facility] [id number]) Balance Tests Single Limb Standing Single Limb- Right 30 sec w/hip lat shear Single Limb- Left 30 sec w/lat trunk tilt PT-OP-G Mobility & Gait Start: 04/05/24 10:27 Freq: Status: Active Protocol: Document 04/12/24 10:45 [facility] (Rec: 04/12/24 11:31 [facility] [id number]) OP Gait Assessment Comments Gait Comments inc R protation and lat shear of R hip w/WB, dec UE swing PT-OP-J Posture/Palpation/Skin Start: 04/05/24 10:27 Freq: Status: Active Protocol: Document 04/12/24 10:45 [facility] (Rec: 04/12/24 11:31 [facility] [id number]) Posture Evaluation [facility] Postural Classification System [facility] Postural Classifications Posterior/Anterior Vertical Compression Test 0 Lumbar Protective Mechanism Left AP 0 Lumbar Protective Mechanism Right AP 0 Lumbar Protective Mechanism Left PA 2 Lumbar Protective Mechanism Right PA 3 Comments Posture Comments supinated R>L foot, equal greater trochanter height, R iliac crest higher, B tibial ER and B femoral IR PT-OP-K Range of Motion Start: 04/05/24 10:27 Freq: Status: Active Protocol: Document 04/14/24 10:53 [facility] (Rec: 04/14/24 17:58 [facility] [id number]) Knee Goniometric Range of Motion Knee Right Flexion Active (degrees) 135 Extension Active (degrees) 0 Left Flexion Active (degrees) 135 Extension Active (degrees) 0 Comments pain w/ext PT-OP-M Strength Start: 04/12/24 11:32 Freq: Status: Active Protocol: Document 04/12/24 10:45 [facility] (Rec: 04/12/24 11:37 [facility] [id number]) Hip Strength Hip Manual Muscle Testing Right Flexion (L2) 3+ Fair+ Extension (S1) 3+ Fair+ Abduction 4- Good- Adduction 5 Normal External Rotation 4+ Good+ Internal Rotation 5 Normal Left Flexion (L2) 3+ Fair+ Extension (S1) 4- Good- Abduction 4+ Good+ Adduction 5 Normal External Rotation 5 Normal Internal Rotation 5 Normal Knee Strength Knee Manual Muscle Testing Right Flexion (S2) 4 Good Extension (L3) 5 Normal Comments pain ant knee Left Flexion (S2) 5 Normal Extension (L3) 5 Normal Ankle/Foot Strength Ankle and Foot Manual Muscle Testing B Dorsiflexion (L4) 5 Normal Plantarflexion (S1) 5 Normal Comments PF tested seated PT-OP-Q Treatments Start: 04/05/24 10:27 Freq: Status: Active Protocol: Document 04/27/24 10:38 AB (Rec: 04/27/24 12:25 AB [id number]) Therapeutic Exercises Supine Exercises piriformis stretch Side bilateral Reps/Minutes 60 sec each side Comments verbal and tactile cues Sitting Exercises seated hip abdu with band Sitting Exercise Name HEP Side bilateral Resistance level 3 [place] band Equipment Used HEP Reps/Minutes one min X 1 Standing Exercises heel raise Standing Exercise Name bilateral on stairs with knee straight and bent Equipment Used HEP Reps/Minutes X15 each Comments Verbal and visual cues HS curl Standing Exercise Name added to HEP Side bilateral Resistance TB #1 Equipment Used hands on table Reps/Minutes 10 Comments cued tall, belly close to table, level pelvis, knees // Manual Therapy Treatment Consent Patient gave verbal consent for manual Yes treatment Soft Tissue Mobilization glute Body Location bilateral Mobilization Type Cross-Friction,Rolling Intensity/Depth Moderate Body Position Sidelying quad Body Location R quad, HS and calf Mobilization Type Cross-Friction,Rolling Intensity/Depth Moderate Body Position Hooklying Manual Techniques MET for left AI right PI and pubic shot gun Reps/Duration 6X 6 sec each PT-OP-T Assessment and Plan Start: 04/05/24 10:27 Freq: Status: Active Protocol: Document 04/27/24 10:38 AB (Rec: 04/27/24 12:25 AB [id number]) Physical Therapy Assessment Goals squat Life Insurance Specialist Goal (LTG) Pt will be able to squat fully w/o knee or back pain LTG Duration 06/21 activities Short Term Goal (STG) Pt will report no further instances for 1 week of R knee locking on her STG Duration 05/22 Life Insurance Specialist Goal (LTG) Pt will be able to do all boat and housework w/o pain greater than 2/10 in B knees or back LTG Duration 06/21 strength Short Term Goal (STG) Pt will be indep w/HEP STG Duration 05/22 Detention Goal (LTG) Pt will score at least 4+/5 on all BLE MMT and at least 3/5 on LPM to shwo improved stability for greater ease with daily activities LTG Duration 06/21 Assessment Summary Assessment Patient reports feeling fine end of session, comments that she ususally feels it later in the knee. Physical Therapy Plan Frequency and Duration Frequency of Treatment 1-2x/wk Duration of treatment (weeks) 10 Plan of Care Start Date 04/12/24 Plan of Care End Date 06/21/24 Next Visit Focus/Plan Next Note Type Treatment Note Next Visit Plan Check if can add more appt into end May. POC: innominate mobility, hip and ankle and knee mobility Review and advance HEP: Fig 4 stretch, stand HS curl, directional resisted steping, lateral step ups & hip hike, open book. Can progress SLS lateral sliders in PT. Recheck squat mechanics, maybe add band at knees. Piriformis stretch in clinic vs HEP
--- NOTE | 2024-05-05 12:24 | PT.OTN ---
Current Diagnoses Pain in unspecified knee (05/05/24) Low back pain, unspecified (05/05/24) Segmental and somatic dysfunction of lower extremity (05/05/24) Weakness (05/05/24) Physical Therapy Treatment Note PT-OP-A Visit Information Start: 04/05/24 10:27 Freq: Status: Active Protocol: Document 05/05/24 08:18 [facility] (Rec: 05/05/24 12:24 [facility] [id number]) Out-Patient Physical Therapy Visit Information Visit Information Visit Type Treatment Note Visit Start Time 08:18 Visit Stop Time 09:00 Visit Number 6 Number of CONTROL SYSTEMS ENGINEER Visits 0 PT-OP-B Current Condition Start: 04/05/24 10:27 Freq: Status: Active Protocol: Document 04/12/24 10:45 [facility] (Rec: 04/12/24 11:31 [facility] [id number]) Current Condition History of Current Condition Onset Date September 2023 Current Complaints R > L knee pain, LBP History of Current Condition Pt reports started getting a knee hitch (where knee locks in flex) when walking. Tried yoga and that backfired. She got an xray when it was swelling up. She saw ortho and he thought the MRI report was wrong. She was frustrated because he didn't give her anything. He said maybe there was a meniscus tear. She has been reading and it does sound like meniscus tear. 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 L knee is also painful. No sudden incident. She has been off the water and doing more online schooling. She has been walking and [place] the [place] with minimal pain in knees going up. Can't squat w/o pain. Knee has collapsed under her. hx of knee pain starting in 20s where she had to stop biking and running and did PT in mid to late 40s and did strengthening and foam rolling which allowed her to bike. LBP has been giving her issues . She does have some OA in R spine and does has scoliosis. Pain mostly R>L lumbar spine. She has been reading a book about mechanics by Albert Armando. There was a time when getting in/out of car was painful to R knee. Prior Treatments and Tests Knee MRI: IMPRESSION: Suspected posterolateral corner injury with increased T2 weighted signal/edema within and surrounding the fibular collateral ligament, distal popliteus muscle and tendon, popliteofibular ligament. Suspected meniscocapsular separation with adjacent moderate fluid and soft tissue edema lateral greater than medial. Mild increased T2 weighted signal adjacent to the iliotibial tract suggests injury/strain which may be chronic. Moderate increased T2 weighted signal and thickening of the distal biceps femoris tendon suggesting injury/strain. Small popliteal cyst. Mild increased signal of the posterior cruciate ligament may be related to injury/ strain without full-thickness tear. 9 mm cystic structure right distal femur metaphysis medially too small to characterize but may represent cyst or other lesion. Moderate degenerate changes lateral greater than medial greater than patellofemoral. Treatment Goals Patient/Caregiver Goals know how to strengthen, be able to do resistance activities (like work on house /boats w/o injury), be able squat PT-OP-C Subjective Start: 04/05/24 10:27 Freq: Status: Active Protocol: Document 05/05/24 08:18 [facility] (Rec: 05/05/24 12:24 [place] [id number]) OP-PT Subjective Patient Comments Patient Comments pt reports knee is not getting caught quite as much. still painful w/squatting. PT-OP-D Balance Start: 04/05/24 10:27 Freq: Status: Active Protocol: Document 04/12/24 10:45 [facility] (Rec: 04/12/24 11:37 [place] [id number]) Balance Tests Single Limb Standing Single Limb- Right 30 sec w/hip lat shear Single Limb- Left 30 sec w/lat trunk tilt PT-OP-G Mobility & Gait Start: 04/05/24 10:27 Freq: Status: Active Protocol: Document 04/12/24 10:45 [facility] (Rec: 04/12/24 [id number] OP Gait Assessment Comments Gait Comments inc R protation and lat shear of R hip w/WB, dec UE swing PT-OP-J Posture/Palpation/Skin Start: 04/05/24 10:27 Freq: Status: Active Protocol: Document 04/12/24 10:45 [facility] (Rec: [facility]/12/24 [id number] Posture Evaluation [facility] Postural Classification System [facility] Postural Classifications Posterior/Anterior Vertical Compression Test 0 Lumbar Protective Mechanism Left AP 0 Lumbar Protective Mechanism Right AP 0 Lumbar Protective Mechanism Left PA 2 Lumbar Protective Mechanism Right PA 3 Comments Posture Comments supinated R>L foot, equal greater trochanter height, R iliac crest higher, B tibial ER and B femoral IR PT-OP-K Range of Motion Start: 04/05/24 10:27 Freq: Status: Active Protocol: Document 04/14/24 10:53 [facility] (Rec: 04/14/24 17:58 [facility] [id number]) Knee Goniometric Range of Motion Knee Right Flexion Active (degrees) 135 Extension Active (degrees) 0 Left Flexion Active (degrees) 135 Extension Active (degrees) 0 Comments pain w/ext PT-OP-M Strength Start: 04/12/24 11:32 Freq: Status: Active Protocol: Document 04/12/24 10:45 [facility] (Rec: 04/12/24 11:37 [id number] Hip Strength Hip Manual Muscle Testing Right Flexion (L2) 3+ Fair+ Extension (S1) 3+ Fair+ Abduction 4- Good- Adduction 5 Normal External Rotation 4+ Good+ Internal Rotation 5 Normal Left Flexion (L2) 3+ Fair+ Extension (S1) 4- Good- Abduction 4+ Good+ Adduction 5 Normal External Rotation 5 Normal Internal Rotation 5 Normal Knee Strength Knee Manual Muscle Testing Right Flexion (S2) 4 Good Extension (L3) 5 Normal Comments pain ant knee Left Flexion (S2) 5 Normal Extension (L3) 5 Normal Ankle/Foot Strength Ankle and Foot Manual Muscle Testing B Dorsiflexion (L4) 5 Normal Plantarflexion (S1) 5 Normal Comments PF tested seated PT-OP-Q Treatments Start: 04/05/24 10:27 Freq: Status: Active Protocol: Document 05/05/24 08:18 [facility] (Rec: 05/05/24 12:24 [facility] [id number]) Gym Equipment Shuttle Recovery Bilateral Squats Details trid w/manual PT resistance for tracking and ball btwn knees Resistance 50# Reps/Time 15 total Therapeutic Exercises Supine Exercises bridge Supine Exercise Name SL Side bilateral Reps/Minutes 6 ea Standing Exercises hip hinge Standing Exercise Name DL Side bilateral Equipment Used no wt, 10lb, 10lb ea hand Reps/Minutes 10 ea Comments cues for not excessive lordosis step ups Standing Exercise Name to june Side bilateral Equipment Used 6 in, 8 in Reps/Minutes 5 ea , 10 ea squat Standing Exercise Name wall Side bilateral Equipment Used ball Reps/Minutes 15 Comments partial range Lateral step down Standing Exercise Name review EHP Side bilateral Equipment Used 6 step, contact PRN Reps/Minutes 2x10 Comments cues knee position Manual Therapy Treatment Consent Patient gave verbal consent for manual Yes treatment Joint Mobilizations knee Comments med glide tibia; PA tibia; proximal fibula PA seated Taping Knees Comments B inverted Y and I strip under patella for support PT-OP-T Assessment and Plan Start: 04/05/24 10:27 Freq: Status: Active Protocol: Document 05/05/24 08:18 [facility] (Rec: 05/05/24 12:24 [facility] [id number]) Physical Therapy Assessment Goals squat Intermediate Goal (LTG) Pt will be able to squat fully w/o knee or back pain LTG Duration 06/21 activities Short Term Goal (STG) Pt will report no further instances for 1 week of R knee locking on her STG Duration 05/22 Intermediate Goal (LTG) Pt will be able to do all boat and housework w/o pain greater than 2/10 in B knees or back LTG Duration 06/21 strength Short Term Goal (STG) Pt will be indep w/HEP STG Duration 05/22 Data Integrity Consultant Goal (LTG) Pt will score at least 4+/5 on all BLE MMT and at least 3/5 on LPM to shwo improved stability for greater ease with daily activities LTG Duration 06/21 Assessment Summary Assessment Discomfort noted w/all squatting exercises once gets past about 40 deg knee flex, She did well w/SL activities w /cues. Physical Therapy Plan Frequency and Duration Frequency of Treatment 1-2x/wk Duration of treatment (weeks) 10 Plan of Care Start Date 04/12/24 Plan of Care End Date 06/21/24 Next Visit Focus/Plan Next Note Type Treatment Note Next Visit Plan assess response to taping innominate mobility, hip and ankle and knee mobility advance strength of LE and core
--- NOTE | 2024-05-17 14:13 | PT.OTN ---
Current Diagnoses Pain in unspecified knee (05/17/24) Low back pain, unspecified (05/17/24) Segmental and somatic dysfunction of lower extremity (05/17/24) Weakness (05/17/24) Physical Therapy Treatment Note PT-OP-A Visit Information Start: 04/05/24 10:27 Freq: Status: Active Protocol: Document 05/17/24 11:33 [facility] (Rec: 05/17/24 14:13 [facility] [id number]) Out-Patient Physical Therapy Visit Information Visit Information Visit Type Progress Note Visit Start Time 11:35 Visit Stop Time 12:15 Visit Number 7 Number of [employer] Visits 0 PT-OP-B Current Condition Start: 04/05/24 10:27 Freq: Status: Active Protocol: Document 04/12/24 10:45 [facility] (Rec: 04/12/24 11:31 [facility] [id number]) Current Condition History of Current Condition Onset Date September 2023 Current Complaints R > L knee pain, LBP History of Current Condition Pt reports started getting a knee hitch (where knee locks in flex) when walking. Tried yoga and that backfired. She got an xray when it was swelling up. She saw ortho and he thought the MRI report was wrong. She was frustrated because he didn't give her anything. He said maybe there was a meniscus tear. She has been reading and it does sound like meniscus tear. 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 L knee is also painful. No sudden incident. She has been off the water and doing more online schooling. [place] has [place] walking [place] with minimal pain in knees going up. Can't squat w/o pain. Knee has collapsed under her. hx of knee pain starting in 20s where she had to stop biking and running and did PT in mid to late 40s and did strengthening and foam rolling which allowed her to bike. LBP has been giving her issues . She does have some OA in R spine and does has scoliosis. Pain mostly R>L lumbar spine. She has been reading a book about mechanics by Albert Armando. There was a time when getting in/out of car was painful to R knee. Prior Treatments and Tests Knee MRI: IMPRESSION: Suspected posterolateral corner injury with increased T2 weighted signal/edema within and surrounding the fibular collateral ligament, distal popliteus muscle and tendon, popliteofibular ligament. Suspected meniscocapsular separation with adjacent moderate fluid and soft tissue edema lateral greater than medial. Mild increased T2 weighted signal adjacent to the iliotibial tract suggests injury/strain which may be chronic. Moderate increased T2 weighted signal and thickening of the distal biceps femoris tendon suggesting injury/strain. Small popliteal cyst. Mild increased signal of the posterior cruciate ligament may be related to injury/ strain without full-thickness tear. 9 mm cystic structure right distal femur metaphysis medially too small to characterize but may represent cyst or other lesion. Moderate degenerate changes lateral greater than medial greater than patellofemoral. Treatment Goals Patient/Caregiver Goals know how to strengthen, be able to do resistance activities (like work on house /boats w/o injury), be able squat PT-OP-C Subjective Start: 04/05/24 10:27 Freq: Status: Active Protocol: Document 05/17/24 11:33 [facility] ([facility]17[facility]24 [id number]PT Subjective Patient Comments Patient Comments Pt reports she did her PT this AM. She was at boat show last 10 days and didn't get exercises in but was on feet the entire time and took stairs. Pt reports knee catches at end range ext now. Wants to check in on exercsies . DL w/wts, felt HS. Back has not been happy w/boat show. Does have heel lift in right now. PT-OP-D Balance Start: 04/05/24 10:27 Freq: Status: Active Protocol: Document 04/12/24 10:45 [facility] (Rec: 04/12/24 11:37 [id number] Balance Tests Single Limb Standing Single Limb- Right 30 sec w/hip lat shear Single Limb- Left 30 sec w/lat trunk tilt PT-OP-G Mobility & Gait Start: 04/05/24 10:27 Freq: Status: Active Protocol: Document 04/12/24 10:45 [facility] (Rec: 04/12/24 11:31 [facility] [id number]) OP Gait Assessment Comments Gait Comments inc R protation and lat shear of R hip w/WB, dec UE swing PT-OP-J Posture/Palpation/Skin Start: 04/05/24 10:27 Freq: Status: Active Protocol: Document 05/17/24 11:33 [facility] (Rec: 05/17/24 14:13 [facility] [id number]) Posture Evaluation [facility] Postural Classification System Lumbar Protective Mechanism Left AP 2 Lumbar Protective Mechanism Right AP 3 Lumbar Protective Mechanism Left PA 2 Lumbar Protective Mechanism Right PA 2 PT-OP-K Range of Motion Start: 04/05/24 10:27 Freq: Status: Active Protocol: Document 04/14/24 10:53 [facility] (Rec: 04/14/24 17:58 [facility] [id number]) Knee Goniometric Range of Motion Knee Right Flexion Active (degrees) 135 Extension Active (degrees) 0 Left Flexion Active (degrees) 135 Extension Active (degrees) 0 Comments pain w/ext PT-OP-M Strength Start: 04/12/24 11:32 Freq: Status: Active Protocol: Document 05/17/24 11:33 [facility] (Rec: 05/17/24 14:13 [facility] [id number]) Hip Strength Hip Manual Muscle Testing Right Flexion (L2) 4 Good Extension (S1) 4 Good Abduction 5 Normal Adduction 5 Normal External Rotation 4+ Good+ Internal Rotation 5 Normal Left Flexion (L2) 4 Good Extension (S1) 4 Good Abduction 5 Normal Adduction 5 Normal External Rotation 5 Normal Internal Rotation 5 Normal Knee Strength Knee Manual Muscle Testing Right Flexion (S2) 5 Normal Extension (L3) 5 Normal Left Flexion (S2) 5 Normal Extension (L3) 5 Normal PT-OP-Q Treatments Start: 04/05/24 10:27 Freq: Status: Active Protocol: Document 05/17/24 11:33 [facility] (Rec: 05/17/24 14:13 [facility] [id number]) Gym Equipment Shuttle Recovery Bilateral Squats Resistance 25# Reps/Time 10 after manual performed w/ exercise Therapeutic Exercises Prone Exercises plank Prone Exercise Name row on knee plank Side bilateral Equipment Used 5#, 10 Lb Reps/Minutes 10 ea wt Standing Exercises step down Side bilateral Equipment Used 4 in Reps/Minutes 10 Comments cues control and knee tracking hip hinge Standing Exercise Name DL Side bilateral Equipment Used 10lb Reps/Minutes 15 Comments cues glute squeeze on way up step ups Standing Exercise Name to march Side bilateral Equipment Used 8 in Reps/Minutes 5 ea Comments easy hip hikes Standing Exercise Name review Side bilateral Equipment Used stair Reps/Minutes 10reps Comments cues no back arch Lateral step down Standing Exercise Name review EHP Side bilateral Equipment Used 6 step, contact PRN Reps/Minutes x10 Comments cues knee position Other Exercises isometrics Other Exercise Name BLE MMT and LPM bird dog Side bilateral Equipment Used L1 band Reps/Minutes 5 Manual Therapy Treatment Consent Patient gave verbal consent for manual Yes treatment Joint Mobilizations knee Comments B med glide tibia and lat femur; PA tibia w/IR- during leg press and hooklying on bed patellar med B w/leg press PT-OP-T Assessment and Plan Start: 04/05/24 10:27 Freq: Status: Active Protocol: Document 05/17/24 11:33 [facility] (Rec: 05/17/24 14:13 [facility] [id number]) Physical Therapy Assessment Goals squat Jail Goal (LTG) Pt will be able to squat fully w/o knee or back pain 05/17-still painful B knees LTG Duration 06/21 activities Short Term Goal (STG) Pt will report no further instances for 1 week of R knee locking on her 05/17-at least 1x/day now more towards ext STG Duration 05/22 Apple Sorter Goal (LTG) Pt will be able to do all boat and housework w/o pain greater than 2/10 in B knees or back 05/17- 1-5-6/10 in back or when knee hitches LTG Duration 06/21 strength Short Term Goal (STG) Pt will be indep w/HEP STG Duration 05/22 Jail Goal (LTG) Pt will score at least 4+/5 on all BLE MMT and at least 3/5 on LPM to shwo improved stability for greater ease with daily activities 05/17- improving LTG Duration 06/21 Assessment Summary Assessment Pt had dec pain w/leg press after manual treatment workng on patellar tracking and tibiofemoral mobility. She is improving in strength overall at this time and is compliant w/HEP but cont to have difficulty w/squatting likely d/t patellar tracking. She would benefit from cont PT to improve mobility and dec pain. Physical Therapy Plan Frequency and Duration Frequency of Treatment 1-2x/wk Duration of treatment (weeks) 10 Plan of Care Start Date 04/12/24 Plan of Care End Date 06/21/24 Therapeutic Interventions Therapeutic Interventions Balance Training,Gait Training ,Home Exercise Program,Joint Mobilizations,Manual Therapy, Neuromuscular Re-education, Patient/Caregiver Education, Self-Care/Home Management,Soft Tissue Mobilization,Taping, Therapeutic Activities, Therapeutic Exercises Modalities Cold Pack/Ice Massage,Electric Stimulation,Hot Packs, Infrared Therapy,Ultrasound Next Visit Focus/Plan Next Note Type Treatment Note Next Visit Plan work on tibiofemoral jt mobility, PF tracking; consider trying another taping method for patellar tracking worko n leg press w/tracking
--- NOTE | 2024-05-24 16:27 | PT.OTN ---
Current Diagnoses Pain in unspecified knee (05/24/24) Low back pain, unspecified (05/24/24) Segmental and somatic dysfunction of lower extremity (05/24/24) Weakness (05/24/24) Physical Therapy Treatment Note PT-OP-A Visit Information Start: 04/05/24 10:27 Freq: Status: Active Protocol: Document 05/24/24 10:40 [facility] (Rec: 05/24/24 12:29 [facility] [id number]) Out-Patient Physical Therapy Visit Information Visit Information Visit Type Treatment Note Visit Start Time 11:34 Visit Stop Time 12:20 Visit Number 8 Number of [employer] WORK[employer] Visits 1 PT-OP-B Current Condition Start: 04/05/24 10:27 Freq: Status: Active Protocol: Document 04/12/24 10:45 [facility] (Rec: 04/12/24 11:31 [facility] [id number]) Current Condition History of Current Condition Onset Date September 2023 Current Complaints R > L knee pain, LBP History of Current Condition Pt reports started getting a knee hitch (where knee locks in flex) when walking. Tried yoga and that backfired. She got an xray when it was swelling up. She saw ortho and he thought the MRI report was wrong. She was frustrated because he didn't give her anything. He said maybe there was a meniscus tear. She has been reading and it does sound like meniscus tear. 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 L knee is also painful. No sudden incident. She has been off the water and doing more online schooling. She has been walking and [place] with minimal pain in knees going up. Can't squat w/o pain. Knee has collapsed under her. hx of knee pain starting in 20s where she had to stop biking and running and did PT in mid to late 40s and did strengthening and foam rolling which allowed her to bike. LBP has been giving her issues . She does have some OA in R spine and does has scoliosis. Pain mostly R>L lumbar spine. She has been reading a book about mechanics by Albert Armando. There was a time when getting in/out of car was painful to R knee. Prior Treatments and Tests Knee MRI: IMPRESSION: Suspected posterolateral corner injury with increased T2 weighted signal/edema within and surrounding the fibular collateral ligament, distal popliteus muscle and tendon, popliteofibular ligament. Suspected meniscocapsular separation with adjacent moderate fluid and soft tissue edema lateral greater than medial. Mild increased T2 weighted signal adjacent to the iliotibial tract suggests injury/strain which may be chronic. Moderate increased T2 weighted signal and thickening of the distal biceps femoris tendon suggesting injury/strain. Small popliteal cyst. Mild increased signal of the posterior cruciate ligament may be related to injury/ strain without full-thickness tear. 9 mm cystic structure right distal femur metaphysis medially too small to characterize but may represent cyst or other lesion. Moderate degenerate changes lateral greater than medial greater than patellofemoral. Treatment Goals Patient/Caregiver Goals know how to strengthen, be able to do resistance activities (like work on house /boats w/o injury), be able squat PT-OP-C Subjective Start: 04/05/24 10:27 Freq: Status: Active Protocol: Document 05/24/24 10:40 [facility] (Rec: 05/24/24 12:29 [facility] [id number]) OP-PT Subjective Patient Comments Patient Comments Patient reports she saw Friday and is being referred to ortho. Also reports MD advised upping her strength training. Patient into session with book on strength training and wants to go over exercises she has started. Patient rates pain 1/ 10 low back seated, reports pain with walking ant/med L knee 3-4/10, R knee post 2/10. PT-OP-D Balance Start: 04/05/24 10:27 Freq: Status: Active Protocol: Document 04/12/24 10:45 [facility] (Rec: 04/12/24 11:37 [facility] [id number]) Balance Tests Single Limb Standing Single Limb- Right 30 sec w/hip lat shear Single Limb- Left 30 sec w/lat trunk tilt PT-OP-G Mobility & Gait Start: 04/05/24 10:27 Freq: Status: Active Protocol: Document 04/12/24 10:45 [facility] (Rec: 04/12/24 11:31 [facility] [id number]) OP Gait Assessment Comments Gait Comments inc R protation and lat shear of R hip w/WB, dec UE swing PT-OP-J Posture/Palpation/Skin Start: 04/05/24 10:27 Freq: Status: Active Protocol: Document 05/17/24 11:33 [facility] (Rec: 05/17/24 14:13 [facility] [id number]) Posture Evaluation [facility] Postural Classification System Lumbar Protective Mechanism Left AP 2 Lumbar Protective Mechanism Right AP 3 Lumbar Protective Mechanism Left PA 2 Lumbar Protective Mechanism Right PA 2 PT-OP-K Range of Motion Start: 04/05/24 10:27 Freq: Status: Active Protocol: Document 04/14/24 10:53 [facility] (Rec: 04/14/24 17:58 [facility] [id number]) Knee Goniometric Range of Motion Knee Right Flexion Active (degrees) 135 Extension Active (degrees) 0 Left Flexion Active (degrees) 135 Extension Active (degrees) 0 Comments pain w/ext PT-OP-M Strength Start: 04/12/24 11:32 Freq: Status: Active Protocol: Document 05/17/24 11:33 [facility] (Rec: 05/17/24 14:13 [facility] [id number]) Hip Strength Hip Manual Muscle Testing Right Flexion (L2) 4 Good Extension (S1) 4 Good Abduction 5 Normal Adduction 5 Normal External Rotation 4+ Good+ Internal Rotation 5 Normal Left Flexion (L2) 4 Good Extension (S1) 4 Good Abduction 5 Normal Adduction 5 Normal External Rotation 5 Normal Internal Rotation 5 Normal Knee Strength Knee Manual Muscle Testing Right Flexion (S2) 5 Normal Extension (L3) 5 Normal Left Flexion (S2) 5 Normal Extension (L3) 5 Normal PT-OP-Q Treatments Start: 04/05/24 10:27 Freq: Status: Active Protocol: Document 05/24/24 10:40 [facility] (Rec: 05/24/24 12:29 [facility] [id number]) Therapeutic Exercises Standing Exercises step down Standing Exercise Name 4 inch step Side bilateral Reps/Minutes See step up step ups Standing Exercise Name 6 inch 4 inch and 2 inch step Side bilateral Reps/Minutes 3 minutes Comments monitored for pain for all step ups and step downs, limited by pain squat Standing Exercise Name wall Side bilateral Equipment Used ball Reps/Minutes x 4 and X 5 back to wall, X 20 with ball with brief pauses intermittently Comments partial range Other Exercises bird dog Side bilateral Equipment Used L1 band Reps/Minutes 10 X quadruped X 10 at counter Comments 3 -5 sec Therapeutic Activity Therapeutic Activity stair training Reps/Minutes 6 inch steps X 4 twice Comments verbal cues for less quad dom pattern, increased hip hinge Manual Therapy Treatment Consent Patient gave verbal consent for manual Yes treatment Joint Mobilizations knee Joint tibia on femur AP PA, patellar CW, CCW, inf, sup med and lat bilateral Grade IV Body Position Supine Comments X10 each direction Taping Knees Body Location bilateral Comments I peripatellar med and lat to unload fat pads, I lat to med for tracking PT-OP-T Assessment and Plan Start: 04/05/24 10:27 Freq: Status: Active Protocol: Document 05/24/24 10:40 [facility] (Rec: 05/24/24 12:29 [facility] [id number]) Physical Therapy Assessment Goals squat Custodial Goal (LTG) Pt will be able to squat fully w/o knee or back pain 05/17-still painful B knees LTG Duration 06/21 activities Short Term Goal (STG) Pt will report no further instances for 1 week of R knee locking on her 05/17-at least 1x/day now more towards ext STG Duration 05/22 Custodial Goal (LTG) Pt will be able to do all boat and housework w/o pain greater than 2/10 in B knees or back 05/17- 1-5-6/10 in back or when knee hitches LTG Duration 06/21 strength Short Term Goal (STG) Pt will be indep w/HEP STG Duration 05/22 Custodial Goal (LTG) Pt will score at least 4+/5 on all BLE MMT and at least 3/5 on LPM to shwo improved stability for greater ease with daily activities 05/17- improving LTG Duration 06/21 Assessment Summary Assessment Patient unable to perform step up L knee without increased pain, even one inch step up on book. Patient ed to continue with wall squats with ball very minimal depth squat. Physical Therapy Plan Frequency and Duration Frequency of Treatment 1-2x/wk Duration of treatment (weeks) 10 Plan of Care Start Date 04/12/24 Plan of Care End Date 06/21/24 Next Visit Focus/Plan Next Note Type Treatment Note Next Visit Plan work on tibiofemoral jt mobility, PF tracking; consider trying another taping method for patellar tracking worko n leg press w/tracking
--- NOTE | 2024-05-31 12:38 | PT.OTN ---
Current Diagnoses Pain in unspecified knee (05/31/24) Low back pain, unspecified (05/31/24) Segmental and somatic dysfunction of lower extremity (05/31/24) Weakness (05/31/24) Physical Therapy Treatment Note PT-OP-A Visit Information Start: 04/05/24 10:27 Freq: Status: Active Protocol: Document 05/31/24 11:38 [facility] (Rec: 05/31/24 12:37 [facility] [id number]) Out-Patient Physical Therapy Visit Information Visit Information Visit Type Treatment Note Visit Start Time 11:37 Visit Stop Time 12:17 Visit Number 9 Number of TRY OUT PERSON Visits 0 PT-OP-B Current Condition Start: 04/05/24 10:27 Freq: Status: Active Protocol: Document 04/12/24 10:45 [facility] (Rec: 04/12/24 11:31 [facility] [id number]) Current Condition History of Current Condition Onset Date September 2023 Current Complaints R > L knee pain, LBP History of Current Condition Pt reports started getting a knee hitch (where knee locks in flex) when walking. Tried yoga and that backfired. She got an xray when it was swelling up. She saw ortho and he thought the MRI report was wrong. She was frustrated because he didn't give her anything. He said maybe there was a meniscus tear. She has been reading and it does sound like meniscus tear. 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 L knee is also painful. No sudden incident. She has been off the water and doing more online schooling. She has been walking and [place] the [place] with minimal pain in knees going up. Can't squat w/o pain. Knee has collapsed under her. hx of knee pain starting in 20s where she had to stop biking and running and did PT in mid to late 40s and did strengthening and foam rolling which allowed her to bike. LBP has been giving her issues . She does have some OA in R spine and does has scoliosis. Pain mostly R>L lumbar spine. She has been reading a book about mechanics by Albert Armando. There was a time when getting in/out of car was painful to R knee. Prior Treatments and Tests Knee MRI: IMPRESSION: Suspected posterolateral corner injury with increased T2 weighted signal/edema within and surrounding the fibular collateral ligament, distal popliteus muscle and tendon, popliteofibular ligament. Suspected meniscocapsular separation with adjacent moderate fluid and soft tissue edema lateral greater than medial. Mild increased T2 weighted signal adjacent to the iliotibial tract suggests injury/strain which may be chronic. Moderate increased T2 weighted signal and thickening of the distal biceps femoris tendon suggesting injury/strain. Small popliteal cyst. Mild increased signal of the posterior cruciate ligament may be related to injury/ strain without full-thickness tear. 9 mm cystic structure right distal femur metaphysis medially too small to characterize but may represent cyst or other lesion. Moderate degenerate changes lateral greater than medial greater than patellofemoral. Treatment Goals Patient/Caregiver Goals know how to strengthen, be able to do resistance activities (like work on house /boats w/o injury), be able squat PT-OP-C Subjective Start: 04/05/24 10:27 Freq: Status: Active Protocol: Document 05/31/24 11:38 [facility] (Rec: 05/31/24 12:37 [id number]-PT Subjective Patient Comments Patient Comments Pt reports recent walks are starting to inc knee pain. Feels like in a funk. She can get up the hill partway only w /trekking poles. a few days ago, she did her entire 30 min up/back. She is having really sharp pains when trying to do wall squats last week. PT-OP-D Balance Start: 04/05/24 10:27 Freq: Status: Active Protocol: Document 04/12/24 10:45 [facility] (Rec: 04/12/24 11:37 [facility] [id number]) Balance Tests Single Limb Standing Single Limb- Right 30 sec w/hip lat shear Single Limb- Left 30 sec w/lat trunk tilt PT-OP-G Mobility & Gait Start: 04/05/24 10:27 Freq: Status: Active Protocol: Document 04/12/24 10:45 [facility] (Rec: 04/12/24 11:31 [facility] [id number]) OP Gait Assessment Comments Gait Comments inc R protation and lat shear of R hip w/WB, dec UE swing PT-OP-J Posture/Palpation/Skin Start: 04/05/24 10:27 Freq: Status: Active Protocol: Document 05/17/24 11:33 [facility] (Rec: 05/17/24 14:13 [facility] [id number]) Posture Evaluation [facility] Postural Classification System Lumbar Protective Mechanism Left AP 2 Lumbar Protective Mechanism Right AP 3 Lumbar Protective Mechanism Left PA 2 Lumbar Protective Mechanism Right PA 2 PT-OP-K Range of Motion Start: 04/05/24 10:27 Freq: Status: Active Protocol: Document 04/14/24 10:53 [facility] (Rec: 04/14/24 17:58 [facility] [id number]) Knee Goniometric Range of Motion Knee Right Flexion Active (degrees) 135 Extension Active (degrees) 0 Left Flexion Active (degrees) 135 Extension Active (degrees) 0 Comments pain w/ext PT-OP-M Strength Start: 04/12/24 11:32 Freq: Status: Active Protocol: Document 05/17/24 11:33 [facility] (Rec: 05/17/24 14:13 [facility] [id number]) Hip Strength Hip Manual Muscle Testing Right Flexion (L2) 4 Good Extension (S1) 4 Good Abduction 5 Normal Adduction 5 Normal External Rotation 4+ Good+ Internal Rotation 5 Normal Left Flexion (L2) 4 Good Extension (S1) 4 Good Abduction 5 Normal Adduction 5 Normal External Rotation 5 Normal Internal Rotation 5 Normal Knee Strength Knee Manual Muscle Testing Right Flexion (S2) 5 Normal Extension (L3) 5 Normal Left Flexion (S2) 5 Normal Extension (L3) 5 Normal PT-OP-Q Treatments Start: 04/05/24 10:27 Freq: Status: Active Protocol: Document 05/31/24 11:38 [facility] (Rec: 05/31/24 12:37 [facility] [id number]) Manual Therapy Treatment Consent Patient gave verbal consent for manual Yes treatment Soft Tissue Mobilization quad Body Location R quad & ITB Mobilization Type Rolling,Sustained Pressure Intensity/Depth Moderate Body Position Hooklying Comments w/ knee ext Joint Mobilizations knee Body Position sit Comments B med glide tibia and lat femur; PA tibia B; patella med Taping Knees Body Location bilateral Comments I peripatellar med and lat to unload fat pads, I lat to med for tracking Self-Care/Home Management Treatment Education Other Education 8 min: Encouraged pt to avoid activities that cause sharp pain. no more than 3/10 pain w /activity and to make sure it isn't lingering. 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) Pt will be able to squat fully w/o knee or back pain 05/17-still painful B knees LTG Duration 06/21 activities Short Term Goal (STG) Pt will report no further instances for 1 week of R knee locking on her 05/17-at least 1x/day now more towards ext STG Duration 05/22 [facility] Goal (LTG) Pt will be able to do all boat and housework w/o pain greater than 2/10 in B knees or back 05/17- 1-5-6/10 in back or when knee hitches LTG Duration 06/21 strength Short Term Goal (STG) Pt will be indep w/HEP STG Duration 05/22 Advertising Teacher 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 no more than 3/10 pain w /activity and to make sure it isn't lingering. Pt to follow up in 2 weeks d/t insurance limits. less sharp pain w/ eelvated sit to stand after manual Physical Therapy Plan Frequency and Duration Frequency of Treatment 1-2x/wk Duration of treatment (weeks) 10 Plan of Care Start Date 04/12/24 Plan of Care End Date 06/21/24 Next Visit Focus/Plan Next Note Type Treatment Note Next Visit Plan work on tibiofemoral jt mobility, PF tracking; consider trying another taping method for patellar tracking worko n leg press w/tracking
--- NOTE | 2024-06-15 16:54 | PT.OTN ---
Current Diagnoses Pain in unspecified knee (06/15/24) Low back pain, unspecified (06/15/24) Segmental and somatic dysfunction of lower extremity (06/15/24) Weakness (06/15/24) Physical Therapy Treatment Note PT-OP-A Visit Information Start: 04/05/24 10:27 Freq: Status: Active Protocol: Document 06/15/24 16:43 [facility] (Rec: 06/15/24 16:53 [facility] [id number]) Out-Patient Physical Therapy Visit Information Visit Information Visit Type Progress Note Visit Start Time 14:03 Visit Stop Time 14:30 Visit Number 10 Number of PLASTICS PROCESS HAND Visits 0 PT-OP-B Current Condition Start: 04/05/24 10:27 Freq: Status: Active Protocol: Document 04/12/24 10:45 [facility] (Rec: 04/12/24 11:31 [facility] [id number]) Current Condition History of Current Condition Onset Date September 2023 Current Complaints R > L knee pain, LBP History of Current Condition Pt reports started getting a knee hitch (where knee locks in flex) when walking. Tried yoga and that backfired. She got an xray when it was swelling up. She saw ortho and he thought the MRI report was wrong. She was frustrated because he didn't give her anything. He said maybe there was a meniscus tear. She has been reading and it does sound like meniscus tear. 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 L knee is also painful. No sudden incident. She has been off the water and doing more online schooling. She has been walking and [place] the [place] with minimal pain in knees going up. Can't squat w/o pain. Knee has collapsed under her. hx of knee pain starting in 20s where she had to stop biking and running and did PT in mid to late 40s and did strengthening and foam rolling which allowed her to bike. LBP has been giving her issues . She does have some OA in R spine and does has scoliosis. Pain mostly R>L lumbar spine. She has been reading a book about mechanics by Albert Armando. There was a time when getting in/out of car was painful to R knee. Prior Treatments and Tests Knee MRI: IMPRESSION: Suspected posterolateral corner injury with increased T2 weighted signal/edema within and surrounding the fibular collateral ligament, distal popliteus muscle and tendon, popliteofibular ligament. Suspected meniscocapsular separation with adjacent moderate fluid and soft tissue edema lateral greater than medial. Mild increased T2 weighted signal adjacent to the iliotibial tract suggests injury/strain which may be chronic. Moderate increased T2 weighted signal and thickening of the distal biceps femoris tendon suggesting injury/strain. Small popliteal cyst. Mild increased signal of the posterior cruciate ligament may be related to injury/ strain without full-thickness tear. 9 mm cystic structure right distal femur metaphysis medially too small to characterize but may represent cyst or other lesion. Moderate degenerate changes lateral greater than medial greater than patellofemoral. Treatment Goals Patient/Caregiver Goals know how to strengthen, be able to do resistance activities (like work on house /boats w/o injury), be able squat PT-OP-C Subjective Start: 04/05/24 10:27 Freq: Status: Active Protocol: Document 06/15/24 16:43 [facility] (Rec: 06/15/24 16:53 [id number]-PT Subjective Patient Comments Patient Comments pt reports she has been doing wall squats and working hard and feels like it is really helping. She had a weekend working on the boats and it went well and even her back felt good. Sees ortho next week. Patient Reported Progress Improving PT-OP-D Balance Start: 04/05/24 10:27 Freq: Status: Active Protocol: Document 04/12/24 10:45 [facility] (Rec: 04/12/24 11:37 [id number] Balance Tests Single Limb Standing Single Limb- Right 30 sec w/hip lat shear Single Limb- Left 30 sec w/lat trunk tilt PT-OP-G Mobility & Gait Start: 04/05/24 10:27 Freq: Status: Active Protocol: Document 04/12/24 10:45 [facility] (Rec: 04/12/24 11:31 [id number] OP Gait Assessment Comments Gait Comments inc R protation and lat shear of R hip w/WB, dec UE swing PT-OP-J Posture/Palpation/Skin Start: 04/05/24 10:27 Freq: Status: Active Protocol: Document 06/15/24 16:43 [facility] (Rec: 06/15/24 16:53 [id number] Posture Evaluation [facility] Postural Classification System Lumbar Protective Mechanism Left AP 2 Lumbar Protective Mechanism Right AP 3 Lumbar Protective Mechanism Left PA 3 Lumbar Protective Mechanism Right PA 3 PT-OP-K Range of Motion Start: 04/05/24 10:27 Freq: Status: Active Protocol: Document 04/14/24 10:53 [facility] (Rec: 04/14/24 17:58 [facility] [id number]) Knee Goniometric Range of Motion Knee Right Flexion Active (degrees) 135 Extension Active (degrees) 0 Left Flexion Active (degrees) 135 Extension Active (degrees) 0 Comments pain w/ext PT-OP-M Strength Start: 04/12/24 11:32 Freq: Status: Active Protocol: Document 06/15/24 16:43 [facility] (Rec: 06/15/24 16:53 [facility] [id number]) Hip Strength Hip Manual Muscle Testing Right Flexion (L2) 4 Good Extension (S1) 4 Good Abduction 5 Normal Adduction 5 Normal External Rotation 5 Normal Internal Rotation 5 Normal Left Flexion (L2) 4+ Good+ Extension (S1) 4+ Good+ Abduction 5 Normal Adduction 5 Normal External Rotation 5 Normal Internal Rotation 5 Normal Knee Strength Knee Manual Muscle Testing Right Flexion (S2) 5 Normal Extension (L3) 5 Normal Left Flexion (S2) 5 Normal Extension (L3) 5 Normal PT-OP-Q Treatments Start: 04/05/24 10:27 Freq: Status: Active Protocol: Document 06/15/24 16:43 [facility] (Rec: 06/15/24 16:53 [facility] [id number]) Therapeutic Exercises Prone Exercises plank ext Prone Exercise Name w/hip ext Side bilateral Reps/Minutes 6 Comments inc difficulty plank rot Prone Exercise Name fwd to side Side bilateral Reps/Minutes 6 ea plank Prone Exercise Name full plank Side bilateral Equipment Used 10lb Reps/Minutes 5 Sidelying Exercises plank Sidelying Exercise Name full Side bilateral Reps/Minutes 30 sec ea Comments attempted some side leg lifts Standing Exercises squat Standing Exercise Name wall Side bilateral Equipment Used ball Reps/Minutes 8 w/o wt; 6 w/10lbs in hands Comments comfortable range sidesteps Standing Exercise Name 1. in mini squat w/band at knees 2. band on feet Side bilateral Equipment Used L3 Reps/Minutes 1. 15 ft ea 2. 10 ft ea Comments cues knee position Manual Therapy Treatment Consent Patient gave verbal consent for manual Yes treatment Soft Tissue Mobilization quad Body Location b quad & ITB Mobilization Type Rolling,Sustained Pressure Intensity/Depth Moderate Body Position Hooklying Comments w/ knee ext Joint Mobilizations knee Comments PA and med tibia glide B seated innominate Comments R ext c/r w/facilitation for hip ext in prone PT-OP-T Assessment and Plan Start: 04/05/24 10:27 Freq: Status: Active Protocol: Document 06/15/24 16:43 [facility] (Rec: 06/15/24 16:53 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) Pt will be able to squat fully w/o knee or back pain 05/17-still painful B knees 06/15-inc distance w/wall squats, still difficult w/free squats, sit to stand occ painful LTG Duration 08/10 activities Short Term Goal (STG) Pt will report no further instances for 1 week of R knee locking on her 05/17-at least 1x/day now more towards ext 06/15-only a couple times a week STG Duration 07/04 Manufacturing Engineer [employer] Goal (LTG) Pt will be able to do all boat and housework w/o pain greater than 2/10 in B knees or back 05/17- 1-5-6/10 in back or when knee hitches LTG Duration 08/10 strength Short Term Goal (STG) Pt will be indep w/HEP STG Duration achieved -advancing as able Manufacturing Engineer [employer] Goal (LTG) Pt will score at least 4+/5 on all BLE MMT and at least 3/5 on LPM to shwo improved stability for greater ease with daily activities 05/17- improving 06/15-much improved LTG Duration 08/10 Assessment Summary Assessment Pt did well with exercise progression today and some were too difficult but pt will work up to. She has much improved strength overall and is tolerating overall more squatting and activity w/less pain along w/dec knee locking on R. COnt PT to improve function and mobility. Physical Therapy Plan Frequency and Duration Frequency of Treatment 1x/Week Duration of treatment (weeks) 8 Plan of Care Start Date 06/15/24 Plan of Care End Date 08/10/24 Therapeutic Interventions Therapeutic Interventions Balance Training,Gait Training ,Home Exercise Program,Joint Mobilizations,Manual Therapy, Neuromuscular Re-education, Patient/Caregiver Education, Self-Care/Home Management,Soft Tissue Mobilization,Taping, Therapeutic Activities, Therapeutic Exercises Modalities Cold Pack/Ice Massage,Electric Stimulation,Hot Packs, Infrared Therapy,Ultrasound Next Visit Focus/Plan Next Note Type Treatment Note Next Visit Plan work on tibiofemoral jt mobility, PF tracking; consider trying another taping method for patellar tracking worko n leg press w/tracking
--- NOTE | 2024-06-15 16:54 | PT.OPPOC ---
Physical, Occupational & Speech Therapy At [facility] Current Diagnoses Pain in unspecified knee (06/15/24) Low back pain, unspecified (06/15/24) Segmental and somatic dysfunction of lower extremity (06/15/24) Weakness (06/15/24) Visit Care Team Role Provider Type Tana Zuleta MD Attending Provider Physician Family Provider Primary Care Provider Referring Provider Specialty: Family Practice Address: [address] [place] [address], [facility] [place], [address] Email: [email or web address] Plan Of Care PT-OP-B Current Condition Start: 04/05/24 10:27 Freq: Status: Active Protocol: Document 04/12/24 10:45 [facility] (Rec: 04/12/24 11:31 [facility] [id number]) Current Condition History of Current Condition Onset Date September 2023 Current Complaints R > L knee pain, LBP History of Current Condition Pt reports started getting a knee hitch (where knee locks in flex) when walking. Tried yoga and that backfired. She got an xray when it was swelling up. She saw ortho and he thought the MRI report was wrong. She was frustrated because he didn't give her anything. He said maybe there was a meniscus tear. She has been reading and it does sound like meniscus tear. 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 L knee is also painful. No sudden incident. She has been off the water and doing more online schooling. She has been walking and [place] the [place] with minimal pain in knees going up. Can't squat w/o pain. Knee has collapsed under her. hx of knee pain starting in 20s where she had to stop biking and running and did PT in mid to late 40s and did strengthening and foam rolling which allowed her to bike. LBP has been giving her issues . She does have some OA in R spine and does has scoliosis. Pain mostly R>L lumbar spine. She has been reading a book about mechanics by Albert Armando. There was a time when getting in/out of car was painful to R knee. Prior Treatments and Tests Knee MRI: IMPRESSION: Suspected posterolateral corner injury with increased T2 weighted signal/edema within and surrounding the fibular collateral ligament, distal popliteus muscle and tendon, popliteofibular ligament. Suspected meniscocapsular separation with adjacent moderate fluid and soft tissue edema lateral greater than medial. Mild increased T2 weighted signal adjacent to the iliotibial tract suggests injury/strain which may be chronic. Moderate increased T2 weighted signal and thickening of the distal biceps femoris tendon suggesting injury/strain. Small popliteal cyst. Mild increased signal of the posterior cruciate ligament may be related to injury/ strain without full-thickness tear. 9 mm cystic structure right distal femur metaphysis medially too small to characterize but may represent cyst or other lesion. Moderate degenerate changes lateral greater than medial greater than patellofemoral. Treatment Goals Patient/Caregiver Goals know how to strengthen, be able to do resistance activities (like work on house /boats w/o injury), be able squat PT-OP-T Assessment and Plan Start: 04/05/24 10:27 Freq: Status: Active Protocol: Document 06/15/24 16:43 [facility] (Rec: 06/15/24 16:53 [facility] [id number]) Physical Therapy Assessment Goals squat Retirement Goal (LTG) Pt will be able to squat fully w/o knee or back pain 05/17-still painful B knees 06/15-inc distance w/wall squats, still difficult w/free squats, sit to stand occ painful LTG Duration 08/10 activities Short Term Goal (STG) Pt will report no further instances for 1 week of R knee locking on her 05/17-at least 1x/day now more towards ext 06/15-only a couple times a week STG Duration 07/04 [employer] Hand Goal (LTG) Pt will be able to do all boat and housework w/o pain greater than 2/10 in B knees or back 05/17- 1-5-6/10 in back or when knee hitches LTG Duration 5 strength Short Term Goal (STG) Pt will be indep w/HEP STG Duration achieved -advancing as able Retirement Goal (LTG) Pt will score at least 4+/5 on all BLE MMT and at least 3/5 on LPM to shwo improved stability for greater ease with daily activities 05/17- improving 3/11-much improved LTG Duration 5/6 Assessment Summary Assessment Pt did well with exercise progression today and some were too difficult but pt will work up to. She has much improved strength overall and is tolerating overall more squatting and activity w/less pain along w/dec knee locking on R. COnt PT to improve function and mobility. Physical Therapy Plan Frequency and Duration Frequency of Treatment 1x/Week Duration of treatment (weeks) 8 Plan of Care Start Date 06/15/24 Plan of Care End Date 08/10/24 Therapeutic Interventions Therapeutic Interventions Balance Training,Gait Training ,Home Exercise Program,Joint Mobilizations,Manual Therapy, Neuromuscular Re-education, Patient/Caregiver Education, Self-Care/Home Management,Soft Tissue Mobilization,Taping, Therapeutic Activities, Therapeutic Exercises Modalities Cold Pack/Ice Massage,Electric Stimulation,Hot Packs, Infrared Therapy,Ultrasound Next Visit Focus/Plan Next Note Type Treatment Note Next Visit Plan work on tibiofemoral jt mobility, PF tracking; consider trying another taping method for patellar tracking worko n leg press w/tracking Plan of Care Dates Plan of Care Start Date 06/15/24 Plan of Care End Date 08/10/24 Electronically Signed by: Tana Morris, PT 06/15/24 2475 If you are in agreement with this Plan of Care, please return a signed and dated copy. I have reviewed this Plan of Care and certify that the skilled therapy services above are required to meet the patient?s needs. Physician Signature Date Printed Name and Credentials Clinical Instructor Signature Printed Name and Credentials
--- NOTE | 2024-06-29 15:19 | PT.OTN ---
Current Diagnoses Pain in unspecified knee (06/29/24) Low back pain, unspecified (06/29/24) Segmental and somatic dysfunction of lower extremity (06/29/24) Weakness (06/29/24) Physical Therapy Treatment Note PT-OP-A Visit Information Start: 04/05/24 10:27 Freq: Status: Active Protocol: Document 06/29/24 12:30 AB (Rec: 06/29/24 14:30 AB [id number]) Out-Patient Physical Therapy Visit Information Visit Information Visit Type Treatment Note Visit Start Time 13:02 Visit Stop Time 13:47 Visit Number 11 Number of COTTRELL OPERATOR Visits 1 PT-OP-B Current Condition Start: 04/05/24 10:27 Freq: Status: Active Protocol: Document 04/12/24 10:45 [facility] (Rec: 04/12/24 11:31 [facility] [id number]) Current Condition History of Current Condition Onset Date September 2023 Current Complaints R > L knee pain, LBP History of Current Condition Pt reports started getting a knee hitch (where knee locks in flex) when walking. Tried yoga and that backfired. She got an xray when it was swelling up. She saw ortho and he thought the MRI report was wrong. She was frustrated because he didn't give her anything. He said maybe there was a meniscus tear. She has been reading and it does sound like meniscus tear. 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 L knee is also painful. No sudden incident. She has been off the water and doing more online schooling. She has been walking and [place] the [place] with minimal pain in knees going up. Can't squat w/o pain. Knee has collapsed under her. hx of knee pain starting in 20s where she had to stop biking and running and did PT in mid to late 40s and did strengthening and foam rolling which allowed her to bike. LBP has been giving her issues . She does have some OA in R spine and does has scoliosis. Pain mostly R>L lumbar spine. She has been reading a book about mechanics by Albert Armando. There was a time when getting in/out of car was painful to R knee. Prior Treatments and Tests Knee MRI: IMPRESSION: Suspected posterolateral corner injury with increased T2 weighted signal/edema within and surrounding the fibular collateral ligament, distal popliteus muscle and tendon, popliteofibular ligament. Suspected meniscocapsular separation with adjacent moderate fluid and soft tissue edema lateral greater than medial. Mild increased T2 weighted signal adjacent to the iliotibial tract suggests injury/strain which may be chronic. Moderate increased T2 weighted signal and thickening of the distal biceps femoris tendon suggesting injury/strain. Small popliteal cyst. Mild increased signal of the posterior cruciate ligament may be related to injury/ strain without full-thickness tear. 9 mm cystic structure right distal femur metaphysis medially too small to characterize but may represent cyst or other lesion. Moderate degenerate changes lateral greater than medial greater than patellofemoral. Treatment Goals Patient/Caregiver Goals know how to strengthen, be able to do resistance activities (like work on house /boats w/o injury), be able squat PT-OP-C Subjective Start: 04/05/24 10:27 Freq: Status: Active Protocol: Document 06/29/24 12:30 AB (Rec: 06/29/24 14:30 AB [id number]) OP-PT Subjective Patient Comments Patient Comments Patient reports she saw Ortho specialist PA at and was told she has ? mild or early stage arthritis and spurs Patient also reports she was on a boat over the past 4 days . Nisreen rages pain 1-2/10 ambulating not session w/o device. Patient reports descending stairs on boat, has to support weight to crouch down to go down the steps PT-OP-D Balance Start: 04/05/24 10:27 Freq: Status: Active Protocol: Document 04/12/24 10:45 [facility] (Rec: 04/12/24 11:37 [facility] [id number]) Balance Tests Single Limb Standing Single Limb- Right 30 sec w/hip lat shear Single Limb- Left 30 sec w/lat trunk tilt PT-OP-G Mobility & Gait Start: 04/05/24 10:27 Freq: Status: Active Protocol: Document 04/12/24 10:45 [facility] (Rec: 04/12/24 11:31 [facility] [id number]) OP Gait Assessment Comments Gait Comments inc R protation and lat shear of R hip w/WB, dec UE swing PT-OP-J Posture/Palpation/Skin Start: 04/05/24 10:27 Freq: Status: Active Protocol: Document 06/15/24 16:43 [facility] (Rec: 06/15/24 16:53 [facility] [id number]) Posture Evaluation [facility] Postural Classification System Lumbar Protective Mechanism Left AP 2 Lumbar Protective Mechanism Right AP 3 Lumbar Protective Mechanism Left PA 3 Lumbar Protective Mechanism Right PA 3 PT-OP-K Range of Motion Start: 04/05/24 10:27 Freq: Status: Active Protocol: Document 04/14/24 10:53 [facility] (Rec: 04/14/24 17:58 [facility] [id number]) Knee Goniometric Range of Motion Knee Right Flexion Active (degrees) 135 Extension Active (degrees) 0 Left Flexion Active (degrees) 135 Extension Active (degrees) 0 Comments pain w/ext PT-OP-M Strength Start: 04/12/24 11:32 Freq: Status: Active Protocol: Document 06/15/24 16:43 [facility] (Rec: 06/15/24 16:53 [facility] [id number]) Hip Strength Hip Manual Muscle Testing Right Flexion (L2) 4 Good Extension (S1) 4 Good Abduction 5 Normal Adduction 5 Normal External Rotation 5 Normal Internal Rotation 5 Normal Left Flexion (L2) 4+ Good+ Extension (S1) 4+ Good+ Abduction 5 Normal Adduction 5 Normal External Rotation 5 Normal Internal Rotation 5 Normal Knee Strength Knee Manual Muscle Testing Right Flexion (S2) 5 Normal Extension (L3) 5 Normal Left Flexion (S2) 5 Normal Extension (L3) 5 Normal PT-OP-Q Treatments Start: 04/05/24 10:27 Freq: Status: Active Protocol: Document 06/29/24 12:30 AB (Rec: 06/29/24 14:30 AB [id number]) Therapeutic Exercises Standing Exercises lunges Standing Exercise Name HEP Side bilateral Reps/Minutes 10 feet X 6 Comments verbal and visual cues step down Standing Exercise Name 4 inch step and 6 inch Side bilateral Reps/Minutes X8 4 inch X 5 X 2 6 inch Comments pre and post tape, VC buttocks back squat Standing Exercise Name wall Side bilateral Equipment Used ball Reps/Minutes 10 lb X 15 Comments Verbal cues to limit depth to pain free Other Exercises isometrics Other Exercise Name glute med isometric Side bilateral Equipment Used HEP Reps/Minutes one min X 1 each LE Therapeutic Activity Therapeutic Activity Boat activities Name stepping off boat, deep descent into small space on boat. floor to standing Comments Verbal cues for buttocks back hip hinge, and to perform high kneel to 1/2 kneel to standing from floor w/o UE use right with UE use left when working on boat Manual Therapy Treatment Taping Knees Body Location bilateral Comments I peripatellar med and lat to unload fat pads, I lat to med for tracking PT-OP-T Assessment and Plan Start: 04/05/24 10:27 Freq: Status: Active Protocol: Document 06/29/24 12:30 AB (Rec: 06/29/24 14:30 AB [id number]) Physical Therapy Assessment Goals squat [employer] Goal (LTG) Pt will be able to squat fully w/o knee or back pain 05/17-still painful B knees 06/15-inc distance w/wall squats, still difficult w/free squats, sit to stand occ painful LTG Duration 08/10 activities Short Term Goal (STG) Pt will report no further instances for 1 week of R knee locking on her 05/17-at least 1x/day now more towards ext 06/15-only a couple times a week STG Duration 07/04 Jail Goal (LTG) Pt will be able to do all boat and housework w/o pain greater than 2/10 in B knees or back 05/17- 1-5-6/10 in back or when knee hitches LTG Duration 08/10 strength Short Term Goal (STG) Pt will be indep w/HEP STG Duration achieved -advancing as able [employer] Goal (LTG) Pt will score at least 4+/5 on all BLE MMT and at least 3/5 on LPM to shwo improved stability for greater ease with daily activities 05/17- improving 06/15-much improved LTG Duration 5/6 Assessment Summary Assessment Nisreen rates pain 1/10 Right none on left, and was able to perform a less quad dominant lunge with reports of no increase in pain Physical Therapy Plan Frequency and Duration Frequency of Treatment 1x/Week Duration of treatment (weeks) 8 Plan of Care Start Date 06/15/24 Plan of Care End Date 08/10/24 Next Visit Focus/Plan Next Note Type Treatment Note Next Visit Plan work on tibiofemoral jt mobility, PF tracking; consider trying another taping method for patellar tracking worko n leg press,w/tracking, progress LAQ with band, lunges with light weight, progress wall squat
--- NOTE | 2024-07-14 18:19 | PT.OTN ---
Current Diagnoses Pain in unspecified knee (07/14/24) Low back pain, unspecified (07/14/24) Segmental and somatic dysfunction of lower extremity (07/14/24) Weakness (07/14/24) Physical Therapy Treatment Note PT-OP-A Visit Information Start: 04/05/24 10:27 Freq: Status: Active Protocol: Document 07/14/24 09:50 [facility] (Rec: 07/14/24 17:04 [facility] [id number]) Out-Patient Physical Therapy Visit Information Visit Information Visit Type Progress Note Visit Start Time 09:52 Visit Stop Time 10:31 Visit Number 12 Number of HELPER/DRIVER Visits 0 PT-OP-B Current Condition Start: 04/05/24 10:27 Freq: Status: Active Protocol: Document 04/12/24 10:45 [facility] (Rec: 04/12/24 11:31 [facility] [id number]) Current Condition History of Current Condition Onset Date September 2023 Current Complaints R > L knee pain, LBP History of Current Condition Pt reports started getting a knee hitch (where knee locks in flex) when walking. Tried yoga and that backfired. She got an xray when it was swelling up. She saw ortho and he thought the MRI report was wrong. She was frustrated because he didn't give her anything. He said maybe there was a meniscus tear. She has been reading and it does sound like meniscus tear. 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 L knee is also painful. No sudden incident. She has been off the water and doing more online schooling. She has been walking and [place] the [place] with minimal pain in knees going up. Can't squat w/o pain. Knee has collapsed under her. hx of knee pain starting in 20s where she had to stop biking and running and did PT in mid to late 40s and did strengthening and foam rolling which allowed her to bike. LBP has been giving her issues . She does have some OA in R spine and does has scoliosis. Pain mostly R>L lumbar spine. She has been reading a book about mechanics by Albert Armando. There was a time when getting in/out of car was painful to R knee. Prior Treatments and Tests Knee MRI: IMPRESSION: Suspected posterolateral corner injury with increased T2 weighted signal/edema within and surrounding the fibular collateral ligament, distal popliteus muscle and tendon, popliteofibular ligament. Suspected meniscocapsular separation with adjacent moderate fluid and soft tissue edema lateral greater than medial. Mild increased T2 weighted signal adjacent to the iliotibial tract suggests injury/strain which may be chronic. Moderate increased T2 weighted signal and thickening of the distal biceps femoris tendon suggesting injury/strain. Small popliteal cyst. Mild increased signal of the posterior cruciate ligament may be related to injury/ strain without full-thickness tear. 9 mm cystic structure right distal femur metaphysis medially too small to characterize but may represent cyst or other lesion. Moderate degenerate changes lateral greater than medial greater than patellofemoral. Treatment Goals Patient/Caregiver Goals know how to strengthen, be able to do resistance activities (like work on house /boats w/o injury), be able squat PT-OP-C Subjective Start: 04/05/24 10:27 Freq: Status: Active Protocol: Document 07/14/24 09:50 [id number]-PT Subjective Patient Comments Patient Comments Pt reports got COVID last week but is recovered. missed a week w/exercises d/t that. had a flare up when being in bed and rolling around. Moving around would hurt a lot and had trouble straightening. Had this for a few days when sick . Couldn't bend it either. Has reduced and is back to mostly where it was before. did her first walk since covid and knees did okay. PT-OP-D Balance Start: 04/05/24 10:27 Freq: Status: Active Protocol: Document 04/12/24 10:45 [facility] (Rec: 04/12/24 11:37 [facility] [id number]) Balance Tests Single Limb Standing Single Limb- Right 30 sec w/hip lat shear Single Limb- Left 30 sec w/lat trunk tilt PT-OP-G Mobility & Gait Start: 04/05/24 10:27 Freq: Status: Active Protocol: Document 04/12/24 10:45 [facility] (Rec: 04/12/24 11:31 [facility] [id number]) OP Gait Assessment Comments Gait Comments inc R protation and lat shear of R hip w/WB, dec UE swing PT-OP-J Posture/Palpation/Skin Start: 04/05/24 10:27 Freq: Status: Active Protocol: Document 07/14/24 09:50 [facility] (Rec: 07/14/24 17:04 [facility] [id number]) Posture Evaluation [facility] Postural Classification System Lumbar Protective Mechanism Left AP 2 Lumbar Protective Mechanism Right AP 3 Lumbar Protective Mechanism Left PA 3 Lumbar Protective Mechanism Right PA 4 PT-OP-K Range of Motion Start: 04/05/24 10:27 Freq: Status: Active Protocol: Document 04/14/24 10:53 [facility] (Rec: 04/14/24 17:58 [facility] [id number]) Knee Goniometric Range of Motion Knee Right Flexion Active (degrees) 135 Extension Active (degrees) 0 Left Flexion Active (degrees) 135 Extension Active (degrees) 0 Comments pain w/ext PT-OP-M Strength Start: 04/12/24 11:32 Freq: Status: Active Protocol: Document 07/14/24 09:50 [facility] (Rec: 07/14/24 17:04 [facility] [id number]) Hip Strength Hip Manual Muscle Testing Right Flexion (L2) 4 Good Extension (S1) 5 Normal Abduction 5 Normal Adduction 5 Normal External Rotation 5 Normal Internal Rotation 5 Normal Left Flexion (L2) 4+ Good+ Extension (S1) 4+ Good+ Abduction 5 Normal Adduction 5 Normal External Rotation 5 Normal Internal Rotation 5 Normal Knee Strength Knee Manual Muscle Testing Right Flexion (S2) 5 Normal Extension (L3) 5 Normal Left Flexion (S2) 5 Normal Extension (L3) 5 Normal PT-OP-Q Treatments Start: 04/05/24 10:27 Freq: Status: Active Protocol: Document 07/14/24 09:50 [facility] (Rec: 07/14/24 17:04 [facility] [id number]) Gym Equipment Shuttle Recovery Bilateral Squats Resistance 50# Reps/Time 10 Therapeutic Exercises Standing Exercises lunges Standing Exercise Name HEP Side bilateral Reps/Minutes 10 feet X 6 Comments cues no lat tip step down Standing Exercise Name 4 in Side bilateral Reps/Minutes 6 Comments stopped d/t verge of pain hip hinge Standing Exercise Name SL RDL Side bilateral Reps/Minutes 6 Comments cues neutral spine step ups Standing Exercise Name 6 in lat Side bilateral Reps/Minutes 10 squat Side bilateral Reps/Minutes 5 Other Exercises isometric Other Exercise Name BLE MMT and LPM isometrics Other Exercise Name glute med isometric Side bilateral Equipment Used HEP Reps/Minutes one min X 1 each LE Self-Care/Home Management Treatment Education Other Education 15 min: discussed anti- inflammatory options d/t inc pain when was sick w/COVID. Pt given handouts on natural options and encouraged to discuss w/her doctor any supplements she is considered. Discussed w/mild OA importance of cont strength and stretching and doing movement modifications during work that dec pain. PT-OP-T Assessment and Plan Start: 04/05/24 10:27 Freq: Status: Active Protocol: Document 07/14/24 09:50 [facility] (Rec: 07/14/24 17:04 [facility] [id number]) Physical Therapy Assessment Goals squat [facility] Goal (LTG) Pt will be able to squat fully w/o knee or back pain 05/17-still painful B knees 06/15-inc distance w/wall squats, still difficult w/free squats, sit to stand occ painful 07/14-can get slightly further w /squat but still limited LTG Duration 08/10 activities Short Term Goal (STG) Pt will report no further instances for 1 week of R knee locking on her 05/17-at least 1x/day now more towards ext 06/15-only a couple times a week 07/14-worse during COVID STG Duration 07/04 [facility] Goal (LTG) Pt will be able to do all boat and housework w/o pain greater than 2/10 in B knees or back 05/17- 1-5-6/10 in back or when knee hitches 07/14-4 day class w/o issue except squatting down to get into berth, LTG Duration 08/10 strength Short Term Goal (STG) Pt will be indep w/HEP STG Duration achieved -advancing as able Dietetic Tech Goal (LTG) Pt will score at least 4+/5 on all BLE MMT and at least 3/5 on LPM to shwo improved stability for greater ease with daily activities 05/17- improving 06/15-much improved 07/14-improving mostly met LTG Duration 08/10 Assessment Summary Assessment Pt cont to overall progress w/ PT w/greater ease w/boat and home activity except for set back while had COVID. She is back to exercising again now though and is doing well with lunges and cont to build strength. Cont PT to solidify HEP. Now able to do leg press full ROM w/o pain w/50# Physical Therapy Plan Frequency and Duration Frequency of Treatment 1x/Week Duration of treatment (weeks) 8 Plan of Care Start Date 06/15/24 Plan of Care End Date 08/10/24 Therapeutic Interventions Therapeutic Interventions Balance Training,Gait Training ,Home Exercise Program,Joint Mobilizations,Manual Therapy, Neuromuscular Re-education, Patient/Caregiver Education, Self-Care/Home Management,Soft Tissue Mobilization,Taping, Therapeutic Activities, Therapeutic Exercises Modalities Cold Pack/Ice Massage,Electric Stimulation,Hot Packs, Infrared Therapy,Ultrasound Next Visit Focus/Plan Next Note Type Treatment Note Next Visit Plan cont to work stability of knees and movement mechanics
--- NOTE | 2024-07-20 18:14 | PT.OTN ---
Current Diagnoses Pain in unspecified knee (07/20/24) Low back pain, unspecified (07/20/24) Segmental and somatic dysfunction of lower extremity (07/20/24) Weakness (07/20/24) Physical Therapy Treatment Note PT-OP-A Visit Information Start: 04/05/24 10:27 Freq: Status: Active Protocol: Document 07/20/24 13:47 AB (Rec: 07/20/24 14:49 AB Laptop) Out-Patient Physical Therapy Visit Information Visit Information Visit Type Treatment Note Visit Start Time 13:49 Visit Stop Time 14:31 Visit Number 13 Number of METAL FURNITURE GLAZIER Visits 1 PT-OP-B Current Condition Start: 04/05/24 10:27 Freq: Status: Active Protocol: Document 04/12/24 10:45 [facility] (Rec: 04/12/24 11:31 [facility] [id number]) Current Condition History of Current Condition Onset Date September 2023 Current Complaints R > L knee pain, LBP History of Current Condition Pt reports started getting a knee hitch (where knee locks in flex) when walking. Tried yoga and that backfired. She got an xray when it was swelling up. She saw ortho and he thought the MRI report was wrong. She was frustrated because he didn't give her anything. He said maybe there was a meniscus tear. She has been reading and it does sound like meniscus tear. 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 L knee is also painful. No sudden incident. She has been off the water and doing more online schooling. [place] has been walking and [place] with minimal pain in knees going up. Can't squat w/o pain. Knee has collapsed under her. hx of knee pain starting in 20s where she had to stop biking and running and did PT in mid to late 40s and did strengthening and foam rolling which allowed her to bike. LBP has been giving her issues . She does have some OA in R spine and does has scoliosis. Pain mostly R>L lumbar spine. She has been reading a book about mechanics by Albert Armando. There was a time when getting in/out of car was painful to R knee. Prior Treatments and Tests Knee MRI: IMPRESSION: Suspected posterolateral corner injury with increased T2 weighted signal/edema within and surrounding the fibular collateral ligament, distal popliteus muscle and tendon, popliteofibular ligament. Suspected meniscocapsular separation with adjacent moderate fluid and soft tissue edema lateral greater than medial. Mild increased T2 weighted signal adjacent to the iliotibial tract suggests injury/strain which may be chronic. Moderate increased T2 weighted signal and thickening of the distal biceps femoris tendon suggesting injury/strain. Small popliteal cyst. Mild increased signal of the posterior cruciate ligament may be related to injury/ strain without full-thickness tear. 9 mm cystic structure right distal femur metaphysis medially too small to characterize but may represent cyst or other lesion. Moderate degenerate changes lateral greater than medial greater than patellofemoral. Treatment Goals Patient/Caregiver Goals know how to strengthen, be able to do resistance activities (like work on house /boats w/o injury), be able squat PT-OP-C Subjective Start: 04/05/24 10:27 Freq: Status: Active Protocol: Document 07/20/24 13:47 AB (Rec: 07/20/24 14:49 AB Laptop) OP-PT Subjective Patient Comments Patient Comments Patient reports she loved the lunges, added 10 lb to each hand. Patient reports alternates walking with strength days. Patient reports hitching in knee persists, at least some daily. PT-OP-D Balance Start: 04/05/24 10:27 Freq: Status: Active Protocol: Document 04/12/24 10:45 [facility] (Rec: 04/12/24 11:37 [facility] [id number]) Balance Tests Single Limb Standing Single Limb- Right 30 sec w/hip lat shear Single Limb- Left 30 sec w/lat trunk tilt PT-OP-G Mobility & Gait Start: 04/05/24 10:27 Freq: Status: Active Protocol: Document 04/12/24 10:45 [facility] (Rec: 04/12/24 11:31 [facility] [id number]) OP Gait Assessment Comments Gait Comments inc R protation and lat shear of R hip w/WB, dec UE swing PT-OP-J Posture/Palpation/Skin Start: 04/05/24 10:27 Freq: Status: Active Protocol: Document 07/14/24 09:50 [facility] (Rec: 07/14/24 17:04 [facility] [id number]) Posture Evaluation [facility] Postural Classification System Lumbar Protective Mechanism Left AP 2 Lumbar Protective Mechanism Right AP 3 Lumbar Protective Mechanism Left PA 3 Lumbar Protective Mechanism Right PA 4 PT-OP-K Range of Motion Start: 04/05/24 10:27 Freq: Status: Active Protocol: Document 04/14/24 10:53 [facility] (Rec: 04/14/24 17:58 [facility] [id number]) Knee Goniometric Range of Motion Knee Right Flexion Active (degrees) 135 Extension Active (degrees) 0 Left Flexion Active (degrees) 135 Extension Active (degrees) 0 Comments pain w/ext PT-OP-M Strength Start: 04/12/24 11:32 Freq: Status: Active Protocol: Document 07/14/24 09:50 [facility] (Rec: 07/14/24 17:04 [facility] [id number]) Hip Strength Hip Manual Muscle Testing Right Flexion (L2) 4 Good Extension (S1) 5 Normal Abduction 5 Normal Adduction 5 Normal External Rotation 5 Normal Internal Rotation 5 Normal Left Flexion (L2) 4+ Good+ Extension (S1) 4+ Good+ Abduction 5 Normal Adduction 5 Normal External Rotation 5 Normal Internal Rotation 5 Normal Knee Strength Knee Manual Muscle Testing Right Flexion (S2) 5 Normal Extension (L3) 5 Normal Left Flexion (S2) 5 Normal Extension (L3) 5 Normal PT-OP-Q Treatments Start: 04/05/24 10:27 Freq: Status: Active Protocol: Document 07/20/24 13:47 AB (Rec: 07/20/24 14:49 AB Laptop) Therapeutic Exercises Supine Exercises core Supine Exercise Name deep neck flexor head lift Side bilateral Reps/Minutes 7 sec X 10 Comments verbal cues Sidelying Exercises plank Sidelying Exercise Name side plank Side bilateral Reps/Minutes 7 sec ea X 10 Comments verbal cues Sitting Exercises Core warm up Sitting Exercise Name 1. shoulder flexion 2. trunk flexion Side bilateral Reps/Minutes X 5 X 5 Comments verbal and visual cues Standing Exercises single leg with trunk Standing Exercise Name 1. back bend 2. sidebend 3. rotation Side bilateral Reps/Minutes X 5 each each LE Comments Verbal and visual cues Lateral step down Standing Exercise Name review EHP Side bilateral Equipment Used 6 step, contact PRN Reps/Minutes X12 Comments cues knee position Other Exercises single leg lift Other Exercise Name to mat at seat height Side bilateral Reps/Minutes X 10 X 10 Comments verbal and visual cues isometrics Other Exercise Name glute med isometric Side bilateral Equipment Used HEP Reps/Minutes one min X 1 each LE bird dog Side bilateral Equipment Used 1 lb on UE 2 lb on LEs Comments 7 sec X10 PT-OP-T Assessment and Plan Start: 04/05/24 10:27 Freq: Status: Active Protocol: Document 07/20/24 13:47 AB (Rec: 07/20/24 14:49 AB Laptop) Physical Therapy Assessment Goals squat Farm Truck Driver Goal (LTG) Pt will be able to squat fully w/o knee or back pain 05/17-still painful B knees 06/15-inc distance w/wall squats, still difficult w/free squats, sit to stand occ painful 07/14-can get slightly further w /squat but still limited LTG Duration 08/10 activities Short Term Goal (STG) Pt will report no further instances for 1 week of R knee locking on her 05/17-at least 1x/day now more towards ext 06/15-only a couple times a week 07/14-worse during COVID STG Duration 07/04 Farm Truck Driver Goal (LTG) Pt will be able to do all boat and housework w/o pain greater than 2/10 in B knees or back 05/17- 1-5-6/10 in back or when knee hitches 07/14-4 day class w/o issue except squatting down to get into berth, LTG Duration 08/10 strength Short Term Goal (STG) Pt will be indep w/HEP STG Duration achieved -advancing as able Farm Truck Driver Goal (LTG) Pt will score at least 4+/5 on all BLE MMT and at least 3/5 on LPM to shwo improved stability for greater ease with daily activities 05/17- improving 06/15-much improved 07/14-improving mostly met LTG Duration 08/10 Assessment Summary Assessment Good return dem to all but step downs, ie inc pelvic drop persists. Physical Therapy Plan Frequency and Duration Frequency of Treatment 1x/Week Duration of treatment (weeks) 8 Plan of Care Start Date 06/15/24 Plan of Care End Date 08/10/24 Next Visit Focus/Plan Next Note Type Treatment Note Next Visit Plan cont to work stability of knees and movement mechanics
--- NOTE | 2024-07-20 18:16 | PT.OTN ---
Current Diagnoses Pain in unspecified knee (07/20/24) Low back pain, unspecified (07/20/24) Segmental and somatic dysfunction of lower extremity (07/20/24) Weakness (07/20/24) Physical Therapy Treatment Note PT-OP-A Visit Information Start: 04/05/24 10:27 Freq: Status: Active Protocol: Document 07/20/24 13:47 AB (Rec: 07/20/24 14:49 AB Laptop) Out-Patient Physical Therapy Visit Information Visit Information Visit Type Treatment Note Visit Start Time 13:49 Visit Stop Time 14:31 Visit Number 13 Number of PHYSICAL INSTRUCTOR Visits 1 PT-OP-B Current Condition Start: 04/05/24 10:27 Freq: Status: Active Protocol: Document 04/12/24 10:45 [facility] (Rec: 04/12/24 11:31 [facility] [id number]) Current Condition History of Current Condition Onset Date September 2023 Current Complaints R > L knee pain, LBP History of Current Condition Pt reports started getting a knee hitch (where knee locks in flex) when walking. Tried yoga and that backfired. She got an xray when it was swelling up. She saw ortho and he thought the MRI report was wrong. She was frustrated because he didn't give her anything. He said maybe there was a meniscus tear. She has been reading and it does sound like meniscus tear. 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 L knee is also painful. No sudden incident. She has been off the water and doing more online schooling. She has been walking and [place] the [place] with minimal pain in knees going up. Can't squat w/o pain. Knee has collapsed under her. hx of knee pain starting in 20s where she had to stop biking and running and did PT in mid to late 40s and did strengthening and foam rolling which allowed her to bike. LBP has been giving her issues . She does have some OA in R spine and does has scoliosis. Pain mostly R>L lumbar spine. She has been reading a book about mechanics by Albert Armando. There was a time when getting in/out of car was painful to R knee. Prior Treatments and Tests Knee MRI: IMPRESSION: Suspected posterolateral corner injury with increased T2 weighted signal/edema within and surrounding the fibular collateral ligament, distal popliteus muscle and tendon, popliteofibular ligament. Suspected meniscocapsular separation with adjacent moderate fluid and soft tissue edema lateral greater than medial. Mild increased T2 weighted signal adjacent to the iliotibial tract suggests injury/strain which may be chronic. Moderate increased T2 weighted signal and thickening of the distal biceps femoris tendon suggesting injury/strain. Small popliteal cyst. Mild increased signal of the posterior cruciate ligament may be related to injury/ strain without full-thickness tear. 9 mm cystic structure right distal femur metaphysis medially too small to characterize but may represent cyst or other lesion. Moderate degenerate changes lateral greater than medial greater than patellofemoral. Treatment Goals Patient/Caregiver Goals know how to strengthen, be able to do resistance activities (like work on house /boats w/o injury), be able squat PT-OP-C Subjective Start: 04/05/24 10:27 Freq: Status: Active Protocol: Document 07/20/24 13:47 AB (Rec: 07/20/24 14:49 AB Laptop) OP-PT Subjective Patient Comments Patient Comments Patient reports she loved the lunges, added 10 lb to each hand. Patient reports alternates walking with strength days. Patient reports hitching in knee persists, at least some daily. PT-OP-D Balance Start: 04/05/24 10:27 Freq: Status: Active Protocol: Document 04/12/24 10:45 [facility] (Rec: 04/12/24 11:37 [facility] [id number]) Balance Tests Single Limb Standing Single Limb- Right 30 sec w/hip lat shear Single Limb- Left 30 sec w/lat trunk tilt PT-OP-G Mobility & Gait Start: 04/05/24 10:27 Freq: Status: Active Protocol: Document 04/12/24 10:45 [facility] (Rec: 04/12/24 11:31 [facility] [id number]) OP Gait Assessment Comments Gait Comments inc R protation and lat shear of R hip w/WB, dec UE swing PT-OP-J Posture/Palpation/Skin Start: 04/05/24 10:27 Freq: Status: Active Protocol: Document 07/14/24 09:50 [facility] (Rec: 07/14/24 17:04 [facility] [id number]) Posture Evaluation [facility] Postural Classification System Lumbar Protective Mechanism Left AP 2 Lumbar Protective Mechanism Right AP 3 Lumbar Protective Mechanism Left PA 3 Lumbar Protective Mechanism Right PA 4 PT-OP-K Range of Motion Start: 04/05/24 10:27 Freq: Status: Active Protocol: Document 04/14/24 10:53 [facility] (Rec: 04/14/24 17:58 [facility] [id number]) Knee Goniometric Range of Motion Knee Right Flexion Active (degrees) 135 Extension Active (degrees) 0 Left Flexion Active (degrees) 135 Extension Active (degrees) 0 Comments pain w/ext PT-OP-M Strength Start: 04/12/24 11:32 Freq: Status: Active Protocol: Document 07/14/24 09:50 [facility] (Rec: 07/14/24 17:04 [facility] [id number]) Hip Strength Hip Manual Muscle Testing Right Flexion (L2) 4 Good Extension (S1) 5 Normal Abduction 5 Normal Adduction 5 Normal External Rotation 5 Normal Internal Rotation 5 Normal Left Flexion (L2) 4+ Good+ Extension (S1) 4+ Good+ Abduction 5 Normal Adduction 5 Normal External Rotation 5 Normal Internal Rotation 5 Normal Knee Strength Knee Manual Muscle Testing Right Flexion (S2) 5 Normal Extension (L3) 5 Normal Left Flexion (S2) 5 Normal Extension (L3) 5 Normal PT-OP-Q Treatments Start: 04/05/24 10:27 Freq: Status: Active Protocol: Document 07/20/24 13:47 AB (Rec: 07/20/24 14:49 AB Laptop) Therapeutic Exercises Supine Exercises core Supine Exercise Name deep neck flexor head lift Side bilateral Reps/Minutes 7 sec X 10 Comments verbal cues Sidelying Exercises plank Sidelying Exercise Name side plank Side bilateral Reps/Minutes 7 sec ea X 10 Comments verbal cues Sitting Exercises Core warm up Sitting Exercise Name 1. shoulder flexion 2. trunk flexion Side bilateral Reps/Minutes X 5 X 5 Comments verbal and visual cues Standing Exercises single leg with trunk Standing Exercise Name 1. back bend 2. sidebend 3. rotation Side bilateral Reps/Minutes X 5 each each LE Comments Verbal and visual cues Lateral step down Standing Exercise Name review EHP Side bilateral Equipment Used 6 step, contact PRN Reps/Minutes X12 Comments cues knee position Other Exercises single leg lift Other Exercise Name to mat at seat height Side bilateral Reps/Minutes X 10 X 10 Comments verbal and visual cues isometrics Other Exercise Name glute med isometric Side bilateral Equipment Used HEP Reps/Minutes one min X 1 each LE bird dog Side bilateral Equipment Used 1 lb on UE 2 lb on LEs Comments 7 sec X10 PT-OP-T Assessment and Plan Start: 04/05/24 10:27 Freq: Status: Active Protocol: Document 07/20/24 13:47 AB (Rec: 07/20/24 14:49 AB Laptop) Physical Therapy Assessment Goals squat Data Operations Leader Goal (LTG) Pt will be able to squat fully w/o knee or back pain 05/17-still painful B knees 06/15-inc distance w/wall squats, still difficult w/free squats, sit to stand occ painful 07/14-can get slightly further w /squat but still limited LTG Duration 08/10 activities Short Term Goal (STG) Pt will report no further instances for 1 week of R knee locking on her 05/17-at least 1x/day now more towards ext 06/15-only a couple times a week 07/14-worse during COVID STG Duration 07/04 Data Operations Leader Goal (LTG) Pt will be able to do all boat and housework w/o pain greater than 2/10 in B knees or back 05/17- 1-5-6/10 in back or when knee hitches 07/14-4 day class w/o issue except squatting down to get into berth, LTG Duration 08/10 strength Short Term Goal (STG) Pt will be indep w/HEP STG Duration achieved -advancing as able Data Operations Leader Goal (LTG) Pt will score at least 4+/5 on all BLE MMT and at least 3/5 on LPM to shwo improved stability for greater ease with daily activities 05/17- improving 06/15-much improved 07/14-improving mostly met LTG Duration 08/10 Assessment Summary Assessment Good return dem to all but step downs, ie inc pelvic drop persists. Physical Therapy Plan Frequency and Duration Frequency of Treatment 1x/Week Duration of treatment (weeks) 8 Plan of Care Start Date 06/15/24 Plan of Care End Date 08/10/24 Next Visit Focus/Plan Next Note Type Treatment Note Next Visit Plan cont to work stability of knees and movement mechanics
--- NOTE | 2024-07-27 12:35 | PT.OTN ---
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 Tried yoga and that backfired. She got an xray when it was swelling up. She saw ortho and he thought the MRI report was wrong. She was frustrated because he didn't give her anything. He said maybe there was a meniscus tear. She has been reading and it does sound like meniscus tear. 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 L knee is also painful. No sudden incident. She has been off the water and doing more online schooling. She has been walking and [place] the [place] lands with minimal pain in knees going up. Can't squat w/o pain. Knee has collapsed under her. hx of knee pain starting in 20s where she had to stop biking and running and did PT in mid to late 40s and did strengthening and foam rolling which allowed her to bike. LBP has been giving her issues . She does have some OA in R spine and does has scoliosis. Pain mostly R>L lumbar spine. She has been reading a book about mechanics by Albert Armando. There was a time when getting in/out of car was painful to R knee. Prior Treatments and Tests Knee MRI: IMPRESSION: Suspected posterolateral corner injury with increased T2 weighted signal/edema within and surrounding the fibular collateral ligament, distal popliteus muscle and tendon, popliteofibular ligament. Suspected meniscocapsular separation with adjacent moderate fluid and soft tissue edema lateral greater than medial. Mild increased T2 weighted signal adjacent to the iliotibial tract suggests injury/strain which may be chronic. Moderate increased T2 weighted signal and thickening of the distal biceps femoris tendon suggesting injury/strain. Small popliteal cyst. Mild increased signal of the posterior cruciate ligament may be related to injury/ strain without full-thickness tear. 9 mm cystic structure right distal femur metaphysis medially too small to characterize but may represent cyst or other lesion. Moderate degenerate changes lateral greater than medial greater than patellofemoral. Treatment Goals Patient/Caregiver Goals know how to strengthen, be able to do resistance activities (like work on house /boats w/o injury), be able squat PT-OP-C Subjective Start: 04/05/24 10:27 Freq: Status: Active Protocol: Document 07/27/24 10:45 AB (Rec: 07/27/24 12:34 AB Laptop) OP-PT Subjective Patient Comments Patient Comments Patient reports this is her last session, unless there is an opening last week., due to insurance limitations. Patient reports she has a few questions, does think she has a good program for exercises. Patient reports she had a 5 day class since last session, had no knee hitching, did have one sharp knee pain which resolved quickly, and more back pain/ attributes to not performing stretches. Patient reports she did get a little knee hitching yesterday or the day before. PT-OP-D Balance Start: 04/05/24 10:27 Freq: Status: Active Protocol: Document 04/12/24 10:45 [facility] (Rec: 04/12/24 11:37 [facility] [id number]) Balance Tests Single Limb Standing Single Limb- Right 30 sec w/hip lat shear Single Limb- Left 30 sec w/lat trunk tilt PT-OP-G Mobility & Gait Start: 04/05/24 10:27 Freq: Status: Active Protocol: Document 04/12/24 10:45 [facility] (Rec: 04/12/24 11:31 [facility] [id number]) OP Gait Assessment Comments Gait Comments inc R protation and lat shear of R hip w/WB, dec UE swing PT-OP-J Posture/Palpation/Skin Start: 04/05/24 10:27 Freq: Status: Active Protocol: Document 07/14/24 09:50 [facility] (Rec: 07/14/24 17:04 [facility] [id number]) Posture Evaluation [facility] Postural Classification System Lumbar Protective Mechanism Left AP 2 Lumbar Protective Mechanism Right AP 3 Lumbar Protective Mechanism Left PA 3 Lumbar Protective Mechanism Right PA 4 PT-OP-K Range of Motion Start: 04/05/24 10:27 Freq: Status: Active Protocol: Document 04/14/24 10:53 [facility] (Rec: 04/14/24 17:58 [facility] [id number]) Knee Goniometric Range of Motion Knee Right Flexion Active (degrees) 135 Extension Active (degrees) 0 Left Flexion Active (degrees) 135 Extension Active (degrees) 0 Comments pain w/ext PT-OP-M Strength Start: 04/12/24 11:32 Freq: Status: Active Protocol: Document 07/27/24 10:45 AB (Rec: 07/27/24 12:35 AB Laptop) Knee Strength Knee Manual Muscle Testing Right Flexion (S2) 4+ Good+ Extension (L3) 5 Normal Left Flexion (S2) 4+ Good+ Extension (L3) 5 Normal PT-OP-Q Treatments Start: 04/05/24 10:27 Freq: Status: Active Protocol: Document 07/27/24 10:45 AB (Rec: 07/27/24 12:34 AB Laptop) Gym Equipment Shuttle Recovery Bilateral Squats Resistance 75 not miguel 62 # dec miguel 50# miguel Reps/Time 10 with 62# and 50# Therapeutic Exercises Supine Exercises piriformis stretch Side bilateral Reps/Minutes 60 sec each side X 2with towel roll right LE Comments verbal and tactile cues towel roll at groin for R LE Other Exercises single leg lift Other Exercise Name to mat at seat height Side bilateral Resistance 5 lb in opp UE Reps/Minutes X 10 X 2 Comments verbal and visual cues Manual Therapy Treatment Consent Patient gave verbal consent for manual Yes treatment Soft Tissue Mobilization glute Body Location bilateral glute/piriformis SI area Mobilization Type Cross-Friction,Rolling Intensity/Depth Moderate Body Position Sidelying Manual Techniques MET for left AI right PI and pubic shot gun Reps/Duration 6X 6 sec each Comments modified to seated for self MET instruction without dowel PT-OP-T Assessment and Plan Start: 12/30/24 10:27 Freq: Status: Active Protocol: Document 07/27/24 10:45 AB (Rec: 07/27/24 12:34 AB Laptop) Physical Therapy Assessment Goals squat Alf Goal (LTG) Pt will be able to squat fully w/o knee or back pain 05/17-still painful B knees 06/15-inc distance w/wall squats, still difficult w/free squats, sit to stand occ painful 07/14-can get slightly further w /squat but still limited 07/27/2024: reports pain at 50 deg flexion R then no pain until 70 deg band pain is then bilateral knees LTG Duration 5/6 activities Short Term Goal (STG) Pt will report no further instances for 1 week of R knee locking on her 05/17-at least 1x/day now more towards ext 06/15-only a couple times a week 07/14-worse during COVID 07/27/2024 Patient reports locking is much less, locking every day to every other day has some, less intense. STG Duration 07/04 Alf Goal (LTG) Pt will be able to do all boat and housework w/o pain greater than 2/10 in B knees or back 05/17- 1-5-6 in back or when knee hitches 07/14-4 day class w/o issue except squatting down to get into berth, 07/27/2024 Rates pain with house and boat work 3/10 more back than knees. LTG Duration / strength Short Term Goal (STG) Pt will be indep w/HEP STG Duration achieved -advancing as able Alf Goal (LTG) Pt will score at least 4+/5 on all BLE MMT and at least 3/5 on LPM to shwo improved stability for greater ease with daily activities 05/17- improving 06/15-much improved 07/14-improving mostly met 07/27/2024 B quad 5/5 hamstring 4+/5 LTG Duration 08/10 Assessment Summary Assessment Nisreen has made progress with goals, quad strength 5/5 and hamstring strength 4+/5 bilaterally, lower depth squats continue to be a problem. Nisreen reports she may have another session if able to get an appointment, but may not be able to return due to end date on physical therapy authorization. Inc time on Shuttle recovery/leg press for LE positioning. Physical Therapy Plan Frequency and Duration Frequency of Treatment 1x/Week Duration of treatment (weeks) 8 Plan of Care Start Date 06/15/24 Plan of Care End Date 08/10/24 Next Visit Focus/Plan Next Note Type Treatment Note Next Visit Plan cont to work stability of knees and movement mechanics Possible discharge
--- NOTE | 2024-08-02 14:35 | PT.OTN ---
Current Diagnoses Pain in unspecified knee (08/02/24) Low back pain, unspecified (08/02/24) Segmental and somatic dysfunction of lower extremity (08/02/24) Weakness (08/02/24) Physical Therapy Treatment Note PT-OP-A Visit Information Start: 04/05/24 10:27 Freq: Status: Active Protocol: Document 08/02/24 13:50 [facility] (Rec: 08/02/24 14:35 [facility] [id number]) Out-Patient Physical Therapy Visit Information Visit Information Visit Type Discharge Summary Visit Start Time 13:48 Visit Stop Time 14:30 Visit Number 15 PT-OP-B Current Condition Start: 04/05/24 10:27 Freq: Status: Active Protocol: Document 04/12/24 10:45 [facility] (Rec: 04/12/24 11:31 [facility] [id number]) Current Condition History of Current Condition Onset Date September 2023 Current Complaints R > L knee pain, LBP History of Current Condition Pt reports started getting a knee hitch (where knee locks in flex) when walking. Tried yoga and that backfired. She got an xray when it was swelling up. She saw ortho and he thought the MRI report was wrong. She was frustrated because he didn't give her anything. He said maybe there was a meniscus tear. She has been reading and it does sound like meniscus tear. 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 L knee is also painful. No sudden incident. She has been off the water and doing more online schooling. She has been walking and on the [place] lands with minimal pain in knees going up. Can't squat w/o pain. Knee has collapsed under her. hx of knee pain starting in 20s where she had to stop biking and running and did PT in mid to late 40s and did strengthening and foam rolling which allowed her to bike. LBP has been giving her issues . She does have some OA in R spine and does has scoliosis. Pain mostly R>L lumbar spine. She has been reading a book about mechanics by Albert Armando. There was a time when getting in/out of car was painful to R knee. Prior Treatments and Tests Knee MRI: IMPRESSION: Suspected posterolateral corner injury with increased T2 weighted signal/edema within and surrounding the fibular collateral ligament, distal popliteus muscle and tendon, popliteofibular ligament. Suspected meniscocapsular separation with adjacent moderate fluid and soft tissue edema lateral greater than medial. Mild increased T2 weighted signal adjacent to the iliotibial tract suggests injury/strain which may be chronic. Moderate increased T2 weighted signal and thickening of the distal biceps femoris tendon suggesting injury/strain. Small popliteal cyst. Mild increased signal of the posterior cruciate ligament may be related to injury/ strain without full-thickness tear. 9 mm cystic structure right distal femur metaphysis medially too small to characterize but may represent cyst or other lesion. Moderate degenerate changes lateral greater than medial greater than patellofemoral. Treatment Goals Patient/Caregiver Goals know how to strengthen, be able to do resistance activities (like work on house /boats w/o injury), be able squat PT-OP-C Subjective Start: 04/05/24 10:27 Freq: Status: Active Protocol: Document 08/02/24 13:50 [facility] (Rec: 08/02/24 14:[id number] OP-PT Subjective Patient Comments Patient Comments Pt reports hasn't been as good about exercises but has done some PT-OP-D Balance Start: 04/05/24 10:27 Freq: Status: Active Protocol: Document 04/12/24 10:45 [facility] (Rec: 04/12/24 11:37 [id number] Balance Tests Single Limb Standing Single Limb- Right 30 sec w/hip lat shear Single Limb- Left 30 sec w/lat trunk tilt PT-OP-G Mobility & Gait Start: 04/05/24 10:27 Freq: Status: Active Protocol: Document 04/12/24 10:45 [facility] (Rec: 04/12/24 11:31 [facility] [id number]) OP Gait Assessment Comments Gait Comments inc R protation and lat shear of R hip w/WB, dec UE swing PT-OP-J Posture/Palpation/Skin Start: 04/05/24 10:27 Freq: Status: Active Protocol: Document 07/14/24 09:50 [facility] (Rec: 07/14/24 17:04 [facility] [id number]) Posture Evaluation [facility] Postural Classification System Lumbar Protective Mechanism Left AP 2 Lumbar Protective Mechanism Right AP 3 Lumbar Protective Mechanism Left PA 3 Lumbar Protective Mechanism Right PA 4 PT-OP-K Range of Motion Start: 04/05/24 10:27 Freq: Status: Active Protocol: Document 04/14/24 10:53 [facility] (Rec: 04/14/24 17:58 [facility] [id number]) Knee Goniometric Range of Motion Knee Right Flexion Active (degrees) 135 Extension Active (degrees) 0 Left Flexion Active (degrees) 135 Extension Active (degrees) 0 Comments pain w/ext PT-OP-M Strength Start: 04/12/24 11:32 Freq: Status: Active Protocol: Document 07/27/24 10:45 AB (Rec: 07/27/24 12:35 AB Laptop) Knee Strength Knee Manual Muscle Testing Right Flexion (S2) 4+ Good+ Extension (L3) 5 Normal Left Flexion (S2) 4+ Good+ Extension (L3) 5 Normal PT-OP-Q Treatments Start: 04/05/24 10:27 Freq: Status: Active Protocol: Document 08/02/24 13:50 [facility] (Rec: 08/02/24 14:35 [facility] [id number]) Therapeutic Exercises Supine Exercises piriformis stretch Side bilateral Reps/Minutes 20 sec Fig 4 Supine Exercise Name reviewed HEP Side bilateral Reps/Minutes 30 SH bridge Supine Exercise Name alt LE ext Side bilateral Reps/Minutes 8 Comments cues pelvis level Prone Exercises plank Prone Exercise Name alt hip ext Side bilateral Reps/Minutes 2x4 Sidelying Exercises plank Sidelying Exercise Name modified coppenhagen Side bilateral Reps/Minutes 20 sec ea Comments attempted SL but too difficult open book Side bilateral Reps/Minutes 8 Comments cues control Standing Exercises RDL Standing Exercise Name SL Side bilateral Reps/Minutes 10 row Standing Exercise Name bent over row Side bilateral Reps/Minutes 8 ea Comments 10lb ea single leg with trunk Standing Exercise Name hip abd vs wall Side bilateral Reps/Minutes 30 sec ea Comments posture lunges Standing Exercise Name HEP Side bilateral Reps/Minutes 10 feet X 5 Comments cues no lat tip heel raise Standing Exercise Name bilateral on stairs with knee straight and bent Equipment Used HEP Reps/Minutes X10 each Comments cues to SL Lateral step down Standing Exercise Name review EHP Side bilateral Equipment Used 6 step, contact PRN Reps/Minutes X12 Comments cues knee position Other Exercises cat/cow Reps/Minutes 10 Comments cues inc flex bird dog Other Exercise Name quadrped and knee plank Side bilateral Reps/Minutes 5 ea PT-OP-T Assessment and Plan Start: 04/05/24 10:27 Freq: Status: Active Protocol: Document 08/02/24 13:50 [facility] (Rec: 08/02/24 14:35 [facility] [id number]) Physical Therapy Assessment Goals squat Tobacco Blender Goal (LTG) Pt will be able to squat fully w/o knee or back pain 05/17-still painful B knees 06/15-inc distance w/wall squats, still difficult w/free squats, sit to stand occ painful 07/14-can get slightly further w /squat but still limited 07/27/2024: reports pain at 50 deg flexion R then no pain until 70 deg band pain is then bilateral knees LTG Duration still painbut improving ROM activities Short Term Goal (STG) Pt will report no further instances for 1 week of R knee locking on her 05/17-at least 1x/day now more towards ext 06/15-only a couple times a week 07/14-worse during COVID 07/27/2024 Patient reports locking is much less, locking every day to every other day has some, less intense. STG Duration improved Tobacco Blender Goal (LTG) Pt will be able to do all boat and housework w/o pain greater than 2/10 in B knees or back 05/17- 1-5-6/10 in back or when knee hitches 07/14-4 day class w/o issue except squatting down to get into berth, 07/27/2024 Rates pain with house and boat work 3/10 more back than knees. LTG Duration improved strength Short Term Goal (STG) Pt will be indep w/HEP STG Duration achieved -advancing as able Tobacco Blender Goal (LTG) Pt will score at least 4+/5 on all BLE MMT and at least 3/5 on LPM to shwo improved stability for greater ease with daily activities 05/17- improving 06/15-much improved 07/14-improving mostly met 07/27/2024 B quad 5/5 hamstring 4+/5 LTG Duration improved Assessment Summary Assessment Pt goals much improved and overall most strength improved . She is indep w/HEP w/min cues needed w/some exercises She has dec locking instances and overall dec pain w/return to work. Pt to cont HEP to build strength and improve function. Physical Therapy Plan Discharge Physical Therapy Discharge Reasons Goals Met
== END 2024-08-03 13:20 | disposition home or self-care (01) ==
LOC: PHYS 13:45
PROVIDERS: Family Provider Family Medicine; PCP Family Medicine; Referring Provider Family Medicine; Visit Provider Family Medicine
DX: M99.06 Segmental and somatic dysfunction of lower extremity (principal); M25.569 Pain in unspecified knee; R53.1 Weakness; M54.50 Low back pain, unspecified
CPT/HCPCS: 97110; 97140; 97162; 97530; 97535

== ENCOUNTER 2024-08-12 08:41 | Day surgery (SDC) | payer OTHER, SELFPAY ==
[2024-08-12 09:24] VITALS: BP 102/64; PULSE 70; RESP 16; TEMP 36.2; O2SAT 95
[2024-08-12] MEDS: LACTATED RINGERS 1,000 ML 42 ML IV (09:26)
--- NOTE | 2024-08-12 09:45 | P.HP_ITS ---
History of Present Illness History of Present Illness Date Patient Seen: 08/12/24 Time Patient Seen: 09:45 Chief complaint: SDC Narrative: Nisreen is a 59-year-old woman who is here for a colonoscopy. Her last colonoscopy was 11 years ago and was normal. No family history of colon cancer. [facility] Medical History (Updated 08/12/24 @ 09:46 by Mendez Novoa MD) Chronic bilateral thoracic back pain Body posture problem Chronic low back pain without sciatica Anxiety Family History Grandfather Diabetes mellitus Father CVA (cerebrovascular accident) Social History marital status: household members: none housing: house occupational status: employed Smoking Status: Former smoker second hand exposure: No alcohol intake: current substance use type: does not use Meds Home Medications and Allergies Home Medications Medication Instructions Recorded Confirmed Type escitalopram oxalate 20 mg tablet See Rx Instructions .Route 05/28/24 08/12/24 Rx .COMPLEX #90 tabs Allergies Allergy/AdvReac Type Severity Reaction Status Date / Time No Known Drug Allergies Allergy Verified 08/12/24 09:04 Exam Vital Signs (past 8 hours): - 08/12/24 09:24 Temperature 97.1 F L Pulse Rate 70 Respiratory Rate 16 Blood Pressure 102/64 Pulse Oximetry 95 Oxygen Delivery Method Room Air Oxygen Delivery Method Room Air Const General: No acute distress Resp Effort & Inspection: normal respiratory effort Assessment & Plan Assessment and plan (1) Colon cancer screening: Status: Acute Plan Colonoscopy Time-Based Coding :: [TOTAL MINUTES] spent with patient and on the chart (including review of chart, obtaining history, exam, reviewing outside data, placing orders, documenting exam and treatment plan, and counseling patient) on [DATE]. 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
--- NOTE | 2024-08-12 10:12 | PM.OP.COLON ---
Operative Date/Time/Diagnoses Date of procedure: 08/12/24 Time of procedure: 10:12 Pre-op diagnosis: Colon cancer screening Post-op diagnosis: same Procedure & Clinicians Study performed: Colonoscopy Same procedure as scheduled: Yes Surgeon: Mendez Novoa Procedure Notes Procedure in detail: Surgeon: Mendez Novoa MD Anesthesia: Janet Tipton CRNA Procedure: The patient was brought to the endoscopy suite, placed in left lateral decubitus position. The patient was connected to monitoring devices. A time-out was performed. Sedation was administered. Once the patient was adequately sedated, a digital rectal exam was performed and was normal. The scope was then inserted and advanced to the cecum where the appendiceal orifice was identified and photographed. The scope was then slowly withdrawn over greater than 6 minutes. The mucosa was thoroughly inspected. No abnormalities were found. The scope was retroflexed in the rectum. The scope was straightened and removed. The patient was awakened and brought to recovery. Scope withdrawal time: 8 minutes Sedation time: 12 minutes EBL: 0 Findings: Normal colon Post-procedure Recommendations: Colonoscopy in 10 years Disposition: PACU
[2024-08-12 10:15] VITALS: BP 102/55; PULSE 61; RESP 16; TEMP 36.2; O2SAT 98
[2024-08-12 10:25] VITALS: BP 103/66; PULSE 68; RESP 16; TEMP 36.3; O2SAT 99
== END 2024-08-12 10:34 | disposition home or self-care (01) ==
PROVIDERS: Family Provider Family Medicine; PCP Family Medicine; Referring Provider Surgery; Visit Provider Surgery
PROC: 0DJD8ZZ Inspection of Lower Intestinal Tract, Via Natural or Artificial Opening Endoscopic (ICD-10-PCS; CPT 45378; principal; 2024-08-12 09:45)
DX: Z12.11 Encounter for screening for malignant neoplasm of colon (principal); Z87.891 Personal history of nicotine dependence
CPT/HCPCS: 45378; J2704

== ENCOUNTER 2024-09-15 08:05 | Emergency (ER) | payer OTHER, SELFPAY ==
--- NOTE | 2024-09-15 08:15 | DI.RAD.S_ITS ---
PROCEDURE: XR CHEST 1V INDICATIONS: Possible stroke TECHNIQUE: One view of the chest was acquired. COMPARISON: None. FINDINGS: Surgical changes and devices: None. Lungs and pleura: Lungs are clear. No pleural effusions or pneumothorax. Mediastinum: Mediastinal contours appear normal. Heart size is normal. Bones and chest wall: No suspicious bony lesions. Overlying soft tissues appear unremarkable. IMPRESSION: No acute cardiopulmonary pathology. Dictated by: Vishal Christopher M.D. on 09/15/2024 at 8:40 Approved by: Vishal Christopher M.D. on 09/15/2024 at 8:40
--- NOTE | 2024-09-15 08:15 | EKG_ITS ---
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
--- NOTE | 2024-09-15 08:15 | DI.CT.S_ITS ---
PROCEDURE: CT STROKE INDICATIONS: Positive BE-FAST, Stroke symptoms TECHNIQUE: Noncontrast 4.5 mm thick angled axial sections acquired from the foramen magnum to the vertex, with coronal reformats. For radiation dose reduction, the following was used: automated exposure control, adjustment of mA and/or kV according to patient size. COMPARISON: [facility], CT, CT ANGIO HEAD AND NECK, 09/15/2024, 8:22. FINDINGS: Image quality: Diagnostic. CSF spaces: Basal cisterns are patent. No extra-axial fluid collections. Ventricles are normal in size and shape. Brain: No midline shift. No intracranial mass effect or hemorrhage. Sanders- white matter interface is normal. Skull and face: Calvarium and visualized facial bones are intact, without suspicious lesions. Sinuses: Visualized sinuses and mastoids are clear. IMPRESSION: No acute intracranial pathology. Findings were communicated to ordering ER physician Dr. Greene on 09/15/2024 at 8:34 a.m.. This study fulfills neurological imaging criteria for inclusion or exclusion of acute stroke therapies based on available published neurological imaging guidelines. Dictated by: Vishal Christopher M.D. on 09/15/2024 at 8:32 Approved by: Vishal Christopher M.D. on 09/15/2024 at 8:34
--- NOTE | 2024-09-15 08:15 | DI.CT.S_ITS ---
PROCEDURE: CT ANGIO HEAD AND NECK INDICATIONS: left sided facial assymentry last known normal 0715 TECHNIQUE: After the administration of intravenous contrast, 1 mm thick sections acquired from the aortic arch through the [place] of [place]. 3-dimensional pmsoees-aonwlltyj-qpbknwedfb (MIP) and/or volume rendering reformats were acquired of the central intracranial vasculature and neck separately. For radiation dose reduction, the following was used: automated exposure control, adjustment of mA and/or kV according to patient size. COMPARISON: None. FINDINGS: Image quality: Diagnostic. Cerebral CT Angiogram: Internal carotid arteries: No acute findings. Intracranial ICA are patent with no significant stenosis. No occlusion. No aneurysm. Anterior cerebral arteries: Unremarkable. No significant stenosis. No occlusion. No aneurysm. Middle cerebral arteries: Unremarkable. No significant stenosis. No occlusion. No aneurysm. Posterior cerebral arteries: Unremarkable. No significant stenosis. No occlusion. No aneurysm. Basilar artery: Unremarkable. No significant stenosis. No occlusion. No aneurysm. Vertebral arteries: Unremarkable as visualized. Dural venous sinuses: Unremarkable given phase of enhancement. Other: Arterial phase appearance of the brain parenchyma is unremarkable. Neck CT Angiogram: Internal carotid arteries: Unremarkable. No significant stenosis. No dissection or occlusion. Common carotid arteries: Unremarkable. No significant stenosis. No dissection or occlusion. External carotid arteries: Unremarkable. No occlusion. Vertebral arteries: Unremarkable. No significant stenosis. No dissection or occlusion. Aortic Arch and Mediastinum: Partially visualized aortic arch unremarkable without evidence of aneurysm. Origins of the great vessels unremarkable. Other: Arterial phase soft tissues of the neck and chest are unremarkable. IMPRESSION: 1. No significant intracranial arterial abnormality is seen. 2. No significant abnormality is seen within the arteries of the neck. Any quantitative measurements of stenosis were performed using NASCET criteria. Dictated by: Vishal Christopher M.D. on 09/15/2024 at 8:34 Approved by: Vishal Christopher M.D. on 09/15/2024 at 8:37
[2024-09-15 08:17] VITALS: BP 137/80; PULSE 82; RESP 14; TEMP 36.8; O2SAT 94; BMI 28.3
[2024-09-15 08:23] LABS: Add Manual Diff / Slide Review NO; Basophils Absolute Auto 0 /uL (0-100); Eosinophils Absolute Auto 200 /uL (0-450); Eosinophils Percent Auto 4.3 % (2-4); Hemoglobin 13.9 g/dL (12.0-16.0); Lymphocytes Absolute Auto 1800 /uL (1100-4500); Lymphocytes Percent Auto 37.9 % (25-40); Mean Corpuscular HGB Conc 34.8 % (30-36); Monocytes Absolute Auto 500 /uL (0-900); Monocytes Percent Auto 9.8 % (3-14); Neutrophils Absolute Auto 2200 /uL (1500-7000); Platelet Count 256 X10^3/uL (150-400); Red Blood Cell Count 4.35 X10^6/uL (4.0-5.2); White Blood Cell Count 4.6 X10^3/uL (4.5-11.0)
--- NOTE | 2024-09-15 08:24 | ED.NEUROSD ---
HPI - Neuro Symptoms/Deficit General Chief Complaint: Neuro Symptoms/Deficit Stated Complaint: left side of face is drooping this morning Time Seen by Provider: 09/15/24 08:12 Source: patient, RN notes reviewed and old records reviewed Mode of arrival: Ambulatory Limitations: no limitations History of Present Illness HPI Narrative: 59-year-old female on escitalopram is only daily medication notes that last night had a funny sensation on her tongue, this morning woke up thought everything felt was fine at 6:30 a.m. and while drinking noticed the left side of the mouth felt weird than noticed some drooping of the cheek and left eye and difficulty closing the left eye. She notes she did have a headache and a little bit of neck pain earlier this morning. She states that is improved. No fevers. No double vision or vision changes. No chest pain or shortness of breath. No nausea or vomiting. No other GI or urinary symptoms. No numbness tingling or weakness of extremities. No difficulty with the gait. No dizziness or vertigo. Related Data Previous Rx's ?Medication ?Instructions ?Recorded escitalopram oxalate 20 mg tablet See Rx Instructions .Route 05/28/24 .COMPLEX #90 tabs erythromycin 5 mg/gram (0.5 %) eye 0.5 inch EYE-LEFT TID #3.5 grams 09/15/24 ointment prednisone 10 mg tablets in a dose See Rx Instructions PO .COMPLEX 09/15/24 pack #40 ea valacyclovir 1 gram tablet 1,000 mg PO TID 7 days #21 tabs 09/15/24 Allergies Allergy/AdvReac Type Severity Reaction Status Date / Time No Known Drug Allergies Allergy Verified 09/15/24 08:21 Review of Systems Review of Systems ROS Unobtainable: All systems reviewed & are unremarkable except as noted in HPI and below Patient History Medical History Chronic bilateral thoracic back pain Body posture problem Chronic low back pain without sciatica Anxiety Family History Grandfather Diabetes mellitus Father CVA (cerebrovascular accident) Social History marital status: household members: none housing: house occupational status: employed Smoking Status: Never smoker second hand exposure: No alcohol intake: current substance use type: does not use Exam Narrative Exam Narrative: GEN: well nourished, well appearing female, alert and oriented x 3, patient appears to be in mild distress. HEENT: Atraumatic, pupils are equal round reactive to light, extraocular movements are intact, nares are clear, patient has some decreased movement of the left brow, has weakness when attempting to squeeze eyes against downward pull on the left, has some droop and decreased movement of nasolabial fold on the left. TMs are clear with no fluid, there is no conjunctival pallor. Throat is clear without any exudates, erythema, tonsillar enlargement or uvular deviation HEART: Regular rate and rhythm without murmur, clicks, rubs. No carotid bruits, pulses are equal in upper and lower extremities LUNGS:Lungs clear to auscultation, no wheezes, rales, crackles, chest moves symmetrically ABD:bowel sounds normal, soft, non-tender, no guarding, rebound, rigidity, no masses noted, no hepatosplenomegaly MSCL: Non-tender, no muscle atrophy, muscles strength 5/5 upper and lower extremities, full range of motion, normal gait NEURO:CN 2-12 intact, sensation normal, Finger nose finger test normal, heel mccoy test normal SKIN: No rash, no erythema, no skin changes Initial Vital Signs Initial Vital Signs: Vital Signs Temperature 98.3 F 09/15/24 08:17 Pulse Rate 82 09/15/24 08:17 Respiratory Rate 14 09/15/24 08:17 Blood Pressure 137/80 09/15/24 08:17 Pulse Oximetry 94 09/15/24 08:17 Oxygen Delivery Method Room Air 09/15/24 08:17 Scores NIH Stroke Scale Level of Conciousness: Alert, keenly responsive Ask month/age: Answers both questions correctly. Open/close eyes, close hand: Performs both tasks correctly Best gaze horizontal: Normal Visual snyder: No visual loss Facial palsy: Minor paralysis, flattened nasolabial fold, asymmetry on smiling Left arm drift: No drift for full 10 sec Right arm drift: No drift for full 10 sec Left leg drift: No drift for full 5 sec Right leg drift: No drift for full 5 sec Limb ataxia: Absent Sensory on face/arms/legs: Normal, no sensory loss Best language: No aphasia, normal Dysarthria: Normal Extinction or inattention: No abnormality Total NIH Stroke scale score: 1 Course Orders Ordered: Discontinued Medications Ondansetron HCl (Ondansetron 4 Mg/2 Ml Inj) 4 mg IV NOW PRN PRN Reason: Nausea And Vomiting Ondansetron HCl (Ondansetron 4 Mg Odt) 4 mg PO NOW PRN PRN Reason: Nausea And Vomiting Vital Signs Vital signs: Vital Signs - 8 hr 09/15/24 08:17 09/15/24 08:30 09/15/24 08:30 Temperature 98.3 F 97.7 F Pulse Rate 82 77 77 Respiratory Rate 14 18 Blood Pressure 137/80 136/80 Pulse Oximetry 94 97 97 Oxygen Delivery Method Room Air Room Air 09/15/24 08:30 09/15/24 08:45 09/15/24 08:45 Temperature Pulse Rate 71 Respiratory Rate 17 Blood Pressure 136/80 130/74 Pulse Oximetry 96 Oxygen Delivery Method 09/15/24 09:00 09/15/24 09:00 Temperature Pulse Rate 70 Respiratory Rate 17 Blood Pressure 130/57 L Pulse Oximetry 97 Oxygen Delivery Method MDM - Neuro Symptoms/Deficit Lab Data 09/15/24 08:17 09/15/24 08:17 Labs: Lab Results 09/15/24 09/15/24 Range/Units 08:17 08:40 WBC 4.6 (4.5-11.0) X10^3/uL RBC 4.35 (4.0-5.2) X10^6/uL Hgb 13.9 (12.0-16.0) g/dL Hct 40.0 (36-46) % MCV 92.0 (80-100) fL MCH 32.0 (26-34) PG MCHC 34.8 (30-36) % RDW 13.0 (11.6-14.8) % Plt Count 256 (150-400) X10^3/uL Neut % (Auto) 47.0 L (50-75) % Lymph % (Auto) 37.9 (25-40) % [place] % (Auto) 9.8 (3-14) % Eos % (Auto) 4.3 H (2-4) % Baso % (Auto) 1.0 (0-2) % Neut # (Auto) 2200 (1225-7978) /uL Lymph # (Auto) 1800 (7717-3635) /uL [place] # (Auto) 500 (0-900) /uL Eos # (Auto) 200 (0-450) /uL Baso # (Auto) 0 (0-100) /uL PT 13.0 H (9.4-12.5) SECONDS INR 1.1 (0.9-1.3) APTT 33 (25.1-36.5) SECONDS Sodium 137 (137-145) mmol/L Potassium 3.8 (3.4-5.1) mmol/L Chloride 105 (98-107) mmol/L Carbon Dioxide 24 (22-32) mmol/L BUN 14 (7-17) mg/dL Creatinine 0.68 (0.52-1.04) mg/dL Estimated GFR > 60 (>60) mL/min BUN/Creatinine Ratio 20.6 (6-22) Glucose 111 H (70-99) mg/dL Calcium 9.3 (8.4-10.2) mg/dL Total Bilirubin 0.5 (0.2-1.3) mg/dL AST 31 (14-36) IU/L ALT 24 (<35) IU/L Alkaline Phosphatase 71 (38-126) U/L Total Creatine Kinase 65 (30-135) U/L Troponin I < 0.012 (0.01-0.034) ng/mL Total Protein 7.7 (6.3-8.2) g/dL Albumin 4.6 (3.5-5.0) g/dL Globulin 3.1 (1.7-4.1) g/dL Albumin/Globulin Ratio 1.5 (1.0-2.8) U Opiates 300ng/mL cut Negative (Negative) Ur Oxycodone Screen Negative (Negative) Urine Methadone Screen Negative (Negative) Ur Barbiturates Screen Negative (Negative) U Tricyclic Antidepress Negative (Negative) Ur Phencyclidine Scrn Negative (Negative) Ur Amphetamines Screen Negative (Negative) U Methamphetamines Scrn Negative (Negative) Ur MDMA Scrn (Ecstasy) Negative (Negative) U Benzodiazepines Scrn Negative (Negative) Urine Cocaine Screen Negative (Negative) U Marijuana (THC) Screen Negative (Negative) Urine pH Normal (Normal) Urine Specific [place] Normal (Normal) Ur Creatinine Normal (Normal) Point of Care Testing Glucose POC 112 Urine Dip Bedside Urine Glucose Negative Bedside Urine Bilirubin - Negative Bedside Urine Ketone - Negative Urine Specific [place] 1.005 Bedside Urine Occult Blood - Negative Bedside Urine pH 7.0 Bedside Urine Protein - Negative Bedside Urine Urobilinogen - Negative Bedside Urine Nitrite - Negative Bedside Urine Leukocytes - Negative Esterase ECG Data Attestation: I personally reviewed and interpreted this ECG as follows: Interpretation: Sinus rhythm rate of 63 GA 180 QRS is 76 QTC of 415, no acute ST changes appreciated. MDM Narrative Medical decision making narrative: 59-year-old female has symptoms that seem most consistent with Quesada's palsy but does note that she had a headache and some neck pain earlier this morning vitals are appropriate. NIH of 1 for patient's facial changes. Head CT, nothing acute on non-contrast study, results called to myself by radiology @ 0834 CT head and neck angio showed no significant intracranial arterial abnormality no significant burn of the arteries and neck. Chest x-ray is negative for acute change Labs show normal white count hemoglobin and platelets, INR is 1.1 electrolytes BUN creatinine are normal glucose is 111 LFTs are normal troponins less than 0.012. UDS is negative. Vitals, labs and imaging are all appropriate. Patient describes headache but describes more as [id number] that has since resolved. Patient's exam seems most consistent with a Quesada's palsy other potentials are included patient had acute stroke workup with negative non-con head CT CT head and neck angio which shows night dissection, no aneurysm or other vascular change, chest x-ray and labs show no acute changes. Discussed MR with the patient, stroke seems low in the differential but nerve palsy would potentially be in the differential although patient's exam makes this less likely. After discussion she defers. We will start steroids, antivirals and drops for her eyes to help moisturize as well as discussed taping or wearing an eye patch at night. Discussed return precautions all questions answered. Discharge Plan Departure Patient Disposition: Home Clinical Impression: Quesada's palsy Instructions: DI for [place] Palsy Activity Restrictions/Additional Instructions: Follow up with primary care for recheck as needed. Quesada's palsy typically take several weeks to resolve if it is continuing to persist please follow up. Prescription for steroids as well as an antiviral was sent to [facility]. Take these until completed. Because your left eye will not want to close I would recommend using saline drops every 2-3 hours to help keep it moisturized, if you are having difficulty with this or at nighttime I would recommend taping or using an eye patch to protect your eye as well. There is also prescription for erythromycin ointment weeks you can put in the left eye as well to help maintain moisture particularly at nighttime. Please return if you develop fevers, severe headaches, sudden changes to speech, vision, chest pain or shortness of breath, difficulty with movement or sensation in your extremities, any difficulty with gait or balance or other new or concerning changes. Prescriptions: New prednisone 10 mg tablets,dose pack See Rx Instructions .ROUTE .COMPLEX Qty: 40 0RF Rx Instructions: Take 60 mg p.o. daily x5 days then 50 mg p.o. x1 day, then 40 mg p.o. x1 day, then 30 mg p.o. x1 day, then 20 mg p.o. x1 day then 10 mg p.o. x1 day valacyclovir 1 gram tablet 1,000 mg PO TID 7 Days Qty: 21 0RF erythromycin 5 mg/gram (0.5 %) ointment 0.5 inch EYE-LEFT TID Qty: 3.5 0RF No Action escitalopram oxalate 20 mg tablet See Rx Instructions .ROUTE .COMPLEX Qty: 90 1RF Dose Instruction: TAKE ONE TABLET BY MOUTH ONE TIME DAILY Rx Instructions: TAKE ONE TABLET BY MOUTH ONE TIME DAILY Referrals: Tana Zuleta MD [Primary Care Provider, Family Practice] Stand Alone Forms: Patient Portal/API
[2024-09-15 08:30] VITALS: BP 136/80; PULSE 77; RESP 18; TEMP 36.5; O2SAT 97
[2024-09-15 08:30] LABS: INR 1.1 (0.9-1.3)
[2024-09-15 08:33] LABS: PTT Partial Thromboplastin Tim 33 SECONDS (25.1-36.5)
[2024-09-15 08:35] LABS: Alanine Aminotransferase 24 IU/L (<35); Albumin 4.6 g/dL (3.5-5.0); Albumin Globulin Ratio 1.5 (1.0-2.8); Alkaline Phosphatase 71 U/L (38-126); Aspartate Aminotransferase 31 IU/L (14-36); BUN Creatinine Ratio 20.6 (6-22); Bilirubin Total 0.5 mg/dL (0.2-1.3); Blood Urea Nitrogen 14 mg/dL (7-17); Calcium 9.3 mg/dL (8.4-10.2); Carbon Dioxide 24 mmol/L (22-32); Chloride 105 mmol/L (98-107); Creatine Kinase 65 U/L (30-135); Estimated Glomerular Filt Rate > 60 mL/min (>60); Globulin 3.1 g/dL (1.7-4.1); Glucose 111 mg/dL (70-99); HEMOLYSIS < 15 (0-50); Potassium 3.8 mmol/L (3.4-5.1); Sodium 137 mmol/L (137-145); Total Protein 7.7 g/dL (6.3-8.2)
[2024-09-15 08:45] VITALS: BP 130/74; PULSE 71; RESP 17; O2SAT 96
[2024-09-15 08:47] LABS: Troponin I < 0.012 ng/mL (0.01-0.034)
[2024-09-15 08:52] LABS: UR Morphine/Opiate cutoff 300 Negative (Negative); Ur Creatinine Normal (Normal); Ur Specific Gravity Normal (Normal); Urine Amphetamines Negative (Negative); Urine Barbiturates Negative (Negative); Urine Benzodiazepines Negative (Negative); Urine Cocaine Negative (Negative); Urine MDMA Negative (Negative); Urine Methadone Negative (Negative); Urine Methamphetamines Negative (Negative); Urine Oxycodone Negative (Negative); Urine Phencyclidine Negative (Negative); Urine Tetrahydrocannabinol Negative (Negative); Urine Tricyclic Antidepressant Negative (Negative); Urine pH Normal (Normal)
[2024-09-15 09:00] VITALS: BP 130/57; PULSE 70; RESP 17; O2SAT 97
--- NOTE | 2024-09-15 10:04 | PC.NURSE ---
patient called to say her medications 2/3 hadn't gone through, informed her to have the pharmacist call us if continued to not transmit, [facility] pharmacist called Verified prescriptions, dr godoy aware.
== END 2024-09-15 09:35 | disposition home or self-care (01) ==
PROVIDERS: Emergency Provider Emergency Medicine; PCP Family Medicine
DX: G51.0 Bell's palsy (principal); R29.701 NIHSS score 1
CPT/HCPCS: 36415; 70450; 70496; 70498; 71045; 80053; 80305; 81003; 82550; 82962; 84484; 85025; 85610; 85730; 93005; 99284; Q9967

== ENCOUNTER 2024-09-17 10:58 | Emergency (ER) | payer OTHER, SELFPAY ==
[2024-09-17 11:12] VITALS: BP 131/60; PULSE 78; RESP 20; TEMP 36.6; O2SAT 97; BMI 26.5
--- NOTE | 2024-09-17 11:47 | ED.NEUROSD ---
HPI - Neuro Symptoms/Deficit <Bev Weaver PA-C - Last Filed: 09/17/24 12:38> General Chief Complaint: Neuro Symptoms/Deficit Stated Complaint: Back from last ER visit, Left side face Numbness Time Seen by Provider: 09/17/24 11:26 Mode of arrival: Ambulatory History of Present Illness HPI Narrative: Ms. 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 Patient states her symptoms started Friday evening with a sensation of tingling on the left side of her tongue. She started developing some facial droop and on Friday she came to the ER and had a head CT, CTA head and neck, lab work and evaluation that was consistent with Quesada's palsy and was therefore started on prednisone, valacyclovir and erythromycin eye ointment. Patient states that she was doing better yesterday however this morning when she woke up and as the day progressed she noticed her left-sided facial droop was actually getting worse and she is having a much harder time blinking in the left eye. She was having a quite severe left-sided headache at the time of her last ER visit which resolved, this morning she is starting to develop a mild posterior left-sided head/neck pressure-like headache as well however it is not severe but she did not have a yesterday. She called her PCP's office who advised she come to the ER. She denies any symptoms besides left side of the face, no upper or lower extremity numbness tingling or weakness, no confusion, no lightheadedness or dizziness, no visual disturbances, no chest pain, shortness of breath, abdominal pain, nausea, vomiting, fevers, chills, pain with range of motion of the neck. On Anticoagulants: No Related Data Home Medications ?Medication ?Instructions ?Recorded ?Confirmed prednisone 10 mg tablet mg PO 09/21/24 09/21/24 Previous Rx's ?Medication ?Instructions ?Recorded prednisone 10 mg tablets in a dose See Rx Instructions PO .COMPLEX 09/15/24 pack #40 ea erythromycin 5 mg/gram (0.5 %) eye 0.5 inch EYE-LEFT TID #3.5 grams 09/21/24 ointment escitalopram oxalate 20 mg tablet See Rx Instructions .Route 09/21/24 .COMPLEX #90 tabs Allergies Allergy/AdvReac Type Severity Reaction Status Date / Time No Known Drug Allergies Allergy Verified 09/15/24 08:21 Review of Systems <Bev Weaver PA-C - Last Filed: 09/17/24 12:38> Review of Systems ROS Unobtainable: All systems reviewed & are unremarkable except as noted in HPI and below Hematologic/Lymphatic On Anticoagulants: No Patient History <Bev Weaver PA-C - Last Filed: 09/17/24 12:38> Medical History Chronic bilateral thoracic back pain Body posture problem Chronic low back pain without sciatica Anxiety Family History Grandfather Diabetes mellitus Father CVA (cerebrovascular accident) Social History marital status: household members: none housing: house occupational status: employed second hand exposure: No alcohol intake: current substance use type: does not use Smoking Status: Never smoker Exam <Bev Weaver PA-C - Last Filed: 09/17/24 12:38> Narrative Exam Narrative: GENERAL: 59 year old patient appears stated age. Well-developed patient, in no acute distress. HEAD: Atraumatic. Normocephalic. No tenderness to palpation of bilateral temples or scalp. EYES: Left eye does not spontaneously blink, difficulty closing left eye. PERRL. Extraocular motions intact. No scleral icterus. No injection or drainage. ENT: Uvula midline. Normal TMs and ear canals bilaterally. Nose without bleeding, purulent drainage. Throat without erythema, tonsillar hypertrophy or exudate. Airway patent. NECK: Trachea midline. Cervical ROM intact. No pain with neck range of motion. CARDIOVASCULAR: Regular rate and rhythm. RESPIRATORY: ?Nonlabored respirations. ?Speaking in clear, full sentences. ?Clear to auscultation. Breath sounds equal bilaterally. No wheezes, rales, or rhonchi. ? EXTREMITIES: No edema or joint tenderness. NEURO: AOx3. ?Left facial droop involving the forehead. Softening of the forehead lines, softening of the left nasolabial fold, difficulty with left eye blinking. Sensation intact to light touch throughout distribution of the trigeminal nerve. Clear speech. ?Moves all 4 extremities appropriately. Normal [id number], no pronator drift, steady gait. SKIN: No rash or erythema of visible areas Initial Vital Signs Initial Vital Signs: Vital Signs Temperature 98 F 09/17/24 11:12 Pulse Rate 78 09/17/24 11:12 Respiratory Rate 20 09/17/24 11:12 Blood Pressure 131/60 09/17/24 11:12 Pulse Oximetry 97 09/17/24 11:12 Oxygen Delivery Method Room Air 09/17/24 11:12 <Deborah Greene DO - Last Filed: 09/27/24 19:18> Initial Vital Signs Initial Vital Signs: Vital Signs Temperature 98 F 09/17/24 11:12 Pulse Rate 78 09/17/24 11:12 Respiratory Rate 20 09/17/24 11:12 Blood Pressure 131/60 09/17/24 11:12 Pulse Oximetry 97 09/17/24 11:12 Oxygen Delivery Method Room Air 09/17/24 11:12 Scores <Bev Weaver PA-C - Last Filed: 09/17/24 12:38> NIH Stroke Scale Level of Conciousness: Alert, keenly responsive Ask month/age: Answers both questions correctly. Open/close eyes, close hand: Performs both tasks correctly Best gaze horizontal: Normal Visual snyder: No visual loss Facial palsy: Minor paralysis, flattened nasolabial fold, asymmetry on smiling Left arm drift: No drift for full 10 sec Right arm drift: No drift for full 10 sec Left leg drift: No drift for full 5 sec Right leg drift: No drift for full 5 sec Limb ataxia: Absent Sensory on face/arms/legs: Normal, no sensory loss Best language: No aphasia, normal Dysarthria: Normal Extinction or inattention: No abnormality Total NIH Stroke scale score: 1 <Deborah Greene DO - Last Filed: 09/27/24 19:18> NIH Stroke Scale Total NIH Stroke scale score: 1 Course <Bev Weaver PA-C - Last Filed: 09/17/24 12:38> Vital Signs Vital signs: Vital Signs - 8 hr 09/17/24 11:12 Temperature 98 F Pulse Rate 78 Respiratory Rate 20 Blood Pressure 131/60 Pulse Oximetry 97 Oxygen Delivery Method Room Air <Deborah Greene DO - Last Filed: 09/27/24 19:18> Vital Signs Vital signs: Vital Signs - 8 hr 09/17/24 11:12 Temperature 98 F Pulse Rate 78 Respiratory Rate 20 Blood Pressure 131/60 Pulse Oximetry 97 Oxygen Delivery Method Room Air MDM - Neuro Symptoms/Deficit <Bev Weaver PA-C - Last Filed: 09/17/24 12:38> Medical Records Attestation: I reviewed the patient's medical records. MDM Narrative Medical decision making narrative: 59 year old female with a past medical history of anxiety on escitalopram, recently diagnosed with Quesada's palsy on 09/15/2024 and started on prednisone, valacyclovir, erythromycin ointment who presents to the emergency department for concerns of worsening left-sided facial droop. Differential diagnosis includes but is not limited to Quesada's palsy, complex migraine, CVA, etc. On exam patient is in no acute distress, nontoxic-appearing, all vital signs within normal limits. She has left facial droop involving the forehead and difficulty closing the left eye. Case discussed [facility] ED attending Dr. Greene who did see patient initially on 09/15. After shared decision-making with ED attending and patient, patient feels reassured at this time that her symptoms are consistent with a Quesada's palsy, we discussed that symptoms do not resolve immediately with medications and it can take many weeks or even months. Discussed MRI brain with the patient, after shared decision-making we will not proceed with the emergent MRI at this time. Discussed signs and symptoms for ED return precautions. We did discuss patient exercises, eye patch, PCP follow up. She does have an appointment on Friday. Patient and verbalized understanding of all information and ED return precautions. They are agreeable to plan and stable for discharge home. Discharge Plan Departure Patient Disposition: Home Clinical Impression: Quesada's palsy Instructions: DI for [place] Palsy Activity Restrictions/Additional Instructions: Dear Ms. Johns, Thank you for coming to the emergency department. Today you were evaluated for worsening left-sided facial droop, at this time your exam is very consistent with Quesada's palsy. Please continue taking your prescribed medications, you may use ibuprofen and Tylenol if needed for pain. Please follow up with your primary care doctor. Please use an eye patch as needed to help keep left eye hydrated and protected. Return to the ER immediately for: Signs of infection, such as fever and chills Nausea and vomiting Lightheadedness Change in vision Weakness or numbness in other places in the body Severe headache or any concerns!!! Please follow up with your primary care doctor within the next 2-3 days for ER follow-up. (If you do not have a PCP you can call [phone]. ?to schedule an appointment with an [facility] Primary Care Provider) IF YOU DEVELOP ANY NEW OR WORSENING SYMPTOMS, RETURN TO THE ER! Please read the attached instructions, they highlight more specific treatments and interventions for you at home. Thank you for letting me participate in your care, Bev Weaver PA-C Prescriptions: No Action prednisone 10 mg tablet PO erythromycin 5 mg/gram (0.5 %) ointment 0.5 inch EYE-LEFT TID Qty: 3.5 3RF escitalopram oxalate 20 mg tablet See Rx Instructions .ROUTE .COMPLEX Qty: 90 3RF Dose Instruction: TAKE ONE TABLET BY MOUTH ONE TIME DAILY Rx Instructions: TAKE ONE TABLET BY MOUTH ONE TIME DAILY prednisone 10 mg tablets,dose pack See Rx Instructions .ROUTE .COMPLEX Qty: 40 0RF Rx Instructions: Take 60 mg p.o. daily x5 days then 50 mg p.o. x1 day, then 40 mg p.o. x1 day, then 30 mg p.o. x1 day, then 20 mg p.o. x1 day then 10 mg p.o. x1 day Referrals: Tana Zuleta MD [Primary Care Provider, [facility]] Stand Alone Forms: Patient Portal/API ED Sign-out <Deborah Greene, DO - Last Filed: 09/27/24 19:18> Cosign ED Attending Nathaliaature Attestation: I was immediately available in the department for consultation. Case was discussed patient has not had any new exam findings did have a workup when she was here the other day and seen by myself. Discussed can offer MR of brain although I suspect more Quesada's palsy but as she was returned would potentially obtain this but patient elected not to pursue again.
== END 2024-09-17 12:43 | disposition home or self-care (01) ==
PROVIDERS: Emergency Provider Physician Assistant; PCP Family Medicine
DX: G51.0 Bell's palsy (principal)
CPT/HCPCS: 99281

== ENCOUNTER → 2025-03-22 13:20 | Outpatient (CLI) | payer OTHER, SELFPAY | LOC: LAB 13:21 | PROVIDERS: PCP Family Medicine; Visit Provider Chiropractor | DX: R30.0 Dysuria (principal) | CPT/HCPCS: 87086 ==